=== PATIENT | male | born 1960 | race African-American/Black ===

== ENCOUNTER 2020-02-13 22:29 | Inpatient (IN) | payer MEDICARE, MEDICAID ==
[~2020-02-13] VITALS: Ht 177.8 cm; Wt 97.3 kg
--- NOTE | 2020-02-13 22:40 | Emergency Room Report ---
History of Present Illness General Chief Complaint: Upper Respiratory Illness Source: Medical Record, EMS Present Illness HPI This is a 60-year-old male, [facility] patient, with multiple medical problems including CVA, A. fib, CAD, hypertension. He tested positive for COVID on February 08, 2020. He has been in isolation at the [facility]. He presents today with fever and shortness of breath. Per EMS, he had a temperature of 102 and has oxygenation at 83% on room air. History is limited this patient because of his condition. History is through [facility] note and EMS. He has been having a cough and fever. No nausea no vomiting. No diarrhea. 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 COVID-19 Screening: Positive COVID-19 COVID-19 Testing Source: NASOPHARYNGEAL Patient History Past Medical History: see triage record, old chart reviewed Past Surgical History: other Pertinent Family History: none Social History: Denies: smoking Immunizations: UTD Reviewed Nursing Documentation: PMH: Agreed; PSxH: Agreed Nursing Documentation-PMH Hx Cardiac Problems: Yes - CARDIOMEGALY; HLD; PAROXYSMAL AFIB Hx Pacemaker: Yes Hx COPD: No - PULM HTN Hx Dialysis: No - CKD History Of Psychiatric Problem: Yes - ANA PAULA; MDD; SCHICO AFFECTIVE Hx Neurological Problems: Yes - APHASIA Hx Cerebrovascular Accident: Yes Review of Systems Constitutional: Reports: fever Eye: Denies: eye pain, blurred vision ENT: Denies: ear pain, nose congestion, throat swelling Respiratory: Reports: cough, shortness of breath Cardiovascular: Denies: chest pain, palpitations Gastrointestinal: Denies: abdominal pain, diarrhea, nausea, vomiting Musculoskeletal: Denies: back pain, joint pain Skin: Denies: rash Neurological: Denies: headache, numbness Endocrine: Denies: increased thirst, increased urine Hematologic/Lymphatic: Denies: easy bruising All Other Systems: negative except mentioned in HPI Physical Exam Vital Signs Date Time Temp Pulse Resp B/P (MAP) Pulse Ox O2 Delivery O2 Flow Rate FiO2 02/13/20 22:21 99.5 73 26 141/82 (101) 95 Non-Rebreather 15.0 Vitals with fever and hypoxia Sp02 EP Interpretation: reviewed, abnormal General Appearance: well appearing, no apparent distress, alert Head: normocephalic, atraumatic Eyes: bilateral eye PERRL, bilateral eye EOMI ENT: hearing grossly normal, normal pharynx Neck: full range of motion, supple, no meningismus Respiratory: chest non-tender, respiratory distress, decreased breath sounds, accessory muscle use, crackles Cardiovascular #1: regular rate, rhythm, no murmur Gastrointestinal: normal bowel sounds, non tender, no mass, no organomegaly, no bruit, non-distended Musculoskeletal: back normal, normal range of motion Psychiatric: mood/affect normal Skin: no rash Procedures Critical Care Time Critical Care Time Critical care is mandated in this patient who presented with sepsis from covid pneumonia. Patient require my urgent intervention to attenuate the risks of () which may lead to cardiovascular collapse and . Critical care time is 35 minutes excluding any reportable procedure. Critical care time included evaluation, multiple reevaluation, looking at old charts, interpreting laboratory and diagnostic data, discussing case with patient and family and consultants, and charting. Medical Decision Making Diagnostic Impression: Primary Impression: Pneumonia due to COVID-19 virus Additional Impressions: Respiratory failure with hypoxia Qualified Codes: J96.01 - Acute respiratory failure with hypoxia Sepsis Qualified Codes: A41.9 - Sepsis, unspecified organism; R65.20 - Severe sepsis without septic shock; J96.01 - Acute respiratory failure with hypoxia SHANNAN (acute kidney injury) ER Course This patient presents with respiratory failure with hypoxia secondary to cold with pneumonia. Oxygenation better after oxygen. Antibiotics started on patient. He also received Lovenox and Decadron. Prognosis poor with his comorbidities and obesity. Patient will be admitted to the hospital for further work-up. I contacted Dr. Lee for admission. EKG Diagnostic Results Rate: tachycardiac Rhythm: other - LBBB Rhythm Strip Diag. Results EP Interpretation: yes Rate: 100 Rhythm: NSR, no PVC's, no ectopy Chest X-Ray Diagnostic Results Chest X-Ray Diagnostic Results : Chest X-Ray Ordered: Yes # of Views/Limited/Complete: 1 View Indication: Shortness of Breath EP Interpretation: Yes Interpretation: no effusion, no pneumothorax, other - Bilateral infiltrates Impression: Other - b/l infiltrates Electronically Signed by: Kenny Ceja MD Last Vital Signs Date Time Temp Pulse Resp B/P (MAP) Pulse Ox O2 Delivery O2 Flow Rate FiO2 02/13/20 22:21 99.5 73 26 141/82 (101) 95 Non-Rebreather 15.0 Status: improved Disposition: ADMITTED INPATIENT Condition: Serious Kenny Ceja MD Feb 13, 2020 22:40
[2020-02-13] MEDS ORDERED: Enoxaparin 100mg Inj SUBQ ONE (22:45)
[2020-02-13] MEDS ORDERED: Azithromycin 500 MG in NS 275 ML IVPB ONE (22:45)
[2020-02-13] MEDS ORDERED: dexAMETHasone 10mg/ml Inj IV ONE (22:45)
[2020-02-13] MEDS ORDERED: cefTRIAXone 1 GM in NS 55 ML IV ONE (22:45)
[2020-02-13] MEDS ORDERED: Acetaminophen 500mg (ES) tab ORAL ONE (22:45)
[2020-02-13 23:00] VITALS: BP 128/87
[2020-02-13 23:24] LABS: APPEARANCE,URINE CLEAR; BILIRUBIN, URINE NEGATIVE (NEGATIVE); GLUCOSE, URINE (UA) NEGATIVE (NEGATIVE); KETONES,URINE NEGATIVE (NEGATIVE); LEUKOCYTE ESTERASE ,URINE 1+ (NEGATIVE); NITRITE,URINE NEGATIVE (NEGATIVE); PH,URINE 5 (4.5-8.0); PROTEIN,URINE 2+ (NEGATIVE); UROBILINOGEN,URINE 4 MG/DL (0.0-1.0)
[2020-02-13 23:35] LABS: COLOR,URINE YELLOW
[2020-02-13 23:37] LABS: BASOPHILS % (AUTO) 1.8 % (0.0-2.0); EOSINOPHILS % (AUTO) 0.2 % (0.0-3.0); HEMATOCRIT 43.4 % (42.0-52.0); HEMOGLOBIN 14.4 G/DL (14.2-18.0); LYMPHOCYTES % (AUTO) 18.5 % (20.0-45.0); MEAN CORPUSCULAR VOLUME 98 FL (80-99); MONOCYTES % (AUTO) 2.2 % (1.0-10.0); NEUTROPHILS % (AUTO) 77.3 % (45.0-75.0); PLATELET COUNT 145 K/UL (150-450); RED BLOOD COUNT 4.42 M/UL (4.70-6.10); RED CELL DISTRIBUTION WIDTH 13.5 % (11.6-14.8); WHITE BLOOD COUNT 7.1 K/UL (4.8-10.8)
[2020-02-13] MEDS ORDERED: Acetaminophen 650 MG SUPP ORAL PRN (23:45)
[2020-02-13 23:52] LABS: ALANINE AMINOTRANSFERASE 31 U/L (12-78); ALBUMIN 3.3 G/DL (3.4-5.0); ALBUMIN/GLOBULIN RATIO 0.6 (1.0-2.7); ALKALINE PHOSPHATASE 54 U/L (46-116); ASPARTATE AMINO TRANSFERASE 36 U/L (15-37); BILIRUBIN,TOTAL 0.4 MG/DL (0.2-1.0); BLOOD UREA NITROGEN 26 mg/dL (7-18); CARBON DIOXIDE 27 MMOL/L (21-32); CHLORIDE 104 MMOL/L (98-107); CREATININE 2.1 MG/DL (0.55-1.30); FERRITIN 814 NG/ML (8-388); LACTATE DEHYDROGENASE 347 U/L (81-234); POTASSIUM 4.4 MMOL/L (3.5-5.1); SODIUM 143 MMOL/L (136-145)
--- NOTE | 2020-02-13 23:55 | Emergency Room Report ---
Sepsis Event Note Evaluation Current Stage of Sepsis: Sepsis Possible Source: Pulmonary Focused Exam Allergies: Coded Allergies: DONNIE INHIBITORS (Verified Allergy, Unknown, 02/13/20) OMEGA-3 ACID ETHYL ESTERS (Verified Allergy, Unknown, 02/13/20) Date Exam Occurred: Feb 13, 2020 Time Exam Occurred: 23:55 Laboratory Studies Laboratory Tests Test 02/13/20 23:00 White Blood Count 7.1 K/UL (4.8-10.8) Red Blood Count 4.42 M/UL (4.70-6.10) L Hemoglobin 14.4 G/DL (14.2-18.0) Hematocrit 43.4 % (42.0-52.0) Mean Corpuscular Volume 98 FL (80-99) Mean Corpuscular Hemoglobin 32.7 PG (27.0-31.0) H Mean Corpuscular Hemoglobin Concent 33.3 G/DL (32.0-36.0) Red Cell Distribution Width 13.5 % (11.6-14.8) Platelet Count 145 K/UL (150-450) L Mean Platelet Volume 11.0 FL (6.5-10.1) H Neutrophils (%) (Auto) 77.3 % (45.0-75.0) H Lymphocytes (%) (Auto) 18.5 % (20.0-45.0) L Monocytes (%) (Auto) 2.2 % (1.0-10.0) Eosinophils (%) (Auto) 0.2 % (0.0-3.0) Basophils (%) (Auto) 1.8 % (0.0-2.0) Prothrombin Time Pending Prothromb Time International Ratio Pending Activated Partial Thromboplast Time Pending D-Dimer Pending Urine Color Yellow Urine Appearance Clear Urine pH 5 (4.5-8.0) Urine Specific [place] 1.020 (1.005-1.035) Urine Protein 2+ (NEGATIVE) H Urine Glucose (UA) Negative (NEGATIVE) Urine Ketones Negative (NEGATIVE) Urine Blood Negative (NEGATIVE) Urine Nitrite Negative (NEGATIVE) Urine Bilirubin Negative (NEGATIVE) Urine Urobilinogen 4 MG/DL (0.0-1.0) H Urine Leukocyte Esterase 1+ (NEGATIVE) H Urine RBC 0-2 /HPF (0 - 0) H Urine WBC 0-2 /HPF (0 - 0) Urine Squamous Epithelial Cells None /LPF (NONE/OCC) Urine Bacteria None /HPF (NONE) Sodium Level 143 MMOL/L (136-145) Potassium Level 4.4 MMOL/L (3.5-5.1) Chloride Level 104 MMOL/L (98-107) Carbon Dioxide Level 27 MMOL/L (21-32) Blood Urea Nitrogen 26 mg/dL (7-18) H Creatinine 2.1 MG/DL (0.55-1.30) H Estimat Glomerular Filtration Rate 39.1 mL/min (>60) Glucose Level 148 MG/DL (74-106) H Lactic Acid Level 3.20 mmol/L (0.4-2.0) H Calcium Level 9.0 MG/DL (8.5-10.1) Ferritin 814 NG/ML (8-388) H Total Bilirubin 0.4 MG/DL (0.2-1.0) Aspartate Amino Transf (AST/SGOT) 36 U/L (15-37) Alanine Aminotransferase (ALT/SGPT) 31 U/L (12-78) Alkaline Phosphatase 54 U/L (46-116) Lactate Dehydrogenase 347 U/L (81-234) H Troponin I 0.085 ng/mL (0.000-0.056) C-Reactive Protein, Quantitative 17.6 mg/dL (0.00-0.90) H Total Protein 8.6 G/DL (6.4-8.2) H Albumin 3.3 G/DL (3.4-5.0) L Globulin 5.3 g/dL Albumin/Globulin Ratio 0.6 (1.0-2.7) L Vital Signs Last 24 Hour Vital Signs Date Time Temp Pulse Resp B/P (MAP) Pulse Ox O2 Delivery O2 Flow Rate FiO2 02/13/20 22:21 99.5 73 26 141/82 (101) 95 Non-Rebreather 15.0 Respiratory Exam: Rhonchi Cardiovascular Exam: RRR Capillary Refill: Less Than 2 Seconds Peripheral Pulse: Strong Pulse Location: Radial Skin Exam: Normal [place] Kenny Ceja MD Feb 13, 2020 23:55
[2020-02-14] MEDS ORDERED: Acetaminophen 500mg (ES) tab ORAL PRN (00:30)
[2020-02-14 01:40] VITALS: BP 123/74
[2020-02-14] MEDS ORDERED: AMIODARONE HCL400 M1 ORAL (02:23)
[2020-02-14] MEDS ORDERED: ASPIRIN81 MG ORAL (02:37)
[2020-02-14] MEDS ORDERED: COZAAR50 MG ORAL (02:37)
[2020-02-14] MEDS ORDERED: FUROSEMIDE20 M1 ORAL (02:37)
[2020-02-14] MEDS ORDERED: MULTIVITAMINS1 EAC8 ORAL (02:37)
[2020-02-14] MEDS ORDERED: ZYPREXA10 MG ORAL (02:37)
[2020-02-14] MEDS ORDERED: METOPROLOL TART25 MG ORAL (02:37)
[2020-02-14] MEDS ORDERED: LIPITOR40 MG ORAL (02:37)
[2020-02-14] MEDS ORDERED: OMEPRAZOLE20 M2 ORAL (02:47)
[2020-02-14] MEDS ORDERED: ZINC SULFATE220 M1 ORAL (02:47)
[2020-02-14] MEDS ORDERED: VITAMIN C500 M1 ORAL (02:47)
[2020-02-14] MEDS ORDERED: SENNA8.6 M2 PO (02:47)
[2020-02-14 04:00] VITALS: BP 121/86
[2020-02-14 08:00] VITALS: BP 123/80
[2020-02-14] MEDS ORDERED: Azithromycin 250 MG in D5W 275 ML IVPB SCH (09:00)
[2020-02-14] MEDS ORDERED: cefTRIAXone 1 GM in D5W 55 ML IVPB SCH (09:00)
[2020-02-14 09:34] LABS: CREATINE KINASE 383 U/L (26-308)
[2020-02-14] MEDS ORDERED: Miralax 17gm pkt ORAL PRN (10:00)
[2020-02-14] MEDS ORDERED: Tylenol #3 tab (300mg/30mg) ORAL SCH (10:00)
[2020-02-14] MEDS ORDERED: Promethazine/Codeine 5ml UD ORAL PRN (10:00)
[2020-02-14] MEDS ORDERED: Albuterol/Ipratropium 3ml neb HHN PRN (10:00)
[2020-02-14] MEDS: Heparin 5000 units/ml inj SUBQ SCH ×2 (10:17→21:02)
--- NOTE | 2020-02-14 11:00 | Consultation ---
Consult Note Consult Note I am asked to evaluate the patient at the request of Dr. Lee for renal failure Data reviewed. Patient seen and examined. Full note to follow. Preliminary labs ordered. This is a 60-year-old male, [facility] patient, with multiple medical problems including CVA, A. fib, CAD, hypertension. He tested positive for COVID on February 08, 2020. [facility] has been in [facility] at the [facility]. He presents today with fever and shortness of breath. Per EMS, he had a temperature of 102 and has oxygenation at 83% on room air. History is limited this patient because of his condition. History is through [facility] note and EMS. He has been having a cough and fever. No nausea no vomiting. No diarrhea. 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 The patient was examined by other physicians, which notes I reviewed. VITAL SIGNS: Temperature 99.5, respiration of 26, pulse rate of 73. GENERAL: Young to be a well-nourished gentleman, no distress. NECK: Supple. No adenopathy. LUNGS: Appeared to be clear to auscultation bilaterally without wheezes or rales. CARDIAC: Regular rate and rhythm. ABDOMEN: Soft, nontender. Bowel sounds were present and extremity was negative for clubbing, cyanosis, or edema according to Dr. Carrera's notation. LABORATORY AND DIAGNOSTIC DATA: White count of 10.3, hemoglobin 13.2, and platelet count of 142. Sodium is 141, potassium 4.1, chloride 106, bicarb 22, BUN 22, creatinine 1.7, and a glucose of 185. A1c of 6.8. Lactic acid of 3.2, subsequent 2.2. Calcium was 7.6, magnesium 1.9, and liver function tests are relatively normal, although AST was mildly elevated at 93 and ALT of 71. Total CK of 383. He did have 1 set of cardiac enzymes that were drawn at 0.085. This goes back to last evening and a proBNP of 6100. Albumin was down to 2.7 and total cholesterol was 93 and LDL of 46 and HDL of 27. Vitamin B12 was 788. TSH is 0.46 and folic acid is 10.3. The patient's telemetry data was reviewed and appears to be sinus with the IVCD. The patient's electrocardiogram was also sinus with the IVCD, cannot exclude that this was actually a paced rhythm. Chest x-ray shows cardiomegaly with vascular congestion and moderate edema. SARS-CoV-2 PCR rapid was positive. . Assessment/Plan Impression: Acute on chronic renal failure Respiratory failure with hypoxia Pneumonia due to COVID-19 virus Sepsis Diabetes mellitus with elevated hemoglobin A1c Anemia History of permanent pacemaker, paroxysmal atrial fibrillation Previous CVA History of pulmonary hypertension Systemic hypertension Plan: Slow hydration Monitor electrolytes and renal parameters Monitor urine output Correct abnormal electrolytes Antibiotics, avoid nephrotoxic's Anemia work-up Per orders Ashvin Bautista MD Feb 14, 2020 11:00
--- NOTE | 2020-02-14 11:23 | Diagnostic Imaging Report ---
Procedure: XRAY Chest 1v Reason for study: Reason For Exam: SOB Comparison films: None. FINDINGS: There is an ICD in place. Basilar congestion and moderate edema noted. There is massive cardiomegaly. No large effusion seen. The bony thorax appear unremarkable. IMPRESSION: Cardiomegaly with vascular congestion and moderate edema.
[2020-02-14 12:00] VITALS: BP 127/82
--- NOTE | 2020-02-14 12:23 | History & Physical ---
History and Physical History & Physicial Dictated for Int Med-DR Lee no. [id number] Edmund Carrera MD Feb 14, 2020 12:23
[2020-02-14 12:55] LABS: HEMATOCRIT 41.7 % (42.0-52.0); HEMOGLOBIN 13.2 G/DL (14.2-18.0); MEAN CORPUSCULAR VOLUME 103 FL (80-99); PLATELET COUNT 142 K/UL (150-450); RED BLOOD COUNT 4.06 M/UL (4.70-6.10); RED CELL DISTRIBUTION WIDTH 13.6 % (11.6-14.8); WHITE BLOOD COUNT 10.3 K/UL (4.8-10.8)
[2020-02-14 13:02] LABS: ANION GAP 13 mmol/L (5-15); BLOOD UREA NITROGEN 22 mg/dL (7-18); CALCIUM 7.6 MG/DL (8.5-10.1); CARBON DIOXIDE 22 MMOL/L (21-32); CHLORIDE 106 MMOL/L (98-107); CREATININE 1.7 MG/DL (0.55-1.30); POTASSIUM 4.1 MMOL/L (3.5-5.1); SODIUM 141 MMOL/L (136-145)
[2020-02-14 13:14] LABS: ALANINE AMINOTRANSFERASE 71 U/L (12-78); ALBUMIN 2.7 G/DL (3.4-5.0); ALBUMIN/GLOBULIN RATIO 0.6 (1.0-2.7); ALKALINE PHOSPHATASE 46 U/L (46-116); ASPARTATE AMINO TRANSFERASE 93 U/L (15-37); BILIRUBIN,TOTAL 0.3 MG/DL (0.2-1.0); CHOLESTEROL 93 MG/DL (< 200); GAMMA GLUTAMYL TRANSPEPTIDASE 37 U/L (5-85); HDL CHOLESTEROL 27 MG/DL (40-60); PHOSPHORUS 2.3 MG/DL (2.5-4.9); TRIGLYCERIDES 112 MG/DL (30-150)
[2020-02-14 13:39] LABS: % IRON SATURATION 14 % (15-50); IRON 20 ug/dL (50-175); TOTAL IRON BINDING CAPACITY 148 ug/dL (250-450)
--- NOTE | 2020-02-14 15:17 | Consultation ---
History of Present Illness General Date patient seen: Feb 14, 2020 Chief Complaint: Upper Respiratory Illness Present Illness HPI 60 y/o M with hx of CVA w/ resultant aphasia, Afib, HLD, general anxiety disorder, schizoaffective disorder-depressive type, cardiomegaly, pAfib, pHTN, CKD, CAD, HTN, COVID19 positive (dx'ed 02/08/20), [place] presented to ED on 02/13/20 with fever (up to 102), SOB, cough and hypoxia (83 at RA). No n/v/d. Allergies: Coded Allergies: DONNIE INHIBITORS (Verified Allergy, Unknown, 02/13/20) OMEGA-3 ACID ETHYL ESTERS (Verified Allergy, Unknown, 02/13/20) Medication History Scheduled Acetaminophen (Acetaminophen), 650 MG [place] Q4HR, (Reported) Amiodarone Hcl* (Amiodarone Hcl*), 200 MG ORAL DAILY, (Reported) Ascorbic Acid* (Vitamin C*), 1,000 MG ORAL DAILY, (Reported) Aspirin* (Aspirin*), 81 MG ORAL DAILY, (Reported) Atorvastatin Calcium* (Lipitor*), 40 MG ORAL BEDTIME, (Reported) Azithromycin (Azithromycin), 500 MG ORAL DAILY, (Reported) Ceftriaxone Sodium (Ceftriaxone), 1 GM IV BEDTIME, (Reported) Furosemide* (Lasix*), 20 MG ORAL DAILY, (Reported) Guaifenesin* (Guaifenesin*), 15 ML ORAL TID, (Reported) Losartan Potassium* (Cozaar*), 50 MG ORAL TWICE A DAY, (Reported) Metoprolol Tartrate* (Metoprolol Tartrate*), 25 MG ORAL EVERY 12 HOURS, (Reported) Multivitamin With Minerals (Multivitamins With Minerals*), 1 TAB ORAL DAILY, (Reported) Olanzapine* (Zyprexa*), 10 MG ORAL EVERY 12 HOURS, (Reported) Omeprazole (Omeprazole), 20 MG ORAL DAILY, (Reported) Potassium Chloride (Potassium Chloride), 10 MEQ PO DAILY, (Reported) Prednisone* (Prednisone*), 10 MG ORAL DAILY, (Reported) Quetiapine Fumarate* (Seroquel*), 100 MG ORAL BID, (Reported) Sennosides (Senna), 8.6 MG PO BEDTIME, (Reported) Venlafaxine Hcl* (Venlafaxine Hcl*), 75 MG ORAL BID, (Reported) Zinc Sulfate (Zinc Sulfate*), 220 MG ORAL DAILY, (Reported) Scheduled PRN Acetaminophen* (Acetaminophen 325MG Tablet*), 325 MG ORAL Q4H PRN for FEVER, (Reported) Melatonin (Melatonin), 1 MG SL BEDTIME PRN for Insomnia, (Reported) Patient History Healthcare decision maker Resuscitation status Advanced Directive on File Patient History Narrative Pmhx: as above Shx: reviewed Fhx: non contributory Review of Systems All Other Systems: negative except mentioned in HPI Physical Exam Physical Exam Narrative Gen: no distress Respiratory Exam: Rhonchi Cardiovascular Exam: RRR Skin Exam: Normal Turgor Last 24 Hour Vital Signs Date Time Temp Pulse Resp B/P (MAP) Pulse Ox O2 Delivery O2 Flow Rate FiO2 02/14/20 12:00 82 02/14/20 12:00 97.8 84 20 127/82 (97) 95 02/14/20 09:00 Nasal Cannula 4.0 02/14/20 08:00 87 02/14/20 08:00 98.1 87 20 123/80 (94) 94 02/14/20 04:00 97.7 94 22 121/86 (98) 94 02/14/20 04:00 88 02/14/20 01:40 98.2 100 22 123/74 (90) 95 02/14/20 01:34 100 02/14/20 01:28 Nasal Cannula 4.0 02/13/20 23:00 98.0 101 18 128/87 97 Nasal Cannula 4.0 02/13/20 23:00 101 18 Nasal Cannula 4.0 02/13/20 23:00 98.0 101 18 128/87 97 Nasal Cannula 4.0 02/13/20 22:21 99.5 73 26 141/82 (101) 95 Non-Rebreather 15.0 Intake and Output 02/13/20 02/14/20 19:00 07:00 Intake Total 150 ml Balance 150 ml Intake Oral 150 ml # Voids 1 # Bowel Movements 2 Laboratory Tests Test 02/13/20 23:00 02/14/20 00:00 02/14/20 12:00 White Blood Count 7.1 K/UL (4.8-10.8) 10.3 K/UL (4.8-10.8) Red Blood Count 4.42 M/UL (4.70-6.10) L 4.06 M/UL (4.70-6.10) L Hemoglobin 14.4 G/DL (14.2-18.0) 13.2 G/DL (14.2-18.0) L Hematocrit 43.4 % (42.0-52.0) 41.7 % (42.0-52.0) L Mean Corpuscular Volume 98 FL (80-99) 103 FL (80-99) H Mean Corpuscular Hemoglobin 32.7 PG (27.0-31.0) H 32.6 PG (27.0-31.0) H Mean Corpuscular Hemoglobin Concent 33.3 G/DL (32.0-36.0) 31.7 G/DL (32.0-36.0) L Red Cell Distribution Width 13.5 % (11.6-14.8) 13.6 % (11.6-14.8) Platelet Count 145 K/UL (150-450) L 142 K/UL (150-450) L Mean Platelet Volume 11.0 FL (6.5-10.1) H 9.5 FL (6.5-10.1) Neutrophils (%) (Auto) 77.3 % (45.0-75.0) H % (45.0-75.0) Lymphocytes (%) (Auto) 18.5 % (20.0-45.0) L % (20.0-45.0) Monocytes (%) (Auto) 2.2 % (1.0-10.0) % (1.0-10.0) Eosinophils (%) (Auto) 0.2 % (0.0-3.0) % (0.0-3.0) Basophils (%) (Auto) 1.8 % (0.0-2.0) % (0.0-2.0) Prothrombin Time 10.8 SEC (9.30-11.50) Prothromb Time International Ratio 1.0 (0.9-1.1) Activated Partial Thromboplast Time 29 SEC (23-33) D-Dimer 14.52 mg/L FEU (0.00-0.49) H Urine Color Yellow Urine Appearance Clear Urine pH 5 (4.5-8.0) Urine Specific [place] 1.020 (1.005-1.035) Urine Protein 2+ (NEGATIVE) H Urine Glucose (UA) Negative (NEGATIVE) Urine Ketones Negative (NEGATIVE) Urine Blood Negative (NEGATIVE) Urine Nitrite Negative (NEGATIVE) Urine Bilirubin Negative (NEGATIVE) Urine Urobilinogen 4 MG/DL (0.0-1.0) H Urine Leukocyte Esterase 1+ (NEGATIVE) H Urine RBC 0-2 /HPF (0 - 0) H Urine WBC 0-2 /HPF (0 - 0) Urine Squamous Epithelial Cells None /LPF (NONE/OCC) Urine Bacteria None /HPF (NONE) Sodium Level 143 MMOL/L (136-145) 141 MMOL/L (136-145) Potassium Level 4.4 MMOL/L (3.5-5.1) 4.1 MMOL/L (3.5-5.1) Chloride Level 104 MMOL/L (98-107) 106 MMOL/L (98-107) Carbon Dioxide Level 27 MMOL/L (21-32) 22 MMOL/L (21-32) Blood Urea Nitrogen 26 mg/dL (7-18) H 22 mg/dL (7-18) H Creatinine 2.1 MG/DL (0.55-1.30) H 1.7 MG/DL (0.55-1.30) H Estimat Glomerular Filtration Rate 39.1 mL/min (>60) 49.9 mL/min (>60) Glucose Level 148 MG/DL (74-106) H 185 MG/DL (74-106) H Lactic Acid Level 3.20 mmol/L (0.4-2.0) H 2.20 mmol/L (0.66-2.22) Calcium Level 9.0 MG/DL (8.5-10.1) 7.6 MG/DL (8.5-10.1) L Ferritin 814 NG/ML (8-388) H Total Bilirubin 0.4 MG/DL (0.2-1.0) 0.3 MG/DL (0.2-1.0) Aspartate Amino Transf (AST/SGOT) 36 U/L (15-37) 93 U/L (15-37) H Alanine Aminotransferase (ALT/SGPT) 31 U/L (12-78) 71 U/L (12-78) Alkaline Phosphatase 54 U/L (46-116) 46 U/L (46-116) Lactate Dehydrogenase 347 U/L (81-234) H Troponin I 0.085 ng/mL (0.000-0.056) C-Reactive Protein, Quantitative 17.6 mg/dL (0.00-0.90) H 20.2 mg/dL (0.00-0.90) H Total Protein 8.6 G/DL (6.4-8.2) H 7.5 G/DL (6.4-8.2) Albumin 3.3 G/DL (3.4-5.0) L 2.7 G/DL (3.4-5.0) L Globulin 5.3 g/dL 4.8 g/dL Albumin/Globulin Ratio 0.6 (1.0-2.7) L 0.6 (1.0-2.7) L Uric Acid 6.5 MG/DL (2.6-7.2) 5.7 MG/DL (2.6-7.2) Total Creatine Kinase 383 U/L (26-308) H Differential Total Cells Counted 100 Neutrophils % (Manual) 91 % (45-75) H Lymphocytes % (Manual) 5 % (20-45) L Monocytes % (Manual) 3 % (1-10) Eosinophils % (Manual) 0 % (0-3) Basophils % (Manual) 0 % (0-2) Band Neutrophils 1 % (0-8) Platelet Estimate Decreased L Platelet Morphology Normal Anisocytosis 1+ Macrocytosis 1+ Anion Gap 13 mmol/L (5-15) Hemoglobin A1c 6.8 % (4.3-6.0) H Phosphorus Level 2.3 MG/DL (2.5-4.9) L Magnesium Level 1.9 MG/DL (1.8-2.4) Iron Level 20 ug/dL (50-175) L Total Iron Binding Capacity 148 ug/dL (250-450) L Percent Iron Saturation 14 % (15-50) L Unsaturated Iron Binding 128 ug/dL (112-346) Gamma Glutamyl Transpeptidase 37 U/L (5-85) Pro-B-Type Natriuretic Peptide 6140 pg/mL (0-125) H Triglycerides Level 112 MG/DL (30-150) Cholesterol Level 93 MG/DL (< 200) LDL Cholesterol 46 mg/dL (<100) HDL Cholesterol 27 MG/DL (40-60) L Cholesterol/HDL Ratio 3.4 (3.3-4.4) Vitamin B12 Level 788 PG/ML (193-986) Folate 10.3 NG/ML (8.6-58.9) Thyroid Stimulating Hormone (TSH) 0.746 uiU/mL (0.358-3.740) Height (Feet): 5 Height (Inches): 10.00 Weight (Pounds): 231 Medications Current Medications Medications (Trade) Dose Ordered Sig/Reji Route PRN Reason Start Time Stop Time Status Last Admin Dose Admin Acetaminophen (Tylenol) 500 mg Q4H PRN ORAL Mild Pain (Pain Scale 1-3) 02/14/20 00:30 03/15/20 00:29 Acetaminophen (Tylenol) 650 mg Q4H PRN ORAL FEVER 02/14/20 10:00 03/15/20 09:59 Albuterol/ Ipratropium (Albuterol/ Ipratropium) 3 ml Q4H PRN HHN Shortness of Breath 02/14/20 10:00 02/19/20 09:59 Azithromycin 250 mg/Dextrose 275 ml @ 275 mls/hr Q24HRS IV 02/14/20 23:00 02/19/20 22:59 Ceftriaxone Sodium 1 gm/ Dextrose 55 ml @ 110 mls/hr Q24H IVPB 02/14/20 23:00 02/21/20 22:59 Dexamethasone (Decadron) 4 mg DAILY ORAL 02/14/20 09:00 02/24/20 08:59 02/14/20 10:12 Dextrose (Dextrose 50%) 25 ml Q30M PRN IV Hypoglycemia 02/14/20 10:00 05/14/20 09:59 Dextrose (Dextrose 50%) 50 ml Q30M PRN IV Hypoglycemia 02/14/20 10:00 05/14/20 09:59 Heparin Sodium (Porcine) (Heparin 5000 units/ml) 5,000 units EVERY 12 HOURS SUBQ 02/14/20 10:00 03/30/20 09:59 02/14/20 10:17 Ondansetron HCl (Zofran) 4 mg Q6H PRN IVP Nausea & Vomiting 02/14/20 10:00 03/15/20 09:59 Pantoprazole (Protonix) 40 mg EVERY 12 HOURS IVP 02/14/20 21:00 03/15/20 20:59 Polyethylene Glycol (Miralax) 17 gm DAILYPRN PRN ORAL Constipation 02/14/20 10:00 03/15/20 09:59 Promethazine HCl/ Codeine (Phenergan with Codeine) 5 ml Q6H PRN ORAL cough 02/14/20 10:00 03/15/20 09:59 Sodium Chloride 1,000 ml @ 75 mls/hr [id number] IV 02/14/20 12:00 03/15/20 11:59 02/14/20 12:00 Assessment/Plan Assessment/Plan: Abx: Ceftriaxone 02/12- Azithromycin 02/12- Assessment: COVID19 positive (dx'ed 02/08/20)- likely PNA Acute hypoxic resp failure- sp NRB> 4l NC -02/12 CXR: Cardiomegaly with vascular congestion and moderate edema. 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 Will continue to follow along with you. Discussed with Heather Castro M.D. Feb 14, 2020 15:17
[2020-02-14] MEDS ORDERED: TYLENOL650 MG PR (15:41)
[2020-02-14] MEDS ORDERED: ACETAMINOPHEN325 M1 ORAL (15:44)
[2020-02-14] MEDS ORDERED: GUAIFENESI100 MG/5 M ORAL (15:48)
[2020-02-14] MEDS ORDERED: MELATONIN1 M1 SL (15:51)
[2020-02-14] MEDS ORDERED: POTASSIUM CHLO10 ME2 PO (15:54)
[2020-02-14] MEDS ORDERED: PREDNISONE10 MG ORAL (15:58)
--- NOTE | 2020-02-14 15:59 | History and Physical Report ---
DATE OF ADMISSION: 02/13/2020 CHIEF COMPLAINT: The patient is a 60-year-old male who presents with a chief complaint of fever and shortness of breath. HISTORY OF PRESENT ILLNESS: The patient is a resident of [facility]. The patient apparently tested positive for COVID-19 on February 08, 2020 at [facility]. [facility] at the [facility]. According to staff at [facility], the patient began to experience fevers of up to 102 degrees Fahrenheit on February 13, 2020. The patient was also noted to have hypoxia with oxygen saturation down to 83% on room air. The patient was transferred to [facility] for evaluation. The patient was admitted for fever and shortness of breath to rule out COVID-19 pneumonia. REVIEW OF SYSTEMS: Unable to assess secondary to the patient's mental status. PAST MEDICAL HISTORY: Significant for. 1. Hypertension. 2. COVID-19 positive, diagnosed on February 08, 2020 as above. 3. Cerebrovascular disease status post cerebrovascular accident. 4. Aphasia. 5. Hemiparesis. 6. Coronary artery disease. 7. Hypercholesterolemia. 8. Cardiomyopathy. 9. Paroxysmal atrial fibrillation. 10. Schizoaffective disorder, bipolar type. 11. Chronic kidney disease. PAST SURGICAL HISTORY: Significant for pacemaker implantation. CURRENT MEDICATIONS: 1. Tylenol 650 mg p.o. q.4 hours p.r.n. 2. Aspirin 81 mg p.o. daily. 3. Cozaar 50 mg p.o. daily. 4. Furosemide 20 mg p.o. daily. 5. Lipitor 40 mg p.o. at bedtime. 6. Metoprolol 25 mg p.o. twice daily. 7. Multivitamin p.o. daily. 8. Olanzapine 10 mg p.o. twice daily. 9. Omeprazole 20 mg p.o. daily. 10. Potassium 10 mEq p.o. daily. 11. Prednisone 20 mg p.o. daily. 12. Seroquel 100 mg p.o. twice daily. 13. Venlafaxine 75 mg p.o. twice daily. 14. Zinc mg p.o. daily. ALLERGIES: 1. DONNIE inhibitor. 2. [place]-3 acid. SOCIAL HISTORY: The patient is and is a resident of [facility]. The patient denies tobacco or alcohol use. PHYSICAL EXAMINATION: VITAL SIGNS: Temperature 99.5, respirations 26, pulse 73, blood pressure , oxygen saturation 95% on 100% non-rebreather. GENERAL: The patient is well-developed and well-nourished male, no apparent distress. HEENT: Eyes, pupils are equal and responsive to light and accommodation. Extraocular movements are intact. NECK: Supple without lymphadenopathy. CHEST: Lungs are clear to auscultation bilaterally without wheezes or rales. CARDIOVASCULAR: Regular rhythm and rate. S1 and S2 are normal without murmurs, rubs, or gallops. ABDOMEN: Soft, nontender, and nondistended. Positive bowel sounds. No evidence of hepatosplenomegaly. Currently, no rebound or guarding noted. EXTREMITIES: Negative for clubbing, cyanosis, or edema. RECTAL/GENITAL: Not performed. NEUROLOGIC: Cranial nerves II through XII are grossly intact without focal deficits. Motor strength is 5/5 bilaterally. Deep tendon reflexes are 2+ plantar. LABORATORY AND DIAGNOSTIC DATA: Laboratory studies, WBC 7.1, hemoglobin 14.4, hematocrit 43.4, platelets 145,000. Sodium 143, potassium 4.4, chloride 104, CO2 27, BUN 26, creatinine 2.1, glucose 148. Lactic acid 3.2. Troponin 0.085. Chest x-ray was reported as cardiomegaly with pulmonary vascular congestion consistent with congestive heart failure. ASSESSMENT: This is a 60-year-old male: 1. Shortness of breath. 2. Fever. 3. COVID-19 positive. 4. Hypertension. 5. Cerebrovascular disease, status post cerebrovascular accident. 6. Hemiplegia. 7. Hypercholesterolemia. 8. Coronary artery disease. 9. Cardiomyopathy. 10. Paroxysmal atrial fibrillation. 11. Schizoaffective disorder, bipolar type. 12. Chronic kidney disease. TREATMENT: 1. Hypoxia/shortness of breath. A Pulmonary consultation has been obtained with Dr. Lyle Joy. Repeat COVID-19 testing is pending. The patient has been started empirically on ceftriaxone and azithromycin for presumed pneumonia. 2. Hypertension. The patient is currently hypotensive. Hold antihypertensive medication as above. 3. Cerebrovascular disease. 4. Hemiplegia. 5. Coronary artery disease. A Cardiology consultation has been obtained with Dr. Kayden Aguilar. 6. Hypercholesterolemia. Continue atorvastatin as above. 7. Cardiomyopathy. 8. Paroxysmal atrial fibrillation. 9. Schizoaffective disorder, bipolar type. 10. Chronic kidney disease. 11. Pacemaker in situ. Edmund Carrera M.D. DR: Solis JOB#: [id number] CC:
[2020-02-14 16:00] VITALS: BP 144/78
[2020-02-14] MEDS ORDERED: Remdesivir Fact Sheet MISC SCH (16:00)
[2020-02-14] MEDS ORDERED: QUETIAPINE FUM100 MG ORAL (16:00)
[2020-02-14] MEDS ORDERED: VENLAFAXINE HCL75 MG ORAL (16:02)
[2020-02-14] MEDS ORDERED: CEFTRIAXONE1 G2 IV (16:08)
[2020-02-14] MEDS ORDERED: AZITHROMYCIN500 MG ORAL (16:10)
--- NOTE | 2020-02-14 16:28 | Cardiology Report ---
APPROVED REPORT EKG Measurement Heart [id number] CT 160P39 [id number] <Conclusion> Sinus tachycardia Nonspecific intraventricular block Possible Inferior infarct, age undetermined Possible Anterolateral infarct, age undetermined Abnormal ECG
--- NOTE | 2020-02-14 17:05 | Consultation ---
History of Present Illness General Date patient seen: Feb 14, 2020 Chief Complaint: Upper Respiratory Illness Present Illness HPI 60-year-old male with hx of CVA, A. fib, CAD, hypertension, positive for COVID on February 08, 2020 presented to ER with fever and shortness of breath. Per EMS, he had a temperature of 102 and has oxygenation at 83% on room air. History is limited this patient because of his condition. He has been having a cough and fever. No nausea no vomiting. No diarrhea. Allergies: Coded Allergies: DONNIE INHIBITORS (Verified Allergy, Unknown, 02/13/20) OMEGA-3 ACID ETHYL ESTERS (Verified Allergy, Unknown, 02/13/20) Medication History Scheduled Acetaminophen (Acetaminophen), 650 MG LA Q4HR, (Reported) Amiodarone Hcl* (Amiodarone Hcl*), 200 MG ORAL DAILY, (Reported) Ascorbic Acid* (Vitamin C*), 1,000 MG ORAL DAILY, (Reported) Aspirin* (Aspirin*), 81 MG ORAL DAILY, (Reported) Atorvastatin Calcium* (Lipitor*), 40 MG ORAL BEDTIME, (Reported) Azithromycin (Azithromycin), 500 MG ORAL DAILY, (Reported) Ceftriaxone Sodium (Ceftriaxone), 1 GM IV BEDTIME, (Reported) Furosemide* (Lasix*), 20 MG ORAL DAILY, (Reported) Guaifenesin* (Guaifenesin*), 15 ML ORAL TID, (Reported) Losartan Potassium* (Cozaar*), 50 MG ORAL TWICE A DAY, (Reported) Metoprolol Tartrate* (Metoprolol Tartrate*), 25 MG ORAL EVERY 12 HOURS, (Reported) Multivitamin With Minerals (Multivitamins With Minerals*), 1 TAB ORAL DAILY, (Reported) Olanzapine* (Zyprexa*), 10 MG ORAL EVERY 12 HOURS, (Reported) Omeprazole (Omeprazole), 20 MG ORAL DAILY, (Reported) Potassium Chloride (Potassium Chloride), 10 MEQ PO DAILY, (Reported) Prednisone* (Prednisone*), 10 MG ORAL DAILY, (Reported) Quetiapine Fumarate* (Seroquel*), 100 MG ORAL BID, (Reported) Sennosides (Senna), 8.6 MG PO BEDTIME, (Reported) Venlafaxine Hcl* (Venlafaxine Hcl*), 75 MG ORAL BID, (Reported) Zinc Sulfate (Zinc Sulfate*), 220 MG ORAL DAILY, (Reported) Scheduled PRN Acetaminophen* (Acetaminophen 325MG Tablet*), 325 MG ORAL Q4H PRN for FEVER, (Reported) Melatonin (Melatonin), 1 MG SL BEDTIME PRN for Insomnia, (Reported) Patient History Healthcare decision maker Resuscitation status Advanced Directive on File Past Medical/Surgical History Past Medical/Surgical History: (1) Atrial fibrillation (2) History of CVA (cerebrovascular accident) (3) Psychosis (4) CHF (congestive heart failure) (5) Arrhythmia Physical Exam General Appearance: WD/WN, no apparent distress Lines, tubes and drains: peripheral HEENT: anicteric Neck: non-tender, normal alignment Respiratory/Chest: chest wall non-tender, lungs clear Cardiovascular/Chest: normal peripheral pulses, normal rate Abdomen: normal bowel sounds, non tender Genitourinary/Rectal: normal genital exam Extremities: normal range of motion, non-tender Skin Exam: normal pigmentation Neurologic: elastic tape inserter II-XII grossly normal Last 24 Hour Vital Signs Date Time Temp Pulse Resp B/P (MAP) Pulse Ox O2 Delivery O2 Flow Rate FiO2 02/14/20 12:00 82 02/14/20 12:00 97.8 84 20 127/82 (97) 95 02/14/20 09:00 Nasal Cannula 4.0 02/14/20 08:00 87 02/14/20 08:00 98.1 87 20 123/80 (94) 94 02/14/20 04:00 97.7 94 22 121/86 (98) 94 02/14/20 04:00 88 02/14/20 01:40 98.2 100 22 123/74 (90) 95 02/14/20 01:34 100 02/14/20 01:28 Nasal Cannula 4.0 02/13/20 23:00 98.0 101 18 128/87 97 Nasal Cannula 4.0 02/13/20 23:00 101 18 Nasal Cannula 4.0 02/13/20 23:00 98.0 101 18 128/87 97 Nasal Cannula 4.0 02/13/20 22:21 99.5 73 26 141/82 (101) 95 Non-Rebreather 15.0 Intake and Output 02/13/20 02/14/20 19:00 07:00 Intake Total 150 ml Balance 150 ml Intake Oral 150 ml # Voids 1 # Bowel Movements 2 Laboratory Tests Test 02/13/20 23:00 02/14/20 00:00 02/14/20 12:00 White Blood Count 7.1 K/UL (4.8-10.8) 10.3 K/UL (4.8-10.8) Red Blood Count 4.42 M/UL (4.70-6.10) L 4.06 M/UL (4.70-6.10) L Hemoglobin 14.4 G/DL (14.2-18.0) 13.2 G/DL (14.2-18.0) L Hematocrit 43.4 % (42.0-52.0) 41.7 % (42.0-52.0) L Mean Corpuscular Volume 98 FL (80-99) 103 FL (80-99) H Mean Corpuscular Hemoglobin 32.7 PG (27.0-31.0) H 32.6 PG (27.0-31.0) H Mean Corpuscular Hemoglobin Concent 33.3 G/DL (32.0-36.0) 31.7 G/DL (32.0-36.0) L Red Cell Distribution Width 13.5 % (11.6-14.8) 13.6 % (11.6-14.8) Platelet Count 145 K/UL (150-450) L 142 K/UL (150-450) L Mean Platelet Volume 11.0 FL (6.5-10.1) H 9.5 FL (6.5-10.1) Neutrophils (%) (Auto) 77.3 % (45.0-75.0) H % (45.0-75.0) Lymphocytes (%) (Auto) 18.5 % (20.0-45.0) L % (20.0-45.0) Monocytes (%) (Auto) 2.2 % (1.0-10.0) % (1.0-10.0) Eosinophils (%) (Auto) 0.2 % (0.0-3.0) % (0.0-3.0) Basophils (%) (Auto) 1.8 % (0.0-2.0) % (0.0-2.0) Prothrombin Time 10.8 SEC (9.30-11.50) Prothromb Time International Ratio 1.0 (0.9-1.1) Activated Partial Thromboplast Time 29 SEC (23-33) D-Dimer 14.52 mg/L FEU (0.00-0.49) H Urine Color Yellow Urine Appearance Clear Urine pH 5 (4.5-8.0) Urine Specific [place] 1.020 (1.005-1.035) Urine Protein 2+ (NEGATIVE) H Urine Glucose (UA) Negative (NEGATIVE) Urine Ketones Negative (NEGATIVE) Urine Blood Negative (NEGATIVE) Urine Nitrite Negative (NEGATIVE) Urine Bilirubin Negative (NEGATIVE) Urine Urobilinogen 4 MG/DL (0.0-1.0) H Urine Leukocyte Esterase 1+ (NEGATIVE) H Urine RBC 0-2 /HPF (0 - 0) H Urine WBC 0-2 /HPF (0 - 0) Urine Squamous Epithelial Cells None /LPF (NONE/OCC) Urine Bacteria None /HPF (NONE) Sodium Level 143 MMOL/L (136-145) 141 MMOL/L (136-145) Potassium Level 4.4 MMOL/L (3.5-5.1) 4.1 MMOL/L (3.5-5.1) Chloride Level 104 MMOL/L (98-107) 106 MMOL/L (98-107) Carbon Dioxide Level 27 MMOL/L (21-32) 22 MMOL/L (21-32) Blood Urea Nitrogen 26 mg/dL (7-18) H 22 mg/dL (7-18) H Creatinine 2.1 MG/DL (0.55-1.30) H 1.7 MG/DL (0.55-1.30) H Estimat Glomerular Filtration Rate 39.1 mL/min (>60) 49.9 mL/min (>60) Glucose Level 148 MG/DL (74-106) H 185 MG/DL (74-106) H Lactic Acid Level 3.20 mmol/L (0.4-2.0) H 2.20 mmol/L (0.66-2.22) Calcium Level 9.0 MG/DL (8.5-10.1) 7.6 MG/DL (8.5-10.1) L Ferritin 814 NG/ML (8-388) H Total Bilirubin 0.4 MG/DL (0.2-1.0) 0.3 MG/DL (0.2-1.0) Aspartate Amino Transf (AST/SGOT) 36 U/L (15-37) 93 U/L (15-37) H Alanine Aminotransferase (ALT/SGPT) 31 U/L (12-78) 71 U/L (12-78) Alkaline Phosphatase 54 U/L (46-116) 46 U/L (46-116) Lactate Dehydrogenase 347 U/L (81-234) H Troponin I 0.085 ng/mL (0.000-0.056) C-Reactive Protein, Quantitative 17.6 mg/dL (0.00-0.90) H 20.2 mg/dL (0.00-0.90) H Total Protein 8.6 G/DL (6.4-8.2) H 7.5 G/DL (6.4-8.2) Albumin 3.3 G/DL (3.4-5.0) L 2.7 G/DL (3.4-5.0) L Globulin 5.3 g/dL 4.8 g/dL Albumin/Globulin Ratio 0.6 (1.0-2.7) L 0.6 (1.0-2.7) L Uric Acid 6.5 MG/DL (2.6-7.2) 5.7 MG/DL (2.6-7.2) Total Creatine Kinase 383 U/L (26-308) H Differential Total Cells Counted 100 Neutrophils % (Manual) 91 % (45-75) H Lymphocytes % (Manual) 5 % (20-45) L Monocytes % (Manual) 3 % (1-10) Eosinophils % (Manual) 0 % (0-3) Basophils % (Manual) 0 % (0-2) Band Neutrophils 1 % (0-8) Platelet Estimate Decreased L Platelet Morphology Normal Anisocytosis 1+ Macrocytosis 1+ Anion Gap 13 mmol/L (5-15) Hemoglobin A1c 6.8 % (4.3-6.0) H Phosphorus Level 2.3 MG/DL (2.5-4.9) L Magnesium Level 1.9 MG/DL (1.8-2.4) Iron Level 20 ug/dL (50-175) L Total Iron Binding Capacity 148 ug/dL (250-450) L Percent Iron Saturation 14 % (15-50) L Unsaturated Iron Binding 128 ug/dL (112-346) Gamma Glutamyl Transpeptidase 37 U/L (5-85) Pro-B-Type Natriuretic Peptide 6140 pg/mL (0-125) H Triglycerides Level 112 MG/DL (30-150) Cholesterol Level 93 MG/DL (< 200) LDL Cholesterol 46 mg/dL (<100) HDL Cholesterol 27 MG/DL (40-60) L Cholesterol/HDL Ratio 3.4 (3.3-4.4) Vitamin B12 Level 788 PG/ML (193-986) Folate 10.3 NG/ML (8.6-58.9) Thyroid Stimulating Hormone (TSH) 0.746 uiU/mL (0.358-3.740) Microbiology Date/Time Source Procedure Growth Status 02/14/20 13:00 Nasopharynx SARS-CoV-2 RdRp Gene Assay - Final Complete Height (Feet): 5 Height (Inches): 10.00 Weight (Pounds): 231 Medications Current Medications Medications (Trade) Dose Ordered Sig/Reji Route PRN Reason Start Time Stop Time Status Last Admin Dose Admin Acetaminophen (Tylenol) 500 mg Q4H PRN ORAL Mild Pain (Pain Scale 1-3) 02/14/20 00:30 03/15/20 00:29 Acetaminophen (Tylenol) 650 mg Q4H PRN ORAL FEVER 02/14/20 10:00 03/15/20 09:59 Albuterol/ Ipratropium (Albuterol/ Ipratropium) 3 ml Q4H PRN HHN Shortness of Breath 02/14/20 10:00 02/19/20 09:59 Azithromycin 250 mg/Dextrose 275 ml @ 275 mls/hr Q24HRS IV 02/14/20 23:00 02/19/20 22:59 Ceftriaxone Sodium 1 gm/ Dextrose 55 ml @ 110 mls/hr Q24H IVPB 02/14/20 23:00 02/21/20 22:59 Dexamethasone (Decadron) 4 mg DAILY ORAL 02/14/20 09:00 02/24/20 08:59 02/14/20 10:12 Dextrose (Dextrose 50%) 25 ml Q30M PRN IV Hypoglycemia 02/14/20 10:00 05/14/20 09:59 Dextrose (Dextrose 50%) 50 ml Q30M PRN IV Hypoglycemia 02/14/20 10:00 05/14/20 09:59 Heparin Sodium (Porcine) (Heparin 5000 units/ml) 5,000 units EVERY 12 HOURS SUBQ 02/14/20 10:00 03/30/20 09:59 02/14/20 10:17 Ondansetron HCl (Zofran) 4 mg Q6H PRN IVP Nausea & Vomiting 02/14/20 10:00 03/15/20 09:59 Pantoprazole (Protonix) 40 mg EVERY 12 HOURS IVP 02/14/20 21:00 03/15/20 20:59 Polyethylene Glycol (Miralax) 17 gm DAILYPRN PRN ORAL Constipation 02/14/20 10:00 03/15/20 09:59 Promethazine HCl/ Codeine (Phenergan with Codeine) 5 ml Q6H PRN ORAL cough 02/14/20 10:00 03/15/20 09:59 Remdesivir 100 mg/ Sodium Chloride 250 ml @ 250 mls/hr Q24H IV 02/15/20 18:00 02/18/20 18:59 Remdesivir 200 mg/ Sodium Chloride 250 ml @ 125 mls/hr ONCE IV 02/14/20 18:00 02/14/20 19:59 Sodium Chloride 1,000 ml @ 75 mls/hr [id number] IV 02/14/20 12:00 03/15/20 11:59 02/14/20 12:00 Assessment/Plan Problem List: (1) Pneumonia due to COVID-19 virus ICD Codes: U07.1 - COVID-19; J12.89 - Other viral pneumonia SNOMED: 494866550, 841148518 (2) Sepsis ICD Codes: A41.9 - Sepsis, unspecified organism SNOMED: 28887940 Qualifiers: Qualified Codes: A41.9 - Sepsis, unspecified organism; R65.20 - Severe sepsis without septic shock; J96.01 - Acute respiratory failure with hypoxia (3) Atrial fibrillation ICD Codes: I48.91 - Unspecified atrial fibrillation SNOMED: 25633979 (4) CHF (congestive heart failure) ICD Codes: I50.9 - Heart failure, unspecified SNOMED: 43415597 (5) Arrhythmia ICD Codes: I49.9 - Cardiac arrhythmia, unspecified SNOMED: 265784289 (6) History of CVA (cerebrovascular accident) ICD Codes: Z86.73 - Personal history of transient ischemic attack (TIA), and cerebral infarction without residual deficits SNOMED: 048243844 (7) Psychosis ICD Codes: F29 - Unspecified psychosis not due to a substance or known physiological condition SNOMED: 34886236 Assessment/Plan: respiratory isolation check sputum iv abx + steroids + antiviral echocardiogram f/u crp optimize cardiac meds dvt prophylaxis Lyle Joy MD Feb 14, 2020 17:05
[2020-02-14] MEDS ORDERED: Loading Dose:Remdesivir 200mg/NS 210ml IV SCH ×2 (18:00)
--- NOTE | 2020-02-14 19:04 | Cardiology Progress Note ---
Assessment/Plan Assessment/Plan [id number] repeat cardiac enzyme diuresis trop will be repeated follow saturation i suspect abn trop related to demand and renal insuf Objective Last 24 Hour Vital Signs Date Time Temp Pulse Resp B/P (MAP) Pulse Ox O2 Delivery O2 Flow Rate FiO2 02/14/20 16:00 87 02/14/20 16:00 97.8 80 20 144/78 (100) 95 02/14/20 12:00 82 02/14/20 12:00 97.8 84 20 127/82 (97) 95 02/14/20 09:00 Nasal Cannula 4.0 02/14/20 08:00 87 02/14/20 08:00 98.1 87 20 123/80 (94) 94 02/14/20 04:00 97.7 94 22 121/86 (98) 94 02/14/20 04:00 88 02/14/20 01:40 98.2 100 22 123/74 (90) 95 02/14/20 01:34 100 02/14/20 01:28 Nasal Cannula 4.0 02/13/20 23:00 98.0 101 18 128/87 97 Nasal Cannula 4.0 02/13/20 23:00 101 18 Nasal Cannula 4.0 02/13/20 23:00 98.0 101 18 128/87 97 Nasal Cannula 4.0 02/13/20 22:21 99.5 73 26 141/82 (101) 95 Non-Rebreather 15.0 Intake and Output 02/13/20 02/14/20 19:00 07:00 Intake Total 150 ml Balance 150 ml Intake Oral 150 ml # Voids 1 # Bowel Movements 2 Laboratory Tests Test 02/13/20 23:00 02/14/20 00:00 02/14/20 12:00 White Blood Count 7.1 K/UL (4.8-10.8) 10.3 K/UL (4.8-10.8) Red Blood Count 4.42 M/UL (4.70-6.10) L 4.06 M/UL (4.70-6.10) L Hemoglobin 14.4 G/DL (14.2-18.0) 13.2 G/DL (14.2-18.0) L Hematocrit 43.4 % (42.0-52.0) 41.7 % (42.0-52.0) L Mean Corpuscular Volume 98 FL (80-99) 103 FL (80-99) H Mean Corpuscular Hemoglobin 32.7 PG (27.0-31.0) H 32.6 PG (27.0-31.0) H Mean Corpuscular Hemoglobin Concent 33.3 G/DL (32.0-36.0) 31.7 G/DL (32.0-36.0) L Red Cell Distribution Width 13.5 % (11.6-14.8) 13.6 % (11.6-14.8) Platelet Count 145 K/UL (150-450) L 142 K/UL (150-450) L Mean Platelet Volume 11.0 FL (6.5-10.1) H 9.5 FL (6.5-10.1) Neutrophils (%) (Auto) 77.3 % (45.0-75.0) H % (45.0-75.0) Lymphocytes (%) (Auto) 18.5 % (20.0-45.0) L % (20.0-45.0) Monocytes (%) (Auto) 2.2 % (1.0-10.0) % (1.0-10.0) Eosinophils (%) (Auto) 0.2 % (0.0-3.0) % (0.0-3.0) Basophils (%) (Auto) 1.8 % (0.0-2.0) % (0.0-2.0) Prothrombin Time 10.8 SEC (9.30-11.50) Prothromb Time International Ratio 1.0 (0.9-1.1) Activated Partial Thromboplast Time 29 SEC (23-33) D-Dimer 14.52 mg/L FEU (0.00-0.49) H Urine Color Yellow Urine Appearance Clear Urine pH 5 (4.5-8.0) Urine Specific [place] 1.020 (1.005-1.035) Urine Protein 2+ (NEGATIVE) H Urine Glucose (UA) Negative (NEGATIVE) Urine Ketones Negative (NEGATIVE) Urine Blood Negative (NEGATIVE) Urine Nitrite Negative (NEGATIVE) Urine Bilirubin Negative (NEGATIVE) Urine Urobilinogen 4 MG/DL (0.0-1.0) H Urine Leukocyte Esterase 1+ (NEGATIVE) H Urine RBC 0-2 /HPF (0 - 0) H Urine WBC 0-2 /HPF (0 - 0) Urine Squamous Epithelial Cells None /LPF (NONE/OCC) Urine Bacteria None /HPF (NONE) Sodium Level 143 MMOL/L (136-145) 141 MMOL/L (136-145) Potassium Level 4.4 MMOL/L (3.5-5.1) 4.1 MMOL/L (3.5-5.1) Chloride Level 104 MMOL/L (98-107) 106 MMOL/L (98-107) Carbon Dioxide Level 27 MMOL/L (21-32) 22 MMOL/L (21-32) Blood Urea Nitrogen 26 mg/dL (7-18) H 22 mg/dL (7-18) H Creatinine 2.1 MG/DL (0.55-1.30) H 1.7 MG/DL (0.55-1.30) H Estimat Glomerular Filtration Rate 39.1 mL/min (>60) 49.9 mL/min (>60) Glucose Level 148 MG/DL (74-106) H 185 MG/DL (74-106) H Lactic Acid Level 3.20 mmol/L (0.4-2.0) H 2.20 mmol/L (0.66-2.22) Calcium Level 9.0 MG/DL (8.5-10.1) 7.6 MG/DL (8.5-10.1) L Ferritin 814 NG/ML (8-388) H Total Bilirubin 0.4 MG/DL (0.2-1.0) 0.3 MG/DL (0.2-1.0) Aspartate Amino Transf (AST/SGOT) 36 U/L (15-37) 93 U/L (15-37) H Alanine Aminotransferase (ALT/SGPT) 31 U/L (12-78) 71 U/L (12-78) Alkaline Phosphatase 54 U/L (46-116) 46 U/L (46-116) Lactate Dehydrogenase 347 U/L (81-234) H Troponin I 0.085 ng/mL (0.000-0.056) C-Reactive Protein, Quantitative 17.6 mg/dL (0.00-0.90) H 20.2 mg/dL (0.00-0.90) H Total Protein 8.6 G/DL (6.4-8.2) H 7.5 G/DL (6.4-8.2) Albumin 3.3 G/DL (3.4-5.0) L 2.7 G/DL (3.4-5.0) L Globulin 5.3 g/dL 4.8 g/dL Albumin/Globulin Ratio 0.6 (1.0-2.7) L 0.6 (1.0-2.7) L Uric Acid 6.5 MG/DL (2.6-7.2) 5.7 MG/DL (2.6-7.2) Total Creatine Kinase 383 U/L (26-308) H Differential Total Cells Counted 100 Neutrophils % (Manual) 91 % (45-75) H Lymphocytes % (Manual) 5 % (20-45) L Monocytes % (Manual) 3 % (1-10) Eosinophils % (Manual) 0 % (0-3) Basophils % (Manual) 0 % (0-2) Band Neutrophils 1 % (0-8) Platelet Estimate Decreased L Platelet Morphology Normal Anisocytosis 1+ Macrocytosis 1+ Anion Gap 13 mmol/L (5-15) Hemoglobin A1c 6.8 % (4.3-6.0) H Phosphorus Level 2.3 MG/DL (2.5-4.9) L Magnesium Level 1.9 MG/DL (1.8-2.4) Iron Level 20 ug/dL (50-175) L Total Iron Binding Capacity 148 ug/dL (250-450) L Percent Iron Saturation 14 % (15-50) L Unsaturated Iron Binding 128 ug/dL (112-346) Gamma Glutamyl Transpeptidase 37 U/L (5-85) Pro-B-Type Natriuretic Peptide 6140 pg/mL (0-125) H Triglycerides Level 112 MG/DL (30-150) Cholesterol Level 93 MG/DL (< 200) LDL Cholesterol 46 mg/dL (<100) HDL Cholesterol 27 MG/DL (40-60) L Cholesterol/HDL Ratio 3.4 (3.3-4.4) Vitamin B12 Level 788 PG/ML (193-986) Folate 10.3 NG/ML (8.6-58.9) Thyroid Stimulating Hormone (TSH) 0.746 uiU/mL (0.358-3.740) Microbiology Date/Time Source Procedure Growth Status 02/14/20 13:00 Nasopharynx SARS-CoV-2 RdRp Gene Assay - Final Complete Kayden Aguilar MD Feb 14, 2020 19:04
[2020-02-14] MEDS: Amiodarone 200mg tab ORAL SCH (19:15)
[2020-02-14] MEDS: Losartan 50mg tab ORAL SCH (19:15)
[2020-02-14 19:49] LABS: APPEARANCE,URINE SLIGHTLY CLOUDY; BILIRUBIN, URINE NEGATIVE (NEGATIVE); GLUCOSE, URINE (UA) NEGATIVE (NEGATIVE); KETONES,URINE 2+ (NEGATIVE); LEUKOCYTE ESTERASE ,URINE 1+ (NEGATIVE); NITRITE,URINE NEGATIVE (NEGATIVE); PH,URINE 5 (4.5-8.0); PROTEIN,URINE 3+ (NEGATIVE); UROBILINOGEN,URINE 4 MG/DL (0.0-1.0)
[2020-02-14 19:52] LABS: COLOR,URINE YELLOW
[2020-02-14 20:00] VITALS: BP 133/93
[2020-02-14] MEDS: Atorvastatin 20mg tab ORAL SCH (20:59)
[2020-02-14] MEDS: Pantoprazole Inj IVP SCH (21:00)
[2020-02-15] VITALS: BP 128/93
[2020-02-15] MEDS: Azithromycin 250 MG in D5W 275 ML IV SCH ×2 (00:14→23:00)
--- NOTE | 2020-02-15 00:14 | Consultation ---
DATE OF CONSULTATION: 02/14/2020 REFERRING PHYSICIAN: Atilio Lee M.D. and Lyle Joy M.D. REASON FOR REFERRAL: Abnormal cardiac enzyme. HISTORY OF PRESENT ILLNESS: This is a 60-year-old gentleman who is really not able to provide any meaningful history whatsoever. The patient is a resident of convalescent facility at [facility] and was positive for COVID earlier this month and [facility] he was apparently being held in isolation because of persistent fever and low oxygen saturation. The patient is admitted to the hospital. The patient unfortunately is not able to provide any meaningful history. Information is really obtained from review of the patient's chart. Evaluation in the emergency room included cardiac enzymes, which was abnormal. Therefore, this consultation was solicited. The patient apparently does have extensive cardiac history as noted below, but he is not capable of complaining, has not been complaining of any issues, although the patient has been talking to nursing staff, has even been walking from the bed to the bathroom and coming back. Saturation dropped in the low 90s off oxygen, but goes back up to 100% on 4 liters. He has not been running a temperature according to the nurse, he has been eating well, and he has had a bowel movement. He is not complaining of anything and seems not to be capable of complaining and is not communicative or verbal to provide information. PAST MEDICAL HISTORY: The patient's past medical history according to the chart is positive for history of permanent pacemaker implantation, history of cerebrovascular accident, chronic kidney disease, depression, paroxysmal episodes of atrial fibrillation, essential hypertension, hemiparesis, anxiety disorder, dehydration, hyperlipidemia, pulmonary hypertension, transient ischemic attack, cardiomegaly, aphasia, schizoaffective disorder, coronary atherosclerosis without angina, with recent COVID infection. MEDICATIONS: The patient's medications at the convalescent facility are listed as follows: 1. The patient is on Tylenol as needed. 2. Amiodarone 200 mg daily. 3. Aspirin 81 mg. 4. Zithromax. 5. Cozaar 50 mg every 12 hours. 6. Lasix 20 mg a day. 7. Robitussin. 8. Lipitor 40 mg at night. 9. at night. 10. Metoprolol 25 mg 2 times daily. 11. Multivitamins daily. 12. Olanzapine 10 mg every 12 hours. 13. Omeprazole. 14. Potassium once a day. 15. Prednisone 20 mg once a day for inflammation. 16. Seroquel 100 mg 2 times a day. 17. Rocephin. 18. Senna. 19. Venlafaxine 75 mg. 20. Vitamin C. ALLERGIES: He is reportedly allergic to DONNIE inhibitors and omega-3. REVIEW OF SYSTEMS: Unable to obtain. As mentioned according to the nursing staff, he ate very well for breakfast, not much for lunch, and 100% for dinner. He does not like meat. Apparently, he likes salad. GENITOURINARY: There has been no problems with urinating. PULMONARY: The nurse denies any significant coughing or wheezing. CONSTITUTIONAL: The nurse said that there have been no reports of fever here, although was noted at the convalescent facility. NEUROLOGICAL: He is noncommunicative and not able to express himself verbally. He is apparently ambulatory to the bathroom. PHYSICAL EXAMINATION: I did not examine the patient personally secondary to COVID infection. The patient was examined by other physicians, which notes I reviewed. VITAL SIGNS: Temperature 99.5, respiration of 26, pulse rate of 73. GENERAL: Weston to be a well-nourished gentleman, no distress. NECK: Supple. No adenopathy. LUNGS: Appeared to be clear to auscultation bilaterally without wheezes or rales. CARDIAC: Regular rate and rhythm. ABDOMEN: Soft, nontender. Bowel sounds were present and extremity was negative for clubbing, cyanosis, or edema according to Dr. Carrera's notation. LABORATORY AND DIAGNOSTIC DATA: White count of 10.3, hemoglobin 13.2, and platelet count of 142. Sodium is 141, potassium 4.1, chloride 106, bicarb 22, BUN 22, creatinine 1.7, and a glucose of 185. A1c of 6.8. Lactic acid of 3.2, subsequent 2.2. Calcium was 7.6, magnesium 1.9, and liver function tests are relatively normal, although AST was mildly elevated at 93 and ALT of 71. Total CK of 383. He did have 1 set of cardiac enzymes that were drawn at 0.085. This goes back to last evening and a proBNP of 6100. Albumin was down to 2.7 and total cholesterol was 93 and LDL of 46 and HDL of 27. Vitamin B12 was 788. TSH is 0.46 and folic acid is 10.3. The patient's telemetry data was reviewed and appears to be sinus with the IVCD. The patient's electrocardiogram was also sinus with the IVCD, cannot exclude that this was actually a paced rhythm. Chest x-ray shows cardiomegaly with vascular congestion and moderate edema. SARS-CoV-2 PCR rapid was positive. ASSESSMENT AND PLAN: 1. History of permanent pacemaker implantation. 2. Possible pneumonia. 3. Vascular congestion and possible heart failure based on chest x-ray. 4. History of cerebrovascular accident. 5. Schizophrenia. 6. History of pulmonary hypertension. 7. History of paroxysmal episodes of atrial fibrillation. 8. History of hemiplegia. 9. Hypertension. 10. History of kidney disease. This patient was seen in cardiac consultation. The patient's chest x-ray was reviewed and poor inspiratory effort, cardiomegaly, some edema was noted on the chest x-ray. The possibilities of infection in the left lower lobe cannot be excluded. The patient is being followed by slab gr[facility] and Infectious Disease at this time. His usual medications cardiac-segundo will be continued. I will repeat the cardiac enzymes, although I suspect the minimally elevated cardiac enzymes may be related to as well as renal insufficiency and the pattern of cardiac enzymes will be followed. The patient's Cozaar will be continued and his diuretics will be changed to intravenously to allow a period of diuresis. Beta-blockers will also be continued. I will follow the patient along with you. Kayden Aguilar M.D. DR: CHAR JOB#: [id number] CC:
[2020-02-15] MEDS: cefTRIAXone 1 GM in D5W 55 ML IVPB SCH ×2 (00:15→23:32)
[2020-02-15 04:00] VITALS: BP 132/87
[2020-02-15 07:38] LABS: HEMATOCRIT 42.2 % (42.0-52.0); HEMOGLOBIN 13.7 G/DL (14.2-18.0); MEAN CORPUSCULAR VOLUME 98 FL (80-99); PLATELET COUNT 193 K/UL (150-450); RED BLOOD COUNT 4.29 M/UL (4.70-6.10); RED CELL DISTRIBUTION WIDTH 13.1 % (11.6-14.8); WHITE BLOOD COUNT 13.3 K/UL (4.8-10.8)
[2020-02-15 07:52] LABS: ALANINE AMINOTRANSFERASE 65 U/L (12-78); ALBUMIN 3.1 G/DL (3.4-5.0); ALKALINE PHOSPHATASE 11 U/L (46-116); ANION GAP 11 mmol/L (5-15); ASPARTATE AMINO TRANSFERASE 68 U/L (15-37); BILIRUBIN,DIRECT 0.1 MG/DL (0.0-0.3); BILIRUBIN,TOTAL 0.3 MG/DL (0.2-1.0); BLOOD UREA NITROGEN 27 mg/dL (7-18); CALCIUM 8.4 MG/DL (8.5-10.1); CARBON DIOXIDE 27 MMOL/L (21-32); CHLORIDE 108 MMOL/L (98-107); CREATININE 1.7 MG/DL (0.55-1.30); POTASSIUM 4.1 MMOL/L (3.5-5.1); SODIUM 145 MMOL/L (136-145)
[2020-02-15 08:00] VITALS: BP 137/105
[2020-02-15] MEDS: Losartan 50mg tab ORAL SCH ×2 (09:00→17:15)
[2020-02-15] MEDS: Heparin 5000 units/ml inj SUBQ SCH ×2 (09:00→21:39)
[2020-02-15] MEDS: Aspirin Baby 81mg ORAL SCH (09:00)
[2020-02-15] MEDS: Amiodarone 200mg tab ORAL SCH (09:00)
[2020-02-15] MEDS: Pantoprazole Inj IVP SCH (09:00)
--- NOTE | 2020-02-15 11:42 | Pulmonology Progress Note ---
Subjective Constitutional: Reports: no symptoms HEENT: Repors: no symptoms Allergies: Coded Allergies: DONNIE INHIBITORS (Verified Allergy, Unknown, 02/13/20) OMEGA-3 ACID ETHYL ESTERS (Verified Allergy, Unknown, 02/13/20) Objective Last 24 Hour Vital Signs Date Time Temp Pulse Resp B/P (MAP) Pulse Ox O2 Delivery O2 Flow Rate FiO2 02/15/20 09:10 Nasal Cannula 4.0 02/15/20 09:00 91 137/105 02/15/20 09:00 137/105 02/15/20 08:00 90 02/15/20 08:00 97.9 91 21 137/105 (116) 95 02/15/20 04:00 68 02/15/20 04:00 97.5 84 19 132/87 (102) 93 02/15/20 00:00 62 02/15/20 00:00 97.2 67 19 128/93 (105) 92 02/14/20 21:00 Nasal Cannula 4.0 02/14/20 21:00 76 133/93 02/14/20 20:00 97.2 76 20 133/93 (106) 94 02/14/20 20:00 74 02/14/20 19:15 144/78 02/14/20 16:00 87 02/14/20 16:00 97.8 80 20 144/78 (100) 95 02/14/20 12:00 82 02/14/20 12:00 97.8 84 20 127/82 (97) 95 Intake and Output 02/14/20 02/15/20 19:00 07:00 Intake Total 360 ml Balance 360 ml Other 360 ml # Voids 3 # Bowel Movements 1 1 General Appearance: WD/WN HEENT: normocephalic, atraumatic Respiratory: chest wall non-tender, normal breath sounds Cardiovascular: normal peripheral pulses, normal rate Abdomen: normal bowel sounds, soft, non tender, no organomegaly Genitourinary: normal external genitalia Extremities: no cyanosis Skin: no rash Neurologic: office specialist II-XII grossly normal Microbiology Date/Time Source Procedure Growth Status 02/14/20 19:00 Urine,Clean Catch Urine Culture - Preliminary NO GROWTH Resulted 02/14/20 13:00 Nasopharynx SARS-CoV-2 RdRp Gene Assay - Final Complete 02/13/20 23:00 Blood Blood Culture - Preliminary NO GROWTH AFTER 24 HOURS Resulted 02/13/20 22:45 Blood Blood Culture - Preliminary Resulted Laboratory Tests 02/14/20 12:00: White Blood Count 10.3, Red Blood Count 4.06L, Hemoglobin 13.2L, Hematocrit 41.7L, Mean Corpuscular Volume 103H, Mean Corpuscular Hemoglobin 32.6H, Mean Corpuscular Hemoglobin Concent 31.7L, Red Cell Distribution Width 13.6, Platelet Count 142L, Mean Platelet Volume 9.5, Neutrophils (%) (Auto) , Lymphocytes (%) (Auto) , Monocytes (%) (Auto) , Eosinophils (%) (Auto) , Basophils (%) (Auto) , Differential Total Cells Counted 100, Neutrophils % (Manual) 91H, Lymphocytes % (Manual) 5L, Monocytes % (Manual) 3, Eosinophils % (Manual) 0, Basophils % (Manual) 0, Band Neutrophils 1, Platelet Estimate DecreasedL, Platelet Morphology Normal, Anisocytosis 1+, Macrocytosis 1+, Sodium Level 141, Potassium Level 4.1, Chloride Level 106, Carbon Dioxide Level 22, Anion Gap 13, Blood Urea Nitrogen 22H, Creatinine 1.7H, Estimat Glomerular Filtration Rate 49.9, Glucose Level 185H, Hemoglobin A1c 6.8H, Uric Acid 5.7, Calcium Level 7.6L, Phosphorus Level 2.3L, Magnesium Level 1.9, Iron Level 20L, Total Iron Binding Capacity 148L, Percent Iron Saturation 14L, Unsaturated Iron Binding 128, Total Bilirubin 0.3, Gamma Glutamyl Transpeptidase 37, Aspartate Amino Transf (AST/SGOT) 93H, Alanine Aminotransferase (ALT/SGPT) 71, Alkaline Phosphatase 46, C-Reactive Prot ein, Quantitative 20.2H, Pro-B-Type Natriuretic Peptide 6140H, Total Protein 7.5, Albumin 2.7L, Globulin 4.8, Albumin/Globulin Ratio 0.6L, Triglycerides Level 112, Cholesterol Level 93, LDL Cholesterol 46, HDL Cholesterol 27L, Cholesterol/HDL Ratio 3.4, Vitamin B12 Level 788, Folate 10.3, Thyroid Stimulating Hormone (TSH) 0.746 02/14/20 19:00: Urine Color Yellow, Urine Appearance Slightly cloudy, Urine pH 5, Urine Specific [place] 1.020, Urine Protein 3+H, Urine Glucose (UA) Negative, Urine Ketones 2+H , Urine Blood 2+H, Urine Nitrite Negative, Urine Bilirubin Negative, Urine Urobilinogen 4H, Urine Leukocyte Esterase 1+H, Urine RBC 2-4H, Urine WBC 5-10H, Urine Squamous Epithelial Cells Occasional, Urine Amorphous Sediment ManyH, Urine Bacteria ModerateH, Urine Eosinophils None seen, Urine Osmolality [Pending], Urine Random Creatinine [Pending], Urine Random Microalbumin [Pending], Urine Random Sodium < 20L, Urine Microalbumin/Creatinine Ratio [Pending] 02/15/20 05:57: White Blood Count 13.3H, Red Blood Count 4.29L, Hemoglobin 13.7L, Hematocrit 42.2, Mean Corpuscular Volume 98, Mean Corpuscular Hemoglobin 32.0H, Mean Corpuscular Hemoglobin Concent 32.6, Red Cell Distribution Width 13.1, Platelet Count 193, Mean Platelet Volume 10.5H, Neutrophils (%) (Auto) , Lymphocytes (%) (Auto) , Monocytes (%) (Auto) , Eosinophils (%) (Auto) , Basophils (%) (Auto) , Neutrophils % (Manual) [Pending], Lymphocytes % (Manual) [Pending], Platelet Estimate [Pending], Platelet Morphology [Pending], Sodium Level 145, Potassium Level 4.1, Chloride Level 108H, Carbon Dioxide Level 27, Anion Gap 11, Blood Urea Nitrogen 27H, Creatinine 1.7H, Estimat Glomerular Filtration Rate 49.9, Glucose Level 124H, Calcium Level 8.4L, Total Bilirubin 0.3, Aspartate Amino Transf (AST/SGOT) 68H, Alanine Aminotransferase (ALT/SGPT) 65, Alkaline Phosphatase 11L, Total Protein 7.7, Albumin 3.1L, Globulin 4.6, Direct Bilirubin 0.1, Troponin I 0.233H Current Medications Medications (Trade) Dose Ordered Sig/Reji Route PRN Reason Start Time Stop Time Status Last Admin Dose Admin Acetaminophen (Tylenol) 500 mg Q4H PRN ORAL Mild Pain (Pain Scale 1-3) 02/14/20 00:30 03/15/20 00:29 Acetaminophen (Tylenol) 650 mg Q4H PRN ORAL FEVER 02/14/20 10:00 03/15/20 09:59 Albuterol/ Ipratropium (Albuterol/ Ipratropium) 3 ml Q4H PRN HHN Shortness of Breath 9/16/20 10:00 02/19/20 09:59 Amiodarone HCl (Cordarone) 200 mg DAILY ORAL 02/14/20 19:15 05/14/20 19:14 02/15/20 09:00 Aspirin (ASA) 81 mg DAILY ORAL 02/15/20 09:00 03/31/20 08:59 02/15/20 09:00 Atorvastatin Calcium (Lipitor) 40 mg BEDTIME ORAL 02/14/20 21:00 05/14/20 20:59 02/14/20 20:59 Azithromycin 250 mg/Dextrose 275 ml @ 275 mls/hr Q24HRS IV 02/14/20 23:00 02/19/20 22:59 02/15/20 00:14 Ceftriaxone Sodium 1 gm/ Dextrose 55 ml @ 110 mls/hr Q24H IVPB 02/14/20 23:00 02/21/20 22:59 02/15/20 00:15 Dexamethasone (Decadron) 4 mg DAILY ORAL 02/14/20 09:00 02/24/20 08:59 02/15/20 09:00 Dextrose (Dextrose 50%) 25 ml Q30M PRN IV Hypoglycemia 02/14/20 10:00 05/14/20 09:59 Dextrose (Dextrose 50%) 50 ml Q30M PRN IV Hypoglycemia 02/14/20 10:00 05/14/20 09:59 Furosemide (Lasix) 20 mg EVERY 12 HOURS IV 02/14/20 21:00 02/16/20 06:00 02/15/20 09:00 Heparin Sodium (Porcine) (Heparin 5000 units/ml) 5,000 units EVERY 12 HOURS SUBQ 02/14/20 10:00 03/30/20 09:59 02/15/20 09:00 Losartan Potassium (Cozaar) 50 mg TWICE A DAY ORAL 02/14/20 19:15 03/15/20 19:14 02/15/20 09:00 Metoprolol Tartrate (Lopressor) 25 mg EVERY 12 HOURS ORAL 02/14/20 21:00 05/14/20 20:59 02/15/20 09:00 Ondansetron HCl (Zofran) 4 mg Q6H PRN IVP Nausea & Vomiting 02/14/20 10:00 10/16/20 09:59 Pantoprazole (Protonix) 40 mg EVERY 12 HOURS IVP 02/14/20 21:00 03/15/20 20:59 02/15/20 09:00 Polyethylene Glycol (Miralax) 17 gm DAILYPRN PRN ORAL Constipation 02/14/20 10:00 03/15/20 09:59 Promethazine HCl/ Codeine (Phenergan with Codeine) 5 ml Q6H PRN ORAL cough 02/14/20 10:00 03/15/20 09:59 Remdesivir 100 mg/ Sodium Chloride 250 ml @ 250 mls/hr Q24H IV 02/15/20 18:00 02/18/20 18:59 Assessment/Plan Problems: (1) Pneumonia due to COVID-19 virus (2) Sepsis (3) Atrial fibrillation (4) CHF (congestive heart failure) (5) Arrhythmia (6) History of CVA (cerebrovascular accident) (7) Psychosis Assessment/Plan respiratory isolation check sputum iv abx + steroids + antiviral echocardiogram f/u crp optimize cardiac meds dvt prophylaxis Lyle Joy MD Feb 15, 2020 11:42
[2020-02-15 11:50] VITALS: BP 141/89
--- NOTE | 2020-02-15 12:14 | Infectious Diseases Prog Note ---
Assessment/Plan Assessment: COVID19 positive (dx'ed 02/08/20)- likely PNA Acute hypoxic resp failure- sp NRB> 4l NC -02/12 CXR: Cardiomegaly with vascular congestion and moderate edema. 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 Will continue to follow along with you. Discussed with RN. Subjective Allergies: Coded Allergies: DONNIE INHIBITORS (Verified Allergy, Unknown, 02/13/20) OMEGA-3 ACID ETHYL ESTERS (Verified Allergy, Unknown, 02/13/20) afebrile mild leukocytosis bacteremic at 4l NC Objective Last 24 Hour Vital Signs Date Time Temp Pulse Resp B/P (MAP) Pulse Ox O2 Delivery O2 Flow Rate FiO2 02/15/20 11:50 97.1 79 21 141/89 (106) 97 02/15/20 09:10 Nasal Cannula 4.0 02/15/20 09:00 91 137/105 02/15/20 09:00 137/105 02/15/20 08:00 90 02/15/20 08:00 97.9 91 21 137/105 (116) 95 02/15/20 04:00 68 02/15/20 04:00 97.5 84 19 132/87 (102) 93 02/15/20 00:00 62 02/15/20 00:00 97.2 67 19 128/93 (105) 92 02/14/20 21:00 Nasal Cannula 4.0 02/14/20 21:00 76 133/93 02/14/20 20:00 97.2 76 20 133/93 (106) 94 02/14/20 20:00 74 02/14/20 19:15 144/78 02/14/20 16:00 87 02/14/20 16:00 97.8 80 20 144/78 (100) 95 Height (Feet): 5 Height (Inches): 10.00 Weight (Pounds): 231 Gen: no distress Respiratory Exam: Rhonchi Cardiovascular Exam: RRR Skin Exam: Normal Turgor Microbiology Date/Time Source Procedure Growth Status 02/14/20 19:00 Urine,Clean Catch Urine Culture - Preliminary NO GROWTH Resulted 02/14/20 13:00 Nasopharynx SARS-CoV-2 RdRp Gene Assay - Final Complete 02/13/20 23:00 Blood Blood Culture - Preliminary NO GROWTH AFTER 24 HOURS Resulted 02/13/20 22:45 Blood Blood Culture - Preliminary Resulted Laboratory Tests Test 02/14/20 19:00 02/15/20 05:57 Urine Color Yellow Urine Appearance Slightly cloudy Urine pH 5 (4.5-8.0) Urine Specific [place] 1.020 (1.005-1.035) Urine Protein 3+ (NEGATIVE) H Urine Glucose (UA) Negative (NEGATIVE) Urine Ketones 2+ (NEGATIVE) H Urine Blood 2+ (NEGATIVE) H Urine Nitrite Negative (NEGATIVE) Urine Bilirubin Negative (NEGATIVE) Urine Urobilinogen 4 MG/DL (0.0-1.0) H Urine Leukocyte Esterase 1+ (NEGATIVE) H Urine RBC 2-4 /HPF (0 - 0) H Urine WBC 5-10 /HPF (0 - 0) H Urine Squamous Epithelial Cells Occasional /LPF Urine Amorphous Sediment Many /LPF (NONE) H Urine Bacteria Moderate /HPF (NONE) H Urine Eosinophils None seen (NONE SEEN) Urine Osmolality Pending Urine Random Creatinine Pending Urine Random Microalbumin Pending Urine Random Sodium < 20 mmol/L (20-110) L Urine Microalbumin/Creatinine Ratio Pending White Blood Count 13.3 K/UL (4.8-10.8) H Red Blood Count 4.29 M/UL (4.70-6.10) L Hemoglobin 13.7 G/DL (14.2-18.0) L Hematocrit 42.2 % (42.0-52.0) Mean Corpuscular Volume 98 FL (80-99) Mean Corpuscular Hemoglobin 32.0 PG (27.0-31.0) H Mean Corpuscular Hemoglobin Concent 32.6 G/DL (32.0-36.0) Red Cell Distribution Width 13.1 % (11.6-14.8) Platelet Count 193 K/UL (150-450) Mean Platelet Volume 10.5 FL (6.5-10.1) H Neutrophils (%) (Auto) % (45.0-75.0) Lymphocytes (%) (Auto) % (20.0-45.0) Monocytes (%) (Auto) % (1.0-10.0) Eosinophils (%) (Auto) % (0.0-3.0) Basophils (%) (Auto) % (0.0-2.0) Neutrophils % (Manual) Pending Lymphocytes % (Manual) Pending Platelet Estimate Pending Platelet Morphology Pending Sodium Level 145 MMOL/L (136-145) Potassium Level 4.1 MMOL/L (3.5-5.1) Chloride Level 108 MMOL/L (98-107) H Carbon Dioxide Level 27 MMOL/L (21-32) Anion Gap 11 mmol/L (5-15) Blood Urea Nitrogen 27 mg/dL (7-18) H Creatinine 1.7 MG/DL (0.55-1.30) H Estimat Glomerular Filtration Rate 49.9 mL/min (>60) Glucose Level 124 MG/DL (74-106) H Calcium Level 8.4 MG/DL (8.5-10.1) L Total Bilirubin 0.3 MG/DL (0.2-1.0) Direct Bilirubin 0.1 MG/DL (0.0-0.3) Aspartate Amino Transf (AST/SGOT) 68 U/L (15-37) H Alanine Aminotransferase (ALT/SGPT) 65 U/L (12-78) Alkaline Phosphatase 11 U/L (46-116) L Troponin I 0.233 ng/mL (0.000-0.056) Total Protein 7.7 G/DL (6.4-8.2) Albumin 3.1 G/DL (3.4-5.0) L Globulin 4.6 g/dL Current Medications Medications (Trade) Dose Ordered Sig/Reji Route PRN Reason Start Time Stop Time Status Last Admin Dose Admin Acetaminophen (Tylenol) 500 mg Q4H PRN ORAL Mild Pain (Pain Scale 1-3) 02/14/20 00:30 03/15/20 00:29 Acetaminophen (Tylenol) 650 mg Q4H PRN ORAL FEVER 9/16/20 10:00 03/15/20 09:59 Albuterol/ Ipratropium (Albuterol/ Ipratropium) 3 ml Q4H PRN HHN Shortness of Breath 02/14/20 10:00 02/19/20 09:59 Amiodarone HCl (Cordarone) 200 mg DAILY ORAL 02/14/20 19:15 05/14/20 19:14 02/15/20 09:00 Aspirin (ASA) 81 mg DAILY ORAL 02/15/20 09:00 03/31/20 08:59 02/15/20 09:00 Atorvastatin Calcium (Lipitor) 40 mg BEDTIME ORAL 02/14/20 21:00 05/14/20 20:59 02/14/20 20:59 Azithromycin 250 mg/Dextrose 275 ml @ 275 mls/hr Q24HRS IV 02/14/20 23:00 02/19/20 22:59 02/15/20 00:14 Ceftriaxone Sodium 1 gm/ Dextrose 55 ml @ 110 mls/hr Q24H IVPB 02/14/20 23:00 02/21/20 22:59 02/15/20 00:15 Dexamethasone (Decadron) 4 mg DAILY ORAL 02/14/20 09:00 02/24/20 08:59 02/15/20 09:00 Dextrose (Dextrose 50%) 25 ml Q30M PRN IV Hypoglycemia 02/14/20 10:00 05/14/20 09:59 Dextrose (Dextrose 50%) 50 ml Q30M PRN IV Hypoglycemia 02/14/20 10:00 05/14/20 09:59 Furosemide (Lasix) 20 mg EVERY 12 HOURS IV 02/14/20 21:00 02/16/20 06:00 02/15/20 09:00 Heparin Sodium (Porcine) (Heparin 5000 units/ml) 5,000 units EVERY 12 HOURS SUBQ 02/14/20 10:00 03/30/20 09:59 02/15/20 09:00 Losartan Potassium (Cozaar) 50 mg TWICE A DAY ORAL 02/14/20 19:15 03/15/20 19:14 02/15/20 09:00 Metoprolol Tartrate (Lopressor) 25 mg EVERY 12 HOURS ORAL 02/14/20 21:00 05/14/20 20:59 02/15/20 09:00 Ondansetron HCl (Zofran) 4 mg Q6H PRN IVP Nausea & Vomiting 02/14/20 10:00 03/15/20 09:59 Pantoprazole (Protonix) 40 mg EVERY 12 HOURS IVP 02/14/20 21:00 03/15/20 20:59 02/15/20 09:00 Polyethylene Glycol (Miralax) 17 gm DAILYPRN PRN ORAL Constipation 02/14/20 10:00 03/15/20 09:59 Promethazine HCl/ Codeine (Phenergan with Codeine) 5 ml Q6H PRN ORAL cough 02/14/20 10:00 03/15/20 09:59 Remdesivir 100 mg/ Sodium Chloride 250 ml @ 250 mls/hr Q24H IV 02/15/20 18:00 02/18/20 18:59 Vancomycin HCl (Vanco pharmacy to dose) 1 ea DAILY PRN MISC Per rx protocol 02/15/20 12:00 03/16/20 11:59 Vancomycin/Sodium Chloride 275 ml @ 137.5 mls/ hr ONCE ONCE IVPB 02/15/20 13:30 02/15/20 15:29 Heather Espinoza M.D. Feb 15, 2020 12:14
[2020-02-15] MEDS ORDERED: Vancomycin 1.5gm/NS Premix IVPB ONE (13:30)
--- NOTE | 2020-02-15 15:27 | Diagnostic Imaging Report ---
EXAM: ULTRASOUND US Renal Comp CLINICAL HISTORY: Abdominal pain. COMPARISON: None TECHNIQUE: Ultrasound examination of the kidneys includes grayscale images, and color and spectral doppler analysis. FINDINGS: The right kidney measures 11.2 x 5.6 x 5.3 cm and the left kidney measures 9.3 x 5.3 x 5.1 cm. Cortical thickness and echogenicity are within normal limits. There is no hydronephrosis or stone seen bilaterally. Urinary bladder appears unremarkable. IMPRESSION: NO SIGN OF ACUTE DISEASE.
[2020-02-15 16:00] VITALS: BP 143/93
--- NOTE | 2020-02-15 16:22 | Nephrology Progress Note ---
Assessment/Plan Problem List: (1) SHANNAN (acute kidney injury) (2) CHF (congestive heart failure) (3) Atrial fibrillation (4) Cardiomyopathy (5) ICD (implantable cardioverter-defibrillator) in place (6) History of CVA (cerebrovascular accident) (7) Pneumonia due to COVID-19 virus Assessment Acute on chronic renal failure Respiratory failure with hypoxia Pneumonia due to COVID-19 virus Sepsis Diabetes mellitus with elevated hemoglobin A1c Anemia Cardiomyopathy 20% EjFx Plan Slow hydration Monitor electrolytes and renal parameters Monitor urine output Correct abnormal electrolytes Antibiotics, avoid nephrotoxic's Anemia work-up Per orders Subjective ROS Limited/Unobtainable: No Constitutional: Reports: malaise, weakness Objective Objective Last 24 Hour Vital Signs Date Time Temp Pulse Resp B/P (MAP) Pulse Ox O2 Delivery O2 Flow Rate FiO2 02/15/20 16:00 97.2 75 20 143/93 (110) 98 02/15/20 12:00 81 02/15/20 11:50 97.1 79 21 141/89 (106) 97 02/15/20 09:10 Nasal Cannula 4.0 02/15/20 09:00 91 137/105 02/15/20 09:00 137/105 02/15/20 08:00 90 02/15/20 08:00 97.9 91 21 137/105 (116) 95 02/15/20 04:00 68 02/15/20 04:00 97.5 84 19 132/87 (102) 93 02/15/20 00:00 62 02/15/20 00:00 97.2 67 19 128/93 (105) 92 02/14/20 21:00 Nasal Cannula 4.0 02/14/20 21:00 76 133/93 02/14/20 20:00 97.2 76 20 133/93 (106) 94 02/14/20 20:00 74 02/14/20 19:15 144/78 Intake and Output 02/14/20 02/15/20 19:00 07:00 Intake Total 360 ml Balance 360 ml Other 360 ml # Voids 3 # Bowel Movements 1 1 Current Medications Medications (Trade) Dose Ordered Sig/Reji Route PRN Reason Start Time Stop Time Status Last Admin Dose Admin Acetaminophen (Tylenol) 500 mg Q4H PRN ORAL Mild Pain (Pain Scale 1-3) 02/14/20 00:30 03/15/20 00:29 Acetaminophen (Tylenol) 650 mg Q4H PRN ORAL FEVER 02/14/20 10:00 03/15/20 09:59 Albuterol/ Ipratropium (Albuterol/ Ipratropium) 3 ml Q4H PRN HHN Shortness of Breath 02/14/20 10:00 02/19/20 09:59 Amiodarone HCl (Cordarone) 200 mg DAILY ORAL 02/14/20 19:15 05/14/20 19:14 02/15/20 09:00 Aspirin (ASA) 81 mg DAILY ORAL 02/15/20 09:00 03/31/20 08:59 02/15/20 09:00 Atorvastatin Calcium (Lipitor) 40 mg BEDTIME ORAL 02/14/20 21:00 05/14/20 20:59 02/14/20 20:59 Azithromycin 250 mg/Dextrose 275 ml @ 275 mls/hr Q24HRS IV 02/14/20 23:00 02/19/20 22:59 02/15/20 00:14 Ceftriaxone Sodium 1 gm/ Dextrose 55 ml @ 110 mls/hr Q24H IVPB 02/14/20 23:00 02/21/20 22:59 02/15/20 00:15 Dexamethasone (Decadron) 4 mg DAILY ORAL 02/14/20 09:00 02/24/20 08:59 02/15/20 09:00 Dextrose (Dextrose 50%) 25 ml Q30M PRN IV Hypoglycemia 02/14/20 10:00 05/14/20 09:59 Dextrose (Dextrose 50%) 50 ml Q30M PRN IV Hypoglycemia 02/14/20 10:00 05/14/20 09:59 Furosemide (Lasix) 20 mg EVERY 12 HOURS IV 02/14/20 21:00 02/16/20 06:00 02/15/20 09:00 Heparin Sodium (Porcine) (Heparin 5000 units/ml) 5,000 units EVERY 12 HOURS SUBQ 02/14/20 10:00 03/30/20 09:59 02/15/20 09:00 Losartan Potassium (Cozaar) 50 mg TWICE A DAY ORAL 02/14/20 19:15 03/15/20 19:14 02/15/20 09:00 Metoprolol Tartrate (Lopressor) 25 mg EVERY 12 HOURS ORAL 02/14/20 21:00 05/14/20 20:59 02/15/20 09:00 Ondansetron HCl (Zofran) 4 mg Q6H PRN IVP Nausea & Vomiting 02/14/20 10:00 03/15/20 09:59 Pantoprazole (Protonix) 40 mg EVERY 12 HOURS IVP 02/14/20 21:00 03/15/20 20:59 02/15/20 09:00 Polyethylene Glycol (Miralax) 17 gm DAILYPRN PRN ORAL Constipation 02/14/20 10:00 03/15/20 09:59 Promethazine HCl/ Codeine (Phenergan with Codeine) 5 ml Q6H PRN ORAL cough 02/14/20 10:00 03/15/20 09:59 Remdesivir 100 mg/ Sodium Chloride 250 ml @ 250 mls/hr Q24H IV 02/15/20 18:00 02/18/20 18:59 Vancomycin HCl ([facility] pharmacy to dose) 1 ea DAILY PRN MISC Per rx protocol 02/15/20 12:00 03/16/20 11:59 Laboratory Tests 02/14/20 19:00: Urine Color Yellow, Urine Appearance Slightly cloudy, Urine pH 5, Urine Specific Amelia 1.020, Urine Protein 3+H, Urine Glucose (UA) Negative, Urine Ketones 2+H , Urine Blood 2+H, Urine Nitrite Negative, Urine Bilirubin Negative, Urine Urobilinogen 4H, Urine Leukocyte Esterase 1+H, Urine RBC 2-4H, Urine WBC 5-10H, Urine Squamous Epithelial Cells Occasional, Urine Amorphous Sediment ManyH, Urine Bacteria ModerateH, Urine Eosinophils None seen, Urine Osmolality [Pending], Urine Random Creatinine [Pending], Urine Random Microalbumin [Pending], Urine Random Sodium < 20L, Urine Microalbumin/Creatinine Ratio [Pending] 02/15/20 05:57: White Blood Count 13.3H, Red Blood Count 4.29L, Hemoglobin 13.7L, Hematocrit 42.2, Mean Corpuscular Volume 98, Mean Corpuscular Hemoglobin 32.0H, Mean Corpuscular Hemoglobin Concent 32.6, Red Cell Distribution Width 13.1, Platelet Count 193, Mean Platelet Volume 10.5H, Neutrophils (%) (Auto) , Lymphocytes (%) (Auto) , Monocytes (%) (Auto) , Eosinophils (%) (Auto) , Basophils (%) (Auto) , Differential Total Cells Counted 100, Neutrophils % (Manual) 87H, Lymphocytes % (Manual) 7L, Monocytes % (Manual) 4, Eosinophils % (Manual) 0, Basophils % (Manual) 0, Band Neutrophils 2, Platelet Estimate Adequate, Platelet Morphology Normal, Red Blood Cell Morphology Normal, Sodium Level 145, Potassium Level 4.1, Chloride Level 108H, Carbon Dioxide Level 27, Anion Gap 11, Blood Urea Nitrogen 27H, Creatinine 1.7H, Estimat Glomerular Filtration Rate 49.9, Glucose Level 124H, Calcium Level 8.4L, Total Bilirubin 0.3, Direct Bilirubin 0.1, Aspartate Amino Transf (AST/SGOT) 68H, Alanine Aminotransferase (ALT/SGPT) 65, Alkaline Phosphatase 11L, Troponin I 0.233H, Total Protein 7.7, Albumin 3.1L, Globulin 4.6 Height (Feet): 5 Height (Inches): 10.00 Weight (Pounds): 231 General Appearance: no apparent distress Cardiovascular: normal rate Respiratory/Chest: decreased breath sounds Abdomen: distended Ashvin Bautista MD Feb 15, 2020 16:22
[2020-02-15] MEDS: Maintenance Dose:Remdesivir 100mg/NS 230ml x 4 Doses IV SCH ×2 (17:50)
--- NOTE | 2020-02-15 19:50 | Internal Med Progress Note ---
Subjective Date of Service: Feb 15, 2020 Physician Name CarreraEdmund Attending Physician Atilio Lee MD Current Medications Medications (Trade) Dose Ordered Sig/Reji Route PRN Reason Start Time Stop Time Status Last Admin Dose Admin Acetaminophen (Tylenol) 500 mg Q4H PRN ORAL Mild Pain (Pain Scale 1-3) 02/14/20 00:30 03/15/20 00:29 Acetaminophen (Tylenol) 650 mg Q4H PRN ORAL FEVER 02/14/20 10:00 03/15/20 09:59 Albuterol/ Ipratropium (Albuterol/ Ipratropium) 3 ml Q4H PRN HHN Shortness of Breath 02/14/20 10:00 02/19/20 09:59 Amiodarone HCl (Cordarone) 200 mg DAILY ORAL 02/14/20 19:15 05/14/20 19:14 02/15/20 09:00 Aspirin (ASA) 81 mg DAILY ORAL 02/15/20 09:00 03/31/20 08:59 02/15/20 09:00 Atorvastatin Calcium (Lipitor) 40 mg BEDTIME ORAL 02/14/20 21:00 05/14/20 20:59 02/14/20 20:59 Azithromycin 250 mg/Dextrose 275 ml @ 275 mls/hr Q24HRS IV 02/14/20 23:00 02/19/20 22:59 02/15/20 00:14 Ceftriaxone Sodium 1 gm/ Dextrose 55 ml @ 110 mls/hr Q24H IVPB 02/14/20 23:00 02/21/20 22:59 02/15/20 00:15 Dexamethasone (Decadron) 4 mg DAILY ORAL 02/14/20 09:00 02/24/20 08:59 02/15/20 09:00 Dextrose (Dextrose 50%) 25 ml Q30M PRN IV Hypoglycemia 02/14/20 10:00 05/14/20 09:59 Dextrose (Dextrose 50%) 50 ml Q30M PRN IV Hypoglycemia 02/14/20 10:00 05/14/20 09:59 Furosemide (Lasix) 20 mg EVERY 12 HOURS IV 02/14/20 21:00 02/16/20 06:00 02/15/20 09:00 Heparin Sodium (Porcine) (Heparin 5000 units/ml) 5,000 units EVERY 12 HOURS SUBQ 02/14/20 10:00 03/30/20 09:59 02/15/20 09:00 Losartan Potassium (Cozaar) 50 mg TWICE A DAY ORAL 02/14/20 19:15 03/15/20 19:14 02/15/20 17:15 Metoprolol Tartrate (Lopressor) 25 mg EVERY 12 HOURS ORAL 02/14/20 21:00 05/14/20 20:59 02/15/20 09:00 Ondansetron HCl (Zofran) 4 mg Q6H PRN IVP Nausea & Vomiting 02/14/20 10:00 03/15/20 09:59 Pantoprazole (Protonix) 40 mg EVERY 12 HOURS ORAL 02/15/20 21:00 03/16/20 20:59 Polyethylene Glycol (Miralax) 17 gm DAILYPRN PRN ORAL Constipation 02/14/20 10:00 03/15/20 09:59 Promethazine HCl/ Codeine (Phenergan with Codeine) 5 ml Q6H PRN ORAL cough 02/14/20 10:00 03/15/20 09:59 Remdesivir 100 mg/ Sodium Chloride 250 ml @ 250 mls/hr Q24H IV 02/15/20 18:00 02/18/20 18:59 02/15/20 17:50 Vancomycin HCl ([facility] pharmacy to dose) 1 ea DAILY PRN MISC Per rx protocol 02/15/20 12:00 03/16/20 11:59 Allergies: Coded Allergies: DONNIE INHIBITORS (Verified Allergy, Unknown, 02/13/20) OMEGA-3 ACID ETHYL ESTERS (Verified Allergy, Unknown, 02/13/20) ROS Limited/Unobtainable: No Constitutional: Reports: no symptoms HEENT: Reports: no symptoms Cardiovascular: Reports: no symptoms Respiratory: Reports: shortness of breath Gastrointestinal/Abdominal: Reports: no symptoms Genitourinary: Reports: no symptoms Neurologic/Psychiatric: Reports: no symptoms Subjective 60 YO M admitted with shortness of breath. Now COVID 19 and sepsis. Cover for Cielo Lee Objective Last Vital Signs Date Time Temp Pulse Resp B/P (MAP) Pulse Ox O2 Delivery O2 Flow Rate FiO2 02/15/20 18:27 Room Air 02/15/20 17:15 143/93 02/15/20 16:00 74 02/15/20 16:00 97.2 20 98 02/15/20 09:10 4.0 Laboratory Tests Test 02/15/20 05:57 White Blood Count 13.3 K/UL (4.8-10.8) H Red Blood Count 4.29 M/UL (4.70-6.10) L Hemoglobin 13.7 G/DL (14.2-18.0) L Hematocrit 42.2 % (42.0-52.0) Mean Corpuscular Volume 98 FL (80-99) Mean Corpuscular Hemoglobin 32.0 PG (27.0-31.0) H Mean Corpuscular Hemoglobin Concent 32.6 G/DL (32.0-36.0) Red Cell Distribution Width 13.1 % (11.6-14.8) Platelet Count 193 K/UL (150-450) Mean Platelet Volume 10.5 FL (6.5-10.1) H Neutrophils (%) (Auto) % (45.0-75.0) Lymphocytes (%) (Auto) % (20.0-45.0) Monocytes (%) (Auto) % (1.0-10.0) Eosinophils (%) (Auto) % (0.0-3.0) Basophils (%) (Auto) % (0.0-2.0) Differential Total Cells Counted 100 Neutrophils % (Manual) 87 % (45-75) H Lymphocytes % (Manual) 7 % (20-45) L Monocytes % (Manual) 4 % (1-10) Eosinophils % (Manual) 0 % (0-3) Basophils % (Manual) 0 % (0-2) Band Neutrophils 2 % (0-8) Platelet Estimate Adequate Platelet Morphology Normal Red Blood Cell Morphology Normal Sodium Level 145 MMOL/L (136-145) Potassium Level 4.1 MMOL/L (3.5-5.1) Chloride Level 108 MMOL/L (98-107) H Carbon Dioxide Level 27 MMOL/L (21-32) Anion Gap 11 mmol/L (5-15) Blood Urea Nitrogen 27 mg/dL (7-18) H Creatinine 1.7 MG/DL (0.55-1.30) H Estimat Glomerular Filtration Rate 49.9 mL/min (>60) Glucose Level 124 MG/DL (74-106) H Calcium Level 8.4 MG/DL (8.5-10.1) L Total Bilirubin 0.3 MG/DL (0.2-1.0) Direct Bilirubin 0.1 MG/DL (0.0-0.3) Aspartate Amino Transf (AST/SGOT) 68 U/L (15-37) H Alanine Aminotransferase (ALT/SGPT) 65 U/L (12-78) Alkaline Phosphatase 11 U/L (46-116) L Troponin I 0.233 ng/mL (0.000-0.056) Total Protein 7.7 G/DL (6.4-8.2) Albumin 3.1 G/DL (3.4-5.0) L Globulin 4.6 g/dL Microbiology Date/Time Source Procedure Growth Status 02/14/20 19:00 Urine,Clean Catch Urine Culture - Preliminary NO GROWTH Resulted 02/14/20 13:00 Nasopharynx SARS-CoV-2 RdRp Gene Assay - Final Complete 02/13/20 23:00 Blood Blood Culture - Preliminary Resulted 02/13/20 22:45 Blood Blood Culture - Preliminary Resulted Intake and Output 02/14/20 02/15/20 19:00 07:00 Intake Total 360 ml Balance 360 ml Other 360 ml # Voids 3 # Bowel Movements 1 1 Objective PHYSICAL EXAMINATION: GENERAL: The patient is well-developed and well-nourished male, no apparent distress. HEENT: Eyes, pupils are equal and responsive to light and accommodation. Extraocular movements are intact. NECK: Supple without lymphadenopathy. CHEST: Lungs are clear to auscultation bilaterally without wheezes or rales. CARDIOVASCULAR: Regular rhythm and rate. S1 and S2 are normal without murmurs, rubs, or gallops. ABDOMEN: Soft, nontender, and nondistended. Positive bowel sounds. No evidence of hepatosplenomegaly. Currently, no rebound or guarding noted. EXTREMITIES: Negative for clubbing, cyanosis, or edema. RECTAL/GENITAL: Not performed. NEUROLOGIC: Cranial nerves II through XII are grossly intact without focal deficits. Motor strength is 5/5 bilaterally. Deep tendon reflexes are 2+ plantar. Assessment/Plan Assessment/Plan ASSESSMENT: This is a 60-year-old male: 1. Shortness of breath. 2. Fever. 3. COVID-19 positive. 4. Hypertension. 5. Cerebrovascular disease, status post cerebrovascular accident. 6. Hemiplegia. 7. Hypercholesterolemia. 8. Coronary artery disease. 9. Cardiomyopathy. 10. Paroxysmal atrial fibrillation. 11. Schizoaffective disorder, bipolar type. 12. Chronic kidney disease. 13. Sepsis=gram pos cocci TREATMENT: 1. Hypoxia/shortness of breath. A Pulmonary consultation has been obtained with Dr. Lyle Joy. COVID-19 testing is positive ABX=vanco, ceftriaxone and azithromycin and remdesivir for presumed pneumonia. 2. Hypertension. The patient is currently hypotensive. Hold antihypertensive medication as above. 3. Cerebrovascular disease. 4. Hemiplegia. 5. Coronary artery disease. A Cardiology consultation has been obtained with Dr. Kayden Aguilar. 6. Hypercholesterolemia. Continue atorvastatin as above. 7. Cardiomyopathy. 8. Paroxysmal atrial fibrillation. 9. Schizoaffective disorder, bipolar type. 10. Chronic kidney disease. 11. Pacemaker in situ. 12. ID=Edmund Monge MD Feb 15, 2020 19:50
[2020-02-15 20:00] VITALS: BP 129/89
--- NOTE | 2020-02-15 20:26 | Cardiology Progress Note ---
Assessment/Plan Assessment/Plan 1. History of permanent pacemaker implantation. 2. Possible pneumonia. 3. heart failure 4. History of cerebrovascular accident. 5. Schizophrenia. 6. History of pulmonary hypertension. 7. History of paroxysmal episodes of atrial fibrillation. 8. History of hemiplegia. 9. Hypertension. 10. History of kidney disease 11. bacteremia dc ivf iv diuretic agree with bid on treatment for covid 19 per id bp is elevated will try some low [place] of Norvasc in light lv dysfunction on max dose of cozaar and is "allergic to acei" per record tele reviewed personally Subjective Subjective Patient is awake in semi-fowlers position, eating breakfast. On 4L nasal cannula . Not distress or SOB noted. IV on right hand patent and clean, running 1/2NS at 75ml/hr. Objective Last 24 Hour Vital Signs Date Time Temp Pulse Resp B/P (MAP) Pulse Ox O2 Delivery O2 Flow Rate FiO2 02/15/20 18:27 Room Air 02/15/20 17:15 143/93 02/15/20 16:00 74 02/15/20 16:00 97.2 75 20 143/93 (110) 98 02/15/20 12:00 81 02/15/20 11:50 97.1 79 21 141/89 (106) 97 02/15/20 09:10 Nasal Cannula 4.0 02/15/20 09:00 91 137/105 02/15/20 09:00 137/105 02/15/20 08:00 90 02/15/20 08:00 97.9 91 21 137/105 (116) 95 02/15/20 04:00 68 02/15/20 04:00 97.5 84 19 132/87 (102) 93 02/15/20 00:00 62 02/15/20 00:00 97.2 67 19 128/93 (105) 92 02/14/20 21:00 Nasal Cannula 4.0 02/14/20 21:00 76 133/93 Intake and Output 02/14/20 02/15/20 19:00 07:00 Intake Total 360 ml Balance 360 ml Other 360 ml # Voids 3 # Bowel Movements 1 1 Laboratory Tests Test 02/15/20 05:57 White Blood Count 13.3 K/UL (4.8-10.8) H Red Blood Count 4.29 M/UL (4.70-6.10) L Hemoglobin 13.7 G/DL (14.2-18.0) L Hematocrit 42.2 % (42.0-52.0) Mean Corpuscular Volume 98 FL (80-99) Mean Corpuscular Hemoglobin 32.0 PG (27.0-31.0) H Mean Corpuscular Hemoglobin Concent 32.6 G/DL (32.0-36.0) Red Cell Distribution Width 13.1 % (11.6-14.8) Platelet Count 193 K/UL (150-450) Mean Platelet Volume 10.5 FL (6.5-10.1) H Neutrophils (%) (Auto) % (45.0-75.0) Lymphocytes (%) (Auto) % (20.0-45.0) Monocytes (%) (Auto) % (1.0-10.0) Eosinophils (%) (Auto) % (0.0-3.0) Basophils (%) (Auto) % (0.0-2.0) Differential Total Cells Counted 100 Neutrophils % (Manual) 87 % (45-75) H Lymphocytes % (Manual) 7 % (20-45) L Monocytes % (Manual) 4 % (1-10) Eosinophils % (Manual) 0 % (0-3) Basophils % (Manual) 0 % (0-2) Band Neutrophils 2 % (0-8) Platelet Estimate Adequate Platelet Morphology Normal Red Blood Cell Morphology Normal Sodium Level 145 MMOL/L (136-145) Potassium Level 4.1 MMOL/L (3.5-5.1) Chloride Level 108 MMOL/L (98-107) H Carbon Dioxide Level 27 MMOL/L (21-32) Anion Gap 11 mmol/L (5-15) Blood Urea Nitrogen 27 mg/dL (7-18) H Creatinine 1.7 MG/DL (0.55-1.30) H Estimat Glomerular Filtration Rate 49.9 mL/min (>60) Glucose Level 124 MG/DL (74-106) H Calcium Level 8.4 MG/DL (8.5-10.1) L Total Bilirubin 0.3 MG/DL (0.2-1.0) Direct Bilirubin 0.1 MG/DL (0.0-0.3) Aspartate Amino Transf (AST/SGOT) 68 U/L (15-37) H Alanine Aminotransferase (ALT/SGPT) 65 U/L (12-78) Alkaline Phosphatase 11 U/L (46-116) L Troponin I 0.233 ng/mL (0.000-0.056) Total Protein 7.7 G/DL (6.4-8.2) Albumin 3.1 G/DL (3.4-5.0) L Globulin 4.6 g/dL Microbiology Date/Time Source Procedure Growth Status 02/14/20 19:00 Urine,Clean Catch Urine Culture - Preliminary NO GROWTH Resulted 02/14/20 13:00 Nasopharynx SARS-CoV-2 RdRp Gene Assay - Final Complete 02/13/20 23:00 Blood Blood Culture - Preliminary Resulted 02/13/20 22:45 Blood Blood Culture - Preliminary Resulted Kayden Aguilar MD Feb 15, 2020 20:26
[2020-02-15] MEDS: Atorvastatin 20mg tab ORAL SCH (21:37)
[2020-02-16] VITALS: BP 136/88
[2020-02-16 04:00] VITALS: BP 136/89
[2020-02-16 05:45] LABS: BASOPHILS % (AUTO) 5.2 % (0.0-2.0); HEMATOCRIT 43.7 % (42.0-52.0); HEMOGLOBIN 14.6 G/DL (14.2-18.0); LYMPHOCYTES % (AUTO) 8.3 % (20.0-45.0); MEAN CORPUSCULAR VOLUME 97 FL (80-99); MONOCYTES % (AUTO) 10.3 % (1.0-10.0); NEUTROPHILS % (AUTO) 76.2 % (45.0-75.0); PLATELET COUNT 196 K/UL (150-450); RED BLOOD COUNT 4.52 M/UL (4.70-6.10); RED CELL DISTRIBUTION WIDTH 13.4 % (11.6-14.8); WHITE BLOOD COUNT 13.5 K/UL (4.8-10.8)
[2020-02-16 06:05] LABS: PHOSPHORUS 2.9 MG/DL (2.5-4.9)
[2020-02-16 06:12] LABS: ALBUMIN 3.2 G/DL (3.4-5.0); ALBUMIN/GLOBULIN RATIO 0.7 (1.0-2.7); BILIRUBIN,DIRECT 0.1 MG/DL (0.0-0.3); BILIRUBIN,TOTAL 0.4 MG/DL (0.2-1.0); CALCIUM 8.5 MG/DL (8.5-10.1); CREATININE 1.7 MG/DL (0.55-1.30); POTASSIUM 4.1 MMOL/L (3.5-5.1)
[2020-02-16 08:00] VITALS: BP 136/89
[2020-02-16] MEDS ORDERED: Vancomycin 1.5gm/NS Premix IVPB ONE (08:00)
[2020-02-16] MEDS: Losartan 50mg tab ORAL SCH ×2 (09:49→17:58)
[2020-02-16] MEDS: Amiodarone 200mg tab ORAL SCH (09:50)
[2020-02-16] MEDS: Aspirin Baby 81mg ORAL SCH (09:50)
[2020-02-16] MEDS: Heparin 5000 units/ml inj SUBQ SCH ×2 (09:52→20:58)
--- NOTE | 2020-02-16 11:32 | Diagnostic Imaging Report ---
Procedure: XRAY Chest 1v Reason for study: Reason For Exam: SOB Comparison films: 02/13/2020. FINDINGS: ICD remains in place. Congestion and edema are unchanged. Cardiomegaly unchanged CP angles are sharp. The bony thorax appear unremarkable. IMPRESSION: NO SIGNIFICANT CHANGE COMPARED TO PREVIOUS EXAM.
--- NOTE | 2020-02-16 11:43 | Infectious Diseases Prog Note ---
Assessment/Plan Assessment: COVID19 positive (dx'ed 02/08/20)- likely PNA Acute hypoxic resp failure- sp NRB> 4l NC> desaturated to 78% and was placed on SM 8L 02/15 -02/12 CXR: Cardiomegaly with vascular congestion and moderate edema. Gram positive bacteremia- real vs contaminant -02/12 Bcx 2/4 GPC clusters, 2/4 diphteroids; 02/14 Bcx p Fever -[employer]- none here so far mild leukocytosis (on steroids) SHANNAN, improving Elevated AST, mild; increasing CVA w/ resultant aphasia HLD general anxiety disorder schizoaffective disorder-depressive type cardiomegaly pAfib pHTN CKD CAD HTN [place] [facility] Plan: -Cont empiric IV Vancomycin #2 -Continue empiric Ceftriaxone and Azithromycin #/ -Decadron #/ -Requested Remdesivir #/- patient unable to provide consent; benefits outweigh risks -f/u cx -Monitor CBC/CMP, temperatures -f/u repeat Bcx x2 -CXR Thank you for this consultation. Will continue to follow along with you. Discussed with RN. Subjective Allergies: Coded Allergies: DONNIE INHIBITORS (Verified Allergy, Unknown, 02/13/20) OMEGA-3 ACID ETHYL ESTERS (Verified Allergy, Unknown, 02/13/20) afebrile >48hrs wbc remains at 13 patient desaturated to 78% at RA and was placed on simple mask 8L pending repeat bcx Objective Last 24 Hour Vital Signs Date Time Temp Pulse Resp B/P (MAP) Pulse Ox O2 Delivery O2 Flow Rate FiO2 02/16/20 09:50 63 136/89 02/16/20 09:49 136/89 02/16/20 09:00 63 136/89 02/16/20 08:57 Simple Mask 8.0 02/16/20 08:00 80 02/16/20 08:00 97.5 63 24 136/89 (105) 80 02/16/20 04:00 69 02/16/20 04:00 97.5 52 20 136/89 (105) 94 02/16/20 00:00 52 02/16/20 00:00 97.0 63 20 136/88 (104) 92 02/15/20 21:37 74 143/93 02/15/20 21:36 74 143/93 02/15/20 20:00 82 02/15/20 20:00 97.5 76 20 129/89 (102) 92 02/15/20 18:27 Room Air 02/15/20 17:15 143/93 02/15/20 16:00 74 02/15/20 16:00 97.2 75 20 143/93 (110) 98 02/15/20 12:00 81 02/15/20 11:50 97.1 79 21 141/89 (106) 97 Height (Feet): 5 Height (Inches): 10.00 Weight (Pounds): 231 Gen: no distress Respiratory Exam: Rhonchi Cardiovascular Exam: RRR Skin Exam: Normal Turgor Microbiology Date/Time Source Procedure Growth Status 02/14/20 19:00 Urine,Clean Catch Urine Culture - Final Gram Positive Cocci Complete 02/14/20 13:00 Nasopharynx SARS-CoV-2 RdRp Gene Assay - Final Complete 02/14/20 00:30 Rectum - Final NO CARBAPENEM-RESISTANT ENTEROBACTERI... Complete 02/14/20 00:30 Rectum VRE Culture - Final NO VANCOMYCIN RESISTANT ENTEROCOCCUS ... Complete 02/13/20 23:00 Blood Blood Culture - Preliminary Diphtheroids Gram Positive Cocci Resulted 02/13/20 22:45 Blood Blood Culture - Preliminary Gram Positive Cocci Resulted Laboratory Tests Test 02/16/20 05:31 White Blood Count 13.5 K/UL (4.8-10.8) H Red Blood Count 4.52 M/UL (4.70-6.10) L Hemoglobin 14.6 G/DL (14.2-18.0) Hematocrit 43.7 % (42.0-52.0) Mean Corpuscular Volume 97 FL (80-99) Mean Corpuscular Hemoglobin 32.2 PG (27.0-31.0) H Mean Corpuscular Hemoglobin Concent 33.3 G/DL (32.0-36.0) Red Cell Distribution Width 13.4 % (11.6-14.8) Platelet Count 196 K/UL (150-450) Mean Platelet Volume 9.3 FL (6.5-10.1) Neutrophils (%) (Auto) 76.2 % (45.0-75.0) H Lymphocytes (%) (Auto) 8.3 % (20.0-45.0) L Monocytes (%) (Auto) 10.3 % (1.0-10.0) H Eosinophils (%) (Auto) 0.0 % (0.0-3.0) Basophils (%) (Auto) 5.2 % (0.0-2.0) H Erythrocyte Sedimentation Rate 56 MM/HR (0-20) H Sodium Level 145 MMOL/L (136-145) Potassium Level 4.1 MMOL/L (3.5-5.1) Chloride Level 109 MMOL/L (98-107) H Carbon Dioxide Level 24 MMOL/L (21-32) Anion Gap 12 mmol/L (5-15) Blood Urea Nitrogen 33 mg/dL (7-18) H Creatinine 1.7 MG/DL (0.55-1.30) H Estimat Glomerular Filtration Rate 49.9 mL/min (>60) Glucose Level 131 MG/DL (74-106) H Calcium Level 8.5 MG/DL (8.5-10.1) Phosphorus Level 2.9 MG/DL (2.5-4.9) Magnesium Level 2.2 MG/DL (1.8-2.4) Total Bilirubin 0.4 MG/DL (0.2-1.0) Direct Bilirubin 0.1 MG/DL (0.0-0.3) Aspartate Amino Transf (AST/SGOT) 86 U/L (15-37) H Alanine Aminotransferase (ALT/SGPT) 65 U/L (12-78) Alkaline Phosphatase 50 U/L (46-116) Troponin I 0.243 ng/mL (0.000-0.056) C-Reactive Protein, Quantitative 9.2 mg/dL (0.00-0.90) H Total Protein 8.0 G/DL (6.4-8.2) Albumin 3.2 G/DL (3.4-5.0) L Globulin 4.8 g/dL Albumin/Globulin Ratio 0.7 (1.0-2.7) L Random Vancomycin Level 12.2 ug/mL Current Medications Medications (Trade) Dose Ordered Sig/Reji Route PRN Reason Start Time Stop Time Status Last Admin Dose Admin Acetaminophen (Tylenol) 500 mg Q4H PRN ORAL Mild Pain (Pain Scale 1-3) 02/14/20 00:30 03/15/20 00:29 Acetaminophen (Tylenol) 650 mg Q4H PRN ORAL FEVER 02/14/20 10:00 03/15/20 09:59 Albuterol/ Ipratropium (Albuterol/ Ipratropium) 3 ml Q4H PRN HHN Shortness of Breath 02/14/20 10:00 02/19/20 09:59 Amiodarone HCl (Cordarone) 200 mg DAILY ORAL 02/14/20 19:15 05/14/20 19:14 02/16/20 09:50 Amlodipine Besylate (Norvasc) 2.5 mg DAILY ORAL 02/15/20 20:30 03/16/20 20:29 02/16/20 09:50 Aspirin (ASA) 81 mg DAILY ORAL 02/15/20 09:00 03/31/20 08:59 02/16/20 09:50 Atorvastatin Calcium (Lipitor) 40 mg BEDTIME ORAL 02/14/20 21:00 05/14/20 20:59 02/15/20 21:37 Azithromycin 250 mg/Dextrose 275 ml @ 275 mls/hr Q24HRS IV 02/14/20 23:00 02/19/20 22:59 02/15/20 00:14 Ceftriaxone Sodium 1 gm/ Dextrose 55 ml @ 110 mls/hr Q24H IVPB 02/14/20 23:00 02/21/20 22:59 02/15/20 23:32 Dexamethasone (Decadron) 4 mg DAILY ORAL 02/14/20 09:00 02/24/20 08:59 02/16/20 09:49 Dextrose (Dextrose 50%) 25 ml Q30M PRN IV Hypoglycemia 02/14/20 10:00 05/14/20 09:59 Dextrose (Dextrose 50%) 50 ml Q30M PRN IV Hypoglycemia 02/14/20 10:00 05/14/20 09:59 Heparin Sodium (Porcine) (Heparin 5000 units/ml) 5,000 units EVERY 12 HOURS SUBQ 02/14/20 10:00 03/30/20 09:59 02/16/20 09:52 Losartan Potassium (Cozaar) 50 mg TWICE A DAY ORAL 02/14/20 19:15 03/15/20 19:14 02/16/20 09:49 Metoprolol Tartrate (Lopressor) 25 mg EVERY 12 HOURS ORAL 02/14/20 21:00 05/14/20 20:59 02/15/20 21:37 Ondansetron HCl (Zofran) 4 mg Q6H PRN IVP Nausea & Vomiting 02/14/20 10:00 03/15/20 09:59 Pantoprazole (Protonix) 40 mg EVERY 12 HOURS ORAL 02/15/20 21:00 03/16/20 20:59 02/16/20 09:50 Polyethylene Glycol (Miralax) 17 gm DAILYPRN PRN ORAL Constipation 02/14/20 10:00 03/15/20 09:59 Promethazine HCl/ Codeine (Phenergan with Codeine) 5 ml Q6H PRN ORAL cough 02/14/20 10:00 03/15/20 09:59 Remdesivir 100 mg/ Sodium Chloride 250 ml @ 250 mls/hr Q24H IV 02/15/20 18:00 02/18/20 18:59 02/15/20 17:50 Vancomycin HCl ([facility] pharmacy to dose) 1 ea DAILY PRN MISC Per rx protocol 02/15/20 12:00 03/16/20 11:59 Heather Espinoza M.D. Feb 16, 2020 11:43
[2020-02-16 12:00] VITALS: BP 121/87
--- NOTE | 2020-02-16 12:33 | Cardiology Report ---
APPROVED REPORT EXAM: Two-dimensional and M-mode echocardiogram with Doppler and color Doppler. INDICATION Congestive Heart Failure M-Mode DIMENSIONS IVSd0.7 (0.7-1.1cm)Left Atrium (MM)4.7 (1.6-4.0cm) LVDd9.5 (3.5-5.6cm)Aortic Root4.0 (2.0-3.7cm) PWd1.0 (0.7-1.1cm)Aortic Cusp Exc.2.3 (1.5-2.0cm) IVSs1.0 cmEPSS1.9 (>1.0cm) LVDs8.3 (2.5-4.0cm) PWs1.1 cm Other Information Technically limited study due to body habitus. <Conclusion> Technically difficult study due to poor acoustical windows. Mild left ventriuclar enlargement. Global left ventricular hypokinesis. Left ventricular ejection fraction estimated to be 30-35 %. Mild left ventricular hypertrophy. Small circumfrential pericardial effusion. Mild left atrial enlargement. Right cardiac chamber sizes are within normal limits. Mild focal aortic valve sclerosis with adequate cusp excursion. Mild thickened mitral valve leaflets with normal excursion. Mild mitral annulus and aortic root calcification. Pulmonic valve not well visualized. Normal tricuspid valve structure. IVC at normal size with physiologic collapsing. Pacemaker wire present in the right side chambers. A color flow and spectral Doppler study was performed and revealed: Trace to mild aortic insufficiency. Mild to moderate mitral regurgitation. Mitral diastolic velocities suggest reduced left ventricular relaxation c/w mild diastolic dysfunction (Grade I). Mild tricuspid regurgitation. Tricuspid systolic velocities suggests peak right ventricular systolic pressure of 41 mmHg, consistent with mild pulmonary hypertension.
--- NOTE | 2020-02-16 13:06 | Pulmonology Progress Note ---
Subjective ROS Limited/Unobtainable: No Constitutional: Reports: no symptoms HEENT: Repors: no symptoms Allergies: Coded Allergies: DONNIE INHIBITORS (Verified Allergy, Unknown, 02/13/20) OMEGA-3 ACID ETHYL ESTERS (Verified Allergy, Unknown, 02/13/20) Objective Last 24 Hour Vital Signs Date Time Temp Pulse Resp B/P (MAP) Pulse Ox O2 Delivery O2 Flow Rate FiO2 02/16/20 12:00 96.8 75 22 121/87 (98) 96 02/16/20 09:50 63 136/89 02/16/20 09:49 136/89 02/16/20 09:00 63 136/89 02/16/20 08:57 Simple Mask 8.0 02/16/20 08:00 80 02/16/20 08:00 97.5 63 24 136/89 (105) 80 02/16/20 04:00 69 02/16/20 04:00 97.5 52 20 136/89 (105) 94 02/16/20 00:00 52 02/16/20 00:00 97.0 63 20 136/88 (104) 92 02/15/20 21:37 74 143/93 02/15/20 21:36 74 143/93 02/15/20 20:00 82 02/15/20 20:00 97.5 76 20 129/89 (102) 92 02/15/20 18:27 Room Air 02/15/20 17:15 143/93 02/15/20 16:00 74 02/15/20 16:00 97.2 75 20 143/93 (110) 98 Intake and Output 02/15/20 02/16/20 19:00 07:00 Intake Total 480 ml Balance 480 ml Intake Oral 480 ml # Bowel Movements 3 General Appearance: WD/WN HEENT: normocephalic, atraumatic Respiratory: chest wall non-tender, normal breath sounds Cardiovascular: normal peripheral pulses, normal rate Abdomen: normal bowel sounds, soft, non tender, no organomegaly Genitourinary: normal external genitalia Extremities: no cyanosis Skin: no rash Neurologic: biology manager II-XII grossly normal Microbiology Date/Time Source Procedure Growth Status 02/14/20 19:00 Urine,Clean Catch Urine Culture - Final Gram Positive Cocci Complete 02/14/20 13:00 Nasopharynx SARS-CoV-2 RdRp Gene Assay - Final Complete 02/14/20 00:30 Rectum - Final NO CARBAPENEM-RESISTANT ENTEROBACTERI... Complete 02/14/20 00:30 Rectum VRE Culture - Final NO VANCOMYCIN RESISTANT ENTEROCOCCUS ... Complete 02/13/20 23:00 Blood Blood Culture - Preliminary Diphtheroids Gram Positive Cocci Resulted 02/13/20 22:45 Blood Blood Culture - Preliminary Gram Positive Cocci Resulted Laboratory Tests 02/16/20 05:31: White Blood Count 13.5H, Red Blood Count 4.52L, Hemoglobin 14.6, Hematocrit 43.7, Mean Corpuscular Volume 97, Mean Corpuscular Hemoglobin 32.2H, Mean Corpuscular Hemoglobin Concent 33.3, Red Cell Distribution Width 13.4, Platelet Count 196, Mean Platelet Volume 9.3, Neutrophils (%) (Auto) 76.2H, Lymphocytes (%) (Auto) 8.3L, Monocytes (%) (Auto) 10.3H, Eosinophils (%) (Auto) 0.0, Basophils (%) (Auto) 5.2H, Erythrocyte Sedimentation Rate 56H, Sodium Level 145, Potassium Level 4.1, Chloride Level 109H, Carbon Dioxide Level 24, Anion Gap 12, Blood Urea Nitrogen 33H, Creatinine 1.7H, Estimat Glomerular Filtration Rate 49.9, Glucose Level 131H, Calcium Level 8.5, Phosphorus Level 2.9, Magnesium Level 2.2, Total Bilirubin 0.4, Direct Bilirubin 0.1, Aspartate Amino Transf (AST/SGOT) 86H, Alanine Aminotransferase (ALT/SGPT) 65, Alkaline Phosphatase 50, Troponin I 0.243H, C-Reactive Protein, Quantitative 9.2H, Total Protein 8.0, Albumin 3.2L, Globulin 4.8, Albumin/Globulin Ratio 0.7L, Random Vancomycin Level 12.2 Current Medications Medications (Trade) Dose Ordered Sig/Reji Route PRN Reason Start Time Stop Time Status Last Admin Dose Admin Acetaminophen (Tylenol) 500 mg Q4H PRN ORAL Mild Pain (Pain Scale 1-3) 02/14/20 00:30 03/15/20 00:29 Acetaminophen (Tylenol) 650 mg Q4H PRN ORAL FEVER 02/14/20 10:00 03/15/20 09:59 Albuterol/ Ipratropium (Albuterol/ Ipratropium) 3 ml Q4H PRN HHN Shortness of Breath 02/14/20 10:00 02/19/20 09:59 Amiodarone HCl (Cordarone) 200 mg DAILY ORAL 02/14/20 19:15 05/14/20 19:14 02/16/20 09:50 Amlodipine Besylate (Norvasc) 2.5 mg DAILY ORAL 02/15/20 20:30 03/16/20 20:29 02/16/20 09:50 Aspirin (ASA) 81 mg DAILY ORAL 02/15/20 09:00 03/31/20 08:59 02/16/20 09:50 Atorvastatin Calcium (Lipitor) 40 mg BEDTIME ORAL 02/14/20 21:00 05/14/20 20:59 02/15/20 21:37 Azithromycin 250 mg/Dextrose 275 ml @ 275 mls/hr Q24HRS IV 02/14/20 23:00 02/19/20 22:59 02/15/20 00:14 Ceftriaxone Sodium 1 gm/ Dextrose 55 ml @ 110 mls/hr Q24H IVPB 02/14/20 23:00 02/21/20 22:59 02/15/20 23:32 Dexamethasone (Decadron) 4 mg DAILY ORAL 02/14/20 09:00 02/24/20 08:59 02/16/20 09:49 Dextrose (Dextrose 50%) 25 ml Q30M PRN IV Hypoglycemia 02/14/20 10:00 05/14/20 09:59 Dextrose (Dextrose 50%) 50 ml Q30M PRN IV Hypoglycemia 02/14/20 10:00 05/14/20 09:59 Heparin Sodium (Porcine) (Heparin 5000 units/ml) 5,000 units EVERY 12 HOURS SUBQ 02/14/20 10:00 03/30/20 09:59 02/16/20 09:52 Losartan Potassium (Cozaar) 50 mg TWICE A DAY ORAL 02/14/20 19:15 03/15/20 19:14 02/16/20 09:49 Metoprolol Tartrate (Lopressor) 25 mg EVERY 12 HOURS ORAL 02/14/20 21:00 05/14/20 20:59 02/15/20 21:37 Ondansetron HCl (Zofran) 4 mg Q6H PRN IVP Nausea & Vomiting 02/14/20 10:00 03/15/20 09:59 Pantoprazole (Protonix) 40 mg EVERY 12 HOURS ORAL 02/15/20 21:00 03/16/20 20:59 02/16/20 09:50 Polyethylene Glycol (Miralax) 17 gm DAILYPRN PRN ORAL Constipation 02/14/20 10:00 03/15/20 09:59 Promethazine HCl/ Codeine (Phenergan with Codeine) 5 ml Q6H PRN ORAL cough 02/14/20 10:00 03/15/20 09:59 Remdesivir 100 mg/ Sodium Chloride 250 ml @ 250 mls/hr Q24H IV 02/15/20 18:00 02/18/20 18:59 02/15/20 17:50 Vancomycin HCl ([facility] pharmacy to dose) 1 ea DAILY PRN MISC Per rx protocol 02/15/20 12:00 03/16/20 11:59 Assessment/Plan Problems: (1) Pneumonia due to COVID-19 virus (2) Sepsis (3) Atrial fibrillation (4) CHF (congestive heart failure) (5) Arrhythmia (6) History of CVA (cerebrovascular accident) (7) Psychosis Assessment/Plan doing better wbc is high respiratory isolation check sputum iv abx + steroids + antiviral echocardiogram f/u crp optimize cardiac meds dvt prophylaxis Lyle Joy MD Feb 16, 2020 13:06
--- NOTE | 2020-02-16 14:32 | Nephrology Progress Note ---
Assessment/Plan Problem List: (1) SHANNAN (acute kidney injury) (2) CHF (congestive heart failure) (3) Atrial fibrillation (4) Cardiomyopathy (5) ICD (implantable cardioverter-defibrillator) in place (6) History of CVA (cerebrovascular accident) (7) Pneumonia due to COVID-19 virus Assessment Acute on chronic renal failure Respiratory failure with hypoxia Pneumonia due to COVID-19 virus Sepsis Diabetes mellitus with elevated hemoglobin A1c Anemia Cardiomyopathy 20% EjFx Plan February 15: When I saw the patient this morning with charge nurse Wilfred the patient was somewhat hypoxic on oxygen. Was ordered to be put on mask and inform copy preparer for possible ABG check and further treatment plan. Labs reviewed. Serum creatinine stable. Troponin unchanged. Continue to monitor renal parameters. Continue to optimize cardiac and pulmonary status. Overall prognosis poor. Slow hydration Monitor electrolytes and renal parameters Monitor urine output Correct abnormal electrolytes Antibiotics, avoid nephrotoxic's Anemia work-up Per orders Subjective ROS Limited/Unobtainable: No Constitutional: Reports: malaise, weakness Objective Objective Last 24 Hour Vital Signs Date Time Temp Pulse Resp B/P (MAP) Pulse Ox O2 Delivery O2 Flow Rate FiO2 02/16/20 12:00 96.8 75 22 121/87 (98) 96 02/16/20 12:00 75 02/16/20 09:50 63 136/89 02/16/20 09:49 136/89 02/16/20 09:00 63 136/89 02/16/20 08:57 Simple Mask 8.0 02/16/20 08:00 80 02/16/20 08:00 97.5 63 24 136/89 (105) 80 02/16/20 04:00 69 02/16/20 04:00 97.5 52 20 136/89 (105) 94 02/16/20 00:00 52 02/16/20 00:00 97.0 63 20 136/88 (104) 92 02/15/20 21:37 74 143/93 02/15/20 21:36 74 143/93 02/15/20 20:00 82 02/15/20 20:00 97.5 76 20 129/89 (102) 92 02/15/20 18:27 Room Air 02/15/20 17:15 143/93 02/15/20 16:00 74 9/17/20 16:00 97.2 75 20 143/93 (110) 98 Intake and Output 02/15/20 02/16/20 19:00 07:00 Intake Total 480 ml Balance 480 ml Intake Oral 480 ml # Bowel Movements 3 Laboratory Tests 02/16/20 05:31: White Blood Count 13.5H, Red Blood Count 4.52L, Hemoglobin 14.6, Hematocrit 43.7, Mean Corpuscular Volume 97, Mean Corpuscular Hemoglobin 32.2H, Mean Corpuscular Hemoglobin Concent 33.3, Red Cell Distribution Width 13.4, Platelet Count 196, Mean Platelet Volume 9.3, Neutrophils (%) (Auto) 76.2H, Lymphocytes (%) (Auto) 8.3L, Monocytes (%) (Auto) 10.3H, Eosinophils (%) (Auto) 0.0, Basophils (%) (Auto) 5.2H, Erythrocyte Sedimentation Rate 56H, Sodium Level 145, Potassium Level 4.1, Chloride Level 109H, Carbon Dioxide Level 24, Anion Gap 12, Blood Urea Nitrogen 33H, Creatinine 1.7H, Estimat Glomerular Filtration Rate 49.9, Glucose Level 131H, Calcium Level 8.5, Phosphorus Level 2.9, Magnesium L evel 2.2, Total Bilirubin 0.4, Direct Bilirubin 0.1, Aspartate Amino Transf (AST/SGOT) 86H, Alanine Aminotransferase (ALT/SGPT) 65, Alkaline Phosphatase 50, Troponin I 0.243H, C-Reactive Protein, Quantitative 9.2H, Total Protein 8.0, Albumin 3.2L, Globulin 4.8, Albumin/Globulin Ratio 0.7L, Random Vancomycin Level 12.2 Height (Feet): 5 Height (Inches): 10.00 Weight (Pounds): 231 Cardiovascular: tachycardia Respiratory/Chest: decreased breath sounds Abdomen: distended Ashvin Bautista MD Feb 16, 2020 14:32
[2020-02-16 16:00] VITALS: BP 130/99
[2020-02-16] MEDS: Maintenance Dose:Remdesivir 100mg/NS 230ml x 4 Doses IV SCH ×2 (17:58)
--- NOTE | 2020-02-16 18:08 | Internal Med Progress Note ---
Subjective Physician Name Atilio Lee Attending Physician Atilio Lee MD Current Medications Medications (Trade) Dose Ordered Sig/Reji Route PRN Reason Start Time Stop Time Status Last Admin Dose Admin Acetaminophen (Tylenol) 500 mg Q4H PRN ORAL Mild Pain (Pain Scale 1-3) 02/14/20 00:30 03/15/20 00:29 Acetaminophen (Tylenol) 650 mg Q4H PRN ORAL FEVER 02/14/20 10:00 03/15/20 09:59 Albuterol/ Ipratropium (Albuterol/ Ipratropium) 3 ml Q4H PRN HHN Shortness of Breath 02/14/20 10:00 02/19/20 09:59 Amiodarone HCl (Cordarone) 200 mg DAILY ORAL 02/14/20 19:15 05/14/20 19:14 02/16/20 09:50 Amlodipine Besylate (Norvasc) 2.5 mg DAILY ORAL 02/15/20 20:30 03/16/20 20:29 02/16/20 09:50 Aspirin (ASA) 81 mg DAILY ORAL 02/15/20 09:00 03/31/20 08:59 02/16/20 09:50 Atorvastatin Calcium (Lipitor) 40 mg BEDTIME ORAL 02/14/20 21:00 05/14/20 20:59 02/15/20 21:37 Azithromycin 250 mg/Dextrose 275 ml @ 275 mls/hr Q24HRS IV 02/14/20 23:00 02/19/20 22:59 02/15/20 00:14 Ceftriaxone Sodium 1 gm/ Dextrose 55 ml @ 110 mls/hr Q24H IVPB 02/14/20 23:00 02/21/20 22:59 02/15/20 23:32 Dexamethasone (Decadron) 4 mg DAILY ORAL 02/14/20 09:00 02/24/20 08:59 02/16/20 09:49 Dextrose (Dextrose 50%) 25 ml Q30M PRN IV Hypoglycemia 02/14/20 10:00 05/14/20 09:59 Dextrose (Dextrose 50%) 50 ml Q30M PRN IV Hypoglycemia 02/14/20 10:00 05/14/20 09:59 Heparin Sodium (Porcine) (Heparin 5000 units/ml) 5,000 units EVERY 12 HOURS SUBQ 02/14/20 10:00 03/30/20 09:59 02/16/20 09:52 Losartan Potassium (Cozaar) 50 mg TWICE A DAY ORAL 02/14/20 19:15 03/15/20 19:14 02/16/20 17:58 Metoprolol Tartrate (Lopressor) 25 mg EVERY 12 HOURS ORAL 02/14/20 21:00 05/14/20 20:59 02/15/20 21:37 Ondansetron HCl (Zofran) 4 mg Q6H PRN IVP Nausea & Vomiting 02/14/20 10:00 03/15/20 09:59 Pantoprazole (Protonix) 40 mg EVERY 12 HOURS ORAL 02/15/20 21:00 03/16/20 20:59 02/16/20 09:50 Polyethylene Glycol (Miralax) 17 gm DAILYPRN PRN ORAL Constipation 02/14/20 10:00 03/15/20 09:59 Promethazine HCl/ Codeine (Phenergan with Codeine) 5 ml Q6H PRN ORAL cough 02/14/20 10:00 03/15/20 09:59 Remdesivir 100 mg/ Sodium Chloride 250 ml @ 250 mls/hr Q24H IV 02/15/20 18:00 02/18/20 18:59 02/16/20 17:58 Vancomycin HCl ([facility] pharmacy to dose) 1 ea DAILY PRN MISC Per rx protocol 02/15/20 12:00 03/16/20 11:59 Allergies: Coded Allergies: DONNIE INHIBITORS (Verified Allergy, Unknown, 02/13/20) OMEGA-3 ACID ETHYL ESTERS (Verified Allergy, Unknown, 02/13/20) Subjective awake, alert, responsive, agitated, on 5 L simple mask, In [place] [id number] isolation room. Objective Last Vital Signs Date Time Temp Pulse Resp B/P (MAP) Pulse Ox O2 Delivery O2 Flow Rate FiO2 02/16/20 17:58 130/99 02/16/20 16:00 98.1 67 22 91 02/16/20 08:57 Simple Mask 8.0 Laboratory Tests Test 02/16/20 05:31 White Blood Count 13.5 K/UL (4.8-10.8) H Red Blood Count 4.52 M/UL (4.70-6.10) L Hemoglobin 14.6 G/DL (14.2-18.0) Hematocrit 43.7 % (42.0-52.0) Mean Corpuscular Volume 97 FL (80-99) Mean Corpuscular Hemoglobin 32.2 PG (27.0-31.0) H Mean Corpuscular Hemoglobin Concent 33.3 G/DL (32.0-36.0) Red Cell Distribution Width 13.4 % (11.6-14.8) Platelet Count 196 K/UL (150-450) Mean Platelet Volume 9.3 FL (6.5-10.1) Neutrophils (%) (Auto) 76.2 % (45.0-75.0) H Lymphocytes (%) (Auto) 8.3 % (20.0-45.0) L Monocytes (%) (Auto) 10.3 % (1.0-10.0) H Eosinophils (%) (Auto) 0.0 % (0.0-3.0) Basophils (%) (Auto) 5.2 % (0.0-2.0) H Erythrocyte Sedimentation Rate 56 MM/HR (0-20) H Sodium Level 145 MMOL/L (136-145) Potassium Level 4.1 MMOL/L (3.5-5.1) Chloride Level 109 MMOL/L (98-107) H Carbon Dioxide Level 24 MMOL/L (21-32) Anion Gap 12 mmol/L (5-15) Blood Urea Nitrogen 33 mg/dL (7-18) H Creatinine 1.7 MG/DL (0.55-1.30) H Estimat Glomerular Filtration Rate 49.9 mL/min (>60) Glucose Level 131 MG/DL (74-106) H Calcium Level 8.5 MG/DL (8.5-10.1) Phosphorus Level 2.9 MG/DL (2.5-4.9) Magnesium Level 2.2 MG/DL (1.8-2.4) Total Bilirubin 0.4 MG/DL (0.2-1.0) Direct Bilirubin 0.1 MG/DL (0.0-0.3) Aspartate Amino Transf (AST/SGOT) 86 U/L (15-37) H Alanine Aminotransferase (ALT/SGPT) 65 U/L (12-78) Alkaline Phosphatase 50 U/L (46-116) Troponin I 0.243 ng/mL (0.000-0.056) C-Reactive Protein, Quantitative 9.2 mg/dL (0.00-0.90) H Total Protein 8.0 G/DL (6.4-8.2) Albumin 3.2 G/DL (3.4-5.0) L Globulin 4.8 g/dL Albumin/Globulin Ratio 0.7 (1.0-2.7) L Random Vancomycin Level 12.2 ug/mL Microbiology Date/Time Source Procedure Growth Status 02/14/20 19:00 Urine,Clean Catch Urine Culture - Final Gram Positive Cocci Complete 02/14/20 13:00 Nasopharynx SARS-CoV-2 RdRp Gene Assay - Final Complete 02/14/20 00:30 Rectum - Final NO CARBAPENEM-RESISTANT ENTEROBACTERI... Complete 02/14/20 00:30 Rectum VRE Culture - Final NO VANCOMYCIN RESISTANT ENTEROCOCCUS ... Complete 02/13/20 23:00 Blood Blood Culture - Preliminary Diphtheroids Gram Positive Cocci Resulted 02/13/20 22:45 Blood Blood Culture - Preliminary Gram Positive Cocci Resulted Intake and Output 02/15/20 02/16/20 19:00 07:00 Intake Total 480 ml Balance 480 ml Intake Oral 480 ml # Bowel Movements 3 Objective General: No acute distress, awake, responsive, agitated. HEENT: NCAT, sclera anicteric, PERRL, EOMI. Neck: Supple, no significant jugular venous distention, Lungs: fair inspiratory effort, decrease breath sound at bases, no Wheeze or Rales. Heart: Regular rate and rhythm, normal S1/S2, no murmurs Abdomen: soft, nontender, nondistended. Normoactive bowel sounds, Obesity. Extremities: No Cyanosis , clubbing or edema. Neuro: Limited due to patient status, Able to move all extremities Skin: warm, no rash Assessment/Plan Assessment/Plan ASSESSMENT: This is a 60-year-old male: 1. Shortness of breath. 2. Fever. 3. COVID-19 pneumonia. 4. Hypertension. 5. Cerebrovascular disease, status post cerebrovascular accident. 6. Hemiplegia. 7. Hypercholesterolemia. 8. Coronary artery disease. 9. Cardiomyopathy. 10. Paroxysmal atrial fibrillation. 11. Schizoaffective disorder, bipolar type. 12. Chronic kidney disease. 13. Sepsis=gram pos cocci TREATMENT: 1. Hypoxia/ COVID-19 pneumonia. A Pulmonary consultation has been obtained with Dr. Lyle Joy. COVID-19 testing is positive 2. Hypertension. 3. Cerebrovascular disease. 4. Hemiplegia. 5. Coronary artery disease. A Cardiology consultation has been obtained with Dr. Kayden Aguilar. 6. Hypercholesterolemia. Continue atorvastatin as above. 7. Cardiomyopathy. 8. Paroxysmal atrial fibrillation. 9. Schizoaffective disorder, bipolar type. 10. Chronic kidney disease. 11. Pacemaker in situ. 12. ID=DR Espinoza -Cont empiric IV Vancomycin #2, Ceftriaxone #4/5, Azithromycin #4/5 -Decadron #4/10 -Requested Remdesivir #3/5- patient unable to provide consent; benefits outweigh risks -DVT Prophylax: Heparin SQ -Full code Atilio Lee MD Feb 16, 2020 18:08
[2020-02-16 20:00] VITALS: BP 138/86
[2020-02-16] MEDS: Atorvastatin 20mg tab ORAL SCH (20:56)
[2020-02-16] MEDS: Azithromycin 250 MG in D5W 275 ML IV SCH (22:29)
[2020-02-16] MEDS: cefTRIAXone 1 GM in D5W 55 ML IVPB SCH (22:29)
[2020-02-17] VITALS: BP 147/89
[2020-02-17 04:00] VITALS: BP 132/78
[2020-02-17 07:24] LABS: BASOPHILS % (AUTO) 0.3 % (0.0-2.0); EOSINOPHILS % (AUTO) 0.1 % (0.0-3.0); HEMATOCRIT 43.7 % (42.0-52.0); HEMOGLOBIN 14.8 G/DL (14.2-18.0); MEAN CORPUSCULAR VOLUME 97 FL (80-99); MONOCYTES % (AUTO) 8.1 % (1.0-10.0); NEUTROPHILS % (AUTO) 81.5 % (45.0-75.0); PLATELET COUNT 207 K/UL (150-450); RED BLOOD COUNT 4.51 M/UL (4.70-6.10); RED CELL DISTRIBUTION WIDTH 13.2 % (11.6-14.8); WHITE BLOOD COUNT 10.4 K/UL (4.8-10.8)
[2020-02-17 07:30] LABS: ALBUMIN 3.2 G/DL (3.4-5.0); ALBUMIN/GLOBULIN RATIO 0.7 (1.0-2.7); BILIRUBIN,DIRECT 0.1 MG/DL (0.0-0.3); BILIRUBIN,TOTAL 0.5 MG/DL (0.2-1.0); CALCIUM 8.6 MG/DL (8.5-10.1); CREATININE 1.6 MG/DL (0.55-1.30)
[2020-02-17 08:00] VITALS: BP 130/93
--- NOTE | 2020-02-17 08:55 | Pulmonology Progress Note ---
Subjective ROS Limited/Unobtainable: No Constitutional: Reports: no symptoms HEENT: Repors: no symptoms Allergies: Coded Allergies: DONNIE INHIBITORS (Verified Allergy, Unknown, 02/13/20) OMEGA-3 ACID ETHYL ESTERS (Verified Allergy, Unknown, 02/13/20) Objective Last 24 Hour Vital Signs Date Time Temp Pulse Resp B/P (MAP) Pulse Ox O2 Delivery O2 Flow Rate FiO2 02/17/20 08:00 96.8 101 22 130/93 (105) 91 02/17/20 08:00 Simple Mask 10.0 02/17/20 04:00 98.4 72 24 132/78 (96) 95 02/17/20 04:00 72 02/17/20 00:00 98.7 80 20 147/89 (108) 96 02/17/20 00:00 80 02/16/20 21:00 Simple Mask 10.0 02/16/20 20:57 95 138/86 02/16/20 20:00 91 02/16/20 20:00 98.1 96 20 138/86 (103) 96 02/16/20 17:58 130/99 02/16/20 16:00 98.1 67 22 130/99 (109) 91 02/16/20 16:00 71 02/16/20 12:00 96.8 75 22 121/87 (98) 96 02/16/20 12:00 75 02/16/20 09:50 63 136/89 02/16/20 09:49 136/89 02/16/20 09:00 63 136/89 02/16/20 08:57 Simple Mask 8.0 Intake and Output 02/16/20 02/17/20 19:00 07:00 Intake Total 480 ml Balance 480 ml Intake Oral 480 ml # Voids 5 3 General Appearance: WD/WN HEENT: normocephalic, atraumatic Respiratory: chest wall non-tender, normal breath sounds Cardiovascular: normal peripheral pulses, normal rate Abdomen: normal bowel sounds, soft, non tender, no organomegaly Genitourinary: normal external genitalia Extremities: no cyanosis Skin: no rash Neurologic: revenue enforcement agent II-XII grossly normal Microbiology Date/Time Source Procedure Growth Status 02/14/20 19:00 Urine,Clean Catch Urine Culture - Final Gram Positive Cocci Complete 02/14/20 13:00 Nasopharynx SARS-CoV-2 RdRp Gene Assay - Final Complete Laboratory Tests 02/17/20 05:00: White Blood Count 10.4, Red Blood Count 4.51L, Hemoglobin 14.8, Hematocrit 43.7, Mean Corpuscular Volume 97, Mean Corpuscular Hemoglobin 32.8H, Mean Corpuscular Hemoglobin Concent 33.8, Red Cell Distribution Width 13.2, Platelet Count 207, Mean Platelet Volume 9.0, Neutrophils (%) (Auto) 81.5H, Lymphocytes (%) (Auto) 10.0L, Monocytes (%) (Auto) 8.1, Eosinophils (%) (Auto) 0.1, Basophils (%) (Auto) 0.3, Sodium Level 147H, Potassium Level 4.0, Chloride Level 110H, Carbon Dioxide Level 23, Anion Gap 14, Blood Urea Nitrogen 32H, Creatinine 1.6H, Estimat Glomerular Filtration Rate 53.6, Glucose Level 101, Calcium Level 8.6, Total Bilirubin 0.5, Direct Bilirubin 0.1, Aspartate Amino Transf (AST/SGOT) 89H , Alanine Aminotransferase (ALT/SGPT) 64, Alkaline Phosphatase 52, Total Protein 7.7, Albumin 3.2L, Globulin 4.5, Albumin/Globulin Ratio 0.7L, Random Vancomycin Level 15.1 Current Medications Medications (Trade) Dose Ordered Sig/Reji Route PRN Reason Start Time Stop Time Status Last Admin Dose Admin Acetaminophen (Tylenol) 500 mg Q4H PRN ORAL Mild Pain (Pain Scale 1-3) 02/14/20 00:30 03/15/20 00:29 Acetaminophen (Tylenol) 650 mg Q4H PRN ORAL FEVER 02/14/20 10:00 03/15/20 09:59 Albuterol/ Ipratropium (Albuterol/ Ipratropium) 3 ml Q4H PRN HHN Shortness of Breath 02/14/20 10:00 02/19/20 09:59 Amiodarone HCl (Cordarone) 200 mg DAILY ORAL 02/14/20 19:15 05/14/20 19:14 02/16/20 09:50 Amlodipine Besylate (Norvasc) 2.5 mg DAILY ORAL 02/15/20 20:30 03/16/20 20:29 02/16/20 09:50 Aspirin (ASA) 81 mg DAILY ORAL 02/15/20 09:00 03/31/20 08:59 02/16/20 09:50 Atorvastatin Calcium (Lipitor) 40 mg BEDTIME ORAL 02/14/20 21:00 05/14/20 20:59 02/16/20 20:56 Azithromycin 250 mg/Dextrose 275 ml @ 275 mls/hr Q24HRS IV 02/14/20 23:00 02/19/20 22:59 02/16/20 22:29 Ceftriaxone Sodium 1 gm/ Dextrose 55 ml @ 110 mls/hr Q24H IVPB 02/14/20 23:00 02/21/20 22:59 02/16/20 22:29 Dexamethasone (Decadron) 4 mg DAILY ORAL 02/14/20 09:00 02/24/20 08:59 02/16/20 09:49 Dextrose (Dextrose 50%) 25 ml Q30M PRN IV Hypoglycemia 02/14/20 10:00 05/14/20 09:59 Dextrose (Dextrose 50%) 50 ml Q30M PRN IV Hypoglycemia 02/14/20 10:00 05/14/20 09:59 Heparin Sodium (Porcine) (Heparin 5000 units/ml) 5,000 units EVERY 12 HOURS SUBQ 02/14/20 10:00 03/30/20 09:59 02/16/20 20:58 Losartan Potassium (Cozaar) 50 mg TWICE A DAY ORAL 02/14/20 19:15 03/15/20 19:14 02/16/20 17:58 Metoprolol Tartrate (Lopressor) 25 mg EVERY 12 HOURS ORAL 02/14/20 21:00 05/14/20 20:59 02/16/20 20:57 Ondansetron HCl (Zofran) 4 mg Q6H PRN IVP Nausea & Vomiting 02/14/20 10:00 03/15/20 09:59 Pantoprazole (Protonix) 40 mg EVERY 12 HOURS ORAL 02/15/20 21:00 03/16/20 20:59 02/16/20 20:57 Polyethylene Glycol (Miralax) 17 gm DAILYPRN PRN ORAL Constipation 02/14/20 10:00 03/15/20 09:59 Promethazine HCl/ Codeine (Phenergan with Codeine) 5 ml Q6H PRN ORAL cough 02/14/20 10:00 03/15/20 09:59 Remdesivir 100 mg/ Sodium Chloride 250 ml @ 250 mls/hr Q24H IV 02/15/20 18:00 02/18/20 18:59 02/16/20 17:58 Vancomycin HCl ([facility] pharmacy to dose) 1 ea DAILY PRN MISC Per rx protocol 02/15/20 12:00 03/16/20 11:59 Assessment/Plan Problems: (1) Pneumonia due to COVID-19 virus (2) Sepsis (3) Atrial fibrillation (4) CHF (congestive heart failure) (5) Arrhythmia (6) History of CVA (cerebrovascular accident) (7) Psychosis Assessment/Plan doing better wbc is WNL respiratory isolation check sputum iv abx + steroids + antiviral echocardiogram f/u crp, declining optimize cardiac meds dvt prophylaxis Lyle Joy MD Feb 17, 2020 08:55
[2020-02-17] MEDS: Amiodarone 200mg tab ORAL SCH (09:12)
[2020-02-17] MEDS: Losartan 50mg tab ORAL SCH ×2 (09:12→17:52)
[2020-02-17] MEDS: Aspirin Baby 81mg ORAL SCH (09:12)
[2020-02-17] MEDS: Heparin 5000 units/ml inj SUBQ SCH ×2 (09:15→20:19)
[2020-02-17] MEDS ORDERED: Vancomycin 1.5gm/NS Premix IVPB ONE (10:00)
[2020-02-17 11:31] VITALS: BP 134/61
--- NOTE | 2020-02-17 12:21 | Infectious Diseases Prog Note ---
Assessment/Plan Assessment: COVID19 positive (dx'ed 02/08/20)- likely PNA Acute hypoxic resp failure- sp NRB> 4l NC> desaturated to 78% and was placed on SM 8L 02/15 -02/12 CXR: Cardiomegaly with vascular congestion and moderate edema. Gram positive bacteremia- m/l contaminant -02/12 Bcx 2/4 CoNS clusters, 2/4 diphteroids; 02/14 Bcx p Fever -[employer]- none here so far mild leukocytosis (on steroids) SHANNAN, improving Elevated AST, mild; increasing CVA w/ resultant aphasia HLD general anxiety disorder schizoaffective disorder-depressive type cardiomegaly pAfib pHTN CKD CAD HTN [facility] resident ([facility]) Plan: - DC IV Vancomycin #2 -Continue empiric Ceftriaxone and Azithromycin # /-7 -Decadron # 10/07 -Requested Remdesivir #/- patient unable to provide consent; benefits outweigh risks -f/u cx -Monitor CBC/CMP, temperatures -f/u repeat Bcx x2 -CXR Thank you for this consultation. Will continue to follow along with you. Discussed with RN. Subjective Allergies: Coded Allergies: DONNIE INHIBITORS (Verified Allergy, Unknown, 02/13/20) OMEGA-3 ACID ETHYL ESTERS (Verified Allergy, Unknown, 02/13/20) comfortable afebrile Objective Last 24 Hour Vital Signs Date Time Temp Pulse Resp B/P (MAP) Pulse Ox O2 Delivery O2 Flow Rate FiO2 02/17/20 11:31 96.6 92 21 134/61 (85) 96 02/17/20 09:12 92 130/93 02/17/20 09:12 92 130/93 02/17/20 09:12 130/93 02/17/20 08:00 96.8 101 22 130/93 (105) 91 02/17/20 08:00 92 02/17/20 08:00 Simple Mask 10.0 02/17/20 04:00 98.4 72 24 132/78 (96) 95 02/17/20 04:00 72 02/17/20 00:00 98.7 80 20 147/89 (108) 96 02/17/20 00:00 80 02/16/20 21:00 Simple Mask 10.0 02/16/20 20:57 95 138/86 02/16/20 20:00 91 02/16/20 20:00 98.1 96 20 138/86 (103) 96 02/16/20 17:58 130/99 02/16/20 16:00 98.1 67 22 130/99 (109) 91 02/16/20 16:00 71 Height (Feet): 5 Height (Inches): 10.00 Weight (Pounds): 231 HEENT: atraumatic Respiratory/Chest: normal breath sounds Cardiovascular: normal rate Abdomen: no organomegaly Microbiology Date/Time Source Procedure Growth Status 02/14/20 19:00 Urine,Clean Catch Urine Culture - Final Gram Positive Cocci Complete 02/14/20 13:00 Nasopharynx SARS-CoV-2 RdRp Gene Assay - Final Complete Laboratory Tests Test 02/17/20 05:00 White Blood Count 10.4 K/UL (4.8-10.8) Red Blood Count 4.51 M/UL (4.70-6.10) L Hemoglobin 14.8 G/DL (14.2-18.0) Hematocrit 43.7 % (42.0-52.0) Mean Corpuscular Volume 97 FL (80-99) Mean Corpuscular Hemoglobin 32.8 PG (27.0-31.0) H Mean Corpuscular Hemoglobin Concent 33.8 G/DL (32.0-36.0) Red Cell Distribution Width 13.2 % (11.6-14.8) Platelet Count 207 K/UL (150-450) Mean Platelet Volume 9.0 FL (6.5-10.1) Neutrophils (%) (Auto) 81.5 % (45.0-75.0) H Lymphocytes (%) (Auto) 10.0 % (20.0-45.0) L Monocytes (%) (Auto) 8.1 % (1.0-10.0) Eosinophils (%) (Auto) 0.1 % (0.0-3.0) Basophils (%) (Auto) 0.3 % (0.0-2.0) Sodium Level 147 MMOL/L (136-145) H Potassium Level 4.0 MMOL/L (3.5-5.1) Chloride Level 110 MMOL/L (98-107) H Carbon Dioxide Level 23 MMOL/L (21-32) Anion Gap 14 mmol/L (5-15) Blood Urea Nitrogen 32 mg/dL (7-18) H Creatinine 1.6 MG/DL (0.55-1.30) H Estimat Glomerular Filtration Rate 53.6 mL/min (>60) Glucose Level 101 MG/DL (74-106) Calcium Level 8.6 MG/DL (8.5-10.1) Total Bilirubin 0.5 MG/DL (0.2-1.0) Direct Bilirubin 0.1 MG/DL (0.0-0.3) Aspartate Amino Transf (AST/SGOT) 89 U/L (15-37) H Alanine Aminotransferase (ALT/SGPT) 64 U/L (12-78) Alkaline Phosphatase 52 U/L (46-116) Total Protein 7.7 G/DL (6.4-8.2) Albumin 3.2 G/DL (3.4-5.0) L Globulin 4.5 g/dL Albumin/Globulin Ratio 0.7 (1.0-2.7) L Random Vancomycin Level 15.1 ug/mL Current Medications Medications (Trade) Dose Ordered Sig/Reji Route PRN Reason Start Time Stop Time Status Last Admin Dose Admin Acetaminophen (Tylenol) 500 mg Q4H PRN ORAL Mild Pain (Pain Scale 1-3) 02/14/20 00:30 03/15/20 00:29 Acetaminophen (Tylenol) 650 mg Q4H PRN ORAL FEVER 02/14/20 10:00 03/15/20 09:59 Albuterol/ Ipratropium (Albuterol/ Ipratropium) 3 ml Q4H PRN HHN Shortness of Breath 02/14/20 10:00 02/19/20 09:59 Amiodarone HCl (Cordarone) 200 mg DAILY ORAL 02/14/20 19:15 05/14/20 19:14 02/17/20 09:12 Amlodipine Besylate (Norvasc) 2.5 mg DAILY ORAL 02/15/20 20:30 03/16/20 20:29 02/17/20 09:12 Aspirin (ASA) 81 mg DAILY ORAL 02/15/20 09:00 03/31/20 08:59 02/17/20 09:12 Atorvastatin Calcium (Lipitor) 40 mg BEDTIME ORAL 02/14/20 21:00 05/14/20 20:59 02/16/20 20:56 Azithromycin 250 mg/Dextrose 275 ml @ 275 mls/hr Q24HRS IV 02/14/20 23:00 02/19/20 22:59 02/16/20 22:29 Ceftriaxone Sodium 1 gm/ Dextrose 55 ml @ 110 mls/hr Q24H IVPB 02/14/20 23:00 02/21/20 22:59 02/16/20 22:29 Dexamethasone (Decadron) 4 mg DAILY ORAL 02/14/20 09:00 02/24/20 08:59 02/17/20 09:12 Dextrose (Dextrose 50%) 25 ml Q30M PRN IV Hypoglycemia 02/14/20 10:00 05/14/20 09:59 Dextrose (Dextrose 50%) 50 ml Q30M PRN IV Hypoglycemia 02/14/20 10:00 05/14/20 09:59 Heparin Sodium (Porcine) (Heparin 5000 units/ml) 5,000 units EVERY 12 HOURS SUBQ 02/14/20 10:00 03/30/20 09:59 02/17/20 09:15 Losartan Potassium (Cozaar) 50 mg TWICE A DAY ORAL 02/14/20 19:15 03/15/20 19:14 02/17/20 09:12 Metoprolol Tartrate (Lopressor) 25 mg EVERY 12 HOURS ORAL 02/14/20 21:00 05/14/20 20:59 02/17/20 09:12 Ondansetron HCl (Zofran) 4 mg Q6H PRN IVP Nausea & Vomiting 02/14/20 10:00 03/15/20 09:59 Pantoprazole (Protonix) 40 mg EVERY 12 HOURS ORAL 02/15/20 21:00 03/16/20 20:59 02/17/20 09:12 Polyethylene Glycol (Miralax) 17 gm DAILYPRN PRN ORAL Constipation 02/14/20 10:00 03/15/20 09:59 Promethazine HCl/ Codeine (Phenergan with Codeine) 5 ml Q6H PRN ORAL cough 02/14/20 10:00 03/15/20 09:59 Remdesivir 100 mg/ Sodium Chloride 250 ml @ 250 mls/hr Q24H IV 02/15/20 18:00 02/18/20 18:59 02/16/20 17:58 Vancomycin HCl (Vanco pharmacy to dose) 1 ea DAILY PRN MISC Per rx protocol 02/15/20 12:00 03/16/20 11:59 Poli Rsoe MD Feb 17, 2020 12:21
--- NOTE | 2020-02-17 14:12 | Nephrology Progress Note ---
Assessment/Plan Problem List: (1) SHANNAN (acute kidney injury) (2) CHF (congestive heart failure) (3) Atrial fibrillation (4) Cardiomyopathy (5) ICD (implantable cardioverter-defibrillator) in place (6) History of CVA (cerebrovascular accident) (7) Pneumonia due to COVID-19 virus Assessment Acute on chronic renal failure Respiratory failure with hypoxia Pneumonia due to COVID-19 virus Sepsis Diabetes mellitus with elevated hemoglobin A1c Anemia Cardiomyopathy 20% EjFx Plan February 16: Patient stable from renal standpoint to view. Continue per pulmonary. Continue per ID. Serum creatinine down to 1.6 from 2.1 on admission day February 15: When I saw the patient this morning with charge nurse Wilfred the patient was somewhat hypoxic on oxygen. 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 Labs reviewed. Serum creatinine stable. Troponin unchanged. Continue to monitor renal parameters. Continue to optimize cardiac and pulmonary status. Overall prognosis poor. Slow hydration Monitor electrolytes and renal parameters Monitor urine output Correct abnormal electrolytes Antibiotics, avoid nephrotoxic's Anemia work-up Per orders Subjective ROS Limited/Unobtainable: No Constitutional: Reports: malaise, weakness Objective Objective Last 24 Hour Vital Signs Date Time Temp Pulse Resp B/P (MAP) Pulse Ox O2 Delivery O2 Flow Rate FiO2 02/17/20 11:31 96.6 92 21 134/61 (85) 96 02/17/20 09:12 92 130/93 02/17/20 09:12 92 130/93 02/17/20 09:12 130/93 02/17/20 08:00 96.8 101 22 130/93 (105) 91 02/17/20 08:00 92 02/17/20 08:00 Simple Mask 10.0 02/17/20 04:00 98.4 72 24 132/78 (96) 95 02/17/20 04:00 72 02/17/20 00:00 98.7 80 20 147/89 (108) 96 02/17/20 00:00 80 02/16/20 21:00 Simple Mask 10.0 02/16/20 20:57 95 138/86 02/16/20 20:00 91 02/16/20 20:00 98.1 96 20 138/86 (103) 96 02/16/20 17:58 130/99 02/16/20 16:00 98.1 67 22 130/99 (109) 91 02/16/20 16:00 71 Intake and Output 02/16/20 02/17/20 19:00 07:00 Intake Total 480 ml Balance 480 ml Intake Oral 480 ml # Voids 5 3 Laboratory Tests 02/17/20 05:00: White Blood Count 10.4, Red Blood Count 4.51L, Hemoglobin 14.8, Hematocrit 43.7, Mean Corpuscular Volume 97, Mean Corpuscular Hemoglobin 32.8H, Mean Corpuscular Hemoglobin Concent 33.8, Red Cell Distribution Width 13.2, Platelet Count 207, Mean Platelet Volume 9.0, Neutrophils (%) (Auto) 81.5H, Lymphocytes (%) (Auto) 10.0L, Monocytes (%) (Auto) 8.1, Eosinophils (%) (Auto) 0.1, Basophils (%) (Auto) 0.3, Sodium Level 147H, Potassium Level 4.0, Chloride Level 110H, Carbon Dioxide Level 23, Anion Gap 14, Blood Urea Nitrogen 32H, Creatinine 1.6H, Estimat Glomerular Filtration Rate 53.6, Glucose Level 101, Calcium Level 8.6, Total Bilirubin 0.5, Direct Bilirubin 0.1, Aspartate Amino Transf (AST/SGOT) 89H , Alanine Aminotransferase (ALT/SGPT) 64, Alkaline Phosphatase 52, Total Protein 7.7, Albumin 3.2L, Globulin 4.5, Albumin/Globulin Ratio 0.7L, Random Vancomycin Level 15.1 Height (Feet): 5 Height (Inches): 10.00 Weight (Pounds): 231 General Appearance: no apparent distress EENT: other - On simple mask Cardiovascular: tachycardia - Rate 92 Respiratory/Chest: decreased breath sounds Abdomen: distended Ashvin Bautista MD Feb 17, 2020 14:12
--- NOTE | 2020-02-17 15:39 | Internal Med Progress Note ---
Subjective Date of Service: Feb 17, 2020 Physician Name Edmund Carrera Attending Physician Atilio Lee MD Current Medications Medications (Trade) Dose Ordered Sig/Reji Route PRN Reason Start Time Stop Time Status Last Admin Dose Admin Acetaminophen (Tylenol) 500 mg Q4H PRN ORAL Mild Pain (Pain Scale 1-3) 02/14/20 00:30 03/15/20 00:29 Acetaminophen (Tylenol) 650 mg Q4H PRN ORAL FEVER 02/14/20 10:00 03/15/20 09:59 Albuterol/ Ipratropium (Albuterol/ Ipratropium) 3 ml Q4H PRN HHN Shortness of Breath 02/14/20 10:00 02/19/20 09:59 Amiodarone HCl (Cordarone) 200 mg DAILY ORAL 02/14/20 19:15 05/14/20 19:14 02/17/20 09:12 Amlodipine Besylate (Norvasc) 2.5 mg DAILY ORAL 02/15/20 20:30 03/16/20 20:29 02/17/20 09:12 Aspirin (ASA) 81 mg DAILY ORAL 02/15/20 09:00 03/31/20 08:59 02/17/20 09:12 Atorvastatin Calcium (Lipitor) 40 mg BEDTIME ORAL 02/14/20 21:00 05/14/20 20:59 02/16/20 20:56 Azithromycin 250 mg/Dextrose 275 ml @ 275 mls/hr Q24HRS IV 02/14/20 23:00 02/19/20 22:59 02/16/20 22:29 Ceftriaxone Sodium 1 gm/ Dextrose 55 ml @ 110 mls/hr Q24H IVPB 02/14/20 23:00 02/21/20 22:59 02/16/20 22:29 Dexamethasone (Decadron) 4 mg DAILY ORAL 02/14/20 09:00 02/24/20 08:59 02/17/20 09:12 Dextrose (Dextrose 50%) 25 ml Q30M PRN IV Hypoglycemia 02/14/20 10:00 05/14/20 09:59 Dextrose (Dextrose 50%) 50 ml Q30M PRN IV Hypoglycemia 02/14/20 10:00 05/14/20 09:59 Heparin Sodium (Porcine) (Heparin 5000 units/ml) 5,000 units EVERY 12 HOURS SUBQ 02/14/20 10:00 03/30/20 09:59 02/17/20 09:15 Losartan Potassium (Cozaar) 50 mg TWICE A DAY ORAL 02/14/20 19:15 03/15/20 19:14 02/17/20 09:12 Metoprolol Tartrate (Lopressor) 25 mg EVERY 12 HOURS ORAL 02/14/20 21:00 05/14/20 20:59 02/17/20 09:12 Ondansetron HCl (Zofran) 4 mg Q6H PRN IVP Nausea & Vomiting 02/14/20 10:00 03/15/20 09:59 Pantoprazole (Protonix) 40 mg EVERY 12 HOURS ORAL 02/15/20 21:00 03/16/20 20:59 02/17/20 09:12 Polyethylene Glycol (Miralax) 17 gm DAILYPRN PRN ORAL Constipation 02/14/20 10:00 03/15/20 09:59 Promethazine HCl/ Codeine (Phenergan with Codeine) 5 ml Q6H PRN ORAL cough 02/14/20 10:00 03/15/20 09:59 Remdesivir 100 mg/ Sodium Chloride 250 ml @ 250 mls/hr Q24H IV 02/15/20 18:00 02/18/20 18:59 02/16/20 17:58 Allergies: Coded Allergies: DONNIE INHIBITORS (Verified Allergy, Unknown, 02/13/20) OMEGA-3 ACID ETHYL ESTERS (Verified Allergy, Unknown, 02/13/20) ROS Limited/Unobtainable: Yes Subjective 60 YO M admitted with shortness of breath. Now COVID 19 and sepsis. Cover for Int Med-Dr Lee Objective Last Vital Signs Date Time Temp Pulse Resp B/P (MAP) Pulse Ox O2 Delivery O2 Flow Rate FiO2 02/17/20 14:00 73 02/17/20 11:31 96.6 21 134/61 (85) 96 02/17/20 08:00 Simple Mask 10.0 Laboratory Tests Test 02/17/20 05:00 White Blood Count 10.4 K/UL (4.8-10.8) Red Blood Count 4.51 M/UL (4.70-6.10) L Hemoglobin 14.8 G/DL (14.2-18.0) Hematocrit 43.7 % (42.0-52.0) Mean Corpuscular Volume 97 FL (80-99) Mean Corpuscular Hemoglobin 32.8 PG (27.0-31.0) H Mean Corpuscular Hemoglobin Concent 33.8 G/DL (32.0-36.0) Red Cell Distribution Width 13.2 % (11.6-14.8) Platelet Count 207 K/UL (150-450) Mean Platelet Volume 9.0 FL (6.5-10.1) Neutrophils (%) (Auto) 81.5 % (45.0-75.0) H Lymphocytes (%) (Auto) 10.0 % (20.0-45.0) L Monocytes (%) (Auto) 8.1 % (1.0-10.0) Eosinophils (%) (Auto) 0.1 % (0.0-3.0) Basophils (%) (Auto) 0.3 % (0.0-2.0) Sodium Level 147 MMOL/L (136-145) H Potassium Level 4.0 MMOL/L (3.5-5.1) Chloride Level 110 MMOL/L (98-107) H Carbon Dioxide Level 23 MMOL/L (21-32) Anion Gap 14 mmol/L (5-15) Blood Urea Nitrogen 32 mg/dL (7-18) H Creatinine 1.6 MG/DL (0.55-1.30) H Estimat Glomerular Filtration Rate 53.6 mL/min (>60) Glucose Level 101 MG/DL (74-106) Calcium Level 8.6 MG/DL (8.5-10.1) Total Bilirubin 0.5 MG/DL (0.2-1.0) Direct Bilirubin 0.1 MG/DL (0.0-0.3) Aspartate Amino Transf (AST/SGOT) 89 U/L (15-37) H Alanine Aminotransferase (ALT/SGPT) 64 U/L (12-78) Alkaline Phosphatase 52 U/L (46-116) Total Protein 7.7 G/DL (6.4-8.2) Albumin 3.2 G/DL (3.4-5.0) L Globulin 4.5 g/dL Albumin/Globulin Ratio 0.7 (1.0-2.7) L Random Vancomycin Level 15.1 ug/mL Microbiology Date/Time Source Procedure Growth Status 02/14/20 19:00 Urine,Clean Catch Urine Culture - Final Gram Positive Cocci Complete Intake and Output 02/16/20 02/17/20 19:00 07:00 Intake Total 480 ml Balance 480 ml Intake Oral 480 ml # Voids 5 3 Objective PHYSICAL EXAMINATION: GENERAL: The patient is well-developed and well-nourished male, no apparent distress. HEENT: Eyes, pupils are equal and responsive to light and accommodation. Extraocular movements are intact. NECK: Supple without lymphadenopathy. CHEST: Lungs are clear to auscultation bilaterally without wheezes or rales. CARDIOVASCULAR: Regular rhythm and rate. S1 and S2 are normal without murmurs, rubs, or gallops. ABDOMEN: Soft, nontender, and nondistended. Positive bowel sounds. No evidence of hepatosplenomegaly. Currently, no rebound or guarding noted. EXTREMITIES: Negative for clubbing, cyanosis, or edema. RECTAL/GENITAL: Not performed. NEUROLOGIC: Cranial nerves II through XII are grossly intact without focal deficits. Motor strength is 5/5 bilaterally. Deep tendon reflexes are 2+ plantar. Assessment/Plan Assessment/Plan ASSESSMENT: This is a 60-year-old male: 1. Shortness of breath. 2. Fever. 3. COVID-19 positive. 4. Hypertension. 5. Cerebrovascular disease, status post cerebrovascular accident. 6. Hemiplegia. 7. Hypercholesterolemia. 8. Coronary artery disease. 9. Cardiomyopathy. 10. Paroxysmal atrial fibrillation. 11. Schizoaffective disorder, bipolar type. 12. Chronic kidney disease. 13. Sepsis=Staph epidermidis TREATMENT: 1. Hypoxia/shortness of breath. A Pulmonary consultation has been obtained with Dr. Lyle Joy. COVID-19 testing is positive ABX=vanco, ceftriaxone and azithromycin and remdesivir for presumed pneumonia. 2. Hypertension. The patient is currently hypotensive. Hold antihypertensive medication as above. 3. Cerebrovascular disease. 4. Hemiplegia. 5. Coronary artery disease. A Cardiology consultation has been obtained with Dr. Kayden Aguilar. 6. Hypercholesterolemia. Continue atorvastatin as above. 7. Cardiomyopathy. 8. Paroxysmal atrial fibrillation. 9. Schizoaffective disorder, bipolar type. 10. Chronic kidney disease. 11. Pacemaker in situ. 12. ID=Edmund Monge MD Feb 17, 2020 15:39
[2020-02-17 16:00] VITALS: BP 130/74
--- NOTE | 2020-02-17 16:00 | Cardiology Progress Note ---
Assessment/Plan Problem List: (1) ICD (implantable cardioverter-defibrillator) in place (2) Pneumonia due to COVID-19 virus (3) Respiratory failure with hypoxia (4) CHF (congestive heart failure) (5) Atrial fibrillation (6) History of CVA (cerebrovascular accident) Status: stable, unchanged Status Narrative COVID 19 pneumonia - On steroids, remdesivir per ID, pulmonary hx of cardiomyopathy, EF 35% by echo this adm. Uncertain if ischemic or nonischemic PAF hx of CVA s/p single chamber ICD Assessment/Plan Continue treatment for COVID 19 pneumonia, supportive care, steroids, remdesivir, o2 Continue afterload reduction w/ losartan, metoprolol for cm/ CHF Diuretics prn. amiodarone for PAF. ? anticoagulation Subjective ROS Limited/Unobtainable: Yes Subjective Cardiology for Dr. Aguilar Pt alert, on face-mask o2, nonverbal. No respiratory distress. Objective Last 24 Hour Vital Signs Date Time Temp Pulse Resp B/P (MAP) Pulse Ox O2 Delivery O2 Flow Rate FiO2 02/17/20 14:00 73 02/17/20 11:31 96.6 92 21 134/61 (85) 96 02/17/20 09:12 92 130/93 02/17/20 09:12 92 130/93 02/17/20 09:12 130/93 02/17/20 08:00 96.8 101 22 130/93 (105) 91 02/17/20 08:00 92 02/17/20 08:00 Simple Mask 10.0 02/17/20 04:00 98.4 72 24 132/78 (96) 95 02/17/20 04:00 72 02/17/20 00:00 98.7 80 20 147/89 (108) 96 02/17/20 00:00 80 02/16/20 21:00 Simple Mask 10.0 02/16/20 20:57 95 138/86 02/16/20 20:00 91 02/16/20 20:00 98.1 96 20 138/86 (103) 96 02/16/20 17:58 130/99 02/16/20 16:00 98.1 67 22 130/99 (109) 91 02/16/20 16:00 71 General Appearance: WD/WN, no apparent distress, alert EENT: PERRL/EOMI Neck: no JVD Rhythm: NSR Cardiovascular: regular rhythm, no gallop/murmur, tachycardia Respiratory/Chest: no respiratory distress, no accessory muscle use, other - few crackles R lower gan. dec BS L Abdomen: non tender, soft Extremities: no swelling Intake and Output 02/16/20 02/17/20 19:00 07:00 Intake Total 480 ml Balance 480 ml Intake Oral 480 ml # Voids 5 3 Laboratory Tests Test 02/17/20 05:00 White Blood Count 10.4 K/UL (4.8-10.8) Red Blood Count 4.51 M/UL (4.70-6.10) L Hemoglobin 14.8 G/DL (14.2-18.0) Hematocrit 43.7 % (42.0-52.0) Mean Corpuscular Volume 97 FL (80-99) Mean Corpuscular Hemoglobin 32.8 PG (27.0-31.0) H Mean Corpuscular Hemoglobin Concent 33.8 G/DL (32.0-36.0) Red Cell Distribution Width 13.2 % (11.6-14.8) Platelet Count 207 K/UL (150-450) Mean Platelet Volume 9.0 FL (6.5-10.1) Neutrophils (%) (Auto) 81.5 % (45.0-75.0) H Lymphocytes (%) (Auto) 10.0 % (20.0-45.0) L Monocytes (%) (Auto) 8.1 % (1.0-10.0) Eosinophils (%) (Auto) 0.1 % (0.0-3.0) Basophils (%) (Auto) 0.3 % (0.0-2.0) Sodium Level 147 MMOL/L (136-145) H Potassium Level 4.0 MMOL/L (3.5-5.1) Chloride Level 110 MMOL/L (98-107) H Carbon Dioxide Level 23 MMOL/L (21-32) Anion Gap 14 mmol/L (5-15) Blood Urea Nitrogen 32 mg/dL (7-18) H Creatinine 1.6 MG/DL (0.55-1.30) H Estimat Glomerular Filtration Rate 53.6 mL/min (>60) Glucose Level 101 MG/DL (74-106) Calcium Level 8.6 MG/DL (8.5-10.1) Total Bilirubin 0.5 MG/DL (0.2-1.0) Direct Bilirubin 0.1 MG/DL (0.0-0.3) Aspartate Amino Transf (AST/SGOT) 89 U/L (15-37) H Alanine Aminotransferase (ALT/SGPT) 64 U/L (12-78) Alkaline Phosphatase 52 U/L (46-116) Total Protein 7.7 G/DL (6.4-8.2) Albumin 3.2 G/DL (3.4-5.0) L Globulin 4.5 g/dL Albumin/Globulin Ratio 0.7 (1.0-2.7) L Random Vancomycin Level 15.1 ug/mL Microbiology Date/Time Source Procedure Growth Status 02/14/20 19:00 Urine,Clean Catch Urine Culture - Final Gram Positive Cocci Complete Kassidy Pederson MD Feb 17, 2020 16:00
[2020-02-17] MEDS: Maintenance Dose:Remdesivir 100mg/NS 230ml x 4 Doses IV SCH ×2 (17:52)
[2020-02-17 20:00] VITALS: BP 134/56
[2020-02-17] MEDS: Atorvastatin 20mg tab ORAL SCH (20:19)
[2020-02-17] MEDS: cefTRIAXone 1 GM in D5W 55 ML IVPB SCH (22:30)
[2020-02-17] MEDS: Azithromycin 250 MG in D5W 275 ML IV SCH (23:00)
[2020-02-18] VITALS: BP 140/99
[2020-02-18 04:00] VITALS: BP 125/88
[2020-02-18 08:00] VITALS: BP 130/67
[2020-02-18] MEDS: Losartan 50mg tab ORAL SCH ×2 (08:29→17:36)
[2020-02-18] MEDS: Amiodarone 200mg tab ORAL SCH (08:29)
[2020-02-18] MEDS: Aspirin Baby 81mg ORAL SCH (08:29)
[2020-02-18] MEDS: Heparin 5000 units/ml inj SUBQ SCH ×2 (08:33→21:03)
[2020-02-18 10:06] LABS: BASOPHILS % (AUTO) 3.9 % (0.0-2.0); HEMATOCRIT 44.9 % (42.0-52.0); HEMOGLOBIN 14.8 G/DL (14.2-18.0); LYMPHOCYTES % (AUTO) 11.5 % (20.0-45.0); MEAN CORPUSCULAR VOLUME 96 FL (80-99); MONOCYTES % (AUTO) 9.2 % (1.0-10.0); NEUTROPHILS % (AUTO) 75.4 % (45.0-75.0); PLATELET COUNT 227 K/UL (150-450); RED BLOOD COUNT 4.66 M/UL (4.70-6.10); WHITE BLOOD COUNT 11.1 K/UL (4.8-10.8)
[2020-02-18 10:28] LABS: ALBUMIN/GLOBULIN RATIO 0.6 (1.0-2.7); BILIRUBIN,DIRECT 0.1 MG/DL (0.0-0.3); BILIRUBIN,TOTAL 0.5 MG/DL (0.2-1.0); CALCIUM 8.8 MG/DL (8.5-10.1); CREATININE 1.5 MG/DL (0.55-1.30); POTASSIUM 3.7 MMOL/L (3.5-5.1)
[2020-02-18 10:29] LABS: PHOSPHORUS 3.2 MG/DL (2.5-4.9)
--- NOTE | 2020-02-18 10:56 | Pulmonology Progress Note ---
Subjective ROS Limited/Unobtainable: Yes Constitutional: Reports: no symptoms HEENT: Repors: no symptoms Allergies: Coded Allergies: DONNIE INHIBITORS (Verified Allergy, Unknown, 02/13/20) OMEGA-3 ACID ETHYL ESTERS (Verified Allergy, Unknown, 02/13/20) Objective Last 24 Hour Vital Signs Date Time Temp Pulse Resp B/P (MAP) Pulse Ox O2 Delivery O2 Flow Rate FiO2 02/18/20 08:32 73 130/67 02/18/20 08:29 130/67 02/18/20 08:28 73 130/67 02/18/20 08:00 96.5 73 20 130/67 (88) 95 02/18/20 04:00 81 02/18/20 04:00 98.0 81 24 125/88 (100) 93 02/18/20 00:00 86 02/18/20 00:00 97.7 86 20 140/99 (113) 93 02/17/20 21:00 Simple Mask 8.0 02/17/20 20:40 83 121/90 02/17/20 20:00 76 02/17/20 20:00 96.8 76 22 134/56 (82) 92 02/17/20 17:52 130/74 02/17/20 17:29 86 02/17/20 16:00 98.7 81 22 130/74 (92) 96 02/17/20 14:00 73 02/17/20 11:31 96.6 92 21 134/61 (85) 96 Intake and Output 02/17/20 02/18/20 19:00 07:00 Intake Total 800 ml Balance 800 ml Intake Oral 800 ml # Voids 5 3 # Bowel Movements 1 General Appearance: WD/WN HEENT: normocephalic, atraumatic Respiratory: chest wall non-tender, normal breath sounds Cardiovascular: normal peripheral pulses, normal rate Abdomen: normal bowel sounds, soft, non tender, no organomegaly Genitourinary: normal external genitalia Extremities: no cyanosis Skin: no rash Neurologic: basket sorter II-XII grossly normal Microbiology Date/Time Source Procedure Growth Status 02/15/20 13:25 Blood Blood Culture - Preliminary NO GROWTH AFTER 48 HOURS Resulted 02/15/20 13:10 Blood Blood Culture - Preliminary NO GROWTH AFTER 48 HOURS Resulted Laboratory Tests 02/18/20 09:50: White Blood Count 11.1H, Red Blood Count 4.66L, Hemoglobin 14.8, Hematocrit 44.9, Mean Corpuscular Volume 96, Mean Corpuscular Hemoglobin 31.8H, Mean Corpuscular Hemoglobin Concent 33.0, Red Cell Distribution Width 13.0, Platelet Count 227, Mean Platelet Volume 8.4, Neutrophils (%) (Auto) 75.4H, Lymphocytes (%) (Auto) 11.5L, Monocytes (%) (Auto) 9.2, Eosinophils (%) (Auto) 0.0, Basophils (%) (Auto) 3.9H, Erythrocyte Sedimentation Rate [Pending], Sodium Level 141, Potassium Level 3.7, Chloride Level 106, Carbon Dioxide Level 24, Anion Gap 11, Blood Urea Nitrogen 30H, Creatinine 1.5H, Estimat Glomerular Filtration Rate 57.7, Glucose Level 113H, Calcium Level 8.8, Phosphorus Level 3.2, Magnesium Level 2.2, Total Bilirubin 0.5, Direct Bilirubin 0.1, Aspartate Amino Transf (AST/SGOT) 133H, Alanine Aminotransferase (ALT/SGPT) 86H, Alkaline Phosphatase 50, C-Reactive Protein, Quantitative 7.5H, Total Protein 7.8, Albumin 3.0L, Globulin 4.8, Albumin/Globulin Ratio 0.6L Current Medications Medications (Trade) Dose Ordered Sig/Reji Route PRN Reason Start Time Stop Time Status Last Admin Dose Admin Acetaminophen (Tylenol) 500 mg Q4H PRN ORAL Mild Pain (Pain Scale 1-3) 02/14/20 00:30 03/15/20 00:29 Acetaminophen (Tylenol) 650 mg Q4H PRN ORAL FEVER 02/14/20 10:00 03/15/20 09:59 Albuterol/ Ipratropium (Albuterol/ Ipratropium) 3 ml Q4H PRN HHN Shortness of Breath 02/14/20 10:00 02/19/20 09:59 Amiodarone HCl (Cordarone) 200 mg DAILY ORAL 02/14/20 19:15 05/14/20 19:14 02/18/20 08:29 Amlodipine Besylate (Norvasc) 2.5 mg DAILY ORAL 02/15/20 20:30 03/16/20 20:29 02/18/20 08:28 Aspirin (ASA) 81 mg DAILY ORAL 02/15/20 09:00 03/31/20 08:59 02/18/20 08:29 Atorvastatin Calcium (Lipitor) 40 mg BEDTIME ORAL 02/14/20 21:00 05/14/20 20:59 02/17/20 20:19 Azithromycin 250 mg/Dextrose 275 ml @ 275 mls/hr Q24HRS IV 02/14/20 23:00 02/19/20 22:59 02/17/20 23:00 Ceftriaxone Sodium 1 gm/ Dextrose 55 ml @ 110 mls/hr Q24H IVPB 02/14/20 23:00 02/21/20 22:59 02/17/20 22:30 Dexamethasone (Decadron) 4 mg DAILY ORAL 02/14/20 09:00 02/24/20 08:59 02/18/20 08:30 Dextrose (Dextrose 50%) 25 ml Q30M PRN IV Hypoglycemia 02/14/20 10:00 05/14/20 09:59 Dextrose (Dextrose 50%) 50 ml Q30M PRN IV Hypoglycemia 02/14/20 10:00 05/14/20 09:59 Heparin Sodium (Porcine) (Heparin 5000 units/ml) 5,000 units EVERY 12 HOURS SUBQ 02/14/20 10:00 03/30/20 09:59 02/18/20 08:33 Losartan Potassium (Cozaar) 50 mg TWICE A DAY ORAL 02/14/20 19:15 03/15/20 19:14 02/18/20 08:29 Metoprolol Tartrate (Lopressor) 25 mg EVERY 12 HOURS ORAL 02/14/20 21:00 05/14/20 20:59 02/18/20 08:32 Ondansetron HCl (Zofran) 4 mg Q6H PRN IVP Nausea & Vomiting 02/14/20 10:00 03/15/20 09:59 Pantoprazole (Protonix) 40 mg EVERY 12 HOURS ORAL 02/15/20 21:00 03/16/20 20:59 02/18/20 08:29 Polyethylene Glycol (Miralax) 17 gm DAILYPRN PRN ORAL Constipation 02/14/20 10:00 03/15/20 09:59 Promethazine HCl/ Codeine (Phenergan with Codeine) 5 ml Q6H PRN ORAL cough 02/14/20 10:00 03/15/20 09:59 Remdesivir 100 mg/ Sodium Chloride 250 ml @ 250 mls/hr Q24H IV 02/15/20 18:00 02/18/20 18:59 02/17/20 17:52 Assessment/Plan Problems: (1) Pneumonia due to COVID-19 virus (2) Sepsis (3) Atrial fibrillation (4) CHF (congestive heart failure) (5) Arrhythmia (6) History of CVA (cerebrovascular accident) (7) Psychosis Assessment/Plan cxr in am doing better wbc is WNL respiratory isolation check sputum iv abx + steroids + antiviral echocardiogram f/u crp, declining optimize cardiac meds dvt prophylaxis Lyle Joy MD Feb 18, 2020 10:56
[2020-02-18 12:00] VITALS: BP 140/91
[2020-02-18] MEDS: LORazepam Inj 2mg/ml 1ml IV PRN ×2 (13:36→22:19)
--- NOTE | 2020-02-18 13:42 | Nephrology Progress Note ---
Assessment/Plan Problem List: (1) SHANNAN (acute kidney injury) (2) CHF (congestive heart failure) (3) Atrial fibrillation (4) Cardiomyopathy (5) ICD (implantable cardioverter-defibrillator) in place (6) History of CVA (cerebrovascular accident) (7) Pneumonia due to COVID-19 virus Assessment Acute on chronic renal failure Respiratory failure with hypoxia Pneumonia due to COVID-19 virus Sepsis Diabetes mellitus with elevated hemoglobin A1c Anemia Cardiomyopathy 20% EjFx Plan February 17: Remains stable from renal standpoint of view. Continue per consultants. February 16: Patient stable from renal standpoint to view. Continue per pulmonary. Continue per ID. Serum creatinine down to 1.6 from 2.1 on admission day February 15: When I saw the patient this morning with charge nurse Wilfred the patient was somewhat hypoxic on oxygen. Was ordered to be put on mask and inform weed burner for possible ABG check and further treatment plan. Labs reviewed. Serum creatinine stable. Troponin unchanged. Continue to monitor renal parameters. Continue to optimize cardiac and pulmonary status. Overall prognosis poor. Slow hydration Monitor electrolytes and renal parameters Monitor urine output Correct abnormal electrolytes Antibiotics, avoid nephrotoxic's Anemia work-up Per orders Subjective ROS Limited/Unobtainable: Yes Objective Objective Last 24 Hour Vital Signs Date Time Temp Pulse Resp B/P (MAP) Pulse Ox O2 Delivery O2 Flow Rate FiO2 02/18/20 13:36 76 20 140/91 96 02/18/20 12:00 76 02/18/20 12:00 98.1 63 20 140/91 (107) 96 02/18/20 09:00 Nasal Cannula 5.0 02/18/20 08:32 73 130/67 02/18/20 08:29 130/67 02/18/20 08:28 73 130/67 02/18/20 08:00 81 02/18/20 08:00 96.5 73 20 130/67 (88) 95 02/18/20 04:00 81 02/18/20 04:00 98.0 81 24 125/88 (100) 93 02/18/20 00:00 86 02/18/20 00:00 97.7 86 20 140/99 (113) 93 02/17/20 21:00 Simple Mask 8.0 02/17/20 20:40 83 121/90 02/17/20 20:00 76 02/17/20 20:00 96.8 76 22 134/56 (82) 92 02/17/20 17:52 130/74 02/17/20 17:29 86 02/17/20 16:00 98.7 81 22 130/74 (92) 96 02/17/20 14:00 73 Intake and Output 02/17/20 02/18/20 19:00 07:00 Intake Total 800 ml Balance 800 ml Intake Oral 800 ml # Voids 5 3 # Bowel Movements 1 Laboratory Tests 02/18/20 09:50: White Blood Count 11.1H, Red Blood Count 4.66L, Hemoglobin 14.8, Hematocrit 44.9, Mean Corpuscular Volume 96, Mean Corpuscular Hemoglobin 31.8H, Mean Corpuscular Hemoglobin Concent 33.0, Red Cell Distribution Width 13.0, Platelet Count 227, Mean Platelet Volume 8.4, Neutrophils (%) (Auto) 75.4H, Lymphocytes (%) (Auto) 11.5L, Monocytes (%) (Auto) 9.2, Eosinophils (%) (Auto) 0.0, Basophils (%) (Auto) 3.9H, Erythrocyte Sedimentation Rate 50H, Sodium Level 141, Potassium Level 3.7, Chloride Level 106, Carbon Dioxide Level 24, Anion Gap 11, Blood Urea Nitrogen 30H, Creatinine 1.5H, Estimat Glomerular Filtration Rate 57.7, Glucose Level 113H, Calcium Level 8.8, Phosphorus Level 3.2, Magnesium Level 2.2, Total Bilirubin 0.5, Direct Bilirubin 0.1, Aspartate Amino Transf (AST/SGOT) 133H, Alanine Aminotransferase (ALT/SGPT) 86H, Alkaline Phosphatase 50, C-Reactive Protein, Quantitative 7.5H, Total Protein 7.8, Albumin 3.0L, Globulin 4.8, Albumin/Globulin Ratio 0.6L Height (Feet): 5 Height (Inches): 10.00 Weight (Pounds): 231 General Appearance: no apparent distress, lethargic Cardiovascular: normal rate Respiratory/Chest: decreased breath sounds Abdomen: distended Objective No change Ashvin Bautista MD Feb 18, 2020 13:42
--- NOTE | 2020-02-18 15:33 | Coder Physician Query ---
PLEASE COMPLETE DOCUMENT BEFORE SIGNING Dear Dr.Lawrence Debi M.D. Date: 02/18/2020 CDI/CDS Name: Bravo Magallanes Exercise your independent professional judgment when responding to query. Question asked do not imply a particular answer is desired/expected Clinical Documentation States: 60-year-old male who presents with a chief complaint of fever and shortness of breath. [H&P Edmund Carrera M.D. 02/13] ASSESSMENT : Fever, COVID-19 positive, Hypertension, Cerebrovascular disease, status post cerebrovascular accident. Hemiplegia, Hypercholesterolemia, Coronary artery disease, Cardiomyopathy, Paroxysmal atrial fibrillation. Schizoaffective disorder, bipolar typeChronic kidney disease. [H&P Edmund Carrera M.D. 02/13] Assessment/Plan: COVID19 positive (dx'ed 02/08/20)- likely PNA, Acute hypoxic resp failure- sp NRB> 4l NC Gram positive bacteremia- real vs contaminant - Start empiric IV Vancomycin [ Heather Rodríguez M.D. 02/14] Clinical Findings Show: Vitals Labs: (02/12): T99.5, Pulse 101, RR 26 WBC 7.1, Neut% 77.3, Cr 2.1 C-protein 17.6 (02/13): T97.2, Pulse 100, RR 22 WBC 10.3, Cr 1.7 C-protein 20.2 (02/14): T97.0, Pulse 91, RR 21 WBC 13.3, Cr 1.7 C- protein 9.2 Medications : Azithromycin IV (02/12-02/18), Ceftriaxone IV (02/12-02/20), Vancomycin IV (02/14-02/15) Clarification is needed for one (or more) of the following conditions in order to accurately assign the "present on admission' indicator. Please choose the answer that best indicates whether the associated condition was present at the time of the order for inpatient admission. Thank you. DIAGNOSIS: "Sepsis" Was the SEPSIS Present on admission? [X] YES [] NO [] Clinically Undeterminable Please also document in your Progress Notes and/or Discharge Summary and indicate if the condition was present on admission. Dylan SHOEMAKERD
[2020-02-18 16:00] VITALS: BP 140/76
--- NOTE | 2020-02-18 16:19 | Internal Med Progress Note ---
Subjective Date of Service: Feb 18, 2020 Physician Name Edmund Carrera Attending Physician Atilio Lee MD Current Medications Medications (Trade) Dose Ordered Sig/Reji Route PRN Reason Start Time Stop Time Status Last Admin Dose Admin Acetaminophen (Tylenol) 500 mg Q4H PRN ORAL Mild Pain (Pain Scale 1-3) 02/14/20 00:30 03/15/20 00:29 Acetaminophen (Tylenol) 650 mg Q4H PRN ORAL FEVER 02/14/20 10:00 03/15/20 09:59 Albuterol/ Ipratropium (Albuterol/ Ipratropium) 3 ml Q4H PRN HHN Shortness of Breath 02/14/20 10:00 02/19/20 09:59 Amiodarone HCl (Cordarone) 200 mg DAILY ORAL 02/14/20 19:15 05/14/20 19:14 02/18/20 08:29 Amlodipine Besylate (Norvasc) 2.5 mg DAILY ORAL 02/15/20 20:30 03/16/20 20:29 02/18/20 08:28 Aspirin (ASA) 81 mg DAILY ORAL 02/15/20 09:00 03/31/20 08:59 02/18/20 08:29 Atorvastatin Calcium (Lipitor) 40 mg BEDTIME ORAL 02/14/20 21:00 05/14/20 20:59 02/17/20 20:19 Azithromycin 250 mg/Dextrose 275 ml @ 275 mls/hr Q24HRS IV 02/14/20 23:00 02/19/20 22:59 02/17/20 23:00 Ceftriaxone Sodium 1 gm/ Dextrose 55 ml @ 110 mls/hr Q24H IVPB 02/14/20 23:00 02/21/20 22:59 02/17/20 22:30 Dexamethasone (Decadron) 4 mg DAILY ORAL 02/14/20 09:00 02/24/20 08:59 02/18/20 08:30 Dextrose (Dextrose 50%) 25 ml Q30M PRN IV Hypoglycemia 02/14/20 10:00 05/14/20 09:59 Dextrose (Dextrose 50%) 50 ml Q30M PRN IV Hypoglycemia 02/14/20 10:00 05/14/20 09:59 Heparin Sodium (Porcine) (Heparin 5000 units/ml) 5,000 units EVERY 12 HOURS SUBQ 02/14/20 10:00 03/30/20 09:59 02/18/20 08:33 Lorazepam (Ativan 2mg/ml 1ml) 0.5 mg Q6HR PRN IV For Anxiety 02/18/20 13:00 02/25/20 12:59 02/18/20 13:36 Losartan Potassium (Cozaar) 50 mg TWICE A DAY ORAL 02/14/20 19:15 03/15/20 19:14 02/18/20 08:29 Metoprolol Tartrate (Lopressor) 25 mg EVERY 12 HOURS ORAL 02/14/20 21:00 05/14/20 20:59 02/18/20 08:32 Ondansetron HCl (Zofran) 4 mg Q6H PRN IVP Nausea & Vomiting 02/14/20 10:00 03/15/20 09:59 Pantoprazole (Protonix) 40 mg EVERY 12 HOURS ORAL 02/15/20 21:00 03/16/20 20:59 02/18/20 08:29 Polyethylene Glycol (Miralax) 17 gm DAILYPRN PRN ORAL Constipation 02/14/20 10:00 03/15/20 09:59 Promethazine HCl/ Codeine (Phenergan with Codeine) 5 ml Q6H PRN ORAL cough 02/14/20 10:00 03/15/20 09:59 Remdesivir 100 mg/ Sodium Chloride 250 ml @ 250 mls/hr Q24H IV 02/15/20 18:00 02/18/20 18:59 02/17/20 17:52 Allergies: Coded Allergies: DONNIE INHIBITORS (Verified Allergy, Unknown, 02/13/20) OMEGA-3 ACID ETHYL ESTERS (Verified Allergy, Unknown, 02/13/20) ROS Limited/Unobtainable: Yes Subjective 60 YO M admitted with shortness of breath. Now COVID 19 and sepsis. Cover for Int Manny-Dr Lee Objective Last Vital Signs Date Time Temp Pulse Resp B/P (MAP) Pulse Ox O2 Delivery O2 Flow Rate FiO2 02/18/20 14:06 76 20 140/91 96 02/18/20 12:00 98.1 02/18/20 09:00 Nasal Cannula 5.0 Laboratory Tests Test 02/18/20 09:50 White Blood Count 11.1 K/UL (4.8-10.8) H Red Blood Count 4.66 M/UL (4.70-6.10) L Hemoglobin 14.8 G/DL (14.2-18.0) Hematocrit 44.9 % (42.0-52.0) Mean Corpuscular Volume 96 FL (80-99) Mean Corpuscular Hemoglobin 31.8 PG (27.0-31.0) H Mean Corpuscular Hemoglobin Concent 33.0 G/DL (32.0-36.0) Red Cell Distribution Width 13.0 % (11.6-14.8) Platelet Count 227 K/UL (150-450) Mean Platelet Volume 8.4 FL (6.5-10.1) Neutrophils (%) (Auto) 75.4 % (45.0-75.0) H Lymphocytes (%) (Auto) 11.5 % (20.0-45.0) L Monocytes (%) (Auto) 9.2 % (1.0-10.0) Eosinophils (%) (Auto) 0.0 % (0.0-3.0) Basophils (%) (Auto) 3.9 % (0.0-2.0) H Erythrocyte Sedimentation Rate 50 MM/HR (0-20) H Sodium Level 141 MMOL/L (136-145) Potassium Level 3.7 MMOL/L (3.5-5.1) Chloride Level 106 MMOL/L (98-107) Carbon Dioxide Level 24 MMOL/L (21-32) Anion Gap 11 mmol/L (5-15) Blood Urea Nitrogen 30 mg/dL (7-18) H Creatinine 1.5 MG/DL (0.55-1.30) H Estimat Glomerular Filtration Rate 57.7 mL/min (>60) Glucose Level 113 MG/DL (74-106) H Calcium Level 8.8 MG/DL (8.5-10.1) Phosphorus Level 3.2 MG/DL (2.5-4.9) Magnesium Level 2.2 MG/DL (1.8-2.4) Total Bilirubin 0.5 MG/DL (0.2-1.0) Direct Bilirubin 0.1 MG/DL (0.0-0.3) Aspartate Amino Transf (AST/SGOT) 133 U/L (15-37) H Alanine Aminotransferase (ALT/SGPT) 86 U/L (12-78) H Alkaline Phosphatase 50 U/L (46-116) C-Reactive Protein, Quantitative 7.5 mg/dL (0.00-0.90) H Total Protein 7.8 G/DL (6.4-8.2) Albumin 3.0 G/DL (3.4-5.0) L Globulin 4.8 g/dL Albumin/Globulin Ratio 0.6 (1.0-2.7) L Intake and Output 02/17/20 02/18/20 19:00 07:00 Intake Total 800 ml Balance 800 ml Intake Oral 800 ml # Voids 5 3 # Bowel Movements 1 Objective PHYSICAL EXAMINATION: GENERAL: The patient is well-developed and well-nourished male, no apparent distress. HEENT: Eyes, pupils are equal and responsive to light and accommodation. Extraocular movements are intact. NECK: Supple without lymphadenopathy. CHEST: Lungs are clear to auscultation bilaterally without wheezes or rales. CARDIOVASCULAR: Regular rhythm and rate. S1 and S2 are normal without murmurs, rubs, or gallops. ABDOMEN: Soft, nontender, and nondistended. Positive bowel sounds. No evidence of hepatosplenomegaly. Currently, no rebound or guarding noted. EXTREMITIES: Negative for clubbing, cyanosis, or edema. RECTAL/GENITAL: Not performed. NEUROLOGIC: Cranial nerves II through XII are grossly intact without focal deficits. Motor strength is 5/5 bilaterally. Deep tendon reflexes are 2+ plantar. Assessment/Plan Assessment/Plan ASSESSMENT: This is a 60-year-old male: 1. Shortness of breath. 2. Fever. 3. COVID-19 positive. 4. Hypertension. 5. Cerebrovascular disease, status post cerebrovascular accident. 6. Hemiplegia. 7. Hypercholesterolemia. 8. Coronary artery disease. 9. Cardiomyopathy. 10. Paroxysmal atrial fibrillation. 11. Schizoaffective disorder, bipolar type. 12. Chronic kidney disease. 13. Sepsis=Staph epidermidis 14. Elevated troponin TREATMENT: 1. Hypoxia/shortness of breath. A Pulmonary consultation has been obtained with Dr. Lyle Joy. COVID-19 testing is positive ABX=vanco, ceftriaxone and azithromycin and remdesivir for presumed pneumonia. 2. Hypertension. The patient is currently hypotensive. Hold antihypertensive medication as above. 3. Cerebrovascular disease. 4. Hemiplegia. 5. Coronary artery disease. A Cardiology consultation has been obtained with Dr. Kayden Aguilar. 6. Hypercholesterolemia. Continue atorvastatin as above. 7. Cardiomyopathy. 8. Paroxysmal atrial fibrillation. 9. Schizoaffective disorder, bipolar type. 10. Chronic kidney disease. 11. Pacemaker in situ. 12. ID=Edmund Monge MD Feb 18, 2020 16:19
--- NOTE | 2020-02-18 16:26 | Cardiology Progress Note ---
Assessment/Plan Problem List: (1) ICD (implantable cardioverter-defibrillator) in place (2) Pneumonia due to COVID-19 virus (3) Respiratory failure with hypoxia (4) CHF (congestive heart failure) (5) Atrial fibrillation (6) History of CVA (cerebrovascular accident) Status: stable, unchanged Status Narrative COVID 19 pneumonia - On steroids, remdesivir per ID, pulmonary hx of cardiomyopathy, EF 25%, w/global hypokinesis by echo this adm. Uncertain if ischemic or nonischemic CXR w/ inc perihilar markings/pulm vascular congestion Mild inc in troponin , c/w demand ischemia PAF hx of CVA s/p single chamber ICD Assessment/Plan Continue treatment for COVID 19 pneumonia, supportive care, steroids, remdesivir, o2 Continue afterload reduction w/ losartan, metoprolol for cm/ CHF Diuretics - will give lasix 40 mg today Followup EKG - evaluate for possible ischemic changes, and check addl troponin amiodarone for PAF. ? anticoagulation d/w RN Subjective ROS Limited/Unobtainable: No Subjective Cardiology for Dr. Aguilar Pt alert, on nc 02. Nonverbal. nods/shakes head in response to questions In restraints, as was agitated earlier, per RN Objective Last 24 Hour Vital Signs Date Time Temp Pulse Resp B/P (MAP) Pulse Ox O2 Delivery O2 Flow Rate FiO2 02/18/20 14:06 76 20 140/91 96 02/18/20 13:36 76 20 140/91 96 02/18/20 12:00 76 02/18/20 12:00 98.1 63 20 140/91 (107) 96 02/18/20 09:00 Nasal Cannula 5.0 02/18/20 08:32 73 130/67 02/18/20 08:29 130/67 02/18/20 08:28 73 130/67 02/18/20 08:00 81 02/18/20 08:00 96.5 73 20 130/67 (88) 95 02/18/20 04:00 81 02/18/20 04:00 98.0 81 24 125/88 (100) 93 02/18/20 00:00 86 02/18/20 00:00 97.7 86 20 140/99 (113) 93 02/17/20 21:00 Simple Mask 8.0 02/17/20 20:40 83 121/90 02/17/20 20:00 76 02/17/20 20:00 96.8 76 22 134/56 (82) 92 02/17/20 17:52 130/74 02/17/20 17:29 86 General Appearance: WD/WN, no apparent distress, alert EENT: PERRL/EOMI Neck: supple Rhythm: NSR Cardiovascular: normal rate, regular rhythm Respiratory/Chest: other - coarse BS bilaterally Abdomen: non tender, soft Extremities: non-tender, no swelling Intake and Output 02/17/20 02/18/20 19:00 07:00 Intake Total 800 ml Balance 800 ml Intake Oral 800 ml # Voids 5 3 # Bowel Movements 1 Laboratory Tests Test 02/18/20 09:50 White Blood Count 11.1 K/UL (4.8-10.8) H Red Blood Count 4.66 M/UL (4.70-6.10) L Hemoglobin 14.8 G/DL (14.2-18.0) Hematocrit 44.9 % (42.0-52.0) Mean Corpuscular Volume 96 FL (80-99) Mean Corpuscular Hemoglobin 31.8 PG (27.0-31.0) H Mean Corpuscular Hemoglobin Concent 33.0 G/DL (32.0-36.0) Red Cell Distribution Width 13.0 % (11.6-14.8) Platelet Count 227 K/UL (150-450) Mean Platelet Volume 8.4 FL (6.5-10.1) Neutrophils (%) (Auto) 75.4 % (45.0-75.0) H Lymphocytes (%) (Auto) 11.5 % (20.0-45.0) L Monocytes (%) (Auto) 9.2 % (1.0-10.0) Eosinophils (%) (Auto) 0.0 % (0.0-3.0) Basophils (%) (Auto) 3.9 % (0.0-2.0) H Erythrocyte Sedimentation Rate 50 MM/HR (0-20) H Sodium Level 141 MMOL/L (136-145) Potassium Level 3.7 MMOL/L (3.5-5.1) Chloride Level 106 MMOL/L (98-107) Carbon Dioxide Level 24 MMOL/L (21-32) Anion Gap 11 mmol/L (5-15) Blood Urea Nitrogen 30 mg/dL (7-18) H Creatinine 1.5 MG/DL (0.55-1.30) H Estimat Glomerular Filtration Rate 57.7 mL/min (>60) Glucose Level 113 MG/DL (74-106) H Calcium Level 8.8 MG/DL (8.5-10.1) Phosphorus Level 3.2 MG/DL (2.5-4.9) Magnesium Level 2.2 MG/DL (1.8-2.4) Total Bilirubin 0.5 MG/DL (0.2-1.0) Direct Bilirubin 0.1 MG/DL (0.0-0.3) Aspartate Amino Transf (AST/SGOT) 133 U/L (15-37) H Alanine Aminotransferase (ALT/SGPT) 86 U/L (12-78) H Alkaline Phosphatase 50 U/L (46-116) C-Reactive Protein, Quantitative 7.5 mg/dL (0.00-0.90) H Total Protein 7.8 G/DL (6.4-8.2) Albumin 3.0 G/DL (3.4-5.0) L Globulin 4.8 g/dL Albumin/Globulin Ratio 0.6 (1.0-2.7) Kassidy Burroughs MD Feb 18, 2020 16:26
[2020-02-18] MEDS: Maintenance Dose:Remdesivir 100mg/NS 230ml x 4 Doses IV SCH ×2 (18:22)
[2020-02-18 20:00] VITALS: BP 157/100
[2020-02-18] MEDS: Atorvastatin 20mg tab ORAL SCH (21:01)
[2020-02-18] MEDS: Azithromycin 250 MG in D5W 275 ML IV SCH (22:17)
[2020-02-18] MEDS: cefTRIAXone 1 GM in D5W 55 ML IVPB SCH (22:18)
[2020-02-19] VITALS: BP 131/94
[2020-02-19] MEDS: LORazepam Inj 2mg/ml 1ml IV PRN (03:59)
[2020-02-19 04:00] VITALS: BP 141/85
[2020-02-19 08:00] VITALS: BP 136/95
[2020-02-19] MEDS: Aspirin Baby 81mg ORAL SCH (08:28)
[2020-02-19] MEDS: Amiodarone 200mg tab ORAL SCH (08:28)
[2020-02-19] MEDS: Losartan 50mg tab ORAL SCH ×2 (08:29→17:31)
[2020-02-19] MEDS: Heparin 5000 units/ml inj SUBQ SCH ×2 (08:31→20:49)
[2020-02-19 09:01] LABS: BASOPHILS % (AUTO) 3.2 % (0.0-2.0); HEMATOCRIT 42.3 % (42.0-52.0); HEMOGLOBIN 14.4 G/DL (14.2-18.0); LYMPHOCYTES % (AUTO) 13.9 % (20.0-45.0); MEAN CORPUSCULAR VOLUME 95 FL (80-99); MONOCYTES % (AUTO) 7.9 % (1.0-10.0); PLATELET COUNT 271 K/UL (150-450); RED BLOOD COUNT 4.44 M/UL (4.70-6.10); RED CELL DISTRIBUTION WIDTH 12.9 % (11.6-14.8); WHITE BLOOD COUNT 11.4 K/UL (4.8-10.8)
[2020-02-19 09:23] LABS: ALANINE AMINOTRANSFERASE 77 U/L (12-78); ALBUMIN 2.9 G/DL (3.4-5.0); ALBUMIN/GLOBULIN RATIO 0.7 (1.0-2.7); ALKALINE PHOSPHATASE 49 U/L (46-116); ANION GAP 11 mmol/L (5-15); ASPARTATE AMINO TRANSFERASE 98 U/L (15-37); BILIRUBIN,TOTAL 0.5 MG/DL (0.2-1.0); BLOOD UREA NITROGEN 23 mg/dL (7-18); CALCIUM 8.5 MG/DL (8.5-10.1); CARBON DIOXIDE 24 MMOL/L (21-32); CHLORIDE 108 MMOL/L (98-107); CREATININE 1.3 MG/DL (0.55-1.30); PHOSPHORUS 3.1 MG/DL (2.5-4.9); POTASSIUM 3.7 MMOL/L (3.5-5.1); SODIUM 143 MMOL/L (136-145)
[2020-02-19] MEDS ORDERED: Tubing IV Secondary IV ONE ×2 (10:41→11:02)
[2020-02-19] MEDS ORDERED: NS 275ml ONE (10:41)
[2020-02-19] MEDS ORDERED: 1/2 NS 1000ml IV ONE ×2 (11:02)
--- NOTE | 2020-02-19 11:10 | Pulmonology Progress Note ---
Subjective ROS Limited/Unobtainable: No Constitutional: Reports: no symptoms HEENT: Repors: no symptoms Allergies: Coded Allergies: DONNIE INHIBITORS (Verified Allergy, Unknown, 02/13/20) OMEGA-3 ACID ETHYL ESTERS (Verified Allergy, Unknown, 02/13/20) Objective Last 24 Hour Vital Signs Date Time Temp Pulse Resp B/P (MAP) Pulse Ox O2 Delivery O2 Flow Rate FiO2 02/19/20 09:00 Nasal Cannula 7.0 02/19/20 08:29 77 136/95 02/19/20 08:29 136/95 02/19/20 08:28 77 136/95 02/19/20 08:00 65 02/19/20 08:00 97.2 77 21 136/95 (109) 90 02/19/20 04:29 81 24 131/94 94 02/19/20 04:00 97.7 79 24 141/85 (103) 95 02/19/20 03:59 81 24 131/94 94 02/19/20 03:40 81 02/19/20 00:00 74 02/19/20 00:00 99.0 77 24 131/94 (106) 98 02/18/20 22:49 88 20 137/94 94 02/18/20 22:19 90 20 157/100 94 02/18/20 21:01 90 157/100 02/18/20 21:00 Nasal Cannula 3.0 02/18/20 20:00 93 02/18/20 20:00 98.1 90 20 157/100 (119) 94 02/18/20 18:31 Nasal Cannula 3.0 02/18/20 17:36 140/76 02/18/20 16:00 82 02/18/20 16:00 96.8 80 20 140/76 (97) 98 02/18/20 14:06 76 20 140/91 96 02/18/20 13:36 76 20 140/91 96 02/18/20 12:00 76 02/18/20 12:00 98.1 63 20 140/91 (107) 96 Intake and Output 02/18/20 02/19/20 19:00 07:00 # Voids 2 2 General Appearance: WD/WN HEENT: normocephalic, atraumatic Respiratory: chest wall non-tender, normal breath sounds Cardiovascular: normal peripheral pulses, normal rate Abdomen: normal bowel sounds, soft, non tender, no organomegaly Genitourinary: normal external genitalia Extremities: no cyanosis Skin: no rash Neurologic: envelope stuffer II-XII grossly normal Lymphatic: no neck adenopathy Laboratory Tests 02/19/20 08:15: White Blood Count 11.4H, Red Blood Count 4.44L, Hemoglobin 14.4, Hematocrit 42.3, Mean Corpuscular Volume 95, Mean Corpuscular Hemoglobin 32.4H, Mean Corpuscular Hemoglobin Concent 34.0, Red Cell Distribution Width 12.9, Platelet Count 271, Mean Platelet Volume 8.8, Neutrophils (%) (Auto) 75.0, Lymphocytes (%) (Auto) 13.9L, Monocytes (%) (Auto) 7.9, Eosinophils (%) (Auto) 0.0, Basophils (%) (Auto) 3.2H, Erythrocyte Sedimentation Rate 63H, Sodium Level 143, Potassium Level 3.7, Chloride Level 108H, Carbon Dioxide Level 24, Anion Gap 11, Blood Urea Nitrogen 23H, Creatinine 1.3, Estimat Glomerular Filtration Rate > 60, Glucose Level 117H, Calcium Level 8.5, Phosphorus Level 3.1, Magnesium Level 2.3, Total Bilirubin 0.5, Aspartate Amino Transf (AST/SGOT) 98H, Alanine Aminotransferase (ALT/SGPT) 77, Alkaline Phosphatase 49, C-Reactive Protein, Quantitative 7.4H, Pro-B-Type Natriuretic Peptide 6952H, Total Protein 7.2, Albumin 2.9L, Globulin 4.3, Albumin/Globulin Ratio 0.7L Current Medications Medications (Trade) Dose Ordered Sig/Reji Route PRN Reason Start Time Stop Time Status Last Admin Dose Admin Acetaminophen (Tylenol) 500 mg Q4H PRN ORAL Mild Pain (Pain Scale 1-3) 02/14/20 00:30 03/15/20 00:29 Acetaminophen (Tylenol) 650 mg Q4H PRN ORAL FEVER 02/14/20 10:00 03/15/20 09:59 Amiodarone HCl (Cordarone) 200 mg DAILY ORAL 02/14/20 19:15 05/14/20 19:14 02/19/20 08:28 Amlodipine Besylate (Norvasc) 2.5 mg DAILY ORAL 02/15/20 20:30 03/16/20 20:29 02/19/20 08:29 Aspirin (ASA) 81 mg DAILY ORAL 02/15/20 09:00 03/31/20 08:59 02/19/20 08:28 Atorvastatin Calcium (Lipitor) 40 mg BEDTIME ORAL 02/14/20 21:00 05/14/20 20:59 02/18/20 21:01 Azithromycin 250 mg/Dextrose 275 ml @ 275 mls/hr Q24HRS IV 02/14/20 23:00 02/19/20 22:59 02/18/20 22:17 Ceftriaxone Sodium 1 gm/ Dextrose 55 ml @ 110 mls/hr Q24H IVPB 02/14/20 23:00 02/21/20 22:59 02/18/20 22:18 Dexamethasone (Decadron) 4 mg DAILY ORAL 02/14/20 09:00 02/24/20 08:59 02/19/20 08:29 Dextrose (Dextrose 50%) 25 ml Q30M PRN IV Hypoglycemia 02/14/20 10:00 05/14/20 09:59 Dextrose (Dextrose 50%) 50 ml Q30M PRN IV Hypoglycemia 02/14/20 10:00 05/14/20 09:59 Heparin Sodium (Porcine) (Heparin 5000 units/ml) 5,000 units EVERY 12 HOURS SUBQ 02/14/20 10:00 03/30/20 09:59 02/19/20 08:31 Lorazepam (Ativan 2mg/ml 1ml) 0.5 mg Q6HR PRN IV For Anxiety 02/18/20 13:00 02/25/20 12:59 02/19/20 03:59 Losartan Potassium (Cozaar) 50 mg TWICE A DAY ORAL 02/14/20 19:15 03/15/20 19:14 02/19/20 08:29 Metoprolol Tartrate (Lopressor) 25 mg EVERY 12 HOURS ORAL 02/14/20 21:00 05/14/20 20:59 02/19/20 08:28 Ondansetron HCl (Zofran) 4 mg Q6H PRN IVP Nausea & Vomiting 02/14/20 10:00 03/15/20 09:59 Pantoprazole (Protonix) 40 mg EVERY 12 HOURS ORAL 02/15/20 21:00 03/16/20 20:59 02/19/20 08:29 Polyethylene Glycol (Miralax) 17 gm DAILYPRN PRN ORAL Constipation 02/14/20 10:00 03/15/20 09:59 Promethazine HCl/ Codeine (Phenergan with Codeine) 5 ml Q6H PRN ORAL cough 02/14/20 10:00 03/15/20 09:59 Assessment/Plan Problems: (1) Pneumonia due to COVID-19 virus (2) Sepsis (3) Atrial fibrillation (4) CHF (congestive heart failure) (5) Arrhythmia (6) History of CVA (cerebrovascular accident) (7) Psychosis Assessment/Plan doing better, confused wbc is WNL respiratory isolation check sputum iv abx + steroids + antiviral -Continue empiric Ceftriaxone and Azithromycin # 6/5-7 -Decadron # 5/10 - Remdesivir #5 echocardiogram f/u crp, declining optimize cardiac meds dvt prophylaxis Lyle Joy MD Feb 19, 2020 11:10
[2020-02-19 12:00] VITALS: BP 125/94
--- NOTE | 2020-02-19 13:27 | Internal Med Progress Note ---
Subjective Date of Service: Feb 19, 2020 Physician Name DebiEdmund Attending Physician Atilio Lee MD Current Medications Medications (Trade) Dose Ordered Sig/Reji Route PRN Reason Start Time Stop Time Status Last Admin Dose Admin Acetaminophen (Tylenol) 500 mg Q4H PRN ORAL Mild Pain (Pain Scale 1-3) 02/14/20 00:30 03/15/20 00:29 Acetaminophen (Tylenol) 650 mg Q4H PRN ORAL FEVER 02/14/20 10:00 03/15/20 09:59 Amiodarone HCl (Cordarone) 200 mg DAILY ORAL 02/14/20 19:15 05/14/20 19:14 02/19/20 08:28 Amlodipine Besylate (Norvasc) 2.5 mg DAILY ORAL 02/15/20 20:30 03/16/20 20:29 02/19/20 08:29 Aspirin (ASA) 81 mg DAILY ORAL 02/15/20 09:00 03/31/20 08:59 02/19/20 08:28 Atorvastatin Calcium (Lipitor) 40 mg BEDTIME ORAL 02/14/20 21:00 05/14/20 20:59 02/18/20 21:01 Azithromycin 250 mg/Dextrose 275 ml @ 275 mls/hr Q24HRS IV 02/14/20 23:00 02/19/20 22:59 02/18/20 22:17 Ceftriaxone Sodium 1 gm/ Dextrose 55 ml @ 110 mls/hr Q24H IVPB 02/14/20 23:00 02/21/20 22:59 02/18/20 22:18 Dexamethasone (Decadron) 4 mg DAILY ORAL 02/14/20 09:00 02/24/20 08:59 02/19/20 08:29 Dextrose (Dextrose 50%) 25 ml Q30M PRN IV Hypoglycemia 02/14/20 10:00 05/14/20 09:59 Dextrose (Dextrose 50%) 50 ml Q30M PRN IV Hypoglycemia 02/14/20 10:00 05/14/20 09:59 Heparin Sodium (Porcine) (Heparin 5000 units/ml) 5,000 units EVERY 12 HOURS SUBQ 02/14/20 10:00 03/30/20 09:59 02/19/20 08:31 Lorazepam (Ativan 2mg/ml 1ml) 0.5 mg Q6HR PRN IV For Anxiety 02/18/20 13:00 02/25/20 12:59 02/19/20 03:59 Losartan Potassium (Cozaar) 50 mg TWICE A DAY ORAL 02/14/20 19:15 03/15/20 19:14 02/19/20 08:29 Metoprolol Tartrate (Lopressor) 25 mg EVERY 12 HOURS ORAL 02/14/20 21:00 05/14/20 20:59 02/19/20 08:28 Ondansetron HCl (Zofran) 4 mg Q6H PRN IVP Nausea & Vomiting 02/14/20 10:00 03/15/20 09:59 Pantoprazole (Protonix) 40 mg EVERY 12 HOURS ORAL 02/15/20 21:00 03/16/20 20:59 02/19/20 08:29 Polyethylene Glycol (Miralax) 17 gm DAILYPRN PRN ORAL Constipation 02/14/20 10:00 03/15/20 09:59 Promethazine HCl/ Codeine (Phenergan with Codeine) 5 ml Q6H PRN ORAL cough 02/14/20 10:00 03/15/20 09:59 Allergies: Coded Allergies: DONNIE INHIBITORS (Verified Allergy, Unknown, 02/13/20) OMEGA-3 ACID ETHYL ESTERS (Verified Allergy, Unknown, 02/13/20) ROS Limited/Unobtainable: Yes Subjective 60 YO M admitted with shortness of breath. Now COVID 19 and sepsis. Cover for Int Manny-Dr Lee Objective Last Vital Signs Date Time Temp Pulse Resp B/P (MAP) Pulse Ox O2 Delivery O2 Flow Rate FiO2 02/19/20 12:00 97.7 82 23 125/94 (104) 92 02/19/20 09:00 Nasal Cannula 7.0 Laboratory Tests Test 02/19/20 08:15 White Blood Count 11.4 K/UL (4.8-10.8) H Red Blood Count 4.44 M/UL (4.70-6.10) L Hemoglobin 14.4 G/DL (14.2-18.0) Hematocrit 42.3 % (42.0-52.0) Mean Corpuscular Volume 95 FL (80-99) Mean Corpuscular Hemoglobin 32.4 PG (27.0-31.0) H Mean Corpuscular Hemoglobin Concent 34.0 G/DL (32.0-36.0) Red Cell Distribution Width 12.9 % (11.6-14.8) Platelet Count 271 K/UL (150-450) Mean Platelet Volume 8.8 FL (6.5-10.1) Neutrophils (%) (Auto) 75.0 % (45.0-75.0) Lymphocytes (%) (Auto) 13.9 % (20.0-45.0) L Monocytes (%) (Auto) 7.9 % (1.0-10.0) Eosinophils (%) (Auto) 0.0 % (0.0-3.0) Basophils (%) (Auto) 3.2 % (0.0-2.0) H Erythrocyte Sedimentation Rate 63 MM/HR (0-20) H Sodium Level 143 MMOL/L (136-145) Potassium Level 3.7 MMOL/L (3.5-5.1) Chloride Level 108 MMOL/L (98-107) H Carbon Dioxide Level 24 MMOL/L (21-32) Anion Gap 11 mmol/L (5-15) Blood Urea Nitrogen 23 mg/dL (7-18) H Creatinine 1.3 MG/DL (0.55-1.30) Estimat Glomerular Filtration Rate > 60 mL/min (>60) Glucose Level 117 MG/DL (74-106) H Calcium Level 8.5 MG/DL (8.5-10.1) Phosphorus Level 3.1 MG/DL (2.5-4.9) Magnesium Level 2.3 MG/DL (1.8-2.4) Total Bilirubin 0.5 MG/DL (0.2-1.0) Aspartate Amino Transf (AST/SGOT) 98 U/L (15-37) H Alanine Aminotransferase (ALT/SGPT) 77 U/L (12-78) Alkaline Phosphatase 49 U/L (46-116) C-Reactive Protein, Quantitative 7.4 mg/dL (0.00-0.90) H Pro-B-Type Natriuretic Peptide 6952 pg/mL (0-125) H Total Protein 7.2 G/DL (6.4-8.2) Albumin 2.9 G/DL (3.4-5.0) L Globulin 4.3 g/dL Albumin/Globulin Ratio 0.7 (1.0-2.7) L Intake and Output 02/18/20 02/19/20 19:00 07:00 # Voids 2 2 Objective PHYSICAL EXAMINATION: GENERAL: The patient is well-developed and well-nourished male, no apparent distress. HEENT: Eyes, pupils are equal and responsive to light and accommodation. Extraocular movements are intact. NECK: Supple without lymphadenopathy. CHEST: Lungs are clear to auscultation bilaterally without wheezes or rales. CARDIOVASCULAR: Regular rhythm and rate. S1 and S2 are normal without murmurs, rubs, or gallops. ABDOMEN: Soft, nontender, and nondistended. Positive bowel sounds. No evidence of hepatosplenomegaly. Currently, no rebound or guarding noted. EXTREMITIES: Negative for clubbing, cyanosis, or edema. RECTAL/GENITAL: Not performed. NEUROLOGIC: Cranial nerves II through XII are grossly intact without focal deficits. Motor strength is 5/5 bilaterally. Deep tendon reflexes are 2+ plantar. Assessment/Plan Assessment/Plan ASSESSMENT: This is a 60-year-old male: 1. Shortness of breath. 2. Fever. 3. COVID-19 positive. 4. Hypertension. 5. Cerebrovascular disease, status post cerebrovascular accident. 6. Hemiplegia. 7. Hypercholesterolemia. 8. Coronary artery disease. 9. Cardiomyopathy. 10. Paroxysmal atrial fibrillation. 11. Schizoaffective disorder, bipolar type. 12. Chronic kidney disease. 13. Sepsis=Staph epidermidis 14. Elevated troponin 15. AICD in situ TREATMENT: 1. Hypoxia/shortness of breath. A Pulmonary consultation has been obtained with Dr. Lyle Joy. COVID-19 testing is positive ABX=vanco, ceftriaxone and azithromycin and remdesivir for presumed pneumonia. 2. Hypertension. The patient is currently hypotensive. Hold antihypertensive medication as above. 3. Cerebrovascular disease. 4. Hemiplegia. 5. Coronary artery disease. A Cardiology consultation has been obtained with Dr. Kayden Aguilar. 6. Hypercholesterolemia. Continue atorvastatin as above. 7. Cardiomyopathy. 8. Paroxysmal atrial fibrillation. 9. Schizoaffective disorder, bipolar type. 10. Chronic kidney disease. 11. Pacemaker in situ. 12. ID=Edmund Monge MD Feb 19, 2020 13:27
--- NOTE | 2020-02-19 14:13 | Nephrology Progress Note ---
Assessment/Plan Problem List: (1) SHANNAN (acute kidney injury) (2) CHF (congestive heart failure) (3) Atrial fibrillation (4) Cardiomyopathy (5) ICD (implantable cardioverter-defibrillator) in place (6) History of CVA (cerebrovascular accident) (7) Pneumonia due to COVID-19 virus Assessment Acute on chronic renal failure Respiratory failure with hypoxia Pneumonia due to COVID-19 virus Sepsis Diabetes mellitus with elevated hemoglobin A1c Anemia Cardiomyopathy 20% EjFx Plan February 18: Renal parameters stable. Continue per consultants. February 17: Remains stable from renal standpoint of view. Continue per consultants. February 16: Patient stable from renal standpoint to view. Continue per pulmonary. Continue per ID. Serum creatinine down to 1.6 from 2.1 on admission day February 15: When I saw the patient this morning with charge nurse Wilfred the patient was somewhat hypoxic on oxygen. Was ordered to be put on mask and inform baby stroller rental clerk for possible ABG check and further treatment plan. Labs reviewed. Serum creatinine stable. Troponin unchanged. Continue to monitor renal parameters. Continue to optimize cardiac and pulmonary status. Overall prognosis poor. Slow hydration Monitor electrolytes and renal parameters Monitor urine output Correct abnormal electrolytes Antibiotics, avoid nephrotoxic's Anemia work-up Per orders Subjective ROS Limited/Unobtainable: No Constitutional: Reports: malaise Objective Objective Last 24 Hour Vital Signs Date Time Temp Pulse Resp B/P (MAP) Pulse Ox O2 Delivery O2 Flow Rate FiO2 02/19/20 12:00 97.7 82 23 125/94 (104) 92 02/19/20 09:00 Nasal Cannula 7.0 02/19/20 08:29 77 136/95 02/19/20 08:29 136/95 02/19/20 08:28 77 136/95 02/19/20 08:00 65 02/19/20 08:00 97.2 77 21 136/95 (109) 90 02/19/20 04:29 81 24 131/94 94 02/19/20 04:00 97.7 79 24 141/85 (103) 95 02/19/20 03:59 81 24 131/94 94 02/19/20 03:40 81 02/19/20 00:00 74 02/19/20 00:00 99.0 77 24 131/94 (106) 98 02/18/20 22:49 88 20 137/94 94 02/18/20 22:19 90 20 157/100 94 02/18/20 21:01 90 157/100 02/18/20 21:00 Nasal Cannula 3.0 02/18/20 20:00 93 02/18/20 20:00 98.1 90 20 157/100 (119) 94 02/18/20 18:31 Nasal Cannula 3.0 02/18/20 17:36 140/76 02/18/20 16:00 82 02/18/20 16:00 96.8 80 20 140/76 (97) 98 Intake and Output 02/18/20 02/19/20 19:00 07:00 # Voids 2 2 Laboratory Tests 02/19/20 08:15: White Blood Count 11.4H, Red Blood Count 4.44L, Hemoglobin 14.4, Hematocrit 42.3, Mean Corpuscular Volume 95, Mean Corpuscular Hemoglobin 32.4H, Mean Corpuscular Hemoglobin Concent 34.0, Red Cell Distribution Width 12.9, Platelet Count 271, Mean Platelet Volume 8.8, Neutrophils (%) (Auto) 75.0, Lymphocytes (%) (Auto) 13.9L, Monocytes (%) (Auto) 7.9, Eosinophils (%) (Auto) 0.0, B asophils (%) (Auto) 3.2H, Erythrocyte Sedimentation Rate 63H, Sodium Level 143, Potassium Level 3.7, Chloride Level 108H, Carbon Dioxide Level 24, Anion Gap 11, Blood Urea Nitrogen 23H, Creatinine 1.3, Estimat Glomerular Filtration Rate > 60, Glucose Level 117H, Calcium Level 8.5, Phosphorus Level 3.1, Magnesium Level 2.3, Total Bilirubin 0.5, Aspartate Amino Transf (AST/SGOT) 98H, Alanine Barr otransferase (ALT/SGPT) 77, Alkaline Phosphatase 49, C-Reactive Protein, Quantitative 7.4H, Pro-B-Type Natriuretic Peptide 6952H, Total Protein 7.2, Albumin 2.9L, Globulin 4.3, Albumin/Globulin Ratio 0.7L Height (Feet): 5 Height (Inches): 10.00 Weight (Pounds): 231 General Appearance: no apparent distress Respiratory/Chest: decreased breath sounds Abdomen: soft Objective No change Ashvin Bautista MD Feb 19, 2020 14:13
[2020-02-19 16:00] VITALS: BP 128/96
--- NOTE | 2020-02-19 16:57 | Diagnostic Imaging Report ---
Indication: Dyspnea Technique: One view of the chest Comparison: 02/16/2020 Findings: Bilateral edema versus infiltrates appear worsened, particularly on the right. Cardiomegaly persists. Small right-sided pleural effusion is again demonstrated. Left chest AICD is again demonstrated. Impression: Worsening bilateral edema versus infiltrates, over 3 days.
--- NOTE | 2020-02-19 19:03 | Diagnostic Imaging Report ---
Indication: Heart is of breath Technique: One view of the chest Comparison: 6 hours earlier Findings: The heart remains enlarged. Bilateral infiltrates versus edema are unchanged. There is a left chest AICD Impression: Unchanged, over 6 hours, findings as above.
--- NOTE | 2020-02-19 19:09 | Infectious Diseases Prog Note ---
Assessment/Plan Assessment: COVID19 positive (dx'ed 02/08/20)- likely PNA Acute hypoxic resp failure- sp NRB> 4l NC> desaturated to 78% and was placed on SM 8L 02/15 -02/18 CXR: Worsening bilateral edema versus infiltrates, over 3 days -02/12 CXR: Cardiomegaly with vascular congestion and moderate edema. Gram positive bacteremia- m/l contaminant -02/12 Bcx 2/4 CoNS clusters, 2/4 diphteroids; 02/14 Bcx NTD Fever -SWITCH COUPLER- none here so far mild leukocytosis (on steroids) SHANNAN, improving Elevated AST, mild; increasing CVA w/ resultant aphasia HLD general anxiety disorder schizoaffective disorder-depressive type cardiomegaly pAfib pHTN CKD CAD HTN [place] resident ([facility] / [facility]) Plan: -Continue empiric Ceftriaxone and Azithromycin # / -Decadron # / -02/17 SP Remdesivir #5 -02/16 SP IV Vancomycin #2 -f/u cx -Monitor CBC/CMP, temperatures -f/u repeat Bcx x2 Thank you for this consultation. Will continue to follow along with you. Discussed with RN. Subjective Allergies: Coded Allergies: DONNIE INHIBITORS (Verified Allergy, Unknown, 02/13/20) OMEGA-3 ACID ETHYL ESTERS (Verified Allergy, Unknown, 02/13/20) *late entry* afebrile mild leukocytosis Cr improving Bcx NTD Objective Last 24 Hour Vital Signs Date Time Temp Pulse Resp B/P (MAP) Pulse Ox O2 Delivery O2 Flow Rate FiO2 02/19/20 17:31 128/96 02/19/20 16:00 113 02/19/20 16:00 98.8 92 23 128/96 (107) 94 02/19/20 15:53 Simple Mask 6.0 02/19/20 12:00 97.7 82 23 125/94 (104) 92 02/19/20 12:00 109 02/19/20 09:00 Nasal Cannula 7.0 02/19/20 08:29 77 136/95 02/19/20 08:29 136/95 02/19/20 08:28 77 136/95 02/19/20 08:00 65 02/19/20 08:00 97.2 77 21 136/95 (109) 90 02/19/20 04:29 81 24 131/94 94 02/19/20 04:00 97.7 79 24 141/85 (103) 95 02/19/20 03:59 81 24 131/94 94 02/19/20 03:40 81 02/19/20 00:00 74 02/19/20 00:00 99.0 77 24 131/94 (106) 98 02/18/20 22:49 88 20 137/94 94 02/18/20 22:19 90 20 157/100 94 02/18/20 21:01 90 157/100 02/18/20 21:00 Nasal Cannula 3.0 02/18/20 20:00 93 02/18/20 20:00 98.1 90 20 157/100 (119) 94 Height (Feet): 5 Height (Inches): 10.00 Weight (Pounds): 231 Gen: no distress Respiratory Exam: Rhonchi Cardiovascular Exam: RRR Skin Exam: Normal Turgor Laboratory Tests Test 02/19/20 08:15 02/19/20 16:52 White Blood Count 11.4 K/UL (4.8-10.8) H Red Blood Count 4.44 M/UL (4.70-6.10) L Hemoglobin 14.4 G/DL (14.2-18.0) Hematocrit 42.3 % (42.0-52.0) Mean Corpuscular Volume 95 FL (80-99) Mean Corpuscular Hemoglobin 32.4 PG (27.0-31.0) H Mean Corpuscular Hemoglobin Concent 34.0 G/DL (32.0-36.0) Red Cell Distribution Width 12.9 % (11.6-14.8) Platelet Count 271 K/UL (150-450) Mean Platelet Volume 8.8 FL (6.5-10.1) Neutrophils (%) (Auto) 75.0 % (45.0-75.0) Lymphocytes (%) (Auto) 13.9 % (20.0-45.0) L Monocytes (%) (Auto) 7.9 % (1.0-10.0) Eosinophils (%) (Auto) 0.0 % (0.0-3.0) Basophils (%) (Auto) 3.2 % (0.0-2.0) H Erythrocyte Sedimentation Rate 63 MM/HR (0-20) H Sodium Level 143 MMOL/L (136-145) Potassium Level 3.7 MMOL/L (3.5-5.1) Chloride Level 108 MMOL/L (98-107) H Carbon Dioxide Level 24 MMOL/L (21-32) Anion Gap 11 mmol/L (5-15) Blood Urea Nitrogen 23 mg/dL (7-18) H Creatinine 1.3 MG/DL (0.55-1.30) Estimat Glomerular Filtration Rate > 60 mL/min (>60) Glucose Level 117 MG/DL (74-106) H Calcium Level 8.5 MG/DL (8.5-10.1) Phosphorus Level 3.1 MG/DL (2.5-4.9) Magnesium Level 2.3 MG/DL (1.8-2.4) Total Bilirubin 0.5 MG/DL (0.2-1.0) Aspartate Amino Transf (AST/SGOT) 98 U/L (15-37) H Alanine Aminotransferase (ALT/SGPT) 77 U/L (12-78) Alkaline Phosphatase 49 U/L (46-116) C-Reactive Protein, Quantitative 7.4 mg/dL (0.00-0.90) H Pro-B-Type Natriuretic Peptide 6952 pg/mL (0-125) H Total Protein 7.2 G/DL (6.4-8.2) Albumin 2.9 G/DL (3.4-5.0) L Globulin 4.3 g/dL Albumin/Globulin Ratio 0.7 (1.0-2.7) L Arterial Blood pH 7.421 (7.350-7.450) Arterial Blood Partial Pressure CO2 38.2 mmHg (35.0-45.0) Arterial Blood Partial Pressure O2 56.0 mmHg (75.0-100.0) L Arterial Blood HCO3 24.3 mmol/L (22.0-26.0) Arterial Blood Oxygen Saturation 88.4 % (95-100) *L Arterial Blood Base Excess 0.1 (-2-2) Jerardo Test Positive Current Medications Medications (Trade) Dose Ordered Sig/Reji Route PRN Reason Start Time Stop Time Status Last Admin Dose Admin Acetaminophen (Tylenol) 500 mg Q4H PRN ORAL Mild Pain (Pain Scale 1-3) 02/14/20 00:30 03/15/20 00:29 Acetaminophen (Tylenol) 650 mg Q4H PRN ORAL FEVER 02/14/20 10:00 03/15/20 09:59 Amiodarone HCl (Cordarone) 200 mg DAILY ORAL 02/14/20 19:15 05/14/20 19:14 02/19/20 08:28 Amlodipine Besylate (Norvasc) 2.5 mg DAILY ORAL 02/15/20 20:30 03/16/20 20:29 02/19/20 08:29 Aspirin (ASA) 81 mg DAILY ORAL 02/15/20 09:00 03/31/20 08:59 02/19/20 08:28 Atorvastatin Calcium (Lipitor) 40 mg BEDTIME ORAL 02/14/20 21:00 05/14/20 20:59 02/18/20 21:01 Azithromycin 250 mg/Dextrose 275 ml @ 275 mls/hr Q24HRS IV 02/14/20 23:00 02/20/20 23:59 02/18/20 22:17 Ceftriaxone Sodium 1 gm/ Dextrose 55 ml @ 110 mls/hr Q24H IVPB 02/14/20 23:00 02/21/20 22:59 02/18/20 22:18 Dexamethasone (Decadron) 4 mg DAILY ORAL 02/14/20 09:00 02/24/20 08:59 02/19/20 08:29 Dextrose (Dextrose 50%) 25 ml Q30M PRN IV Hypoglycemia 02/14/20 10:00 05/14/20 09:59 Dextrose (Dextrose 50%) 50 ml Q30M PRN IV Hypoglycemia 02/14/20 10:00 05/14/20 09:59 Heparin Sodium (Porcine) (Heparin 5000 units/ml) 5,000 units EVERY 12 HOURS SUBQ 02/14/20 10:00 03/30/20 09:59 02/19/20 08:31 Lorazepam (Ativan 2mg/ml 1ml) 0.5 mg Q6HR PRN IV For Anxiety 02/18/20 13:00 02/25/20 12:59 02/19/20 03:59 Losartan Potassium (Cozaar) 50 mg TWICE A DAY ORAL 02/14/20 19:15 03/15/20 19:14 02/19/20 17:31 Metoprolol Tartrate (Lopressor) 25 mg EVERY 12 HOURS ORAL 02/14/20 21:00 05/14/20 20:59 02/19/20 08:28 Ondansetron HCl (Zofran) 4 mg Q6H PRN IVP Nausea & Vomiting 02/14/20 10:00 03/15/20 09:59 Pantoprazole (Protonix) 40 mg EVERY 12 HOURS ORAL 02/15/20 21:00 03/16/20 20:59 02/19/20 08:29 Polyethylene Glycol (Miralax) 17 gm DAILYPRN PRN ORAL Constipation 02/14/20 10:00 03/15/20 09:59 Promethazine HCl/ Codeine (Phenergan with Codeine) 5 ml Q6H PRN ORAL cough 02/14/20 10:00 03/15/20 09:59 Heather Espinoza M.D. Feb 19, 2020 19:09
--- NOTE | 2020-02-19 19:57 | Cardiology Progress Note ---
Assessment/Plan Assessment/Plan 1. History of permanent pacemaker implantation. 2. Possible pneumonia. 3. heart failure 4. History of cerebrovascular accident. 5. Schizophrenia. 6. History of pulmonary hypertension. 7. History of paroxysmal episodes of atrial fibrillation. 8. History of hemiplegia. 9. Hypertension. 10. History of kidney disease 11. bacteremia off ivf iv diuretic bid 40 mg for nwo on treatment for covid 19 per id bp isok on low dose of Norvasc in light lv dysfunction on max dose of cozaar and is "allergic to acei" per record tele reviewed personally cxr noted renal fxn and bp are fine Subjective ROS Limited/Unobtainable: Yes Objective Last 24 Hour Vital Signs Date Time Temp Pulse Resp B/P (MAP) Pulse Ox O2 Delivery O2 Flow Rate FiO2 02/19/20 17:31 128/96 02/19/20 16:00 113 02/19/20 16:00 98.8 92 23 128/96 (107) 94 02/19/20 15:53 Simple Mask 6.0 02/19/20 12:00 97.7 82 23 125/94 (104) 92 02/19/20 12:00 109 02/19/20 09:00 Nasal Cannula 7.0 02/19/20 08:29 77 136/95 02/19/20 08:29 136/95 02/19/20 08:28 77 136/95 02/19/20 08:00 65 02/19/20 08:00 97.2 77 21 136/95 (109) 90 02/19/20 04:29 81 24 131/94 94 02/19/20 04:00 97.7 79 24 141/85 (103) 95 02/19/20 03:59 81 24 131/94 94 02/19/20 03:40 81 02/19/20 00:00 74 02/19/20 00:00 99.0 77 24 131/94 (106) 98 02/18/20 22:49 88 20 137/94 94 02/18/20 22:19 90 20 157/100 94 02/18/20 21:01 90 157/100 02/18/20 21:00 Nasal Cannula 3.0 02/18/20 20:00 93 02/18/20 20:00 98.1 90 20 157/100 (119) 94 Intake and Output 02/18/20 02/19/20 19:00 07:00 # Voids 2 2 Laboratory Tests Test 02/19/20 08:15 02/19/20 16:52 White Blood Count 11.4 K/UL (4.8-10.8) H Red Blood Count 4.44 M/UL (4.70-6.10) L Hemoglobin 14.4 G/DL (14.2-18.0) Hematocrit 42.3 % (42.0-52.0) Mean Corpuscular Volume 95 FL (80-99) Mean Corpuscular Hemoglobin 32.4 PG (27.0-31.0) H Mean Corpuscular Hemoglobin Concent 34.0 G/DL (32.0-36.0) Red Cell Distribution Width 12.9 % (11.6-14.8) Platelet Count 271 K/UL (150-450) Mean Platelet Volume 8.8 FL (6.5-10.1) Neutrophils (%) (Auto) 75.0 % (45.0-75.0) Lymphocytes (%) (Auto) 13.9 % (20.0-45.0) L Monocytes (%) (Auto) 7.9 % (1.0-10.0) Eosinophils (%) (Auto) 0.0 % (0.0-3.0) Basophils (%) (Auto) 3.2 % (0.0-2.0) H Erythrocyte Sedimentation Rate 63 MM/HR (0-20) H Sodium Level 143 MMOL/L (136-145) Potassium Level 3.7 MMOL/L (3.5-5.1) Chloride Level 108 MMOL/L (98-107) H Carbon Dioxide Level 24 MMOL/L (21-32) Anion Gap 11 mmol/L (5-15) Blood Urea Nitrogen 23 mg/dL (7-18) H Creatinine 1.3 MG/DL (0.55-1.30) Estimat Glomerular Filtration Rate > 60 mL/min (>60) Glucose Level 117 MG/DL (74-106) H Calcium Level 8.5 MG/DL (8.5-10.1) Phosphorus Level 3.1 MG/DL (2.5-4.9) Magnesium Level 2.3 MG/DL (1.8-2.4) Total Bilirubin 0.5 MG/DL (0.2-1.0) Aspartate Amino Transf (AST/SGOT) 98 U/L (15-37) H Alanine Aminotransferase (ALT/SGPT) 77 U/L (12-78) Alkaline Phosphatase 49 U/L (46-116) C-Reactive Protein, Quantitative 7.4 mg/dL (0.00-0.90) H Pro-B-Type Natriuretic Peptide 6952 pg/mL (0-125) H Total Protein 7.2 G/DL (6.4-8.2) Albumin 2.9 G/DL (3.4-5.0) L Globulin 4.3 g/dL Albumin/Globulin Ratio 0.7 (1.0-2.7) L Arterial Blood pH 7.421 (7.350-7.450) Arterial Blood Partial Pressure CO2 38.2 mmHg (35.0-45.0) Arterial Blood Partial Pressure O2 56.0 mmHg (75.0-100.0) L Arterial Blood HCO3 24.3 mmol/L (22.0-26.0) Arterial Blood Oxygen Saturation 88.4 % (95-100) *L Arterial Blood Base Excess 0.1 (-2-2) Jerardo Test Positive Objective exam deferred due to active infection per dr walker Respiratory: chest wall non-tender, normal breath sounds Cardiovascular: normal peripheral pulses, normal rate Abdomen: normal bowel sounds, soft, non tender, no organomegaly Genitourinary: normal external genitalia Extremities: no cyanosis Kayden Aguilar MD Feb 19, 2020 19:57
[2020-02-19 20:00] VITALS: BP 150/93
[2020-02-19] MEDS: Atorvastatin 20mg tab ORAL SCH (20:48)
[2020-02-19] MEDS: Azithromycin 250 MG in D5W 275 ML IV SCH (22:41)
[2020-02-19] MEDS: cefTRIAXone 1 GM in D5W 55 ML IVPB SCH (23:00)
[2020-02-20] VITALS: BP 149/82
[2020-02-20] MEDS: LORazepam Inj 2mg/ml 1ml IV PRN ×3 (02:08→13:08)
[2020-02-20 04:00] VITALS: BP 150/82
[2020-02-20 06:36] LABS: BASOPHILS % (AUTO) 2.9 % (0.0-2.0); EOSINOPHILS % (AUTO) 0.1 % (0.0-3.0); LYMPHOCYTES % (AUTO) 14.4 % (20.0-45.0); MEAN CORPUSCULAR VOLUME 96 FL (80-99); MONOCYTES % (AUTO) 5.9 % (1.0-10.0); NEUTROPHILS % (AUTO) 76.7 % (45.0-75.0); PLATELET COUNT 305 K/UL (150-450); RED BLOOD COUNT 4.99 M/UL (4.70-6.10); WHITE BLOOD COUNT 11.9 K/UL (4.8-10.8)
[2020-02-20 07:06] LABS: ALBUMIN 3.3 G/DL (3.4-5.0); ALBUMIN/GLOBULIN RATIO 0.7 (1.0-2.7); BILIRUBIN,TOTAL 0.7 MG/DL (0.2-1.0); CALCIUM 8.8 MG/DL (8.5-10.1); CREATININE 1.6 MG/DL (0.55-1.30); PHOSPHORUS 3.2 MG/DL (2.5-4.9); POTASSIUM 3.9 MMOL/L (3.5-5.1)
[2020-02-20 08:00] VITALS: BP 135/95
[2020-02-20] MEDS: Aspirin Baby 81mg ORAL SCH (08:49)
[2020-02-20] MEDS: Amiodarone 200mg tab ORAL SCH (08:49)
[2020-02-20] MEDS: Losartan 50mg tab ORAL SCH ×2 (08:49→17:18)
[2020-02-20] MEDS: Heparin 5000 units/ml inj SUBQ SCH ×2 (08:51→21:23)
--- NOTE | 2020-02-20 11:02 | Diagnostic Imaging Report ---
Indication: Shortness of breath Technique: One view of the chest Comparison: 02/19/2020 Findings: Bilateral diffuse interstitial and airspace edema versus infiltrates are unchanged. Left chest unifocal AICD again demonstrated. The heart remains enlarged. Impression: Unchanged, over one day, findings as above.
--- NOTE | 2020-02-20 11:05 | Pulmonology Progress Note ---
Subjective ROS Limited/Unobtainable: Yes Constitutional: Reports: no symptoms HEENT: Repors: no symptoms Allergies: Coded Allergies: DONNIE INHIBITORS (Verified Allergy, Unknown, 02/13/20) OMEGA-3 ACID ETHYL ESTERS (Verified Allergy, Unknown, 02/13/20) Objective Last 24 Hour Vital Signs Date Time Temp Pulse Resp B/P (MAP) Pulse Ox O2 Delivery O2 Flow Rate FiO2 02/20/20 09:20 88 23 138/99 91 02/20/20 08:50 94 22 135/95 96 02/20/20 08:49 94 135/95 02/20/20 08:49 94 135/95 02/20/20 08:49 135/95 02/20/20 08:04 Venturi Mask 10.0 02/20/20 08:00 92 02/20/20 08:00 98.2 94 22 135/95 (108) 96 02/20/20 04:00 99.5 94 21 150/82 (104) 96 02/20/20 04:00 103 02/20/20 02:46 95 22 140/62 90 02/20/20 02:08 99 22 144/82 90 02/20/20 00:00 99.6 99 22 149/82 (104) 90 02/19/20 21:00 Simple Mask 6.0 02/19/20 20:48 148/79 02/19/20 20:00 101 02/19/20 20:00 98.2 105 21 150/93 (112) 95 02/19/20 17:31 128/96 02/19/20 16:00 113 02/19/20 16:00 98.8 92 23 128/96 (107) 94 02/19/20 15:53 Simple Mask 6.0 02/19/20 12:00 97.7 82 23 125/94 (104) 92 02/19/20 12:00 109 Intake and Output 02/19/20 02/20/20 19:00 07:00 Intake Total 480 ml Output Total 400 ml 250 ml Balance -400 ml 230 ml Intake Oral 480 ml Output Urine Total 400 ml 250 ml # Voids 2 General Appearance: WD/WN HEENT: normocephalic, atraumatic Respiratory: chest wall non-tender, normal breath sounds Cardiovascular: normal peripheral pulses, normal rate Abdomen: normal bowel sounds, soft, non tender, no organomegaly Genitourinary: normal external genitalia Extremities: no cyanosis Skin: no rash 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 Lymphatic: no neck adenopathy Laboratory Tests 02/19/20 16:52: Arterial Blood pH 7.421, Arterial Blood Partial Pressure CO2 38.2, Arterial Blood Partial Pressure O2 56.0L, Arterial Blood HCO3 24.3, Arterial Blood Oxygen Saturation 88.4*L, Arterial Blood Base Excess 0.1, Jerardo Test Positive 02/20/20 05:35: White Blood Count 11.9H, Red Blood Count 4.99, Hemoglobin 16.0, Hematocrit 48.0, Mean Corpuscular Volume 96, Mean Corpuscular Hemoglobin 32.1H, Mean Corpuscular Hemoglobin Concent 33.4, Red Cell Distribution Width 13.0, Platelet Count 305, Mean Platelet Volume 8.4, Neutrophils (%) (Auto) 76.7H, Lymphocytes (%) (Auto) 14.4L, Monocytes (%) (Auto) 5.9, Eosinophils (%) (Auto) 0.1, Basophils (%) (Auto) 2.9H, Erythrocyte Sedimentation Rate 39H, Sodium Level 144, Potassium Level 3.9, Chloride Level 107, Carbon Dioxide Level 25, Anion Gap 12, Blood Urea Nitrogen 23H, Creatinine 1.6H, Estimat Glomerular Filtration Rate 53.6, Glucose Level 125H, Calcium Level 8.8, Phosphorus Level 3.2, Magnesium Level 2.2, Total Bilirubin 0.7, Aspartate Amino Transf (AST/SGOT) 104H, Alanine Aminotransferase (ALT/SGPT) 90H, Alkaline Phosphatase 59, Troponin I 0.236H, C-Reactive Protein, Quantitative 7.9H, Total Protein 8.3H, Albumin 3.3L, Globulin 5.0, Albumin/Globulin Ratio 0.7L Current Medications Medications (Trade) Dose Ordered Sig/Reji Route PRN Reason Start Time Stop Time Status Last Admin Dose Admin Acetaminophen (Tylenol) 500 mg Q4H PRN ORAL Mild Pain (Pain Scale 1-3) 02/14/20 00:30 03/15/20 00:29 Acetaminophen (Tylenol) 650 mg Q4H PRN ORAL FEVER 02/14/20 10:00 03/15/20 09:59 Amiodarone HCl (Cordarone) 200 mg DAILY ORAL 02/14/20 19:15 05/14/20 19:14 02/20/20 08:49 Amlodipine Besylate (Norvasc) 2.5 mg DAILY ORAL 02/15/20 20:30 03/16/20 20:29 02/20/20 08:49 Aspirin (ASA) 81 mg DAILY ORAL 02/15/20 09:00 03/31/20 08:59 02/20/20 08:49 Atorvastatin Calcium (Lipitor) 40 mg BEDTIME ORAL 02/14/20 21:00 05/14/20 20:59 02/19/20 20:48 Azithromycin 250 mg/Dextrose 275 ml @ 275 mls/hr Q24HRS IV 02/14/20 23:00 02/20/20 23:59 02/19/20 22:41 Ceftriaxone Sodium 1 gm/ Dextrose 55 ml @ 110 mls/hr Q24H IVPB 02/14/20 23:00 02/21/20 22:59 02/19/20 23:00 Dexamethasone (Decadron) 4 mg DAILY ORAL 02/14/20 09:00 02/24/20 08:59 02/20/20 08:49 Dextrose (Dextrose 50%) 25 ml Q30M PRN IV Hypoglycemia 02/14/20 10:00 05/14/20 09:59 Dextrose (Dextrose 50%) 50 ml Q30M PRN IV Hypoglycemia 02/14/20 10:00 05/14/20 09:59 Heparin Sodium (Porcine) (Heparin 5000 units/ml) 5,000 units EVERY 12 HOURS SUBQ 02/14/20 10:00 03/30/20 09:59 02/20/20 08:51 Lorazepam (Ativan 2mg/ml 1ml) 0.5 mg Q6HR PRN IV For Anxiety 02/18/20 13:00 02/25/20 12:59 02/20/20 08:50 Losartan Potassium (Cozaar) 50 mg TWICE A DAY ORAL 02/14/20 19:15 03/15/20 19:14 02/20/20 08:49 Metoprolol Tartrate (Lopressor) 25 mg EVERY 12 HOURS ORAL 02/14/20 21:00 05/14/20 20:59 02/20/20 08:49 Ondansetron HCl (Zofran) 4 mg Q6H PRN IVP Nausea & Vomiting 02/14/20 10:00 03/15/20 09:59 Pantoprazole (Protonix) 40 mg EVERY 12 HOURS ORAL 02/15/20 21:00 03/16/20 20:59 02/20/20 08:49 Polyethylene Glycol (Miralax) 17 gm DAILYPRN PRN ORAL Constipation 02/14/20 10:00 03/15/20 09:59 Promethazine HCl/ Codeine (Phenergan with Codeine) 5 ml Q6H PRN ORAL cough 02/14/20 10:00 03/15/20 09:59 Assessment/Plan Problems: (1) Pneumonia due to COVID-19 virus (2) Sepsis (3) Atrial fibrillation (4) CHF (congestive heart failure) (5) Arrhythmia (6) History of CVA (cerebrovascular accident) (7) Psychosis Assessment/Plan CXR reviewed: doing better, confused wbc is WNL respiratory isolation check sputum iv abx + steroids + antiviral -Continue empiric Ceftriaxone and Azithromycin -Decadron - Remdesivir echocardiogram f/u crp, stady optimize cardiac meds dvt prophylaxis Lyle Joy MD Feb 20, 2020 11:05
[2020-02-20 12:00] VITALS: BP 150/89
--- NOTE | 2020-02-20 13:50 | Cardiology Progress Note ---
Assessment/Plan Assessment/Plan 1. History of permanent pacemaker implantation. 2. Possible pneumonia. 3. heart failure 4. History of cerebrovascular accident. 5. Schizophrenia. 6. History of pulmonary hypertension. 7. History of paroxysmal episodes of atrial fibrillation. 8. History of hemiplegia. 9. Hypertension. 10. History of kidney disease 11. bacteremia off ivf iv diuretic 40 mg dialy on treatment for covid 19 per id bp ishigh will increase Norvasc in light lv dysfunction on max dose of cozaar and is "allergic to acei" per record tele reviewed personally cxr noted seem to still show pvc watch renal fxn Subjective ROS Limited/Unobtainable: Yes Subjective Received patient in bed. Awake, A/O x`1. On simple mask. Patient denies pain. Bilateral soft wrsit restraints in place, hands are warm and normal color for ethnicity with active ROM. IV in the Right FA, site intact. Patient is a high fall risk d/t Geller fall score of 50. Patient placed close to the nurse's station for safety and close monitoring. Objective Last 24 Hour Vital Signs Date Time Temp Pulse Resp B/P (MAP) Pulse Ox O2 Delivery O2 Flow Rate FiO2 02/20/20 13:08 90 22 150/89 94 02/20/20 12:00 94 02/20/20 12:00 98.1 90 22 150/89 (109) 94 02/20/20 09:20 88 23 138/99 91 02/20/20 08:50 94 22 135/95 96 02/20/20 08:49 94 135/95 02/20/20 08:49 94 135/95 02/20/20 08:49 135/95 02/20/20 08:04 Venturi Mask 10.0 02/20/20 08:00 92 02/20/20 08:00 98.2 94 22 135/95 (108) 96 02/20/20 04:00 99.5 94 21 150/82 (104) 96 02/20/20 04:00 103 02/20/20 02:46 95 22 140/62 90 02/20/20 02:08 99 22 144/82 90 02/20/20 00:00 99.6 99 22 149/82 (104) 90 02/19/20 21:00 Simple Mask 6.0 02/19/20 20:48 148/79 02/19/20 20:00 101 02/19/20 20:00 98.2 105 21 150/93 (112) 95 02/19/20 17:31 128/96 02/19/20 16:00 113 02/19/20 16:00 98.8 92 23 128/96 (107) 94 02/19/20 15:53 Simple Mask 6.0 Intake and Output 02/19/20 02/20/20 19:00 07:00 Intake Total 480 ml Output Total 400 ml 250 ml Balance -400 ml 230 ml Intake Oral 480 ml Output Urine Total 400 ml 250 ml # Voids 2 Laboratory Tests Test 02/19/20 16:52 02/20/20 05:35 Arterial Blood pH 7.421 (7.350-7.450) Arterial Blood Partial Pressure CO2 38.2 mmHg (35.0-45.0) Arterial Blood Partial Pressure O2 56.0 mmHg (75.0-100.0) L Arterial Blood HCO3 24.3 mmol/L (22.0-26.0) Arterial Blood Oxygen Saturation 88.4 % (95-100) *L Arterial Blood Base Excess 0.1 (-2-2) Jerardo Test Positive White Blood Count 11.9 K/UL (4.8-10.8) H Red Blood Count 4.99 M/UL (4.70-6.10) Hemoglobin 16.0 G/DL (14.2-18.0) Hematocrit 48.0 % (42.0-52.0) Mean Corpuscular Volume 96 FL (80-99) Mean Corpuscular Hemoglobin 32.1 PG (27.0-31.0) H Mean Corpuscular Hemoglobin Concent 33.4 G/DL (32.0-36.0) Red Cell Distribution Width 13.0 % (11.6-14.8) Platelet Count 305 K/UL (150-450) Mean Platelet Volume 8.4 FL (6.5-10.1) Neutrophils (%) (Auto) 76.7 % (45.0-75.0) H Lymphocytes (%) (Auto) 14.4 % (20.0-45.0) L Monocytes (%) (Auto) 5.9 % (1.0-10.0) Eosinophils (%) (Auto) 0.1 % (0.0-3.0) Basophils (%) (Auto) 2.9 % (0.0-2.0) H Erythrocyte Sedimentation Rate 39 MM/HR (0-20) H Sodium Level 144 MMOL/L (136-145) Potassium Level 3.9 MMOL/L (3.5-5.1) Chloride Level 107 MMOL/L (98-107) Carbon Dioxide Level 25 MMOL/L (21-32) Anion Gap 12 mmol/L (5-15) Blood Urea Nitrogen 23 mg/dL (7-18) H Creatinine 1.6 MG/DL (0.55-1.30) H Estimat Glomerular Filtration Rate 53.6 mL/min (>60) Glucose Level 125 MG/DL (74-106) H Calcium Level 8.8 MG/DL (8.5-10.1) Phosphorus Level 3.2 MG/DL (2.5-4.9) Magnesium Level 2.2 MG/DL (1.8-2.4) Total Bilirubin 0.7 MG/DL (0.2-1.0) Aspartate Amino Transf (AST/SGOT) 104 U/L (15-37) H Alanine Aminotransferase (ALT/SGPT) 90 U/L (12-78) H Alkaline Phosphatase 59 U/L (46-116) Troponin I 0.236 ng/mL (0.000-0.056) C-Reactive Protein, Quantitative 7.9 mg/dL (0.00-0.90) H Total Protein 8.3 G/DL (6.4-8.2) H Albumin 3.3 G/DL (3.4-5.0) L Globulin 5.0 g/dL Albumin/Globulin Ratio 0.7 (1.0-2.7) L Objective exam deferred due to active infection , per dr walker : Respiratory: chest wall non-tender, normal breath sounds Cardiovascular: normal peripheral pulses, normal rate Abdomen: normal bowel sounds, soft, non tender, no organomegaly Genitourinary: normal external genitalia Extremities: no cyanosis Kayden Aguilar MD Feb 20, 2020 13:50
[2020-02-20 16:00] VITALS: BP 131/96
--- NOTE | 2020-02-20 16:20 | Internal Med Progress Note ---
Subjective Date of Service: Feb 20, 2020 Physician Name Edmund Carrera Attending Physician Atilio Lee MD Current Medications Medications (Trade) Dose Ordered Sig/Reji Route PRN Reason Start Time Stop Time Status Last Admin Dose Admin Acetaminophen (Tylenol) 500 mg Q4H PRN ORAL Mild Pain (Pain Scale 1-3) 02/14/20 00:30 03/15/20 00:29 Acetaminophen (Tylenol) 650 mg Q4H PRN ORAL FEVER 02/14/20 10:00 03/15/20 09:59 Amiodarone HCl (Cordarone) 200 mg DAILY ORAL 02/14/20 19:15 05/14/20 19:14 02/20/20 08:49 Amlodipine Besylate (Norvasc) 2.5 mg BID ORAL 02/20/20 18:00 03/21/20 17:59 Amlodipine Besylate (Norvasc) 2.5 mg DAILY ORAL 02/15/20 20:30 03/16/20 20:29 02/20/20 08:49 Aspirin (ASA) 81 mg DAILY ORAL 02/15/20 09:00 03/31/20 08:59 02/20/20 08:49 Atorvastatin Calcium (Lipitor) 40 mg BEDTIME ORAL 02/14/20 21:00 05/14/20 20:59 02/19/20 20:48 Azithromycin 250 mg/Dextrose 275 ml @ 275 mls/hr Q24HRS IV 02/14/20 23:00 02/20/20 23:59 02/19/20 22:41 Ceftriaxone Sodium 1 gm/ Dextrose 55 ml @ 110 mls/hr Q24H IVPB 02/14/20 23:00 02/21/20 22:59 02/19/20 23:00 Dexamethasone (Decadron) 4 mg DAILY ORAL 02/14/20 09:00 02/24/20 08:59 02/20/20 08:49 Dextrose (Dextrose 50%) 25 ml Q30M PRN IV Hypoglycemia 02/14/20 10:00 05/14/20 09:59 Dextrose (Dextrose 50%) 50 ml Q30M PRN IV Hypoglycemia 02/14/20 10:00 05/14/20 09:59 Furosemide (Lasix) 40 mg DAILY IV 02/20/20 14:00 03/21/20 13:59 02/20/20 14:04 Heparin Sodium (Porcine) (Heparin 5000 units/ml) 5,000 units EVERY 12 HOURS SUBQ 02/14/20 10:00 03/30/20 09:59 02/20/20 08:51 Lorazepam (Ativan 2mg/ml 1ml) 0.5 mg Q6HR PRN IV For Anxiety 02/18/20 13:00 02/25/20 12:59 02/20/20 13:08 Losartan Potassium (Cozaar) 50 mg TWICE A DAY ORAL 02/14/20 19:15 03/15/20 19:14 02/20/20 08:49 Metoprolol Tartrate (Lopressor) 25 mg EVERY 12 HOURS ORAL 02/14/20 21:00 05/14/20 20:59 02/20/20 08:49 Ondansetron HCl (Zofran) 4 mg Q6H PRN IVP Nausea & Vomiting 02/14/20 10:00 03/15/20 09:59 Pantoprazole (Protonix) 40 mg EVERY 12 HOURS ORAL 02/15/20 21:00 03/16/20 20:59 02/20/20 08:49 Polyethylene Glycol (Miralax) 17 gm DAILYPRN PRN ORAL Constipation 02/14/20 10:00 03/15/20 09:59 Promethazine HCl/ Codeine (Phenergan with Codeine) 5 ml Q6H PRN ORAL cough 02/14/20 10:00 03/15/20 09:59 Allergies: Coded Allergies: DONNIE INHIBITORS (Verified Allergy, Unknown, 02/13/20) OMEGA-3 ACID ETHYL ESTERS (Verified Allergy, Unknown, 02/13/20) ROS Limited/Unobtainable: Yes Subjective 60 YO M admitted with shortness of breath. Now COVID 19 and sepsis. Cover for Int Manny-Dr Lee Objective Last Vital Signs Date Time Temp Pulse Resp B/P (MAP) Pulse Ox O2 Delivery O2 Flow Rate FiO2 02/20/20 13:38 85 23 145/85 92 02/20/20 12:00 98.1 02/20/20 08:04 Venturi Mask 10.0 Laboratory Tests Test 02/19/20 16:52 02/20/20 05:35 Arterial Blood pH 7.421 (7.350-7.450) Arterial Blood Partial Pressure CO2 38.2 mmHg (35.0-45.0) Arterial Blood Partial Pressure O2 56.0 mmHg (75.0-100.0) L Arterial Blood HCO3 24.3 mmol/L (22.0-26.0) Arterial Blood Oxygen Saturation 88.4 % (95-100) *L Arterial Blood Base Excess 0.1 (-2-2) Jerardo Test Positive White Blood Count 11.9 K/UL (4.8-10.8) H Red Blood Count 4.99 M/UL (4.70-6.10) Hemoglobin 16.0 G/DL (14.2-18.0) Hematocrit 48.0 % (42.0-52.0) Mean Corpuscular Volume 96 FL (80-99) Mean Corpuscular Hemoglobin 32.1 PG (27.0-31.0) H Mean Corpuscular Hemoglobin Concent 33.4 G/DL (32.0-36.0) Red Cell Distribution Width 13.0 % (11.6-14.8) Platelet Count 305 K/UL (150-450) Mean Platelet Volume 8.4 FL (6.5-10.1) Neutrophils (%) (Auto) 76.7 % (45.0-75.0) H Lymphocytes (%) (Auto) 14.4 % (20.0-45.0) L Monocytes (%) (Auto) 5.9 % (1.0-10.0) Eosinophils (%) (Auto) 0.1 % (0.0-3.0) Basophils (%) (Auto) 2.9 % (0.0-2.0) H Erythrocyte Sedimentation Rate 39 MM/HR (0-20) H Sodium Level 144 MMOL/L (136-145) Potassium Level 3.9 MMOL/L (3.5-5.1) Chloride Level 107 MMOL/L (98-107) Carbon Dioxide Level 25 MMOL/L (21-32) Anion Gap 12 mmol/L (5-15) Blood Urea Nitrogen 23 mg/dL (7-18) H Creatinine 1.6 MG/DL (0.55-1.30) H Estimat Glomerular Filtration Rate 53.6 mL/min (>60) Glucose Level 125 MG/DL (74-106) H Calcium Level 8.8 MG/DL (8.5-10.1) Phosphorus Level 3.2 MG/DL (2.5-4.9) Magnesium Level 2.2 MG/DL (1.8-2.4) Total Bilirubin 0.7 MG/DL (0.2-1.0) Aspartate Amino Transf (AST/SGOT) 104 U/L (15-37) H Alanine Aminotransferase (ALT/SGPT) 90 U/L (12-78) H Alkaline Phosphatase 59 U/L (46-116) Troponin I 0.236 ng/mL (0.000-0.056) C-Reactive Protein, Quantitative 7.9 mg/dL (0.00-0.90) H Total Protein 8.3 G/DL (6.4-8.2) H Albumin 3.3 G/DL (3.4-5.0) L Globulin 5.0 g/dL Albumin/Globulin Ratio 0.7 (1.0-2.7) L Intake and Output 02/19/20 02/20/20 19:00 07:00 Intake Total 480 ml Output Total 400 ml 250 ml Balance -400 ml 230 ml Intake Oral 480 ml Output Urine Total 400 ml 250 ml # Voids 2 Objective PHYSICAL EXAMINATION: GENERAL: The patient is well-developed and well-nourished male, no apparent distress. HEENT: Eyes, pupils are equal and responsive to light and accommodation. Extraocular movements are intact. NECK: Supple without lymphadenopathy. CHEST: Lungs are clear to auscultation bilaterally without wheezes or rales. CARDIOVASCULAR: Regular rhythm and rate. S1 and S2 are normal without murmurs, rubs, or gallops. ABDOMEN: Soft, nontender, and nondistended. Positive bowel sounds. No evidence of hepatosplenomegaly. Currently, no rebound or guarding noted. EXTREMITIES: Negative for clubbing, cyanosis, or edema. RECTAL/GENITAL: Not performed. NEUROLOGIC: Cranial nerves II through XII are grossly intact without focal deficits. Motor strength is 5/5 bilaterally. Deep tendon reflexes are 2+ plantar. Assessment/Plan Assessment/Plan ASSESSMENT: This is a 60-year-old male: 1. Shortness of breath. 2. Fever. 3. COVID-19 positive. 4. Hypertension. 5. Cerebrovascular disease, status post cerebrovascular accident. 6. Hemiplegia. 7. Hypercholesterolemia. 8. Coronary artery disease. 9. Cardiomyopathy. 10. Paroxysmal atrial fibrillation. 11. Schizoaffective disorder, bipolar type. 12. Chronic kidney disease. 13. Sepsis=Staph epidermidis 14. Elevated troponin 15. AICD in situ TREATMENT: 1. Hypoxia/shortness of breath. A Pulmonary consultation has been obtained with Dr. Lyle Joy. COVID-19 testing is positive ABX=S/P vanco, ceftriaxone and azithromycin and remdesivir for presumed pneumonia. 2. Hypertension. The patient is currently hypotensive. Hold antihypertensive medication as above. 3. Cerebrovascular disease. 4. Hemiplegia. 5. Coronary artery disease. A Cardiology consultation has been obtained with Dr. Kayden Aguilar. 6. Hypercholesterolemia. Continue atorvastatin as above. 7. Cardiomyopathy. 8. Paroxysmal atrial fibrillation. 9. Schizoaffective disorder, bipolar type. 10. Chronic kidney disease. 11. Pacemaker in situ. 12. ID=Edmund Monge MD Feb 20, 2020 16:20
--- NOTE | 2020-02-20 17:31 | Nephrology Progress Note ---
Assessment/Plan Problem List: (1) SHANNAN (acute kidney injury) (2) CHF (congestive heart failure) (3) Atrial fibrillation (4) Cardiomyopathy (5) ICD (implantable cardioverter-defibrillator) in place (6) History of CVA (cerebrovascular accident) (7) Pneumonia due to COVID-19 virus Assessment Acute on chronic renal failure Respiratory failure with hypoxia Pneumonia due to COVID-19 virus Sepsis Diabetes mellitus with elevated hemoglobin A1c Anemia Cardiomyopathy 20% EjFx Plan February 19. Serum creatinine higher to 1.6. Otherwise no new changes. We will continue to monitor renal parameters. February 18: Renal parameters stable. Continue per consultants. February 17: Remains stable from renal standpoint of view. Continue per consultants. February 16: Patient stable from renal standpoint to view. Continue per pulmonary. Continue per ID. Serum creatinine down to 1.6 from 2.1 on admission day February 15: When I saw the patient this morning with charge nurse Wilfred the patient was somewhat hypoxic on oxygen. Was ordered to be put on mask and inform industrial psychology professor for possible ABG check and further treatment plan. Labs reviewed. Serum creatinine stable. Troponin unchanged. Continue to monitor renal parameters. Continue to optimize cardiac and pulmonary status. Overall prognosis poor. Slow hydration Monitor electrolytes and renal parameters Monitor urine output Correct abnormal electrolytes Antibiotics, avoid nephrotoxic's Anemia work-up Per orders Subjective ROS Limited/Unobtainable: Yes Constitutional: Reports: malaise Objective Objective Last 24 Hour Vital Signs Date Time Temp Pulse Resp B/P (MAP) Pulse Ox O2 Delivery O2 Flow Rate FiO2 02/20/20 17:18 99 131/96 02/20/20 17:18 131/96 02/20/20 16:00 97.7 99 24 131/96 (108) 94 02/20/20 13:38 85 23 145/85 92 02/20/20 13:08 90 22 150/89 94 02/20/20 12:00 94 02/20/20 12:00 98.1 90 22 150/89 (109) 94 02/20/20 09:20 88 23 138/99 91 02/20/20 08:50 94 22 135/95 96 02/20/20 08:49 94 135/95 02/20/20 08:49 94 135/95 02/20/20 08:49 135/95 02/20/20 08:04 Venturi Mask 10.0 02/20/20 08:00 92 02/20/20 08:00 98.2 94 22 135/95 (108) 96 02/20/20 04:00 99.5 94 21 150/82 (104) 96 02/20/20 04:00 103 02/20/20 02:46 95 22 140/62 90 02/20/20 02:08 99 22 144/82 90 02/20/20 00:00 99.6 99 22 149/82 (104) 90 02/19/20 21:00 Simple Mask 6.0 02/19/20 20:48 148/79 02/19/20 20:00 101 02/19/20 20:00 98.2 105 21 150/93 (112) 95 02/19/20 17:31 128/96 Intake and Output 02/19/20 02/20/20 18:59 06:59 Intake Total 480 ml Output Total 400 ml 250 ml Balance -400 ml 230 ml Intake Oral 480 ml Output Urine Total 400 ml 250 ml # Voids 2 Laboratory Tests 02/20/20 05:35: White Blood Count 11.9H, Red Blood Count 4.99, Hemoglobin 16.0, Hematocrit 48.0, Mean Corpuscular Volume 96, Mean Corpuscular Hemoglobin 32.1H, Mean Corpuscular Hemoglobin Concent 33.4, Red Cell Distribution Width 13.0, Platelet Count 305, Mean Platelet Volume 8.4, Neutrophils (%) (Auto) 76.7H, Lymphocytes (%) (Auto) 14.4L, Monocytes (%) (Auto) 5.9, Eosinophils (%) (Auto) 0.1, Basophils (%) (Auto) 2.9H, Erythrocyte Sedimentation Rate 39H, Sodium Level 144, Potassium Level 3.9, Chloride Level 107, Carbon Dioxide Level 25, Anion Gap 12, Blood Urea Nitrogen 23H, Creatinine 1.6H, Estimat Glomerular Filtration Rate 53.6, Glucose Level 125H, Calcium Level 8.8, Phosphorus Level 3.2, Magnesium Level 2.2, Total Bilirubin 0.7, Aspartate Amino Transf (AST/SGOT) 104H, Alanine Aminotransferase (ALT/SGPT) 90H, Alkaline Phosphatase 59, Troponin I 0.236H, C-Reactive Protein, Quantitative 7.9H, Total Protein 8.3H, Albumin 3.3L, Globulin 5.0, Albumin/Globulin Ratio 0.7L Height (Feet): 5 Height (Inches): 10.00 Weight (Pounds): 231 General Appearance: no apparent distress, confused Cardiovascular: tachycardia Respiratory/Chest: decreased breath sounds Abdomen: distended Objective No change Ashvin Bautista MD Feb 20, 2020 17:31
[2020-02-20 20:00] VITALS: BP 163/90
--- NOTE | 2020-02-20 20:46 | Infectious Diseases Prog Note ---
Assessment/Plan Assessment: COVID19 positive (dx'ed 02/08/20)- likely PNA Acute hypoxic resp failure- sp NRB> 4l NC> desaturated to 78% and was placed on SM 8L 02/15 > VM 10L 02/19 -02/18 CXR: Worsening bilateral edema versus infiltrates, over 3 days -02/12 CXR: Cardiomegaly with vascular congestion and moderate edema. 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 Will continue to follow along with you. Discussed with RN. Subjective Allergies: Coded Allergies: DONNIE INHIBITORS (Verified Allergy, Unknown, 02/13/20) OMEGA-3 ACID ETHYL ESTERS (Verified Allergy, Unknown, 02/13/20) *late entry* afebrile on venturi mask 10L mild leukocytosis Bcx NTD Objective Last 24 Hour Vital Signs Date Time Temp Pulse Resp B/P (MAP) Pulse Ox O2 Delivery O2 Flow Rate FiO2 02/20/20 17:18 99 131/96 02/20/20 17:18 131/96 02/20/20 16:00 97.7 99 24 131/96 (108) 94 02/20/20 16:00 95 02/20/20 13:38 85 23 145/85 92 02/20/20 13:08 90 22 150/89 94 02/20/20 12:00 94 02/20/20 12:00 98.1 90 22 150/89 (109) 94 02/20/20 09:20 88 23 138/99 91 02/20/20 08:50 94 22 135/95 96 02/20/20 08:49 94 135/95 02/20/20 08:49 94 135/95 02/20/20 08:49 135/95 02/20/20 08:04 Venturi Mask 10.0 02/20/20 08:00 92 02/20/20 08:00 98.2 94 22 135/95 (108) 96 02/20/20 04:00 99.5 94 21 150/82 (104) 96 02/20/20 04:00 103 02/20/20 02:46 95 22 140/62 90 02/20/20 02:08 99 22 144/82 90 02/20/20 00:00 99.6 99 22 149/82 (104) 90 02/19/20 21:00 Simple Mask 6.0 02/19/20 20:48 148/79 Height (Feet): 5 Height (Inches): 10.00 Weight (Pounds): 231 Gen: no distress Respiratory Exam: Rhonchi Cardiovascular Exam: RRR Skin Exam: Normal Turgor Laboratory Tests Test 02/20/20 05:35 White Blood Count 11.9 K/UL (4.8-10.8) H Red Blood Count 4.99 M/UL (4.70-6.10) Hemoglobin 16.0 G/DL (14.2-18.0) Hematocrit 48.0 % (42.0-52.0) Mean Corpuscular Volume 96 FL (80-99) Mean Corpuscular Hemoglobin 32.1 PG (27.0-31.0) H Mean Corpuscular Hemoglobin Concent 33.4 G/DL (32.0-36.0) Red Cell Distribution Width 13.0 % (11.6-14.8) Platelet Count 305 K/UL (150-450) Mean Platelet Volume 8.4 FL (6.5-10.1) Neutrophils (%) (Auto) 76.7 % (45.0-75.0) H Lymphocytes (%) (Auto) 14.4 % (20.0-45.0) L Monocytes (%) (Auto) 5.9 % (1.0-10.0) Eosinophils (%) (Auto) 0.1 % (0.0-3.0) Basophils (%) (Auto) 2.9 % (0.0-2.0) H Erythrocyte Sedimentation Rate 39 MM/HR (0-20) H Sodium Level 144 MMOL/L (136-145) Potassium Level 3.9 MMOL/L (3.5-5.1) Chloride Level 107 MMOL/L (98-107) Carbon Dioxide Level 25 MMOL/L (21-32) Anion Gap 12 mmol/L (5-15) Blood Urea Nitrogen 23 mg/dL (7-18) H Creatinine 1.6 MG/DL (0.55-1.30) H Estimat Glomerular Filtration Rate 53.6 mL/min (>60) Glucose Level 125 MG/DL (74-106) H Calcium Level 8.8 MG/DL (8.5-10.1) Phosphorus Level 3.2 MG/DL (2.5-4.9) Magnesium Level 2.2 MG/DL (1.8-2.4) Total Bilirubin 0.7 MG/DL (0.2-1.0) Aspartate Amino Transf (AST/SGOT) 104 U/L (15-37) H Alanine Aminotransferase (ALT/SGPT) 90 U/L (12-78) H Alkaline Phosphatase 59 U/L (46-116) Troponin I 0.236 ng/mL (0.000-0.056) C-Reactive Protein, Quantitative 7.9 mg/dL (0.00-0.90) H Total Protein 8.3 G/DL (6.4-8.2) H Albumin 3.3 G/DL (3.4-5.0) L Globulin 5.0 g/dL Albumin/Globulin Ratio 0.7 (1.0-2.7) L Current Medications Medications (Trade) Dose Ordered Sig/Reji Route PRN Reason Start Time Stop Time Status Last Admin Dose Admin Acetaminophen (Tylenol) 500 mg Q4H PRN ORAL Mild Pain (Pain Scale 1-3) 02/14/20 00:30 03/15/20 00:29 Acetaminophen (Tylenol) 650 mg Q4H PRN ORAL FEVER 02/14/20 10:00 03/15/20 09:59 Amiodarone HCl (Cordarone) 200 mg DAILY ORAL 02/14/20 19:15 05/14/20 19:14 02/20/20 08:49 Amlodipine Besylate (Norvasc) 2.5 mg BID ORAL 02/20/20 18:00 03/21/20 17:59 02/20/20 17:18 Amlodipine Besylate (Norvasc) 2.5 mg DAILY ORAL 02/15/20 20:30 03/16/20 20:29 02/20/20 08:49 Aspirin (ASA) 81 mg DAILY ORAL 02/15/20 09:00 03/31/20 08:59 02/20/20 08:49 Atorvastatin Calcium (Lipitor) 40 mg BEDTIME ORAL 02/14/20 21:00 05/14/20 20:59 02/19/20 20:48 Azithromycin 250 mg/Dextrose 275 ml @ 275 mls/hr Q24HRS IV 02/14/20 23:00 02/20/20 23:59 02/19/20 22:41 Ceftriaxone Sodium 1 gm/ Dextrose 55 ml @ 110 mls/hr Q24H IVPB 02/14/20 23:00 02/21/20 22:59 02/19/20 23:00 Dexamethasone (Decadron) 4 mg DAILY ORAL 02/14/20 09:00 02/24/20 08:59 02/20/20 08:49 Dextrose (Dextrose 50%) 25 ml Q30M PRN IV Hypoglycemia 02/14/20 10:00 05/14/20 09:59 Dextrose (Dextrose 50%) 50 ml Q30M PRN IV Hypoglycemia 02/14/20 10:00 05/14/20 09:59 Furosemide (Lasix) 40 mg DAILY IV 02/20/20 14:00 03/21/20 13:59 02/20/20 14:04 Heparin Sodium (Porcine) (Heparin 5000 units/ml) 5,000 units EVERY 12 HOURS SUBQ 02/14/20 10:00 03/30/20 09:59 02/20/20 08:51 Lorazepam (Ativan 2mg/ml 1ml) 0.5 mg Q6HR PRN IV For Anxiety 02/18/20 13:00 02/25/20 12:59 02/20/20 13:08 Losartan Potassium (Cozaar) 50 mg TWICE A DAY ORAL 02/14/20 19:15 03/15/20 19:14 02/20/20 17:18 Metoprolol Tartrate (Lopressor) 25 mg EVERY 12 HOURS ORAL 02/14/20 21:00 05/14/20 20:59 02/20/20 08:49 Ondansetron HCl (Zofran) 4 mg Q6H PRN IVP Nausea & Vomiting 02/14/20 10:00 03/15/20 09:59 Pantoprazole (Protonix) 40 mg EVERY 12 HOURS ORAL 02/15/20 21:00 03/16/20 20:59 02/20/20 08:49 Polyethylene Glycol (Miralax) 17 gm DAILYPRN PRN ORAL Constipation 02/14/20 10:00 03/15/20 09:59 Promethazine HCl/ Codeine (Phenergan with Codeine) 5 ml Q6H PRN ORAL cough 02/14/20 10:00 03/15/20 09:59 Tamsulosin HCl (Flomax) 0.4 mg BEDTIME ORAL 02/20/20 21:00 03/21/20 20:59 Heather Espinoza M.D. Feb 20, 2020 20:46
[2020-02-20] MEDS ORDERED: Tamsulosin 0.4mg cap ORAL SCH (21:00)
[2020-02-20] MEDS: Atorvastatin 20mg tab ORAL SCH (21:23)
[2020-02-20] MEDS: Azithromycin 250 MG in D5W 275 ML IV SCH (22:59)
[2020-02-21] VITALS: BP 151/83
[2020-02-21 04:00] VITALS: BP 150/78
[2020-02-21 05:14] LABS: BASOPHILS % (AUTO) 3.4 % (0.0-2.0); HEMATOCRIT 46.3 % (42.0-52.0); HEMOGLOBIN 15.8 G/DL (14.2-18.0); LYMPHOCYTES % (AUTO) 11.4 % (20.0-45.0); MEAN CORPUSCULAR VOLUME 95 FL (80-99); MONOCYTES % (AUTO) 7.8 % (1.0-10.0); NEUTROPHILS % (AUTO) 77.3 % (45.0-75.0); PLATELET COUNT 330 K/UL (150-450); RED BLOOD COUNT 4.85 M/UL (4.70-6.10); RED CELL DISTRIBUTION WIDTH 12.9 % (11.6-14.8); WHITE BLOOD COUNT 13.5 K/UL (4.8-10.8)
[2020-02-21 05:29] LABS: ALANINE AMINOTRANSFERASE 83 U/L (12-78); ALBUMIN 3.2 G/DL (3.4-5.0); ALBUMIN/GLOBULIN RATIO 0.6 (1.0-2.7); ALKALINE PHOSPHATASE 58 U/L (46-116); ASPARTATE AMINO TRANSFERASE 93 U/L (15-37); BILIRUBIN,TOTAL 0.7 MG/DL (0.2-1.0); BLOOD UREA NITROGEN 30 mg/dL (7-18); CALCIUM 9.1 MG/DL (8.5-10.1); CARBON DIOXIDE 26 MMOL/L (21-32); CREATININE 1.7 MG/DL (0.55-1.30)
[2020-02-21 06:00] LABS: CHLORIDE 106 MMOL/L (98-107); SODIUM 143 MMOL/L (136-145)
[2020-02-21 08:00] VITALS: BP 108/63
[2020-02-21] MEDS: Heparin 5000 units/ml inj SUBQ SCH ×2 (09:00→22:41)
[2020-02-21 09:05] LABS: PHOSPHORUS 4.5 MG/DL (2.5-4.9)
--- NOTE | 2020-02-21 10:19 | Nephrology Progress Note ---
Assessment/Plan Problem List: (1) SHANNAN (acute kidney injury) (2) CHF (congestive heart failure) (3) Atrial fibrillation (4) Cardiomyopathy (5) ICD (implantable cardioverter-defibrillator) in place (6) History of CVA (cerebrovascular accident) (7) Pneumonia due to COVID-19 virus Assessment Acute on chronic renal failure Respiratory failure with hypoxia Pneumonia due to COVID-19 virus Sepsis Diabetes mellitus with elevated hemoglobin A1c Anemia Cardiomyopathy 20% EjFx Plan February 20: Serum creatinine slightly higher to 1.7. Continue to adjust diuretics and afterload load reduction medications as such to stabilize serum creatinine from further rise. February 19. Serum creatinine higher to 1.6. Otherwise no new changes. We will continue to monitor renal parameters. February 18: Renal parameters stable. Continue per consultants. February 17: Remains stable from renal standpoint of view. Continue per consultants. February 16: Patient stable from renal standpoint to view. Continue per pulmonary. Continue per ID. Serum creatinine down to 1.6 from 2.1 on admission day February 15: When I saw the patient this morning with charge nurse Wilfred the patient was somewhat hypoxic on oxygen. Was ordered to be put on mask and inform bowling ball molder for possible ABG check and further treatment plan. Labs reviewed. Serum creatinine stable. Troponin unchanged. Continue to monitor renal parameters. Continue to optimize cardiac and pulmonary status. Overall prognosis poor. Slow hydration Monitor electrolytes and renal parameters Monitor urine output Correct abnormal electrolytes Antibiotics, avoid nephrotoxic's Anemia work-up Per orders Subjective ROS Limited/Unobtainable: No Constitutional: Reports: malaise, weakness Objective Objective Last 24 Hour Vital Signs Date Time Temp Pulse Resp B/P (MAP) Pulse Ox O2 Delivery O2 Flow Rate FiO2 02/21/20 04:00 98.1 89 22 150/78 (102) 92 02/21/20 04:00 102 02/21/20 00:00 97.5 84 24 151/83 (105) 90 02/21/20 00:00 91 02/20/20 21:24 87 163/90 02/20/20 21:00 Venturi Mask 10.0 02/20/20 20:00 97.7 92 26 163/90 (114) 91 02/20/20 20:00 101 02/20/20 17:18 99 131/96 02/20/20 17:18 131/96 02/20/20 16:00 97.7 99 24 131/96 (108) 94 02/20/20 16:00 95 02/20/20 13:38 85 23 145/85 92 02/20/20 13:08 90 22 150/89 94 02/20/20 12:00 94 02/20/20 12:00 98.1 90 22 150/89 (109) 94 Intake and Output 02/20/20 02/21/20 19:00 07:00 Intake Total 118 ml 100 ml Output Total 1300 ml 650 ml Balance -1182 ml -550 ml Intake Oral 118 ml 100 ml Output Urine Total 1300 ml 650 ml # Voids 2 Laboratory Tests 02/21/20 04:00: White Blood Count 13.5H, Red Blood Count 4.85, Hemoglobin 15.8, Hematocrit 46.3, Mean Corpuscular Volume 95, Mean Corpuscular Hemoglobin 32.5H, Mean Corpuscular Hemoglobin Concent 34.0, Red Cell Distribution Width 12.9, Platelet Count 330, Mean Platelet Volume 8.9, Neutrophils (%) (Auto) 77.3H, Lymphocytes (%) (Auto) 11.4L, Monocytes (%) (Auto) 7.8, Eosinophils (%) (Auto) 0.0, Basophils (%) (Auto) 3.4H, Sodium Level 143, Potassium Level 4.0, Chloride Level 106, Carbon Dioxide Level 26, Blood Urea Nitrogen 30H, Creatinine 1.7H, Estimat Glomerular Filtration Rate 49.9, Glucose Level 146H, Uric Acid 7.9H, Calcium Level 9.1, Phosphorus Level 4.5, Magnesium Level 2.4, Total Bilirubin 0.7, Aspartate Amino Transf (AST/SGOT) 93H, Alanine Aminotransferase (ALT/SGPT) 83H, Alkaline Phospha tase 58, Total Protein 8.2, Albumin 3.2L, Globulin 5.0, Albumin/Globulin Ratio 0.6L Height (Feet): 5 Height (Inches): 10.00 Weight (Pounds): 231 General Appearance: no apparent distress Cardiovascular: tachycardia Respiratory/Chest: decreased breath sounds Abdomen: distended Objective No change Ashvin Bautista MD Feb 21, 2020 10:19
[2020-02-21] MEDS: Tamsulosin 0.4mg cap ORAL SCH ×4 (10:30→18:33)
[2020-02-21] MEDS: Aspirin Baby 81mg ORAL SCH (11:07)
[2020-02-21] MEDS: Amiodarone 200mg tab ORAL SCH (11:07)
[2020-02-21] MEDS: Losartan 50mg tab ORAL SCH (11:08)
[2020-02-21 12:00] VITALS: BP 139/112
[2020-02-21] MEDS: HydrALAZINE 25mg tab ORAL SCH ×2 (12:00→18:00)
[2020-02-21 16:00] VITALS: BP 124/69
--- NOTE | 2020-02-21 17:08 | Pulmonology Progress Note ---
Subjective ROS Limited/Unobtainable: No Constitutional: Reports: no symptoms HEENT: Repors: no symptoms Allergies: Coded Allergies: DONNIE INHIBITORS (Verified Allergy, Unknown, 02/13/20) OMEGA-3 ACID ETHYL ESTERS (Verified Allergy, Unknown, 02/13/20) Objective Last 24 Hour Vital Signs Date Time Temp Pulse Resp B/P (MAP) Pulse Ox O2 Delivery O2 Flow Rate FiO2 02/21/20 16:00 79 02/21/20 12:00 99 02/21/20 12:00 98.0 85 22 139/112 (121) 93 02/21/20 12:00 97/60 02/21/20 11:13 83 143/89 02/21/20 09:00 Venturi Mask 10.0 02/21/20 08:00 97.7 89 22 108/63 (78) 93 02/21/20 08:00 85 02/21/20 04:00 98.1 89 22 150/78 (102) 92 02/21/20 04:00 102 02/21/20 00:00 97.5 84 24 151/83 (105) 90 02/21/20 00:00 91 02/20/20 21:24 87 163/90 02/20/20 21:00 Venturi Mask 10.0 02/20/20 20:00 97.7 92 26 163/90 (114) 91 02/20/20 20:00 101 02/20/20 17:18 99 131/96 02/20/20 17:18 131/96 Intake and Output 02/20/20 02/21/20 19:00 07:00 Intake Total 118 ml 100 ml Output Total 1300 ml 650 ml Balance -1182 ml -550 ml Intake Oral 118 ml 100 ml Output Urine Total 1300 ml 650 ml # Voids 2 General Appearance: WD/WN HEENT: normocephalic, atraumatic Respiratory: chest wall non-tender, normal breath sounds Cardiovascular: normal peripheral pulses, normal rate Abdomen: normal bowel sounds, soft, non tender, no organomegaly Genitourinary: normal external genitalia Extremities: no cyanosis Skin: no rash Neurologic: bar assistant II-XII grossly normal Lymphatic: no neck adenopathy Laboratory Tests 02/21/20 04:00: White Blood Count 13.5H, Red Blood Count 4.85, Hemoglobin 15.8, Hematocrit 46.3, Mean Corpuscular Volume 95, Mean Corpuscular Hemoglobin 32.5H, Mean Corpuscular Hemoglobin Concent 34.0, Red Cell Distribution Width 12.9, Platelet Count 330, Mean Platelet Volume 8.9, Neutrophils (%) (Auto) 77.3H, Lymphocytes (%) (Auto) 11.4L, Monocytes (%) (Auto) 7.8, Eosinophils (%) (Auto) 0.0, Basophils (%) (Auto) 3.4H, Sodium Level 143, Potassium Level 4.0, Chloride Level 106, Carbon Dioxide Level 26, Blood Urea Nitrogen 30H, Creatinine 1.7H, Estimat Glomerular Filtration Rate 49.9, Glucose Level 146H, Uric Acid 7.9H, Calcium Level 9.1, Phosphorus Level 4.5, Magnesium Level 2.4, Total Bilirubin 0.7, Aspartate Amino Transf (AST/SGOT) 93H, Alanine Aminotransferase (ALT/SGPT) 83H, Alkaline Phosphatase 58, Total Protein 8.2, Albumin 3.2L, Globulin 5.0, Albumin/Globulin Ratio 0.6L Current Medications Medications (Trade) Dose Ordered Sig/Reji Route PRN Reason Start Time Stop Time Status Last Admin Dose Admin Acetaminophen (Tylenol) 500 mg Q4H PRN ORAL Mild Pain (Pain Scale 1-3) 02/14/20 00:30 03/15/20 00:29 Acetaminophen (Tylenol) 650 mg Q4H PRN ORAL FEVER 02/14/20 10:00 03/15/20 09:59 Amiodarone HCl (Cordarone) 200 mg DAILY ORAL 02/14/20 19:15 05/14/20 19:14 02/21/20 11:07 Amlodipine Besylate (Norvasc) 5 mg BID ORAL 02/21/20 18:00 03/21/20 17:59 Aspirin (ASA) 81 mg DAILY ORAL 02/15/20 09:00 03/31/20 08:59 02/21/20 11:07 Atorvastatin Calcium (Lipitor) 40 mg BEDTIME ORAL 02/14/20 21:00 05/14/20 20:59 02/20/20 21:23 Dexamethasone (Decadron) 4 mg DAILY ORAL 02/14/20 09:00 02/24/20 08:59 02/21/20 11:10 Dextrose (Dextrose 50%) 25 ml Q30M PRN IV Hypoglycemia 02/14/20 10:00 05/14/20 09:59 Dextrose (Dextrose 50%) 50 ml Q30M PRN IV Hypoglycemia 02/14/20 10:00 05/14/20 09:59 Furosemide (Lasix) 40 mg DAILY IV 02/20/20 14:00 03/21/20 13:59 02/21/20 11:10 Heparin Sodium (Porcine) (Heparin 5000 units/ml) 5,000 units EVERY 12 HOURS SUBQ 02/14/20 10:00 03/30/20 09:59 02/21/20 09:00 Hydralazine HCl (Apresoline) 25 mg Q6HR ORAL 02/21/20 12:00 05/21/20 11:59 Lorazepam (Ativan 2mg/ml 1ml) 0.5 mg Q6HR PRN IV For Anxiety 02/18/20 13:00 02/25/20 12:59 02/20/20 13:08 Losartan Potassium (Cozaar) 50 mg DAILY ORAL 02/22/20 09:00 03/15/20 19:14 Metoprolol Tartrate (Lopressor) 25 mg EVERY 12 HOURS ORAL 02/14/20 21:00 05/14/20 20:59 02/21/20 11:13 Ondansetron HCl (Zofran) 4 mg Q6H PRN IVP Nausea & Vomiting 02/14/20 10:00 03/15/20 09:59 Pantoprazole (Protonix) 40 mg EVERY 12 HOURS ORAL 02/15/20 21:00 03/16/20 20:59 02/21/20 11:07 Polyethylene Glycol (Miralax) 17 gm DAILYPRN PRN ORAL Constipation 02/14/20 10:00 03/15/20 09:59 Promethazine HCl/ Codeine (Phenergan with Codeine) 5 ml Q6H PRN ORAL cough 02/14/20 10:00 03/15/20 09:59 Tamsulosin HCl (Flomax) 0.4 mg BID ORAL 02/21/20 10:30 03/21/20 10:29 02/21/20 10:30 Assessment/Plan Problems: (1) Pneumonia due to COVID-19 virus (2) Sepsis (3) Atrial fibrillation (4) CHF (congestive heart failure) (5) Arrhythmia (6) History of CVA (cerebrovascular accident) (7) Psychosis Assessment/Plan doing better, confused respiratory isolation check sputum iv abx + steroids + antiviral as per ID echocardiogram f/u crp, stady optimize cardiac meds dvt prophylaxis Lyle Joy MD Feb 21, 2020 17:08
--- NOTE | 2020-02-21 18:31 | Internal Med Progress Note ---
Subjective Date of Service: Feb 21, 2020 Physician Name DebiEdmund Attending Physician Atilio Lee MD Current Medications Medications (Trade) Dose Ordered Sig/Reji Route PRN Reason Start Time Stop Time Status Last Admin Dose Admin Acetaminophen (Tylenol) 500 mg Q4H PRN ORAL Mild Pain (Pain Scale 1-3) 02/14/20 00:30 03/15/20 00:29 Acetaminophen (Tylenol) 650 mg Q4H PRN ORAL FEVER 02/14/20 10:00 03/15/20 09:59 Amiodarone HCl (Cordarone) 200 mg DAILY ORAL 02/14/20 19:15 05/14/20 19:14 02/21/20 11:07 Amlodipine Besylate (Norvasc) 5 mg BID ORAL 02/21/20 18:00 03/21/20 17:59 Aspirin (ASA) 81 mg DAILY ORAL 02/15/20 09:00 03/31/20 08:59 02/21/20 11:07 Atorvastatin Calcium (Lipitor) 40 mg BEDTIME ORAL 02/14/20 21:00 05/14/20 20:59 02/20/20 21:23 Dexamethasone (Decadron) 4 mg DAILY ORAL 02/14/20 09:00 02/24/20 08:59 02/21/20 11:10 Dextrose (Dextrose 50%) 25 ml Q30M PRN IV Hypoglycemia 02/14/20 10:00 05/14/20 09:59 Dextrose (Dextrose 50%) 50 ml Q30M PRN IV Hypoglycemia 02/14/20 10:00 05/14/20 09:59 Furosemide (Lasix) 40 mg DAILY IV 02/20/20 14:00 03/21/20 13:59 02/21/20 11:10 Heparin Sodium (Porcine) (Heparin 5000 units/ml) 5,000 units EVERY 12 HOURS SUBQ 02/14/20 10:00 03/30/20 09:59 02/21/20 09:00 Hydralazine HCl (Apresoline) 25 mg Q6HR ORAL 02/21/20 12:00 05/21/20 11:59 Lorazepam (Ativan 2mg/ml 1ml) 0.5 mg Q6HR PRN IV For Anxiety 02/18/20 13:00 02/25/20 12:59 02/20/20 13:08 Losartan Potassium (Cozaar) 50 mg DAILY ORAL 02/22/20 09:00 03/15/20 19:14 Metoprolol Tartrate (Lopressor) 25 mg EVERY 12 HOURS ORAL 02/14/20 21:00 05/14/20 20:59 02/21/20 11:13 Ondansetron HCl (Zofran) 4 mg Q6H PRN IVP Nausea & Vomiting 02/14/20 10:00 03/15/20 09:59 Pantoprazole (Protonix) 40 mg EVERY 12 HOURS ORAL 02/15/20 21:00 03/16/20 20:59 02/21/20 11:07 Polyethylene Glycol (Miralax) 17 gm DAILYPRN PRN ORAL Constipation 02/14/20 10:00 03/15/20 09:59 Promethazine HCl/ Codeine (Phenergan with Codeine) 5 ml Q6H PRN ORAL cough 02/14/20 10:00 03/15/20 09:59 Tamsulosin HCl (Flomax) 0.4 mg BID ORAL 02/21/20 10:30 03/21/20 10:29 02/21/20 10:30 Allergies: Coded Allergies: DONNIE INHIBITORS (Verified Allergy, Unknown, 02/13/20) OMEGA-3 ACID ETHYL ESTERS (Verified Allergy, Unknown, 02/13/20) ROS Limited/Unobtainable: Yes Subjective 60 YO M admitted with shortness of breath. Now COVID 19 and sepsis. Cover for Int Manny-Dr Lee Objective Last Vital Signs Date Time Temp Pulse Resp B/P (MAP) Pulse Ox O2 Delivery O2 Flow Rate FiO2 02/21/20 16:00 98.1 85 20 124/69 (87) 93 02/21/20 09:00 Venturi Mask 10.0 Laboratory Tests Test 02/21/20 04:00 White Blood Count 13.5 K/UL (4.8-10.8) H Red Blood Count 4.85 M/UL (4.70-6.10) Hemoglobin 15.8 G/DL (14.2-18.0) Hematocrit 46.3 % (42.0-52.0) Mean Corpuscular Volume 95 FL (80-99) Mean Corpuscular Hemoglobin 32.5 PG (27.0-31.0) H Mean Corpuscular Hemoglobin Concent 34.0 G/DL (32.0-36.0) Red Cell Distribution Width 12.9 % (11.6-14.8) Platelet Count 330 K/UL (150-450) Mean Platelet Volume 8.9 FL (6.5-10.1) Neutrophils (%) (Auto) 77.3 % (45.0-75.0) H Lymphocytes (%) (Auto) 11.4 % (20.0-45.0) L Monocytes (%) (Auto) 7.8 % (1.0-10.0) Eosinophils (%) (Auto) 0.0 % (0.0-3.0) Basophils (%) (Auto) 3.4 % (0.0-2.0) H Sodium Level 143 MMOL/L (136-145) Potassium Level 4.0 MMOL/L (3.5-5.1) Chloride Level 106 MMOL/L (98-107) Carbon Dioxide Level 26 MMOL/L (21-32) Blood Urea Nitrogen 30 mg/dL (7-18) H Creatinine 1.7 MG/DL (0.55-1.30) H Estimat Glomerular Filtration Rate 49.9 mL/min (>60) Glucose Level 146 MG/DL (74-106) H Uric Acid 7.9 MG/DL (2.6-7.2) H Calcium Level 9.1 MG/DL (8.5-10.1) Phosphorus Level 4.5 MG/DL (2.5-4.9) Magnesium Level 2.4 MG/DL (1.8-2.4) Total Bilirubin 0.7 MG/DL (0.2-1.0) Aspartate Amino Transf (AST/SGOT) 93 U/L (15-37) H Alanine Aminotransferase (ALT/SGPT) 83 U/L (12-78) H Alkaline Phosphatase 58 U/L (46-116) Total Protein 8.2 G/DL (6.4-8.2) Albumin 3.2 G/DL (3.4-5.0) L Globulin 5.0 g/dL Albumin/Globulin Ratio 0.6 (1.0-2.7) L Intake and Output 02/20/20 02/21/20 19:00 07:00 Intake Total 118 ml 100 ml Output Total 1300 ml 650 ml Balance -1182 ml -550 ml Intake Oral 118 ml 100 ml Output Urine Total 1300 ml 650 ml # Voids 2 Objective PHYSICAL EXAMINATION: GENERAL: The patient is well-developed and well-nourished male, no apparent distress. HEENT: Eyes, pupils are equal and responsive to light and accommodation. Extraocular movements are intact. NECK: Supple without lymphadenopathy. CHEST: Venturi mask; Lungs with bilateral expiratory wheezes and rales. CARDIOVASCULAR: Regular rhythm and rate. S1 and S2 are normal without murmurs, rubs, or gallops. ABDOMEN: Soft, nontender, and nondistended. Positive bowel sounds. No evidence of hepatosplenomegaly. Currently, no rebound or guarding noted. EXTREMITIES: Negative for clubbing, cyanosis, or edema. RECTAL/GENITAL: Not performed. NEUROLOGIC: Cranial nerves II through XII are grossly intact without focal deficits. Motor strength is 5/5 bilaterally. Deep tendon reflexes are 2+ plantar. Assessment/Plan Assessment/Plan ASSESSMENT: This is a 60-year-old male: 1. Shortness of breath. 2. Fever. 3. COVID-19 positive. 4. Hypertension. 5. Cerebrovascular disease, status post cerebrovascular accident. 6. Hemiplegia. 7. Hypercholesterolemia. 8. Coronary artery disease. 9. Cardiomyopathy. 10. Paroxysmal atrial fibrillation. 11. Schizoaffective disorder, bipolar type. 12. Chronic kidney disease. 13. Sepsis=Staph epidermidis 14. Elevated troponin 15. AICD in situ TREATMENT: 1. Hypoxia/shortness of breath. A Pulmonary consultation has been obtained with Dr. Lyle Joy. COVID-19 testing is positive ABX=S/P vanco, ceftriaxone and azithromycin and remdesivir for presumed pneumonia. 2. Hypertension. The patient is currently hypotensive. Hold antihypertensive medication as above. 3. Cerebrovascular disease. 4. Hemiplegia. 5. Coronary artery disease. A Cardiology consultation has been obtained with Dr. Kayden Aguilar. 6. Hypercholesterolemia. Continue atorvastatin as above. 7. Cardiomyopathy. 8. Paroxysmal atrial fibrillation. 9. Schizoaffective disorder, bipolar type. 10. Chronic kidney disease. 11. Pacemaker in situ. 12. ID=Edmund Monge MD Feb 21, 2020 18:31
--- NOTE | 2020-02-21 19:28 | Cardiology Progress Note ---
Assessment/Plan Assessment/Plan 1. History of permanent pacemaker implantation. 2. Possible pneumonia. 3. heart failure 4. History of cerebrovascular accident. 5. Schizophrenia. 6. History of pulmonary hypertension. 7. History of paroxysmal episodes of atrial fibrillation. 8. History of hemiplegia. 9. Hypertension. 10. History of kidney disease 11. bacteremia off ivf cr up a little will hold lasix on treatment for covid 19 per id no norvasc on max dose of cozaar and is "allergic to acei" per record tele reviewed personally cxr will be repated tomorrow Subjective Subjective Important Events on Shift: Patient is much more comfortable, he moves a lot and sometimes took off his venturi mask, but at this time patient is sating 90% on 10L venturi mask Patient Status: Patient is asleep, in stable condition. Objective Last 24 Hour Vital Signs Date Time Temp Pulse Resp B/P (MAP) Pulse Ox O2 Delivery O2 Flow Rate FiO2 02/21/20 18:32 87 111/75 02/21/20 18:00 111/75 02/21/20 16:00 98.1 85 20 124/69 (87) 93 02/21/20 16:00 79 02/21/20 12:00 99 02/21/20 12:00 98.0 85 22 139/112 (121) 93 02/21/20 12:00 97/60 02/21/20 11:13 83 143/89 02/21/20 09:00 Venturi Mask 10.0 02/21/20 08:00 97.7 89 22 108/63 (78) 93 02/21/20 08:00 85 02/21/20 04:00 98.1 89 22 150/78 (102) 92 02/21/20 04:00 102 02/21/20 00:00 97.5 84 24 151/83 (105) 90 02/21/20 00:00 91 02/20/20 21:24 87 163/90 02/20/20 21:00 Venturi Mask 10.0 02/20/20 20:00 97.7 92 26 163/90 (114) 91 02/20/20 20:00 101 Intake and Output 02/20/20 02/21/20 19:00 07:00 Intake Total 118 ml 100 ml Output Total 1300 ml 650 ml Balance -1182 ml -550 ml Intake Oral 118 ml 100 ml Output Urine Total 1300 ml 650 ml # Voids 2 Laboratory Tests Test 02/21/20 04:00 White Blood Count 13.5 K/UL (4.8-10.8) H Red Blood Count 4.85 M/UL (4.70-6.10) Hemoglobin 15.8 G/DL (14.2-18.0) Hematocrit 46.3 % (42.0-52.0) Mean Corpuscular Volume 95 FL (80-99) Mean Corpuscular Hemoglobin 32.5 PG (27.0-31.0) H Mean Corpuscular Hemoglobin Concent 34.0 G/DL (32.0-36.0) Red Cell Distribution Width 12.9 % (11.6-14.8) Platelet Count 330 K/UL (150-450) Mean Platelet Volume 8.9 FL (6.5-10.1) Neutrophils (%) (Auto) 77.3 % (45.0-75.0) H Lymphocytes (%) (Auto) 11.4 % (20.0-45.0) L Monocytes (%) (Auto) 7.8 % (1.0-10.0) Eosinophils (%) (Auto) 0.0 % (0.0-3.0) Basophils (%) (Auto) 3.4 % (0.0-2.0) H Sodium Level 143 MMOL/L (136-145) Potassium Level 4.0 MMOL/L (3.5-5.1) Chloride Level 106 MMOL/L (98-107) Carbon Dioxide Level 26 MMOL/L (21-32) Blood Urea Nitrogen 30 mg/dL (7-18) H Creatinine 1.7 MG/DL (0.55-1.30) H Estimat Glomerular Filtration Rate 49.9 mL/min (>60) Glucose Level 146 MG/DL (74-106) H Uric Acid 7.9 MG/DL (2.6-7.2) H Calcium Level 9.1 MG/DL (8.5-10.1) Phosphorus Level 4.5 MG/DL (2.5-4.9) Magnesium Level 2.4 MG/DL (1.8-2.4) Total Bilirubin 0.7 MG/DL (0.2-1.0) Aspartate Amino Transf (AST/SGOT) 93 U/L (15-37) H Alanine Aminotransferase (ALT/SGPT) 83 U/L (12-78) H Alkaline Phosphatase 58 U/L (46-116) Total Protein 8.2 G/DL (6.4-8.2) Albumin 3.2 G/DL (3.4-5.0) L Globulin 5.0 g/dL Albumin/Globulin Ratio 0.6 (1.0-2.7) L Objective exam deferred due to active infection , per dr ruiz NECK: Supple without lymphadenopathy. CHEST: Venturi mask; Lungs with bilateral expiratory wheezes and rales. CARDIOVASCULAR: Regular rhythm and rate. S1 and S2 are normal without murmurs, rubs, or gallops. ABDOMEN: Soft, nontender, and nondistended. Positive bowel sounds. No evidence of hepatosplenomegaly. Currently, no rebound or guarding noted. EXTREMITIES: Negative for clubbing, cyanosis, or edema. Kayden Aguilar MD Feb 21, 2020 19:28
--- NOTE | 2020-02-21 19:57 | Infectious Diseases Prog Note ---
Assessment/Plan Assessment: COVID19 positive (dx'ed 02/08/20)- likely PNA Acute hypoxic resp failure- sp NRB> 4l NC> desaturated to 78% and was placed on SM 8L 02/15 > VM 10L 02/19 -02/18 CXR: Worsening bilateral edema versus infiltrates, over 3 days -02/12 CXR: Cardiomegaly with vascular congestion and moderate edema. Gram positive bacteremia- m/l contaminant -02/12 Bcx 2/4 CoNS clusters, 2/4 diphteroids; 02/14 Bcx NTD Fever -[employer]- none here so far mild leukocytosis (on steroids) SHANNAN, improving Elevated AST, mild; increasing CVA w/ resultant aphasia HLD general anxiety disorder schizoaffective disorder-depressive type cardiomegaly pAfib pHTN CKD CAD HTN [place] resident ([facility]) Plan: -Decadron # 02/07 -02/18 SP Ceftriaxone #7, Azithromycin #7 -02/17 SP Remdesivir #5 -02/16 SP IV Vancomycin #2 -f/u cx -Monitor CBC/CMP, temperatures -f/u repeat Bcx x2 Thank you for this consultation. Will continue to follow along with you. Discussed with RN. Subjective Allergies: Coded Allergies: DONNIE INHIBITORS (Verified Allergy, Unknown, 02/13/20) OMEGA-3 ACID ETHYL ESTERS (Verified Allergy, Unknown, 02/13/20) afebrile on VM at 10 L mild leukocytosis Objective Last 24 Hour Vital Signs Date Time Temp Pulse Resp B/P (MAP) Pulse Ox O2 Delivery O2 Flow Rate FiO2 02/21/20 18:32 87 111/75 02/21/20 18:00 111/75 02/21/20 16:00 98.1 85 20 124/69 (87) 93 02/21/20 16:00 79 02/21/20 12:00 99 02/21/20 12:00 98.0 85 22 139/112 (121) 93 02/21/20 12:00 97/60 02/21/20 11:13 83 143/89 02/21/20 09:00 Venturi Mask 10.0 02/21/20 08:00 97.7 89 22 108/63 (78) 93 02/21/20 08:00 85 02/21/20 04:00 98.1 89 22 150/78 (102) 92 02/21/20 04:00 102 02/21/20 00:00 97.5 84 24 151/83 (105) 90 02/21/20 00:00 91 02/20/20 21:24 87 163/90 02/20/20 21:00 Venturi Mask 10.0 02/20/20 20:00 97.7 92 26 163/90 (114) 91 02/20/20 20:00 101 Height (Feet): 5 Height (Inches): 10.00 Weight (Pounds): 231 Gen: no distress Respiratory Exam: Rhonchi Cardiovascular Exam: RRR Skin Exam: Normal Turgor Laboratory Tests Test 02/21/20 04:00 White Blood Count 13.5 K/UL (4.8-10.8) H Red Blood Count 4.85 M/UL (4.70-6.10) Hemoglobin 15.8 G/DL (14.2-18.0) Hematocrit 46.3 % (42.0-52.0) Mean Corpuscular Volume 95 FL (80-99) Mean Corpuscular Hemoglobin 32.5 PG (27.0-31.0) H Mean Corpuscular Hemoglobin Concent 34.0 G/DL (32.0-36.0) Red Cell Distribution Width 12.9 % (11.6-14.8) Platelet Count 330 K/UL (150-450) Mean Platelet Volume 8.9 FL (6.5-10.1) Neutrophils (%) (Auto) 77.3 % (45.0-75.0) H Lymphocytes (%) (Auto) 11.4 % (20.0-45.0) L Monocytes (%) (Auto) 7.8 % (1.0-10.0) Eosinophils (%) (Auto) 0.0 % (0.0-3.0) Basophils (%) (Auto) 3.4 % (0.0-2.0) H Sodium Level 143 MMOL/L (136-145) Potassium Level 4.0 MMOL/L (3.5-5.1) Chloride Level 106 MMOL/L (98-107) Carbon Dioxide Level 26 MMOL/L (21-32) Blood Urea Nitrogen 30 mg/dL (7-18) H Creatinine 1.7 MG/DL (0.55-1.30) H Estimat Glomerular Filtration Rate 49.9 mL/min (>60) Glucose Level 146 MG/DL (74-106) H Uric Acid 7.9 MG/DL (2.6-7.2) H Calcium Level 9.1 MG/DL (8.5-10.1) Phosphorus Level 4.5 MG/DL (2.5-4.9) Magnesium Level 2.4 MG/DL (1.8-2.4) Total Bilirubin 0.7 MG/DL (0.2-1.0) Aspartate Amino Transf (AST/SGOT) 93 U/L (15-37) H Alanine Aminotransferase (ALT/SGPT) 83 U/L (12-78) H Alkaline Phosphatase 58 U/L (46-116) Total Protein 8.2 G/DL (6.4-8.2) Albumin 3.2 G/DL (3.4-5.0) L Globulin 5.0 g/dL Albumin/Globulin Ratio 0.6 (1.0-2.7) L Current Medications Medications (Trade) Dose Ordered Sig/Reji Route PRN Reason Start Time Stop Time Status Last Admin Dose Admin Acetaminophen (Tylenol) 500 mg Q4H PRN ORAL Mild Pain (Pain Scale 1-3) 02/14/20 00:30 03/15/20 00:29 Acetaminophen (Tylenol) 650 mg Q4H PRN ORAL FEVER 02/14/20 10:00 03/15/20 09:59 Amiodarone HCl (Cordarone) 200 mg DAILY ORAL 02/14/20 19:15 05/14/20 19:14 02/21/20 11:07 Amlodipine Besylate (Norvasc) 5 mg BID ORAL 02/21/20 18:00 03/21/20 17:59 Aspirin (ASA) 81 mg DAILY ORAL 02/15/20 09:00 03/31/20 08:59 02/21/20 11:07 Atorvastatin Calcium (Lipitor) 40 mg BEDTIME ORAL 02/14/20 21:00 05/14/20 20:59 02/20/20 21:23 Dexamethasone (Decadron) 4 mg DAILY ORAL 02/14/20 09:00 02/24/20 08:59 02/21/20 11:10 Dextrose (Dextrose 50%) 25 ml Q30M PRN IV Hypoglycemia 02/14/20 10:00 05/14/20 09:59 Dextrose (Dextrose 50%) 50 ml Q30M PRN IV Hypoglycemia 02/14/20 10:00 05/14/20 09:59 Heparin Sodium (Porcine) (Heparin 5000 units/ml) 5,000 units EVERY 12 HOURS SUBQ 02/14/20 10:00 03/30/20 09:59 02/21/20 09:00 Hydralazine HCl (Apresoline) 25 mg Q6HR ORAL 02/21/20 12:00 05/21/20 11:59 Lorazepam (Ativan 2mg/ml 1ml) 0.5 mg Q6HR PRN IV For Anxiety 02/18/20 13:00 02/25/20 12:59 02/20/20 13:08 Losartan Potassium (Cozaar) 50 mg DAILY ORAL 02/22/20 09:00 03/15/20 19:14 Metoprolol Tartrate (Lopressor) 25 mg EVERY 12 HOURS ORAL 02/14/20 21:00 05/14/20 20:59 02/21/20 11:13 Ondansetron HCl (Zofran) 4 mg Q6H PRN IVP Nausea & Vomiting 02/14/20 10:00 03/15/20 09:59 Pantoprazole (Protonix) 40 mg EVERY 12 HOURS ORAL 02/15/20 21:00 03/16/20 20:59 02/21/20 11:07 Polyethylene Glycol (Miralax) 17 gm DAILYPRN PRN ORAL Constipation 02/14/20 10:00 03/15/20 09:59 Promethazine HCl/ Codeine (Phenergan with Codeine) 5 ml Q6H PRN ORAL cough 02/14/20 10:00 03/15/20 09:59 Tamsulosin HCl (Flomax) 0.4 mg BID ORAL 02/21/20 10:30 03/21/20 10:29 02/21/20 10:30 Heather Espinoza M.D. Feb 21, 2020 19:57
[2020-02-21 20:00] VITALS: BP 115/60
[2020-02-21] MEDS ORDERED: NS 275ml ONE (22:39)
[2020-02-21] MEDS ORDERED: Tubing IV Secondary IV ONE (22:39)
[2020-02-21] MEDS: Atorvastatin 20mg tab ORAL SCH (22:40)
[2020-02-22] VITALS: BP 118/72
[2020-02-22 04:00] VITALS: BP 108/62
[2020-02-22] MEDS: HydrALAZINE 25mg tab ORAL SCH ×4 (06:00→18:20)
[2020-02-22 06:30] LABS: BASOPHILS % (AUTO) 3.1 % (0.0-2.0); HEMATOCRIT 45.3 % (42.0-52.0); LYMPHOCYTES % (AUTO) 10.4 % (20.0-45.0); MEAN CORPUSCULAR VOLUME 96 FL (80-99); MONOCYTES % (AUTO) 6.9 % (1.0-10.0); NEUTROPHILS % (AUTO) 79.6 % (45.0-75.0); PLATELET COUNT 314 K/UL (150-450); RED CELL DISTRIBUTION WIDTH 13.2 % (11.6-14.8); WHITE BLOOD COUNT 13.1 K/UL (4.8-10.8)
[2020-02-22 07:29] LABS: ALBUMIN 3.2 G/DL (3.4-5.0); ALBUMIN/GLOBULIN RATIO 0.8 (1.0-2.7); BILIRUBIN,TOTAL 0.6 MG/DL (0.2-1.0); CALCIUM 9.3 MG/DL (8.5-10.1); PHOSPHORUS 4.8 MG/DL (2.5-4.9); POTASSIUM 3.8 MMOL/L (3.5-5.1)
[2020-02-22 08:00] VITALS: BP 137/87
[2020-02-22] MEDS: Heparin 5000 units/ml inj SUBQ SCH ×2 (09:16→21:19)
[2020-02-22] MEDS: Tamsulosin 0.4mg cap ORAL SCH ×2 (09:26→17:47)
[2020-02-22] MEDS: Amiodarone 200mg tab ORAL SCH (09:27)
[2020-02-22] MEDS: Aspirin Baby 81mg ORAL SCH (09:27)
[2020-02-22] MEDS: Losartan 50mg tab ORAL SCH (09:28)
--- NOTE | 2020-02-22 09:39 | Infectious Diseases Prog Note ---
Assessment/Plan Assessment: COVID19 positive (dx'ed 02/08/20)- likely PNA Acute hypoxic resp failure- sp NRB> 4l NC> desaturated to 78% and was placed on SM 8L 02/15 > VM 10L 02/19 -02/18 CXR: Worsening bilateral edema versus infiltrates, over 3 days -02/12 CXR: Cardiomegaly with vascular congestion and moderate edema. Gram positive bacteremia- m/l contaminant -02/12 Bcx 2/4 CoNS clusters, 2/4 diphteroids; 02/14 Bcx NTD Fever -[employer]- none here so far mild leukocytosis (on steroids) SHANNAN, improving Elevated AST, mild; increasing CVA w/ resultant aphasia HLD general anxiety disorder schizoaffective disorder-depressive type cardiomegaly pAfib pHTN CKD CAD HTN [place] resident ([facility]) Plan: -Decadron # 03/09 -02/18 SP Ceftriaxone #7, Azithromycin #7 -02/17 SP Remdesivir #5 -02/16 SP IV Vancomycin #2 -f/u cx -Monitor CBC/CMP, temperatures -f/u repeat Bcx x2 Thank you for this consultation. Will continue to follow along with you. Discussed with RN. Subjective Allergies: Coded Allergies: DONNIE INHIBITORS (Verified Allergy, Unknown, 02/13/20) OMEGA-3 ACID ETHYL ESTERS (Verified Allergy, Unknown, 02/13/20) Afebrile Mild Leukocytosis Objective Last 24 Hour Vital Signs Date Time Temp Pulse Resp B/P (MAP) Pulse Ox O2 Delivery O2 Flow Rate FiO2 02/22/20 09:28 137/87 02/22/20 09:28 77 137/87 02/22/20 09:28 72 137/87 02/22/20 06:00 109/68 02/22/20 04:00 100 02/22/20 04:00 97.4 89 22 108/62 (77) 93 02/22/20 00:00 97.2 105 21 118/72 (87) 93 02/22/20 00:00 115/60 02/22/20 00:00 105 02/21/20 22:40 90 115/70 02/21/20 21:00 Venturi Mask 10.0 02/21/20 20:00 91.9 71 22 115/60 (78) 94 02/21/20 20:00 102 02/21/20 18:32 87 111/75 02/21/20 18:00 111/75 02/21/20 16:00 98.1 85 20 124/69 (87) 93 02/21/20 16:00 79 02/21/20 12:00 99 02/21/20 12:00 98.0 85 22 139/112 (121) 93 02/21/20 12:00 97/60 02/21/20 11:13 83 143/89 Height (Feet): 5 Height (Inches): 10.00 Weight (Pounds): 231 Gen: no distress on 10L nC Respiratory Exam: Rhonchi Cardiovascular Exam: RRR Skin Exam: Normal Turgor Laboratory Tests Test 02/22/20 04:00 White Blood Count 13.1 K/UL (4.8-10.8) H Red Blood Count 4.70 M/UL (4.70-6.10) Hemoglobin 15.0 G/DL (14.2-18.0) Hematocrit 45.3 % (42.0-52.0) Mean Corpuscular Volume 96 FL (80-99) Mean Corpuscular Hemoglobin 32.0 PG (27.0-31.0) H Mean Corpuscular Hemoglobin Concent 33.2 G/DL (32.0-36.0) Red Cell Distribution Width 13.2 % (11.6-14.8) Platelet Count 314 K/UL (150-450) Mean Platelet Volume 8.9 FL (6.5-10.1) Neutrophils (%) (Auto) 79.6 % (45.0-75.0) H Lymphocytes (%) (Auto) 10.4 % (20.0-45.0) L Monocytes (%) (Auto) 6.9 % (1.0-10.0) Eosinophils (%) (Auto) 0.0 % (0.0-3.0) Basophils (%) (Auto) 3.1 % (0.0-2.0) H Sodium Level 146 MMOL/L (136-145) H Potassium Level 3.8 MMOL/L (3.5-5.1) Chloride Level 107 MMOL/L (98-107) Carbon Dioxide Level 25 MMOL/L (21-32) Anion Gap 14 mmol/L (5-15) Blood Urea Nitrogen 43 mg/dL (7-18) H Creatinine 2.0 MG/DL (0.55-1.30) H Estimat Glomerular Filtration Rate 41.3 mL/min (>60) Glucose Level 143 MG/DL (74-106) H Uric Acid 10.3 MG/DL (2.6-7.2) H Calcium Level 9.3 MG/DL (8.5-10.1) Phosphorus Level 4.8 MG/DL (2.5-4.9) Magnesium Level 2.3 MG/DL (1.8-2.4) Total Bilirubin 0.6 MG/DL (0.2-1.0) Aspartate Amino Transf (AST/SGOT) 96 U/L (15-37) H Alanine Aminotransferase (ALT/SGPT) 83 U/L (12-78) H Alkaline Phosphatase 55 U/L (46-116) C-Reactive Protein, Quantitative 4.0 mg/dL (0.00-0.90) H Pro-B-Type Natriuretic Peptide 2195 pg/mL (0-125) H Total Protein 7.1 G/DL (6.4-8.2) Albumin 3.2 G/DL (3.4-5.0) L Globulin 3.9 g/dL Albumin/Globulin Ratio 0.8 (1.0-2.7) L Current Medications Medications (Trade) Dose Ordered Sig/Reji Route PRN Reason Start Time Stop Time Status Last Admin Dose Admin Acetaminophen (Tylenol) 500 mg Q4H PRN ORAL Mild Pain (Pain Scale 1-3) 02/14/20 00:30 03/15/20 00:29 Acetaminophen (Tylenol) 650 mg Q4H PRN ORAL FEVER 02/14/20 10:00 03/15/20 09:59 Amiodarone HCl (Cordarone) 200 mg DAILY ORAL 02/14/20 19:15 05/14/20 19:14 02/22/20 09:27 Amlodipine Besylate (Norvasc) 5 mg BID ORAL 02/21/20 18:00 03/21/20 17:59 02/22/20 09:28 Aspirin (ASA) 81 mg DAILY ORAL 02/15/20 09:00 03/31/20 08:59 02/22/20 09:27 Atorvastatin Calcium (Lipitor) 40 mg BEDTIME ORAL 02/14/20 21:00 05/14/20 20:59 02/21/20 22:40 Dexamethasone (Decadron) 4 mg DAILY ORAL 02/14/20 09:00 02/24/20 08:59 02/22/20 09:26 Dextrose (Dextrose 50%) 25 ml Q30M PRN IV Hypoglycemia 02/14/20 10:00 05/14/20 09:59 Dextrose (Dextrose 50%) 50 ml Q30M PRN IV Hypoglycemia 02/14/20 10:00 05/14/20 09:59 Heparin Sodium (Porcine) (Heparin 5000 units/ml) 5,000 units EVERY 12 HOURS SUBQ 02/14/20 10:00 03/30/20 09:59 02/22/20 09:16 Hydralazine HCl (Apresoline) 25 mg Q6HR ORAL 02/21/20 12:00 05/21/20 11:59 Lorazepam (Ativan 2mg/ml 1ml) 0.5 mg Q6HR PRN IV For Anxiety 02/18/20 13:00 02/25/20 12:59 02/20/20 13:08 Losartan Potassium (Cozaar) 50 mg DAILY ORAL 02/22/20 09:00 03/15/20 19:14 02/22/20 09:28 Metoprolol Tartrate (Lopressor) 25 mg EVERY 12 HOURS ORAL 02/14/20 21:00 05/14/20 20:59 02/22/20 09:28 Ondansetron HCl (Zofran) 4 mg Q6H PRN IVP Nausea & Vomiting 02/14/20 10:00 03/15/20 09:59 Pantoprazole (Protonix) 40 mg EVERY 12 HOURS ORAL 02/15/20 21:00 03/16/20 20:59 02/22/20 09:26 Polyethylene Glycol (Miralax) 17 gm DAILYPRN PRN ORAL Constipation 02/14/20 10:00 03/15/20 09:59 Promethazine HCl/ Codeine (Phenergan with Codeine) 5 ml Q6H PRN ORAL cough 02/14/20 10:00 03/15/20 09:59 Tamsulosin HCl (Flomax) 0.4 mg BID ORAL 02/21/20 10:30 03/21/20 10:02/22/20 09:26 Harpreet Morgan MD Feb 22, 2020 09:39
--- NOTE | 2020-02-22 11:18 | Pulmonology Progress Note ---
Subjective ROS Limited/Unobtainable: Yes Constitutional: Reports: no symptoms HEENT: Repors: no symptoms Cardiovascular: Reports: no symptoms Allergies: Coded Allergies: DONNIE INHIBITORS (Verified Allergy, Unknown, 02/13/20) OMEGA-3 ACID ETHYL ESTERS (Verified Allergy, Unknown, 02/13/20) Objective Last 24 Hour Vital Signs Date Time Temp Pulse Resp B/P (MAP) Pulse Ox O2 Delivery O2 Flow Rate FiO2 02/22/20 09:28 137/87 02/22/20 09:28 77 137/87 02/22/20 09:28 72 137/87 02/22/20 06:00 109/68 02/22/20 04:00 100 02/22/20 04:00 97.4 89 22 108/62 (77) 93 02/22/20 00:00 97.2 105 21 118/72 (87) 93 02/22/20 00:00 115/60 02/22/20 00:00 105 02/21/20 22:40 90 115/70 02/21/20 21:00 Venturi Mask 10.0 02/21/20 20:00 91.9 71 22 115/60 (78) 94 02/21/20 20:00 102 02/21/20 18:32 87 111/75 02/21/20 18:00 111/75 02/21/20 16:00 98.1 85 20 124/69 (87) 93 02/21/20 16:00 79 02/21/20 12:00 99 02/21/20 12:00 98.0 85 22 139/112 (121) 93 02/21/20 12:00 97/60 Intake and Output 02/21/20 02/22/20 19:00 07:00 Intake Total 400 ml 200 ml Output Total 1000 ml 400 ml Balance -600 ml -200 ml Intake Oral 400 ml 200 ml Output Urine Total 1000 ml 400 ml # Voids 2 General Appearance: WD/WN HEENT: normocephalic, atraumatic Respiratory: chest wall non-tender, normal breath sounds Cardiovascular: normal peripheral pulses, normal rate Abdomen: normal bowel sounds, soft, non tender, no organomegaly Genitourinary: normal external genitalia Extremities: no cyanosis Skin: no rash Neurologic: it recruiter II-XII grossly normal Lymphatic: no neck adenopathy Laboratory Tests 02/22/20 04:00: White Blood Count 13.1H, Red Blood Count 4.70, Hemoglobin 15.0, Hematocrit 45.3, Mean Corpuscular Volume 96, Mean Corpuscular Hemoglobin 32.0H, Mean Corpuscular Hemoglobin Concent 33.2, Red Cell Distribution Width 13.2, Platelet Count 314, M ted Platelet Volume 8.9, Neutrophils (%) (Auto) 79.6H, Lymphocytes (%) (Auto) 10.4L, Monocytes (%) (Auto) 6.9, Eosinophils (%) (Auto) 0.0, Basophils (%) (Auto) 3.1H, Sodium Level 146H, Potassium Level 3.8, Chloride Level 107, Carbon Dioxide Level 25, Anion Gap 14, Blood Urea Nitrogen 43H, Creatinine 2.0H, Estimat Glomerular Filtration Rate 41.3, Glucose Level 143H, Uric Acid 10.3H, Calcium Level 9.3, Phosphorus Level 4.8, Magnesium Level 2.3, Total Bilirubin 0.6, Aspartate Amino Transf (AST/SGOT) 96H, Alanine Aminotransferase (ALT/SGPT) 83H, Alkaline Phosphatase 55, C-Reactive Protein, Quantitative 4.0H, Pro-B-Type Natriuretic Peptide 2195H, Total Protein 7.1, Albumin 3.2L, Globulin 3.9, Albumin/Globulin Ratio 0.8L Current Medications Medications (Trade) Dose Ordered Sig/Reji Route PRN Reason Start Time Stop Time Status Last Admin Dose Admin Acetaminophen (Tylenol) 500 mg Q4H PRN ORAL Mild Pain (Pain Scale 1-3) 02/14/20 00:30 03/15/20 00:29 Acetaminophen (Tylenol) 650 mg Q4H PRN ORAL FEVER 02/14/20 10:00 03/15/20 09:59 Amiodarone HCl (Cordarone) 200 mg DAILY ORAL 02/14/20 19:15 05/14/20 19:14 02/22/20 09:27 Amlodipine Besylate (Norvasc) 5 mg BID ORAL 02/21/20 18:00 03/21/20 17:59 02/22/20 09:28 Aspirin (ASA) 81 mg DAILY ORAL 02/15/20 09:00 03/31/20 08:59 02/22/20 09:27 Atorvastatin Calcium (Lipitor) 40 mg BEDTIME ORAL 02/14/20 21:00 12/15/20 20:59 02/21/20 22:40 Dexamethasone (Decadron) 4 mg DAILY ORAL 02/14/20 09:00 02/24/20 08:59 02/22/20 09:26 Dextrose (Dextrose 50%) 25 ml Q30M PRN IV Hypoglycemia 02/14/20 10:00 05/14/20 09:59 Dextrose (Dextrose 50%) 50 ml Q30M PRN IV Hypoglycemia 02/14/20 10:00 05/14/20 09:59 Heparin Sodium (Porcine) (Heparin 5000 units/ml) 5,000 units EVERY 12 HOURS SUBQ 02/14/20 10:00 03/30/20 09:59 02/22/20 09:16 Hydralazine HCl (Apresoline) 25 mg Q6HR ORAL 02/21/20 12:00 05/21/20 11:59 Lorazepam (Ativan 2mg/ml 1ml) 0.5 mg Q6HR PRN IV For Anxiety 02/18/20 13:00 02/25/20 12:59 02/20/20 13:08 Losartan Potassium (Cozaar) 50 mg DAILY ORAL 02/22/20 09:00 03/15/20 19:14 02/22/20 09:28 Metoprolol Tartrate (Lopressor) 25 mg EVERY 12 HOURS ORAL 02/14/20 21:00 05/14/20 20:59 02/22/20 09:28 Ondansetron HCl (Zofran) 4 mg Q6H PRN IVP Nausea & Vomiting 02/14/20 10:00 03/15/20 09:59 Pantoprazole (Protonix) 40 mg EVERY 12 HOURS ORAL 02/15/20 21:00 03/16/20 20:59 02/22/20 09:26 Polyethylene Glycol (Miralax) 17 gm DAILYPRN PRN ORAL Constipation 02/14/20 10:00 03/15/20 09:59 Promethazine HCl/ Codeine (Phenergan with Codeine) 5 ml Q6H PRN ORAL cough 02/14/20 10:00 03/15/20 09:59 Tamsulosin HCl (Flomax) 0.4 mg BID ORAL 02/21/20 10:30 03/21/20 10:29 02/22/20 09:26 Assessment/Plan Problems: (1) Pneumonia due to COVID-19 virus (2) Sepsis (3) Atrial fibrillation (4) CHF (congestive heart failure) (5) Arrhythmia (6) History of CVA (cerebrovascular accident) (7) Psychosis Assessment/Plan cxr reviewed, bilateral interstitial infiltrate 02/20 doing better, confused respiratory isolation check sputum iv abx + steroids + antiviral as per ID echocardiogram f/u crp, stady optimize cardiac meds dvt prophylaxis Lyle Joy MD Feb 22, 2020 11:18
[2020-02-22 11:38] VITALS: BP 108/75
--- NOTE | 2020-02-22 13:12 | Nephrology Progress Note ---
Assessment/Plan Problem List: (1) SHANNAN (acute kidney injury) (2) CHF (congestive heart failure) (3) Atrial fibrillation (4) Cardiomyopathy (5) ICD (implantable cardioverter-defibrillator) in place (6) History of CVA (cerebrovascular accident) (7) Pneumonia due to COVID-19 virus Assessment Acute on chronic renal failure Respiratory failure with hypoxia Pneumonia due to COVID-19 virus Sepsis Diabetes mellitus with elevated hemoglobin A1c Anemia Cardiomyopathy 20% EjFx Plan February 21: Serum creatinine rising to 2. Uric acid verna. Patient renal failure is due to aggressive treatment for congestive heart failure and cardiomyopathy and ejection fraction of 20%. Continue to optimize cardiac status and diuretics as possible so hopefully we can prevent further deterioration of serum creatinine and renal function. February 20: Serum creatinine slightly higher to 1.7. Continue to adjust diuretics and afterload load reduction medications as such to stabilize serum creatinine from further rise. February 19. Serum creatinine higher to 1.6. Otherwise no new changes. We will continue to monitor renal parameters. February 18: Renal parameters stable. Continue per consultants. February 17: Remains stable from renal standpoint of view. Continue per consultants. February 16: Patient stable from renal standpoint to view. Continue per pulmonary. Continue per ID. Serum creatinine down to 1.6 from 2.1 on admission day February 15: When I saw the patient this morning with charge nurse Wilfred the patient was somewhat hypoxic on oxygen. Was ordered to be put on mask and inform truck trailer mechanic for possible ABG check and further treatment plan. Labs reviewed. Serum creatinine stable. Troponin unchanged. Continue to monitor renal parameters. Continue to optimize cardiac and pulmonary status. Overall prognosis poor. Slow hydration Monitor electrolytes and renal parameters Monitor urine output Correct abnormal electrolytes Antibiotics, avoid nephrotoxic's Anemia work-up Per orders Subjective ROS Limited/Unobtainable: Yes Constitutional: Reports: malaise, weakness Objective Objective Last 24 Hour Vital Signs Date Time Temp Pulse Resp B/P (MAP) Pulse Ox O2 Delivery O2 Flow Rate FiO2 02/22/20 12:00 108/75 02/22/20 11:38 97.3 75 18 108/75 (86) 95 02/22/20 09:28 137/87 02/22/20 09:28 77 137/87 02/22/20 09:28 72 137/87 02/22/20 08:00 98.7 72 19 137/87 (104) 97 02/22/20 06:00 109/68 02/22/20 04:00 100 02/22/20 04:00 97.4 89 22 108/62 (77) 93 02/22/20 00:00 97.2 105 21 118/72 (87) 93 02/22/20 00:00 115/60 02/22/20 00:00 105 02/21/20 22:40 90 115/70 02/21/20 21:00 Venturi Mask 10.0 02/21/20 20:00 91.9 71 22 115/60 (78) 94 02/21/20 20:00 102 02/21/20 18:32 87 111/75 02/21/20 18:00 111/75 02/21/20 16:00 98.1 85 20 124/69 (87) 93 02/21/20 16:00 79 Intake and Output 02/21/20 02/22/20 19:00 07:00 Intake Total 400 ml 200 ml Output Total 1000 ml 400 ml Balance -600 ml -200 ml Intake Oral 400 ml 200 ml Output Urine Total 1000 ml 400 ml # Voids 2 Laboratory Tests 02/22/20 04:00: White Blood Count 13.1H, Red Blood Count 4.70, Hemoglobin 15.0, Hematocrit 45.3, Mean Corpuscular Volume 96, Mean Corpuscular Hemoglobin 32.0H, Mean Corpuscular Hemoglobin Concent 33.2, Red Cell Distribution Width 13.2, Platelet Count 314, Mean Platelet Volume 8.9, Neutrophils (%) (Auto) 79.6H, Lymphocytes (%) (Auto) 10.4L, Monocytes (%) (Auto) 6.9, Eosinophils (%) (Auto) 0.0, Basophils (%) (Auto) 3.1H, Sodium Level 146H, Potassium Level 3.8, Chloride Level 107, Carbon Dioxide Level 25, Anion Gap 14, Blood Urea Nitrogen 43H, Creatinine 2.0H, Estimat Glomerular Filtration Rate 41.3, Glucose Level 143H, Uric Acid 10.3H, Calcium Level 9.3, Phosphorus Level 4.8, Magnesium Level 2.3, Total Bilirubin 0.6, Aspartate Amino Transf (AST/SGOT) 96H, Alanine Aminotransferase (ALT/SGPT) 83H, Alkaline Phosphatase 55, C-Reactive Protein, Quantitative 4.0H, Pro-B-Type Natriuretic Peptide 2195H, Total Protein 7.1, Albumin 3.2L, Globulin 3.9, Albumin/Globulin Ratio 0.8L Height (Feet): 5 Height (Inches): 10.00 Weight (Pounds): 231 General Appearance: no apparent distress, lethargic Cardiovascular: tachycardia Respiratory/Chest: decreased breath sounds Abdomen: distended Objective No change Ashvin Bautista MD Feb 22, 2020 13:12
--- NOTE | 2020-02-22 15:52 | Diagnostic Imaging Report ---
Procedure: XRAY Chest 1v Reason for study: Shortness of breath. Comparison films: 02/20/2020. FINDINGS: ICD remains in place. There may be slightly improved aeration but still with considerable alveolar densities bilaterally. Cardiomegaly unchanged. CP angles are sharp. The bony thorax appear unremarkable. IMPRESSION: Slightly improved aeration but still with considerable bilateral alveolar disease.
[2020-02-22 16:00] VITALS: BP 120/61
--- NOTE | 2020-02-22 17:14 | Internal Med Progress Note ---
Subjective Date of Service: Feb 22, 2020 Physician Name DebiEdmund Attending Physician Atilio Lee MD Current Medications Medications (Trade) Dose Ordered Sig/Reji Route PRN Reason Start Time Stop Time Status Last Admin Dose Admin Acetaminophen (Tylenol) 500 mg Q4H PRN ORAL Mild Pain (Pain Scale 1-3) 02/14/20 00:30 03/15/20 00:29 Acetaminophen (Tylenol) 650 mg Q4H PRN ORAL FEVER 02/14/20 10:00 03/15/20 09:59 Amiodarone HCl (Cordarone) 200 mg DAILY ORAL 02/14/20 19:15 05/14/20 19:14 02/22/20 09:27 Amlodipine Besylate (Norvasc) 5 mg DAILY ORAL 02/23/20 09:00 03/21/20 17:59 Aspirin (ASA) 81 mg DAILY ORAL 02/15/20 09:00 03/31/20 08:59 02/22/20 09:27 Atorvastatin Calcium (Lipitor) 40 mg BEDTIME ORAL 02/14/20 21:00 05/14/20 20:59 02/21/20 22:40 Dexamethasone (Decadron) 4 mg DAILY ORAL 02/14/20 09:00 02/24/20 08:59 02/22/20 09:26 Dextrose (Dextrose 50%) 25 ml Q30M PRN IV Hypoglycemia 02/14/20 10:00 05/14/20 09:59 Dextrose (Dextrose 50%) 50 ml Q30M PRN IV Hypoglycemia 02/14/20 10:00 05/14/20 09:59 Heparin Sodium (Porcine) (Heparin 5000 units/ml) 5,000 units EVERY 12 HOURS SUBQ 02/14/20 10:00 03/30/20 09:59 02/22/20 09:16 Hydralazine HCl (Apresoline) 25 mg Q6HR ORAL 02/21/20 12:00 05/21/20 11:59 Lorazepam (Ativan 2mg/ml 1ml) 0.5 mg Q6HR PRN IV For Anxiety 02/18/20 13:00 02/25/20 12:59 02/20/20 13:08 Metoprolol Tartrate (Lopressor) 25 mg EVERY 12 HOURS ORAL 02/14/20 21:00 05/14/20 20:59 02/22/20 09:28 Ondansetron HCl (Zofran) 4 mg Q6H PRN IVP Nausea & Vomiting 02/14/20 10:00 03/15/20 09:59 Pantoprazole (Protonix) 40 mg EVERY 12 HOURS ORAL 02/15/20 21:00 03/16/20 20:59 02/22/20 09:26 Polyethylene Glycol (Miralax) 17 gm DAILYPRN PRN ORAL Constipation 02/14/20 10:00 03/15/20 09:59 Promethazine HCl/ Codeine (Phenergan with Codeine) 5 ml Q6H PRN ORAL cough 02/14/20 10:00 03/15/20 09:59 Tamsulosin HCl (Flomax) 0.4 mg BID ORAL 02/21/20 10:30 03/21/20 10:29 02/22/20 09:26 Allergies: Coded Allergies: DONNIE INHIBITORS (Verified Allergy, Unknown, 02/13/20) OMEGA-3 ACID ETHYL ESTERS (Verified Allergy, Unknown, 02/13/20) ROS Limited/Unobtainable: Yes Subjective 60 YO M admitted with shortness of breath. Now COVID 19 and sepsis. Cover for Int Med-Dr Lee Objective Last Vital Signs Date Time Temp Pulse Resp B/P (MAP) Pulse Ox O2 Delivery O2 Flow Rate FiO2 02/22/20 12:00 108/75 02/22/20 11:38 97.3 75 18 95 02/22/20 09:00 Venturi Mask 10.0 Laboratory Tests Test 02/22/20 04:00 White Blood Count 13.1 K/UL (4.8-10.8) H Red Blood Count 4.70 M/UL (4.70-6.10) Hemoglobin 15.0 G/DL (14.2-18.0) Hematocrit 45.3 % (42.0-52.0) Mean Corpuscular Volume 96 FL (80-99) Mean Corpuscular Hemoglobin 32.0 PG (27.0-31.0) H Mean Corpuscular Hemoglobin Concent 33.2 G/DL (32.0-36.0) Red Cell Distribution Width 13.2 % (11.6-14.8) Platelet Count 314 K/UL (150-450) Mean Platelet Volume 8.9 FL (6.5-10.1) Neutrophils (%) (Auto) 79.6 % (45.0-75.0) H Lymphocytes (%) (Auto) 10.4 % (20.0-45.0) L Monocytes (%) (Auto) 6.9 % (1.0-10.0) Eosinophils (%) (Auto) 0.0 % (0.0-3.0) Basophils (%) (Auto) 3.1 % (0.0-2.0) H Sodium Level 146 MMOL/L (136-145) H Potassium Level 3.8 MMOL/L (3.5-5.1) Chloride Level 107 MMOL/L (98-107) Carbon Dioxide Level 25 MMOL/L (21-32) Anion Gap 14 mmol/L (5-15) Blood Urea Nitrogen 43 mg/dL (7-18) H Creatinine 2.0 MG/DL (0.55-1.30) H Estimat Glomerular Filtration Rate 41.3 mL/min (>60) Glucose Level 143 MG/DL (74-106) H Uric Acid 10.3 MG/DL (2.6-7.2) H Calcium Level 9.3 MG/DL (8.5-10.1) Phosphorus Level 4.8 MG/DL (2.5-4.9) Magnesium Level 2.3 MG/DL (1.8-2.4) Total Bilirubin 0.6 MG/DL (0.2-1.0) Aspartate Amino Transf (AST/SGOT) 96 U/L (15-37) H Alanine Aminotransferase (ALT/SGPT) 83 U/L (12-78) H Alkaline Phosphatase 55 U/L (46-116) C-Reactive Protein, Quantitative 4.0 mg/dL (0.00-0.90) H Pro-B-Type Natriuretic Peptide 2195 pg/mL (0-125) H Total Protein 7.1 G/DL (6.4-8.2) Albumin 3.2 G/DL (3.4-5.0) L Globulin 3.9 g/dL Albumin/Globulin Ratio 0.8 (1.0-2.7) L Intake and Output 02/21/20 02/22/20 19:00 07:00 Intake Total 400 ml 200 ml Output Total 1000 ml 400 ml Balance -600 ml -200 ml Intake Oral 400 ml 200 ml Output Urine Total 1000 ml 400 ml # Voids 2 Objective PHYSICAL EXAMINATION: GENERAL: The patient is well-developed and well-nourished male, no apparent distress. HEENT: Eyes, pupils are equal and responsive to light and accommodation. Extraocular movements are intact. NECK: Supple without lymphadenopathy. CHEST: Venturi mask; Lungs with bilateral expiratory wheezes and rales. CARDIOVASCULAR: Regular rhythm and rate. S1 and S2 are normal without murmurs, rubs, or gallops. ABDOMEN: Soft, nontender, and nondistended. Positive bowel sounds. No evidence of hepatosplenomegaly. Currently, no rebound or guarding noted. EXTREMITIES: Negative for clubbing, cyanosis, or edema. RECTAL/GENITAL: Not performed. NEUROLOGIC: Cranial nerves II through XII are grossly intact without focal deficits. Motor strength is 5/5 bilaterally. Deep tendon reflexes are 2+ plantar. Assessment/Plan Assessment/Plan ASSESSMENT: This is a 60-year-old male: 1. Shortness of breath. 2. Fever. 3. COVID-19 positive. 4. Hypertension. 5. Cerebrovascular disease, status post cerebrovascular accident. 6. Hemiplegia. 7. Hypercholesterolemia. 8. Coronary artery disease. 9. Cardiomyopathy. 10. Paroxysmal atrial fibrillation. 11. Schizoaffective disorder, bipolar type. 12. Chronic kidney disease. 13. Sepsis=Staph epidermidis 14. Elevated troponin 15. AICD in situ TREATMENT: 1. Hypoxia/shortness of breath. A Pulmonary consultation has been obtained with Dr. Lyle Joy. COVID-19 testing is positive ABX=S/P vanco, ceftriaxone and azithromycin and remdesivir for presumed pneumonia. 2. Hypertension. The patient is currently hypotensive. Hold antihypertensive medication as above. 3. Cerebrovascular disease. 4. Hemiplegia. 5. Coronary artery disease. A Cardiology consultation has been obtained with Dr. Kayden Aguilar. 6. Hypercholesterolemia. Continue atorvastatin as above. 7. Cardiomyopathy. 8. Paroxysmal atrial fibrillation. 9. Schizoaffective disorder, bipolar type. 10. Chronic kidney disease. 11. Pacemaker in situ. 12. ID=Edmund Monge MD Feb 22, 2020 17:14
[2020-02-22 20:00] VITALS: BP 140/76
--- NOTE | 2020-02-22 20:10 | Cardiology Progress Note ---
Assessment/Plan Assessment/Plan 1. History ofICD 2. Possible pneumonia. 3. heart failure 4. History of cerebrovascular accident. 5. Schizophrenia. 6. History of pulmonary hypertension. 7. History of paroxysmal episodes of atrial fibrillation. 8. History of hemiplegia. 9. Hypertension. 10. History of kidney disease 11. bacteremia off ivf cr increased not on diuretic on treatment for covid 19 per id on norvasc on max dose of cozaar and is "allergic to acei" per record tele reviewed personally cxr reviewed appear improved on UF for dvt ppx due to renal insuf Subjective ROS Limited/Unobtainable: Yes Subjective confused per staff deferreed as active covid infection pt in bed without ventury mask, he O2 sat. 78, after ventury mask was put back on he came back to 92-94. 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 Objective Last 24 Hour Vital Signs Date Time Temp Pulse Resp B/P (MAP) Pulse Ox O2 Delivery O2 Flow Rate FiO2 02/22/20 18:20 138/73 02/22/20 16:00 96.7 71 19 120/61 (80) 97 02/22/20 15:10 82 02/22/20 12:00 108/75 02/22/20 11:38 97.3 75 18 108/75 (86) 95 02/22/20 09:28 137/87 02/22/20 09:28 77 137/87 02/22/20 09:28 72 137/87 02/22/20 09:00 Venturi Mask 10.0 02/22/20 08:00 98.7 72 19 137/87 (104) 97 02/22/20 08:00 93 02/22/20 06:00 109/68 02/22/20 04:00 100 02/22/20 04:00 97.4 89 22 108/62 (77) 93 02/22/20 00:00 97.2 105 21 118/72 (87) 93 02/22/20 00:00 115/60 02/22/20 00:00 105 02/21/20 22:40 90 115/70 02/21/20 21:00 Venturi Mask 10.0 l Intake and Output 02/21/20 02/22/20 18:59 06:59 Intake Total 400 ml 200 ml Output Total 1000 ml 400 ml Balance -600 ml -200 ml Intake Oral 400 ml 200 ml Output Urine Total 1000 ml 400 ml # Voids 2 Laboratory Tests Test 02/22/20 04:00 White Blood Count 13.1 K/UL (4.8-10.8) H Red Blood Count 4.70 M/UL (4.70-6.10) Hemoglobin 15.0 G/DL (14.2-18.0) Hematocrit 45.3 % (42.0-52.0) Mean Corpuscular Volume 96 FL (80-99) Mean Corpuscular Hemoglobin 32.0 PG (27.0-31.0) H Mean Corpuscular Hemoglobin Concent 33.2 G/DL (32.0-36.0) Red Cell Distribution Width 13.2 % (11.6-14.8) Platelet Count 314 K/UL (150-450) Mean Platelet Volume 8.9 FL (6.5-10.1) Neutrophils (%) (Auto) 79.6 % (45.0-75.0) H Lymphocytes (%) (Auto) 10.4 % (20.0-45.0) L Monocytes (%) (Auto) 6.9 % (1.0-10.0) Eosinophils (%) (Auto) 0.0 % (0.0-3.0) Basophils (%) (Auto) 3.1 % (0.0-2.0) H Sodium Level 146 MMOL/L (136-145) H Potassium Level 3.8 MMOL/L (3.5-5.1) Chloride Level 107 MMOL/L (98-107) Carbon Dioxide Level 25 MMOL/L (21-32) Anion Gap 14 mmol/L (5-15) Blood Urea Nitrogen 43 mg/dL (7-18) H Creatinine 2.0 MG/DL (0.55-1.30) H Estimat Glomerular Filtration Rate 41.3 mL/min (>60) Glucose Level 143 MG/DL (74-106) H Uric Acid 10.3 MG/DL (2.6-7.2) H Calcium Level 9.3 MG/DL (8.5-10.1) Phosphorus Level 4.8 MG/DL (2.5-4.9) Magnesium Level 2.3 MG/DL (1.8-2.4) Total Bilirubin 0.6 MG/DL (0.2-1.0) Aspartate Amino Transf (AST/SGOT) 96 U/L (15-37) H Alanine Aminotransferase (ALT/SGPT) 83 U/L (12-78) H Alkaline Phosphatase 55 U/L (46-116) C-Reactive Protein, Quantitative 4.0 mg/dL (0.00-0.90) H Pro-B-Type Natriuretic Peptide 2195 pg/mL (0-125) H Total Protein 7.1 G/DL (6.4-8.2) Albumin 3.2 G/DL (3.4-5.0) L Globulin 3.9 g/dL Albumin/Globulin Ratio 0.8 (1.0-2.7) L Objective exam deferred due to active infection , per dr ruiz NECK: Supple without lymphadenopathy. CHEST: Venturi mask; Lungs with bilateral expiratory wheezes and rales. CARDIOVASCULAR: Regular rhythm and rate. S1 and S2 are normal without murmurs, rubs, or gallops. ABDOMEN: Soft, nontender, and nondistended. Positive bowel sounds. No evidence of hepatosplenomegaly. Currently, no rebound or guarding noted. EXTREMITIES: Negative for clubbing, cyanosis, or edema. Kayden Aguilar MD Feb 22, 2020 20:10
[2020-02-22] MEDS: Atorvastatin 20mg tab ORAL SCH (21:17)
[2020-02-23] VITALS: BP 186/71
[2020-02-23] MEDS: HydrALAZINE 25mg tab ORAL SCH ×4 (00:32→17:25)
[2020-02-23 03:54] VITALS: BP 169/94
[2020-02-23 08:00] VITALS: BP 136/80
[2020-02-23 09:01] LABS: EOSINOPHILS % (AUTO) 2.7 % (0.0-3.0); HEMATOCRIT 45.6 % (42.0-52.0); HEMOGLOBIN 14.9 G/DL (14.2-18.0); LYMPHOCYTES % (AUTO) 34.4 % (20.0-45.0); MEAN CORPUSCULAR VOLUME 83 FL (80-99); NEUTROPHILS % (AUTO) 50.8 % (45.0-75.0); PLATELET COUNT 169 K/UL (150-450); RED CELL DISTRIBUTION WIDTH 12.9 % (11.6-14.8); WHITE BLOOD COUNT 4.5 K/UL (4.8-10.8)
[2020-02-23] MEDS: Aspirin Baby 81mg ORAL SCH (09:23)
[2020-02-23] MEDS: Tamsulosin 0.4mg cap ORAL SCH ×2 (09:24→17:25)
[2020-02-23] MEDS: Amiodarone 200mg tab ORAL SCH (09:24)
[2020-02-23] MEDS: Heparin 5000 units/ml inj SUBQ SCH ×2 (09:25→21:27)
[2020-02-23 09:29] LABS: ALANINE AMINOTRANSFERASE 26 U/L (12-78); ALBUMIN 3.1 G/DL (3.4-5.0); ALBUMIN/GLOBULIN RATIO 0.8 (1.0-2.7); ALKALINE PHOSPHATASE 64 U/L (46-116); ANION GAP 9 mmol/L (5-15); ASPARTATE AMINO TRANSFERASE 14 U/L (15-37); BILIRUBIN,TOTAL 0.4 MG/DL (0.2-1.0); BLOOD UREA NITROGEN 10 mg/dL (7-18); CALCIUM 8.6 MG/DL (8.5-10.1); CARBON DIOXIDE 28 MMOL/L (21-32); CHLORIDE 106 MMOL/L (98-107); CREATININE 1.1 MG/DL (0.55-1.30); PHOSPHORUS 3.2 MG/DL (2.5-4.9); POTASSIUM 3.9 MMOL/L (3.5-5.1); SODIUM 142 MMOL/L (136-145)
[2020-02-23] MEDS: LORazepam Inj 2mg/ml 1ml IV PRN (09:35)
--- NOTE | 2020-02-23 09:50 | Infectious Diseases Prog Note ---
Assessment/Plan Assessment: COVID19 positive (dx'ed 02/08/20)- likely PNA Acute hypoxic resp failure- sp NRB> 4l NC> desaturated to 78% and was placed on SM 8L 02/15 > VM 10L 02/19 -02/18 CXR: Worsening bilateral edema versus infiltrates, over 3 days -02/12 CXR: Cardiomegaly with vascular congestion and moderate edema. 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 Will continue to follow along with you. Discussed with RN. Subjective Allergies: Coded Allergies: DONNIE INHIBITORS (Verified Allergy, Unknown, 02/13/20) OMEGA-3 ACID ETHYL ESTERS (Verified Allergy, Unknown, 02/13/20) Afebrile Mild Leukocytosis resolved CXR - Slightly improved aeration but still with considerable bilateral alveolar disease. Objective Last 24 Hour Vital Signs Date Time Temp Pulse Resp B/P (MAP) Pulse Ox O2 Delivery O2 Flow Rate FiO2 02/23/20 09:35 67 20 136/80 96 02/23/20 09:24 67 136/80 02/23/20 09:24 67 136/80 02/23/20 08:00 96.8 67 20 136/80 (98) 96 02/23/20 05:54 169/94 02/23/20 04:00 67 02/23/20 03:54 97.7 89 20 169/94 (119) 99 02/23/20 00:32 186/71 02/23/20 00:00 97.7 80 20 186/71 (109) 98 02/23/20 00:00 79 02/22/20 21:17 93 140/76 02/22/20 21:00 Venturi Mask 10.0 02/22/20 20:00 95 02/22/20 20:00 98.2 93 20 140/76 (97) 96 02/22/20 18:20 138/73 02/22/20 16:00 96.7 71 19 120/61 (80) 97 02/22/20 15:10 82 02/22/20 12:00 108/75 02/22/20 11:38 97.3 75 18 108/75 (86) 95 Height (Feet): 5 Height (Inches): 10.00 Weight (Pounds): 231 Gen: no distress on VM Respiratory Exam: Rhonchi Cardiovascular Exam: RRR Skin Exam: Normal Turgor Laboratory Tests Test 02/23/20 08:10 White Blood Count 4.5 K/UL (4.8-10.8) #L Red Blood Count 5.50 M/UL (4.70-6.10) Hemoglobin 14.9 G/DL (14.2-18.0) Hematocrit 45.6 % (42.0-52.0) Mean Corpuscular Volume 83 FL (80-99) # Mean Corpuscular Hemoglobin 27.1 PG (27.0-31.0) Mean Corpuscular Hemoglobin Concent 32.8 G/DL (32.0-36.0) Red Cell Distribution Width 12.9 % (11.6-14.8) Platelet Count 169 K/UL (150-450) Mean Platelet Volume 7.5 FL (6.5-10.1) Neutrophils (%) (Auto) 50.8 % (45.0-75.0) Lymphocytes (%) (Auto) 34.4 % (20.0-45.0) Monocytes (%) (Auto) 10.0 % (1.0-10.0) Eosinophils (%) (Auto) 2.7 % (0.0-3.0) Basophils (%) (Auto) 2.0 % (0.0-2.0) Sodium Level 142 MMOL/L (136-145) Potassium Level 3.9 MMOL/L (3.5-5.1) Chloride Level 106 MMOL/L (98-107) Carbon Dioxide Level 28 MMOL/L (21-32) Anion Gap 9 mmol/L (5-15) Blood Urea Nitrogen 10 mg/dL (7-18) Creatinine 1.1 MG/DL (0.55-1.30) Estimat Glomerular Filtration Rate > 60 mL/min (>60) Glucose Level 98 MG/DL (74-106) Uric Acid 5.0 MG/DL (2.6-7.2) Calcium Level 8.6 MG/DL (8.5-10.1) Phosphorus Level 3.2 MG/DL (2.5-4.9) Magnesium Level 1.9 MG/DL (1.8-2.4) Total Bilirubin 0.4 MG/DL (0.2-1.0) Aspartate Amino Transf (AST/SGOT) 14 U/L (15-37) L Alanine Aminotransferase (ALT/SGPT) 26 U/L (12-78) Alkaline Phosphatase 64 U/L (46-116) C-Reactive Protein, Quantitative 1.1 mg/dL (0.00-0.90) H Pro-B-Type Natriuretic Peptide 39 pg/mL (0-125) Total Protein 7.2 G/DL (6.4-8.2) Albumin 3.1 G/DL (3.4-5.0) L Globulin 4.1 g/dL Albumin/Globulin Ratio 0.8 (1.0-2.7) L Current Medications Medications (Trade) Dose Ordered Sig/Reji Route PRN Reason Start Time Stop Time Status Last Admin Dose Admin Acetaminophen (Tylenol) 500 mg Q4H PRN ORAL Mild Pain (Pain Scale 1-3) 02/14/20 00:30 03/15/20 00:29 Acetaminophen (Tylenol) 650 mg Q4H PRN ORAL FEVER 02/14/20 10:00 03/15/20 09:59 Amiodarone HCl (Cordarone) 200 mg DAILY ORAL 02/14/20 19:15 05/14/20 19:14 02/23/20 09:24 Amlodipine Besylate (Norvasc) 5 mg DAILY ORAL 02/23/20 09:00 03/21/20 17:59 02/23/20 09:24 Aspirin (ASA) 81 mg DAILY ORAL 02/15/20 09:00 03/31/20 08:59 02/23/20 09:23 Atorvastatin Calcium (Lipitor) 40 mg BEDTIME ORAL 02/14/20 21:00 05/14/20 20:59 02/22/20 21:17 Dexamethasone (Decadron) 4 mg DAILY ORAL 02/14/20 09:00 02/24/20 08:59 02/23/20 09:24 Dextrose (Dextrose 50%) 25 ml Q30M PRN IV Hypoglycemia 02/14/20 10:00 05/14/20 09:59 Dextrose (Dextrose 50%) 50 ml Q30M PRN IV Hypoglycemia 02/14/20 10:00 05/14/20 09:59 Heparin Sodium (Porcine) (Heparin 5000 units/ml) 5,000 units EVERY 12 HOURS SUBQ 02/14/20 10:00 03/30/20 09:59 02/23/20 09:25 Hydralazine HCl (Apresoline) 25 mg Q6HR ORAL 02/21/20 12:00 05/21/20 11:59 02/23/20 05:54 Lorazepam (Ativan 2mg/ml 1ml) 0.5 mg Q6HR PRN IV For Anxiety 02/18/20 13:00 02/25/20 12:59 02/23/20 09:35 Metoprolol Tartrate (Lopressor) 25 mg EVERY 12 HOURS ORAL 02/14/20 21:00 05/14/20 20:59 02/23/20 09:24 Ondansetron HCl (Zofran) 4 mg Q6H PRN IVP Nausea & Vomiting 02/14/20 10:00 03/15/20 09:59 Pantoprazole (Protonix) 40 mg EVERY 12 HOURS ORAL 02/15/20 21:00 03/16/20 20:59 02/23/20 09:24 Polyethylene Glycol (Miralax) 17 gm DAILYPRN PRN ORAL Constipation 02/14/20 10:00 03/15/20 09:59 Promethazine HCl/ Codeine (Phenergan with Codeine) 5 ml Q6H PRN ORAL cough 02/14/20 10:00 03/15/20 09:59 Tamsulosin HCl (Flomax) 0.4 mg BID ORAL 02/21/20 10:30 03/21/20 10:29 02/23/20 09:24 Harpreet Morgan MD Feb 23, 2020 09:50
--- NOTE | 2020-02-23 11:16 | Pulmonology Progress Note ---
Subjective ROS Limited/Unobtainable: Yes Constitutional: Reports: no symptoms HEENT: Repors: no symptoms Cardiovascular: Reports: no symptoms Allergies: Coded Allergies: DONNIE INHIBITORS (Verified Allergy, Unknown, 02/13/20) OMEGA-3 ACID ETHYL ESTERS (Verified Allergy, Unknown, 02/13/20) Objective Last 24 Hour Vital Signs Date Time Temp Pulse Resp B/P (MAP) Pulse Ox O2 Delivery O2 Flow Rate FiO2 02/23/20 09:35 67 20 136/80 96 02/23/20 09:24 67 136/80 02/23/20 09:24 67 136/80 02/23/20 08:00 96.8 67 20 136/80 (98) 96 02/23/20 08:00 93 02/23/20 05:54 169/94 02/23/20 04:00 67 02/23/20 03:54 97.7 89 20 169/94 (119) 99 02/23/20 00:32 186/71 02/23/20 00:00 97.7 80 20 186/71 (109) 98 02/23/20 00:00 79 02/22/20 21:17 93 140/76 02/22/20 21:00 Venturi Mask 10.0 02/22/20 20:00 95 02/22/20 20:00 98.2 93 20 140/76 (97) 96 02/22/20 18:20 138/73 02/22/20 16:00 96.7 71 19 120/61 (80) 97 02/22/20 15:10 82 02/22/20 12:00 108/75 02/22/20 11:38 97.3 75 18 108/75 (86) 95 Intake and Output 02/22/20 02/23/20 18:59 06:59 Intake Total 240 ml Output Total 500 ml Balance 240 ml -500 ml Intake Oral 240 ml Output Urine Total 500 ml General Appearance: WD/WN HEENT: normocephalic, atraumatic Respiratory: chest wall non-tender, normal breath sounds Cardiovascular: normal peripheral pulses, normal rate Abdomen: normal bowel sounds, soft, non tender, no organomegaly Genitourinary: normal external genitalia Extremities: no cyanosis Skin: no rash 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 Lymphatic: no neck adenopathy Laboratory Tests 02/23/20 08:10: White Blood Count 4.5#L, Red Blood Count 5.50, Hemoglobin 14.9, Hematocrit 45.6, Mean Corpuscular Volume 83#, Mean Corpuscular Hemoglobin 27.1, Mean Corpuscular Hemoglobin Concent 32.8, Red Cell Distribution Width 12.9, Platelet Count 169, Mean Platelet Volume 7.5, Neutrophils (%) (Auto) 50.8, Lymphocytes (%) (Auto) 34.4, Monocytes (%) (Auto) 10.0, Eosinophils (%) (Auto) 2.7, Basophils (%) (Auto) 2.0, Sodium Level 142, Potassium Level 3.9, Chloride Level 106, Carbon Dioxide Level 28, Anion Gap 9, Blood Urea Nitrogen 10, Creatinine 1.1, Estimat Glomerular Filtration Rate > 60, Glucose Level 98, Uric Acid 5.0, Calcium Level 8.6, Phosphorus Level 3.2, Magnesium Level 1.9, Total Bilirubin 0.4, Aspartate Amino Transf (AST/SGOT) 14L, Alanine Aminotransferase (ALT/SGPT) 26, Alkaline Phosphatase 64, C-Reactive Protein, Quantitative 1.1H, Pro-B-Type Natriuretic Peptide 39, Total Protein 7.2, Albumin 3.1L, Globulin 4.1, Albumin/Globulin Ratio 0.8L Current Medications Medications (Trade) Dose Ordered Sig/Reji Route PRN Reason Start Time Stop Time Status Last Admin Dose Admin Acetaminophen (Tylenol) 500 mg Q4H PRN ORAL Mild Pain (Pain Scale 1-3) 02/14/20 00:30 03/15/20 00:29 Acetaminophen (Tylenol) 650 mg Q4H PRN ORAL FEVER 02/14/20 10:00 03/15/20 09:59 Amiodarone HCl (Cordarone) 200 mg DAILY ORAL 02/14/20 19:15 05/14/20 19:14 02/23/20 09:24 Amlodipine Besylate (Norvasc) 5 mg DAILY ORAL 02/23/20 09:00 03/21/20 17:59 02/23/20 09:24 Aspirin (ASA) 81 mg DAILY ORAL 02/15/20 09:00 03/31/20 08:59 02/23/20 09:23 Atorvastatin Calcium (Lipitor) 40 mg BEDTIME ORAL 02/14/20 21:00 05/14/20 20:59 02/22/20 21:17 Dexamethasone (Decadron) 4 mg DAILY ORAL 02/14/20 09:00 02/24/20 08:59 02/23/20 09:24 Dextrose (Dextrose 50%) 25 ml Q30M PRN IV Hypoglycemia 02/14/20 10:00 05/14/20 09:59 Dextrose (Dextrose 50%) 50 ml Q30M PRN IV Hypoglycemia 02/14/20 10:00 05/14/20 09:59 Heparin Sodium (Porcine) (Heparin 5000 units/ml) 5,000 units EVERY 12 HOURS SUBQ 02/14/20 10:00 03/30/20 09:59 02/23/20 09:25 Hydralazine HCl (Apresoline) 25 mg Q6HR ORAL 02/21/20 12:00 05/21/20 11:59 02/23/20 05:54 Lorazepam (Ativan 2mg/ml 1ml) 0.5 mg Q6HR PRN IV For Anxiety 02/18/20 13:00 02/25/20 12:59 02/23/20 09:35 Metoprolol Tartrate (Lopressor) 25 mg EVERY 12 HOURS ORAL 02/14/20 21:00 05/14/20 20:59 02/23/20 09:24 Ondansetron HCl (Zofran) 4 mg Q6H PRN IVP Nausea & Vomiting 02/14/20 10:00 03/15/20 09:59 Pantoprazole (Protonix) 40 mg EVERY 12 HOURS ORAL 02/15/20 21:00 03/16/20 20:59 02/23/20 09:24 Polyethylene Glycol (Miralax) 17 gm DAILYPRN PRN ORAL Constipation 02/14/20 10:00 03/15/20 09:59 Promethazine HCl/ Codeine (Phenergan with Codeine) 5 ml Q6H PRN ORAL cough 02/14/20 10:00 03/15/20 09:59 Tamsulosin HCl (Flomax) 0.4 mg BID ORAL 02/21/20 10:30 03/21/20 10:29 02/23/20 09:24 Assessment/Plan Problems: (1) Pneumonia due to COVID-19 virus (2) Sepsis (3) Atrial fibrillation (4) CHF (congestive heart failure) (5) Arrhythmia (6) History of CVA (cerebrovascular accident) (7) Psychosis Assessment/Plan comfortable cxr reviewed, bilateral interstitial infiltrate 02/20 doing better, confused respiratory isolation check sputum iv abx + steroids + antiviral as per ID echocardiogram f/u crp, stady optimize cardiac meds dvt prophylaxis Lyle Joy MD Feb 23, 2020 11:16
[2020-02-23 11:46] VITALS: BP 138/77
--- NOTE | 2020-02-23 13:51 | Nephrology Progress Note ---
Assessment/Plan Problem List: (1) SHANNAN (acute kidney injury) (2) CHF (congestive heart failure) (3) Atrial fibrillation (4) Cardiomyopathy (5) ICD (implantable cardioverter-defibrillator) in place (6) History of CVA (cerebrovascular accident) (7) Pneumonia due to COVID-19 virus Assessment Acute on chronic renal failure Respiratory failure with hypoxia Pneumonia due to COVID-19 virus Sepsis Diabetes mellitus with elevated hemoglobin A1c Anemia Cardiomyopathy 20% EjFx Plan February 22: Labs reviewed. I suspect today's labs is an error. Will repeat the blood work. Continue current management. Discussed with charge nurse about the repeating the blood work today February 21: Serum creatinine rising to 2. Uric acid verna. Patient renal failure is due to aggressive treatment for congestive heart failure and cardiomyopathy and ejection fraction of 20%. Continue to optimize cardiac status and diuretics as possible so hopefully we can prevent further deterioration of serum creatinine and renal function. February 20: Serum creatinine slightly higher to 1.7. Continue to adjust diuretics and afterload load reduction medications as such to stabilize serum creatinine from further rise. February 19. Serum creatinine higher to 1.6. Otherwise no new changes. We will continue to monitor renal parameters. February 18: Renal parameters stable. Continue per consultants. February 17: Remains stable from renal standpoint of view. Continue per consultants. February 16: Patient stable from renal standpoint to view. Continue per pulmonary. Continue per ID. Serum creatinine down to 1.6 from 2.1 on admission day February 15: When I saw the patient this morning with charge nurse Wilfred the patient was somewhat hypoxic on oxygen. Was ordered to be put on mask and inform substance abuse specialist for possible ABG check and further treatment plan. Labs reviewed. Serum creatinine stable. Troponin unchanged. Continue to monitor renal parameters. Continue to optimize cardiac and pulmonary status. Overall prognosis poor. Slow hydration Monitor electrolytes and renal parameters Monitor urine output Correct abnormal electrolytes Antibiotics, avoid nephrotoxic's Anemia work-up Per orders Subjective ROS Limited/Unobtainable: No Constitutional: Reports: malaise, weakness Objective Objective Last 24 Hour Vital Signs Date Time Temp Pulse Resp B/P (MAP) Pulse Ox O2 Delivery O2 Flow Rate FiO2 02/23/20 12:45 83 02/23/20 12:01 138/77 02/23/20 11:46 96.8 89 20 138/77 (97) 96 02/23/20 10:05 75 19 133/76 96 02/23/20 09:35 67 20 136/80 96 02/23/20 09:24 67 136/80 02/23/20 09:24 67 136/80 02/23/20 09:00 Venturi Mask 10.0 02/23/20 08:00 96.8 67 20 136/80 (98) 96 02/23/20 08:00 93 02/23/20 05:54 169/94 02/23/20 04:00 67 02/23/20 03:54 97.7 89 20 169/94 (119) 99 02/23/20 00:32 186/71 02/23/20 00:00 97.7 80 20 186/71 (109) 98 02/23/20 00:00 79 02/22/20 21:17 93 140/76 02/22/20 21:00 Venturi Mask 10.0 02/22/20 20:00 95 02/22/20 20:00 98.2 93 20 140/76 (97) 96 02/22/20 18:20 138/73 02/22/20 16:00 96.7 71 19 120/61 (80) 97 02/22/20 15:10 82 Intake and Output 02/22/20 02/23/20 19:00 07:00 Intake Total 240 ml Output Total 500 ml Balance 240 ml -500 ml Intake Oral 240 ml Output Urine Total 500 ml Laboratory Tests 02/23/20 08:10: White Blood Count 4.5#L, Red Blood Count 5.50, Hemoglobin 14.9, Hematocrit 45.6, Mean Corpuscular Volume 83#, Mean Corpuscular Hemoglobin 27.1, Mean Corpuscular Hemoglobin Concent 32.8, Red Cell Distribution Width 12.9, Platelet Count 169, Mean Platelet Volume 7.5, Neutrophils (%) (Auto) 50.8, Lymphocytes (%) (Auto) 34.4, Monocytes (%) (Auto) 10.0, Eosinophils (%) (Auto) 2.7, Basophils (%) (Auto) 2.0, Sodium Level 142, Potassium Level 3.9, Chloride Level 106, Carbon Dioxide Level 28, Anion Gap 9, Blood Urea Nitrogen 10, Creatinine 1.1, Estimat Glomerular Filtration Rate > 60, Glucose Level 98, Uric Acid 5.0, Calcium Level 8.6, Phosphorus Level 3.2, Magnesium Level 1.9, Total Bilirubin 0.4, Aspartate Amino Transf (AST/SGOT) 14L, Alanine Aminotransferase (ALT/SGPT) 26, Alkaline Phosphatase 64, C-Reactive Protein, Quantitative 1.1H, Pro-B-Type Natriuretic Peptide 39, Total Protein 7.2, Albumin 3.1L, Globulin 4.1, Albumin/Globulin Ratio 0.8L Height (Feet): 5 Height (Inches): 10.00 Weight (Pounds): 231 General Appearance: no apparent distress Cardiovascular: normal rate Respiratory/Chest: decreased breath sounds Abdomen: soft Objective No change Ashvin Bautista MD Feb 23, 2020 13:51
[2020-02-23 14:44] LABS: CREATININE 1.8 MG/DL (0.55-1.30); POTASSIUM 4.3 MMOL/L (3.5-5.1)
[2020-02-23 14:49] LABS: ALBUMIN 3.4 G/DL (3.4-5.0); ALBUMIN/GLOBULIN RATIO 0.8 (1.0-2.7); BILIRUBIN,TOTAL 0.6 MG/DL (0.2-1.0)
--- NOTE | 2020-02-23 15:18 | Internal Med Progress Note ---
Subjective Physician Name Atilio Lee Attending Physician Atilio Lee MD Current Medications Medications (Trade) Dose Ordered Sig/Reji Route PRN Reason Start Time Stop Time Status Last Admin Dose Admin Acetaminophen (Tylenol) 500 mg Q4H PRN ORAL Mild Pain (Pain Scale 1-3) 02/14/20 00:30 03/15/20 00:29 Acetaminophen (Tylenol) 650 mg Q4H PRN ORAL FEVER 02/14/20 10:00 03/15/20 09:59 Amiodarone HCl (Cordarone) 200 mg DAILY ORAL 02/14/20 19:15 05/14/20 19:14 02/23/20 09:24 Amlodipine Besylate (Norvasc) 5 mg DAILY ORAL 02/23/20 09:00 03/21/20 17:59 02/23/20 09:24 Aspirin (ASA) 81 mg DAILY ORAL 02/15/20 09:00 03/31/20 08:59 02/23/20 09:23 Atorvastatin Calcium (Lipitor) 40 mg BEDTIME ORAL 02/14/20 21:00 05/14/20 20:59 02/22/20 21:17 Dexamethasone (Decadron) 4 mg DAILY ORAL 02/14/20 09:00 02/24/20 08:59 02/23/20 09:24 Dextrose (Dextrose 50%) 25 ml Q30M PRN IV Hypoglycemia 02/14/20 10:00 05/14/20 09:59 Dextrose (Dextrose 50%) 50 ml Q30M PRN IV Hypoglycemia 02/14/20 10:00 05/14/20 09:59 Heparin Sodium (Porcine) (Heparin 5000 units/ml) 5,000 units EVERY 12 HOURS SUBQ 02/14/20 10:00 03/30/20 09:59 02/23/20 09:25 Hydralazine HCl (Apresoline) 25 mg Q6HR ORAL 02/21/20 12:00 05/21/20 11:59 02/23/20 12:01 Lorazepam (Ativan 2mg/ml 1ml) 0.5 mg Q6HR PRN IV For Anxiety 02/18/20 13:00 02/25/20 12:59 02/23/20 09:35 Metoprolol Tartrate (Lopressor) 25 mg EVERY 12 HOURS ORAL 02/14/20 21:00 05/14/20 20:59 02/23/20 09:24 Ondansetron HCl (Zofran) 4 mg Q6H PRN IVP Nausea & Vomiting 02/14/20 10:00 03/15/20 09:59 Pantoprazole (Protonix) 40 mg EVERY 12 HOURS ORAL 02/15/20 21:00 03/16/20 20:59 02/23/20 09:24 Polyethylene Glycol (Miralax) 17 gm DAILYPRN PRN ORAL Constipation 02/14/20 10:00 03/15/20 09:59 Promethazine HCl/ Codeine (Phenergan with Codeine) 5 ml Q6H PRN ORAL cough 02/14/20 10:00 03/15/20 09:59 Tamsulosin HCl (Flomax) 0.4 mg BID ORAL 02/21/20 10:30 03/21/20 10:29 02/23/20 09:24 Allergies: Coded Allergies: DONNIE INHIBITORS (Verified Allergy, Unknown, 02/13/20) OMEGA-3 ACID ETHYL ESTERS (Verified Allergy, Unknown, 02/13/20) Subjective awake, alert, responsive, oxygen via simple mask, In [address] room.BUN/CR: 45/1.8 Objective Last Vital Signs Date Time Temp Pulse Resp B/P (MAP) Pulse Ox O2 Delivery O2 Flow Rate FiO2 02/23/20 12:45 83 02/23/20 12:01 138/77 02/23/20 11:46 96.8 20 96 02/23/20 09:00 Venturi Mask 10.0 Laboratory Tests Test 02/23/20 08:10 02/23/20 14:15 White Blood Count 4.5 K/UL (4.8-10.8) #L Red Blood Count 5.50 M/UL (4.70-6.10) Hemoglobin 14.9 G/DL (14.2-18.0) Hematocrit 45.6 % (42.0-52.0) Mean Corpuscular Volume 83 FL (80-99) # Mean Corpuscular Hemoglobin 27.1 PG (27.0-31.0) Mean Corpuscular Hemoglobin Concent 32.8 G/DL (32.0-36.0) Red Cell Distribution Width 12.9 % (11.6-14.8) Platelet Count 169 K/UL (150-450) Mean Platelet Volume 7.5 FL (6.5-10.1) Neutrophils (%) (Auto) 50.8 % (45.0-75.0) Lymphocytes (%) (Auto) 34.4 % (20.0-45.0) Monocytes (%) (Auto) 10.0 % (1.0-10.0) Eosinophils (%) (Auto) 2.7 % (0.0-3.0) Basophils (%) (Auto) 2.0 % (0.0-2.0) Sodium Level 142 MMOL/L (136-145) 143 MMOL/L (136-145) Potassium Level 3.9 MMOL/L (3.5-5.1) 4.3 MMOL/L (3.5-5.1) Chloride Level 106 MMOL/L (98-107) 108 MMOL/L (98-107) H Carbon Dioxide Level 28 MMOL/L (21-32) 25 MMOL/L (21-32) Anion Gap 9 mmol/L (5-15) 10 mmol/L (5-15) Blood Urea Nitrogen 10 mg/dL (7-18) 45 mg/dL (7-18) H Creatinine 1.1 MG/DL (0.55-1.30) 1.8 MG/DL (0.55-1.30) #H Estimat Glomerular Filtration Rate > 60 mL/min (>60) 46.8 mL/min (>60) Glucose Level 98 MG/DL (74-106) 216 MG/DL (74-106) #H Uric Acid 5.0 MG/DL (2.6-7.2) Calcium Level 8.6 MG/DL (8.5-10.1) 9.0 MG/DL (8.5-10.1) Phosphorus Level 3.2 MG/DL (2.5-4.9) Magnesium Level 1.9 MG/DL (1.8-2.4) Total Bilirubin 0.4 MG/DL (0.2-1.0) 0.6 MG/DL (0.2-1.0) Aspartate Amino Transf (AST/SGOT) 14 U/L (15-37) L 101 U/L (15-37) H Alanine Aminotransferase (ALT/SGPT) 26 U/L (12-78) 83 U/L (12-78) H Alkaline Phosphatase 64 U/L (46-116) 61 U/L (46-116) C-Reactive Protein, Quantitative 1.1 mg/dL (0.00-0.90) H Pro-B-Type Natriuretic Peptide 39 pg/mL (0-125) Total Protein 7.2 G/DL (6.4-8.2) 7.5 G/DL (6.4-8.2) Albumin 3.1 G/DL (3.4-5.0) L 3.4 G/DL (3.4-5.0) Globulin 4.1 g/dL 4.1 g/dL Albumin/Globulin Ratio 0.8 (1.0-2.7) L 0.8 (1.0-2.7) L Intake and Output 02/22/20 02/23/20 19:00 07:00 Intake Total 240 ml Output Total 500 ml Balance 240 ml -500 ml Intake Oral 240 ml Output Urine Total 500 ml Objective General: No acute distress, awake, responsive, agitated. HEENT: NCAT, sclera anicteric, PERRL, EOMI. Neck: Supple, no significant jugular venous distention, Lungs: fair inspiratory effort, decrease breath sound at bases, no Wheeze or Rales. Heart: Regular rate and rhythm, normal S1/S2, no murmurs Abdomen: soft, nontender, nondistended. Normoactive bowel sounds, Obesity. Extremities: No Cyanosis , clubbing or edema. Neuro: Limited due to patient status, Able to move all extremities Skin: warm, no rash Assessment/Plan Assessment/Plan ASSESSMENT: This is a 60-year-old male: 1. Shortness of breath. 2. Fever. 3. COVID-19 pneumonia. 4. Hypertension. 5. Cerebrovascular disease, status post cerebrovascular accident. 6. Hemiplegia. 7. Hypercholesterolemia. 8. Coronary artery disease. 9. Cardiomyopathy. 10. Paroxysmal atrial fibrillation. 11. Schizoaffective disorder, bipolar type. 12. Chronic kidney disease. 13. Sepsis=gram pos cocci TREATMENT: 1. Hypoxia/ COVID-19 pneumonia. A Pulmonary consultation has been obtained with Dr. Lyle Joy. COVID-19 testing is positive 2. Hypertension. 3. Cerebrovascular disease. 4. Hemiplegia. 5. Coronary artery disease. A Cardiology consultation has been obtained with Dr. Kayden Aguilar. 6. Hypercholesterolemia. Continue atorvastatin as above. 7. Cardiomyopathy. 8. Paroxysmal atrial fibrillation. 9. Schizoaffective disorder, bipolar type. 10. Chronic kidney disease. 11. Pacemaker in situ. 12. ID=DR Espinoza -Abx: Off -Decadron # 11 -Requested Remdesivir #/ Completed. -DVT Prophylax: Heparin SQ -Full code Atilio Lee MD Feb 23, 2020 15:18
[2020-02-23 16:00] VITALS: BP 131/67
[2020-02-23 20:00] VITALS: BP 120/73
[2020-02-23] MEDS: Atorvastatin 20mg tab ORAL SCH (21:24)
[2020-02-24] VITALS: BP 125/97
[2020-02-24] MEDS: HydrALAZINE 25mg tab ORAL SCH ×4 (00:40→17:44)
[2020-02-24 04:00] VITALS: BP 130/89
--- NOTE | 2020-02-24 07:18 | Infectious Diseases Prog Note ---
Assessment/Plan Assessment: COVID19 positive (dx'ed 02/08/20)- likely PNA Acute hypoxic resp failure- sp NRB> 4l NC> desaturated to 78% and was placed on SM 8L 02/15 > VM 10L 02/19 -02/18 CXR: Worsening bilateral edema versus infiltrates, over 3 days -02/12 CXR: Cardiomegaly with vascular congestion and moderate edema. Gram positive bacteremia- m/l contaminant -02/12 Bcx 2/4 CoNS clusters, 2/4 diphteroids; 02/14 Bcx NTD Fever -LAWYER- none here so far mild leukocytosis (on steroids) SHANNAN, improving Elevated AST, mild; increasing CVA w/ resultant aphasia HLD general anxiety disorder schizoaffective disorder-depressive type cardiomegaly pAfib pHTN CKD CAD HTN [place] resident ([facility]) Plan: -Decadron # 12 -02/18 SP Ceftriaxone #7, Azithromycin #7 -02/17 SP Remdesivir #5 -02/16 SP IV Vancomycin #2 -f/u cx -Monitor CBC/CMP, temperatures -f/u repeat Bcx x2 Thank you for this consultation. Will continue to follow along with you. Subjective Allergies: Coded Allergies: DONNIE INHIBITORS (Verified Allergy, Unknown, 02/13/20) OMEGA-3 ACID ETHYL ESTERS (Verified Allergy, Unknown, 02/13/20) AF Venturi mask NAD Objective Last 24 Hour Vital Signs Date Time Temp Pulse Resp B/P (MAP) Pulse Ox O2 Delivery O2 Flow Rate FiO2 02/24/20 06:25 130/89 02/24/20 04:00 76 02/24/20 04:00 98.1 73 26 130/89 (103) 96 02/24/20 00:40 125/97 02/24/20 00:00 85 02/24/20 00:00 98.1 85 20 125/97 (106) 93 02/23/20 21:25 90 120/73 02/23/20 21:00 Venturi Mask 10.0 02/23/20 20:00 98.2 90 22 120/73 (89) 96 02/23/20 20:00 86 02/23/20 17:25 131/67 02/23/20 16:29 82 02/23/20 16:00 98.8 69 18 131/67 (88) 97 02/23/20 12:45 83 02/23/20 12:01 138/77 02/23/20 11:46 96.8 89 20 138/77 (97) 96 02/23/20 10:05 75 19 133/76 96 02/23/20 09:35 67 20 136/80 96 02/23/20 09:24 67 136/80 02/23/20 09:24 67 136/80 02/23/20 09:00 Venturi Mask 10.0 02/23/20 08:00 96.8 67 20 136/80 (98) 96 02/23/20 08:00 93 Height (Feet): 5 Height (Inches): 10.00 Weight (Pounds): 231 Gen: NAD in bed HEENT: NCAT, EOMI, PERRL Pulm: BL chest rise Abd: Soft, NTND Ext: No c/c/e Neuro: Awake Laboratory Tests Test 02/23/20 08:10 02/23/20 14:15 02/24/20 06:35 White Blood Count 4.5 K/UL (4.8-10.8) #L Red Blood Count 5.50 M/UL (4.70-6.10) Hemoglobin 14.9 G/DL (14.2-18.0) Hematocrit 45.6 % (42.0-52.0) Mean Corpuscular Volume 83 FL (80-99) # Mean Corpuscular Hemoglobin 27.1 PG (27.0-31.0) Mean Corpuscular Hemoglobin Concent 32.8 G/DL (32.0-36.0) Red Cell Distribution Width 12.9 % (11.6-14.8) Platelet Count 169 K/UL (150-450) Mean Platelet Volume 7.5 FL (6.5-10.1) Neutrophils (%) (Auto) 50.8 % (45.0-75.0) Lymphocytes (%) (Auto) 34.4 % (20.0-45.0) Monocytes (%) (Auto) 10.0 % (1.0-10.0) Eosinophils (%) (Auto) 2.7 % (0.0-3.0) Basophils (%) (Auto) 2.0 % (0.0-2.0) Sodium Level 142 MMOL/L (136-145) 143 MMOL/L (136-145) Potassium Level 3.9 MMOL/L (3.5-5.1) 4.3 MMOL/L (3.5-5.1) Chloride Level 106 MMOL/L (98-107) 108 MMOL/L (98-107) H Carbon Dioxide Level 28 MMOL/L (21-32) 25 MMOL/L (21-32) Anion Gap 9 mmol/L (5-15) 10 mmol/L (5-15) Blood Urea Nitrogen 10 mg/dL (7-18) 45 mg/dL (7-18) H Creatinine 1.1 MG/DL (0.55-1.30) 1.8 MG/DL (0.55-1.30) #H Estimat Glomerular Filtration Rate > 60 mL/min (>60) 46.8 mL/min (>60) Glucose Level 98 MG/DL (74-106) 216 MG/DL (74-106) #H Uric Acid 5.0 MG/DL (2.6-7.2) Calcium Level 8.6 MG/DL (8.5-10.1) 9.0 MG/DL (8.5-10.1) Phosphorus Level 3.2 MG/DL (2.5-4.9) Magnesium Level 1.9 MG/DL (1.8-2.4) Total Bilirubin 0.4 MG/DL (0.2-1.0) 0.6 MG/DL (0.2-1.0) Aspartate Amino Transf (AST/SGOT) 14 U/L (15-37) L 101 U/L (15-37) H Alanine Aminotransferase (ALT/SGPT) 26 U/L (12-78) 83 U/L (12-78) H Alkaline Phosphatase 64 U/L (46-116) 61 U/L (46-116) C-Reactive Protein, Quantitative 1.1 mg/dL (0.00-0.90) H Pro-B-Type Natriuretic Peptide 39 pg/mL (0-125) Total Protein 7.2 G/DL (6.4-8.2) 7.5 G/DL (6.4-8.2) Albumin 3.1 G/DL (3.4-5.0) L 3.4 G/DL (3.4-5.0) Globulin 4.1 g/dL 4.1 g/dL Albumin/Globulin Ratio 0.8 (1.0-2.7) L 0.8 (1.0-2.7) L POC Whole Blood Glucose 162 MG/DL (74-106) H Current Medications Medications (Trade) Dose Ordered Sig/Reji Route PRN Reason Start Time Stop Time Status Last Admin Dose Admin Acetaminophen (Tylenol) 500 mg Q4H PRN ORAL Mild Pain (Pain Scale 1-3) 02/14/20 00:30 03/15/20 00:29 Acetaminophen (Tylenol) 650 mg Q4H PRN ORAL FEVER 02/14/20 10:00 03/15/20 09:59 Amiodarone HCl (Cordarone) 200 mg DAILY ORAL 02/14/20 19:15 05/14/20 19:14 02/23/20 09:24 Amlodipine Besylate (Norvasc) 5 mg DAILY ORAL 02/23/20 09:00 03/21/20 17:59 02/23/20 09:24 Aspirin (ASA) 81 mg DAILY ORAL 02/15/20 09:00 03/31/20 08:59 02/23/20 09:23 Atorvastatin Calcium (Lipitor) 40 mg BEDTIME ORAL 02/14/20 21:00 05/14/20 20:59 02/23/20 21:24 Dexamethasone (Decadron) 4 mg DAILY ORAL 02/14/20 09:00 02/24/20 08:59 02/23/20 09:24 Dextrose (Dextrose 50%) 25 ml Q30M PRN IV Hypoglycemia 02/14/20 10:00 05/14/20 09:59 Dextrose (Dextrose 50%) 50 ml Q30M PRN IV Hypoglycemia 02/14/20 10:00 05/14/20 09:59 Heparin Sodium (Porcine) (Heparin 5000 units/ml) 5,000 units EVERY 12 HOURS SUBQ 02/14/20 10:00 03/30/20 09:59 02/23/20 21:27 Hydralazine HCl (Apresoline) 25 mg Q6HR ORAL 02/21/20 12:00 05/21/20 11:59 02/24/20 06:25 Lorazepam (Ativan 2mg/ml 1ml) 0.5 mg Q6HR PRN IV For Anxiety 02/18/20 13:00 02/25/20 12:59 02/23/20 09:35 Metoprolol Tartrate (Lopressor) 25 mg EVERY 12 HOURS ORAL 02/14/20 21:00 05/14/20 20:59 02/23/20 21:25 Ondansetron HCl (Zofran) 4 mg Q6H PRN IVP Nausea & Vomiting 02/14/20 10:00 03/15/20 09:59 Pantoprazole (Protonix) 40 mg EVERY 12 HOURS ORAL 02/15/20 21:00 03/16/20 20:59 02/23/20 21:24 Polyethylene Glycol (Miralax) 17 gm DAILYPRN PRN ORAL Constipation 02/14/20 10:00 03/15/20 09:59 Promethazine HCl/ Codeine (Phenergan with Codeine) 5 ml Q6H PRN ORAL cough 02/14/20 10:00 03/15/20 09:59 Tamsulosin HCl (Flomax) 0.4 mg BID ORAL 02/21/20 10:30 03/21/20 10:29 02/23/20 17:25 Ameena Waggoner M.D. Feb 24, 2020 07:18
[2020-02-24 08:00] VITALS: BP 116/74
--- NOTE | 2020-02-24 08:02 | Pulmonology Progress Note ---
Subjective ROS Limited/Unobtainable: No Constitutional: Reports: no symptoms HEENT: Repors: no symptoms Respiratory: Reports: productive cough, other - on VM Cardiovascular: Reports: no symptoms Gastrointestinal/Abdominal: Reports: no symptoms Allergies: Coded Allergies: DONNIE INHIBITORS (Verified Allergy, Unknown, 02/13/20) OMEGA-3 ACID ETHYL ESTERS (Verified Allergy, Unknown, 02/13/20) Subjective afebrile, leuk up to 20.6 on VM no signs of resp distress last CXR with small improvement steroids dc today Objective Last 24 Hour Vital Signs Date Time Temp Pulse Resp B/P (MAP) Pulse Ox O2 Delivery O2 Flow Rate FiO2 02/24/20 06:25 130/89 02/24/20 04:00 76 02/24/20 04:00 98.1 73 26 130/89 (103) 96 02/24/20 00:40 125/97 02/24/20 00:00 85 02/24/20 00:00 98.1 85 20 125/97 (106) 93 02/23/20 21:25 90 120/73 02/23/20 21:00 Venturi Mask 10.0 02/23/20 20:00 98.2 90 22 120/73 (89) 96 02/23/20 20:00 86 02/23/20 17:25 131/67 02/23/20 16:29 82 02/23/20 16:00 98.8 69 18 131/67 (88) 97 02/23/20 12:45 83 02/23/20 12:01 138/77 02/23/20 11:46 96.8 89 20 138/77 (97) 96 02/23/20 10:05 75 19 133/76 96 02/23/20 09:35 67 20 136/80 96 02/23/20 09:24 67 136/80 02/23/20 09:24 67 136/80 02/23/20 09:00 Venturi Mask 10.0 Intake and Output 02/23/20 02/24/20 19:00 07:00 Intake Total 240 ml Output Total 500 ml 700 ml Balance -260 ml -700 ml Intake Oral 240 ml Output Urine Total 500 ml 700 ml General Appearance: WD/WN, other - A/A/O x 4 AA male in NAD HEENT: normocephalic, atraumatic, other - VM on Respiratory: chest wall non-tender, other - few scattered rhonchi Cardiovascular: normal peripheral pulses, normal rate - SR on tele Abdomen: normal bowel sounds, soft, non tender Genitourinary: normal external genitalia Extremities: no cyanosis, no edema Skin: no rash Neurologic: director and professor II-XII grossly normal, no motor/sensory deficits, alert, oriented x 3, responsive Lymphatic: no neck adenopathy Musculoskeletal: normal muscle bulk Laboratory Tests 02/23/20 08:10: White Blood Count 4.5#L, Red Blood Count 5.50, Hemoglobin 14.9, Hematocrit 45.6, Mean Corpuscular Volume 83#, Mean Corpuscular Hemoglobin 27.1, Mean Corpuscular Hemoglobin Concent 32.8, Red Cell Distribution Width 12.9, Platelet Count 169, M ted Platelet Volume 7.5, Neutrophils (%) (Auto) 50.8, Lymphocytes (%) (Auto) 34.4, Monocytes (%) (Auto) 10.0, Eosinophils (%) (Auto) 2.7, Basophils (%) (Auto) 2.0, Sodium Level 142, Potassium Level 3.9, Chloride Level 106, Carbon Dioxide Level 28, Anion Gap 9, Blood Urea Nitrogen 10, Creatinine 1.1, Estimat Glomerular Filtration Rate > 60, Glucose Level 98, Uric Acid 5.0, Calcium Level 8.6, Phosphorus Level 3.2, Magnesium Level 1.9, Total Bilirubin 0.4, Aspartate Amino Transf (AST/SGOT) 14L, Alanine Aminotransferase (ALT/SGPT) 26, Alkaline Phosphatase 64, C-Reactive Protein, Quantitative 1.1H, Pro-B-Type Natriuretic Peptide 39, Total Protein 7.2, Albumin 3.1L, Globulin 4.1, Albumin/Globulin Ratio 0.8L 02/23/20 14:15: Sodium Level 143, Potassium Level 4.3, Chloride Level 108H, Carbon Dioxide Level 25, Anion Gap 10, Blood Urea Nitrogen 45H, Creatinine 1.8#H, Estimat Glomerular Filtration Rate 46.8, Glucose Level 216#H, Calcium Level 9.0, Total Bilirubin 0.6, Aspartate Amino Transf (AST/SGOT) 101H, Alanine Aminotransferase (ALT/SGPT) 83H, Alkaline Phosphatase 61, Total Protein 7.5, Albumin 3.4, Globulin 4.1, Albumin/Globulin Ratio 0.8L 02/24/20 06:35: POC Whole Blood Glucose 162H Current Medications Medications (Trade) Dose Ordered Sig/Reji Route PRN Reason Start Time Stop Time Status Last Admin Dose Admin Acetaminophen (Tylenol) 500 mg Q4H PRN ORAL Mild Pain (Pain Scale 1-3) 02/14/20 00:30 03/15/20 00:29 Acetaminophen (Tylenol) 650 mg Q4H PRN ORAL FEVER 02/14/20 10:00 03/15/20 09:59 Amiodarone HCl (Cordarone) 200 mg DAILY ORAL 02/14/20 19:15 05/14/20 19:14 02/23/20 09:24 Amlodipine Besylate (Norvasc) 5 mg DAILY ORAL 02/23/20 09:00 03/21/20 17:59 02/23/20 09:24 Aspirin (ASA) 81 mg DAILY ORAL 02/15/20 09:00 03/31/20 08:59 02/23/20 09:23 Atorvastatin Calcium (Lipitor) 40 mg BEDTIME ORAL 02/14/20 21:00 05/14/20 20:59 02/23/20 21:24 Dexamethasone (Decadron) 4 mg DAILY ORAL 02/14/20 09:00 02/24/20 08:59 02/23/20 09:24 Dextrose (Dextrose 50%) 25 ml Q30M PRN IV Hypoglycemia 02/14/20 10:00 05/14/20 09:59 Dextrose (Dextrose 50%) 50 ml Q30M PRN IV Hypoglycemia 02/14/20 10:00 05/14/20 09:59 Heparin Sodium (Porcine) (Heparin 5000 units/ml) 5,000 units EVERY 12 HOURS SUBQ 02/14/20 10:00 03/30/20 09:59 02/23/20 21:27 Hydralazine HCl (Apresoline) 25 mg Q6HR ORAL 02/21/20 12:00 05/21/20 11:59 02/24/20 06:25 Lorazepam (Ativan 2mg/ml 1ml) 0.5 mg Q6HR PRN IV For Anxiety 02/18/20 13:00 02/25/20 12:59 02/23/20 09:35 Metoprolol Tartrate (Lopressor) 25 mg EVERY 12 HOURS ORAL 02/14/20 21:00 05/14/20 20:59 02/23/20 21:25 Ondansetron HCl (Zofran) 4 mg Q6H PRN IVP Nausea & Vomiting 02/14/20 10:00 03/15/20 09:59 Pantoprazole (Protonix) 40 mg EVERY 12 HOURS ORAL 02/15/20 21:00 03/16/20 20:59 02/23/20 21:24 Polyethylene Glycol (Miralax) 17 gm DAILYPRN PRN ORAL Constipation 02/14/20 10:00 03/15/20 09:59 Promethazine HCl/ Codeine (Phenergan with Codeine) 5 ml Q6H PRN ORAL cough 02/14/20 10:00 03/15/20 09:59 Tamsulosin HCl (Flomax) 0.4 mg BID ORAL 02/21/20 10:30 03/21/20 10:29 02/23/20 17:25 Assessment/Plan Assessment/Plan ASSESSMENT Probably sepsis COVID-19 pneumonia Acute hypoxemic respiratory failure requiring NRM and Ventimask CHF with systolic dysfunction CM with EF 30 to 35% SHANNAN on CKD History of CVA with residual aphasia PAF Elevated LFT DM Schizoaffective disorder PLAN OF CARE tele Isolation O2 titrate to keep sat above 92 MDI inhaler prn s/p 10 d of Remdesivir, dc steroids a/tussive prn started on abx -Zosyn per ID due to leuk today ( ? due to steroids, off steroids , no fever, fup with CXR today) last prior CXR -> slight improvement , still significant bilateral alveolar disease initial BCX with CONS, repeated BCX 02/14- NGT; initial positive BCX likely contaminant Echo with EF 30-35%, global LV hypokinesis Guideline directed medical therapy with BB, ARB; monitor volumes continue ASA and statin DVT and GI prophylaxis BP management with CCB, BB and ARB Renal US NGT monitor renal parameters lytes, correct electrolytes as needed, avoid nephrotoxic BS management with SSI; hemoglobin A1c 6.8 trend LFT PT Rx case discussed and evaluated by supervising physician Tika Dunn NP Feb 24, 2020 08:02
[2020-02-24 08:39] LABS: HEMATOCRIT 43.9 % (42.0-52.0); HEMOGLOBIN 14.5 G/DL (14.2-18.0); MEAN CORPUSCULAR VOLUME 97 FL (80-99); PLATELET COUNT 288 K/UL (150-450); WHITE BLOOD COUNT 20.6 K/UL (4.8-10.8)
[2020-02-24] MEDS: LORazepam Inj 2mg/ml 1ml IV PRN (09:09)
[2020-02-24] MEDS: Aspirin Baby 81mg ORAL SCH (09:10)
[2020-02-24] MEDS: Tamsulosin 0.4mg cap ORAL SCH ×2 (09:10→17:44)
[2020-02-24] MEDS: Heparin 5000 units/ml inj SUBQ SCH ×2 (09:11→21:20)
[2020-02-24] MEDS: Amiodarone 200mg tab ORAL SCH (09:11)
[2020-02-24 09:17] LABS: ALBUMIN 3.4 G/DL (3.4-5.0); ALBUMIN/GLOBULIN RATIO 0.9 (1.0-2.7); BILIRUBIN,TOTAL 0.7 MG/DL (0.2-1.0); CALCIUM 9.4 MG/DL (8.5-10.1); CREATININE 1.8 MG/DL (0.55-1.30); PHOSPHORUS 3.7 MG/DL (2.5-4.9); POTASSIUM 4.3 MMOL/L (3.5-5.1)
--- NOTE | 2020-02-24 11:37 | Internal Med Progress Note ---
Subjective Date of Service: Feb 24, 2020 Physician Name Edmund Carrera Attending Physician Atilio Lee MD Current Medications Medications (Trade) Dose Ordered Sig/Reji Route PRN Reason Start Time Stop Time Status Last Admin Dose Admin Acetaminophen (Tylenol) 500 mg Q4H PRN ORAL Mild Pain (Pain Scale 1-3) 02/14/20 00:30 03/15/20 00:29 Acetaminophen (Tylenol) 650 mg Q4H PRN ORAL FEVER 02/14/20 10:00 03/15/20 09:59 Amiodarone HCl (Cordarone) 200 mg DAILY ORAL 02/14/20 19:15 05/14/20 19:14 02/24/20 09:11 Amlodipine Besylate (Norvasc) 5 mg DAILY ORAL 02/23/20 09:00 03/21/20 17:59 02/24/20 09:11 Aspirin (ASA) 81 mg DAILY ORAL 02/15/20 09:00 03/31/20 08:59 02/24/20 09:10 Atorvastatin Calcium (Lipitor) 40 mg BEDTIME ORAL 02/14/20 21:00 05/14/20 20:59 02/23/20 21:24 Dextrose (Dextrose 50%) 25 ml Q30M PRN IV Hypoglycemia 02/14/20 10:00 05/14/20 09:59 Dextrose (Dextrose 50%) 50 ml Q30M PRN IV Hypoglycemia 02/14/20 10:00 05/14/20 09:59 Heparin Sodium (Porcine) (Heparin 5000 units/ml) 5,000 units EVERY 12 HOURS SUBQ 02/14/20 10:00 03/30/20 09:59 02/24/20 09:11 Hydralazine HCl (Apresoline) 25 mg Q6HR ORAL 02/21/20 12:00 05/21/20 11:59 02/24/20 06:25 Lorazepam (Ativan 2mg/ml 1ml) 0.5 mg Q6HR PRN IV For Anxiety 02/18/20 13:00 02/25/20 12:59 02/24/20 09:09 Metoprolol Tartrate (Lopressor) 25 mg EVERY 12 HOURS ORAL 02/14/20 21:00 05/14/20 20:59 02/24/20 09:10 Ondansetron HCl (Zofran) 4 mg Q6H PRN IVP Nausea & Vomiting 02/14/20 10:00 03/15/20 09:59 Pantoprazole (Protonix) 40 mg EVERY 12 HOURS ORAL 02/15/20 21:00 03/16/20 20:59 02/24/20 09:10 Piperacillin Sod/ Tazobactam Sod 3.375 gm/Sodium Chloride 110 ml @ 27.5 mls/hr EVERY 8 HOURS IVPB 02/24/20 14:00 02/29/20 13:59 Polyethylene Glycol (Miralax) 17 gm DAILYPRN PRN ORAL Constipation 02/14/20 10:00 03/15/20 09:59 02/24/20 09:10 Promethazine HCl/ Codeine (Phenergan with Codeine) 5 ml Q6H PRN ORAL cough 02/14/20 10:00 03/15/20 09:59 Tamsulosin HCl (Flomax) 0.4 mg BID ORAL 02/21/20 10:30 03/21/20 10:29 02/24/20 09:10 Allergies: Coded Allergies: DONNIE INHIBITORS (Verified Allergy, Unknown, 02/13/20) OMEGA-3 ACID ETHYL ESTERS (Verified Allergy, Unknown, 02/13/20) ROS Limited/Unobtainable: No Subjective 60 YO M admitted with shortness of breath. Now COVID 19 and sepsis. Cover for Int Med-Dr Lee. Worsening leukocytosis Objective Last Vital Signs Date Time Temp Pulse Resp B/P (MAP) Pulse Ox O2 Delivery O2 Flow Rate FiO2 02/24/20 09:38 91 20 116/74 96 02/24/20 09:00 Venturi Mask 10.0 02/24/20 08:00 97.7 Laboratory Tests Test 02/23/20 14:15 02/24/20 06:35 Sodium Level 143 MMOL/L (136-145) 142 MMOL/L (136-145) Potassium Level 4.3 MMOL/L (3.5-5.1) 4.3 MMOL/L (3.5-5.1) Chloride Level 108 MMOL/L (98-107) H 107 MMOL/L (98-107) Carbon Dioxide Level 25 MMOL/L (21-32) 28 MMOL/L (21-32) Anion Gap 10 mmol/L (5-15) 8 mmol/L (5-15) Blood Urea Nitrogen 45 mg/dL (7-18) H 47 mg/dL (7-18) H Creatinine 1.8 MG/DL (0.55-1.30) #H 1.8 MG/DL (0.55-1.30) H Estimat Glomerular Filtration Rate 46.8 mL/min (>60) 46.8 mL/min (>60) Glucose Level 216 MG/DL (74-106) #H 148 MG/DL (74-106) H Calcium Level 9.0 MG/DL (8.5-10.1) 9.4 MG/DL (8.5-10.1) Total Bilirubin 0.6 MG/DL (0.2-1.0) 0.7 MG/DL (0.2-1.0) Aspartate Amino Transf (AST/SGOT) 101 U/L (15-37) H 90 U/L (15-37) H Alanine Aminotransferase (ALT/SGPT) 83 U/L (12-78) H 86 U/L (12-78) H Alkaline Phosphatase 61 U/L (46-116) 51 U/L (46-116) Total Protein 7.5 G/DL (6.4-8.2) 7.0 G/DL (6.4-8.2) Albumin 3.4 G/DL (3.4-5.0) 3.4 G/DL (3.4-5.0) Globulin 4.1 g/dL 3.6 g/dL Albumin/Globulin Ratio 0.8 (1.0-2.7) L 0.9 (1.0-2.7) L White Blood Count 20.6 K/UL (4.8-10.8) #H Red Blood Count 4.50 M/UL (4.70-6.10) L Hemoglobin 14.5 G/DL (14.2-18.0) Hematocrit 43.9 % (42.0-52.0) Mean Corpuscular Volume 97 FL (80-99) # Mean Corpuscular Hemoglobin 32.3 PG (27.0-31.0) H Mean Corpuscular Hemoglobin Concent 33.1 G/DL (32.0-36.0) Red Cell Distribution Width 14.0 % (11.6-14.8) Platelet Count 288 K/UL (150-450) # Mean Platelet Volume 9.4 FL (6.5-10.1) Neutrophils (%) (Auto) % (45.0-75.0) Lymphocytes (%) (Auto) % (20.0-45.0) Monocytes (%) (Auto) % (1.0-10.0) Eosinophils (%) (Auto) % (0.0-3.0) Basophils (%) (Auto) % (0.0-2.0) Neutrophils % (Manual) Pending Lymphocytes % (Manual) Pending Platelet Estimate Pending Platelet Morphology Pending Erythrocyte Sedimentation Rate Pending POC Whole Blood Glucose 162 MG/DL (74-106) H Phosphorus Level 3.7 MG/DL (2.5-4.9) Magnesium Level 2.5 MG/DL (1.8-2.4) H C-Reactive Protein, Quantitative 1.5 mg/dL (0.00-0.90) H Intake and Output 02/23/20 02/24/20 19:00 07:00 Intake Total 240 ml Output Total 500 ml 700 ml Balance -260 ml -700 ml Intake Oral 240 ml Output Urine Total 500 ml 700 ml Objective PHYSICAL EXAMINATION: GENERAL: The patient is well-developed and well-nourished male, no apparent distress. HEENT: Eyes, pupils are equal and responsive to light and accommodation. Extraocular movements are intact. NECK: Supple without lymphadenopathy. CHEST: Venturi mask; Lungs with bilateral expiratory wheezes and rales. CARDIOVASCULAR: Regular rhythm and rate. S1 and S2 are normal without murmurs, rubs, or gallops. ABDOMEN: Soft, nontender, and nondistended. Positive bowel sounds. No evidence of hepatosplenomegaly. Currently, no rebound or guarding noted. EXTREMITIES: Negative for clubbing, cyanosis, or edema. RECTAL/GENITAL: Not performed. NEUROLOGIC: Cranial nerves II through XII are grossly intact without focal deficits. Motor strength is 5/5 bilaterally. Deep tendon reflexes are 2+ plantar. Assessment/Plan Assessment/Plan ASSESSMENT: This is a 60-year-old male: 1. Shortness of breath. 2. Fever. 3. COVID-19 positive. 4. Hypertension. 5. Cerebrovascular disease, status post cerebrovascular accident. 6. Hemiplegia. 7. Hypercholesterolemia. 8. Coronary artery disease. 9. Cardiomyopathy. 10. Paroxysmal atrial fibrillation. 11. Schizoaffective disorder, bipolar type. 12. Chronic kidney disease. 13. Sepsis=Staph epidermidis 14. Elevated troponin 15. AICD in situ 16. Worsening leukocytosis TREATMENT: 1. Hypoxia/shortness of breath. A Pulmonary = Dr. Lyle Joy. COVID-19 testing = positive ABX=S/P vanco, ceftriaxone and azithromycin and remdesivir 2. Hypertension. 3. Cerebrovascular disease. 4. Hemiplegia. 5. Coronary artery disease. Cardiology= Dr. Kayden Aguilar. 6. Hypercholesterolemia. Continue atorvastatin as above. 7. Cardiomyopathy. 8. Paroxysmal atrial fibrillation. 9. Schizoaffective disorder, bipolar type. 10. Chronic kidney disease. 11. Pacemaker in situ. 12. ID=DR Espinoza 13. Abx: Monitor Off 14. Decadron # 11 15. Remdesivir #5/5 Completed. 16. DVT Prophylaxsis: Heparin SQ 17. Code status: Full code Edmund Carrera MD Feb 24, 2020 11:37
--- NOTE | 2020-02-24 11:58 | Nephrology Progress Note ---
Assessment/Plan Problem List: (1) SHANNAN (acute kidney injury) (2) CHF (congestive heart failure) (3) Atrial fibrillation (4) Cardiomyopathy (5) ICD (implantable cardioverter-defibrillator) in place (6) History of CVA (cerebrovascular accident) (7) Pneumonia due to COVID-19 virus Assessment Acute on chronic renal failure Respiratory failure with hypoxia Pneumonia due to COVID-19 virus Sepsis Diabetes mellitus with elevated hemoglobin A1c Anemia Cardiomyopathy 20% EjFx Plan February 23: Labs reviewed. Serum creatinine 1.8. Medication list reviewed. Continue to monitor renal parameters. Continue to optimize cardiac status. February 22: Labs reviewed. I suspect today's labs is an error. Will repeat the blood work. Continue current management. Discussed with charge nurse about the repeating the blood work today February 21: Serum creatinine rising to 2. Uric acid verna. Patient renal failure is due to aggressive treatment for congestive heart failure and cardiomyopathy and ejection fraction of 20%. Continue to optimize cardiac st atus and diuretics as possible so hopefully we can prevent further deterioration of serum creatinine and renal function. February 20: Serum creatinine slightly higher to 1.7. Continue to adjust diuretics and afterload load reduction medications as such to stabilize serum creatinine from further rise. February 19. Serum creatinine higher to 1.6. Otherwise no new changes. We wi ll continue to monitor renal parameters. February 18: Renal parameters stable. Continue per consultants. February 17: Remains stable from renal standpoint of view. Continue per consultants. February 16: Patient stable from renal standpoint to view. Continue per pulmonary. Continue per ID. Serum creatinine down to 1.6 from 2.1 on admission day February 15: When I saw the patient this morning with charge nurse Wilfred the patient was somewhat hypoxic on oxygen. Was ordered to be put on mask and inform heavy equipment plumbing supervisor for possible ABG check and further treatment plan. Labs reviewed. Serum creatinine stable. Troponin unchanged. Continue to monitor renal parameters. Continue to optimize cardiac and pulmonary status. Overall prognosis poor. Slow hydration Monitor electrolytes and renal parameters Monitor urine output Correct abnormal electrolytes Antibiotics, avoid nephrotoxic's Anemia work-up Per orders Subjective ROS Limited/Unobtainable: Yes Objective Objective Last 24 Hour Vital Signs Date Time Temp Pulse Resp B/P (MAP) Pulse Ox O2 Delivery O2 Flow Rate FiO2 02/24/20 11:34 116/74 02/24/20 09:38 91 20 116/74 96 9/26/20 09:11 91 116/74 02/24/20 09:10 91 116/74 02/24/20 09:09 91 20 116/74 97 02/24/20 09:00 Venturi Mask 10.0 02/24/20 08:00 83 02/24/20 08:00 97.7 91 24 116/74 (88) 97 02/24/20 06:25 130/89 02/24/20 04:00 76 02/24/20 04:00 98.1 73 26 130/89 (103) 96 02/24/20 00:40 125/97 02/24/20 00:00 85 02/24/20 00:00 98.1 85 20 125/97 (106) 93 02/23/20 21:25 90 120/73 02/23/20 21:00 Venturi Mask 10.0 02/23/20 20:00 98.2 90 22 120/73 (89) 96 02/23/20 20:00 86 02/23/20 17:25 131/67 02/23/20 16:29 82 02/23/20 16:00 98.8 69 18 131/67 (88) 97 02/23/20 12:45 83 02/23/20 12:01 138/77 Intake and Output 02/23/20 02/24/20 19:00 07:00 Intake Total 240 ml Output Total 500 ml 700 ml Balance -260 ml -700 ml Intake Oral 240 ml Output Urine Total 500 ml 700 ml Current Medications Medications (Trade) Dose Ordered Sig/Reji Route PRN Reason Start Time Stop Time Status Last Admin Dose Admin Acetaminophen (Tylenol) 500 mg Q4H PRN ORAL Mild Pain (Pain Scale 1-3) 02/14/20 00:30 03/15/20 00:29 Acetaminophen (Tylenol) 650 mg Q4H PRN ORAL FEVER 02/14/20 10:00 03/15/20 09:59 Amiodarone HCl (Cordarone) 200 mg DAILY ORAL 02/14/20 19:15 05/14/20 19:14 02/24/20 09:11 Amlodipine Besylate (Norvasc) 5 mg DAILY ORAL 02/23/20 09:00 03/21/20 17:59 02/24/20 09:11 Aspirin (ASA) 81 mg DAILY ORAL 02/15/20 09:00 03/31/20 08:59 02/24/20 09:10 Atorvastatin Calcium (Lipitor) 40 mg BEDTIME ORAL 02/14/20 21:00 05/14/20 20:59 02/23/20 21:24 Dextrose (Dextrose 50%) 25 ml Q30M PRN IV Hypoglycemia 02/14/20 10:00 05/14/20 09:59 Dextrose (Dextrose 50%) 50 ml Q30M PRN IV Hypoglycemia 02/14/20 10:00 05/14/20 09:59 Heparin Sodium (Porcine) (Heparin 5000 units/ml) 5,000 units EVERY 12 HOURS SUBQ 02/14/20 10:00 03/30/20 09:59 02/24/20 09:11 Hydralazine HCl (Apresoline) 25 mg Q6HR ORAL 02/21/20 12:00 05/21/20 11:59 02/24/20 11:34 Lorazepam (Ativan 2mg/ml 1ml) 0.5 mg Q6HR PRN IV For Anxiety 02/18/20 13:00 02/25/20 12:59 02/24/20 09:09 Metoprolol Tartrate (Lopressor) 25 mg EVERY 12 HOURS ORAL 02/14/20 21:00 05/14/20 20:59 02/24/20 09:10 Ondansetron HCl (Zofran) 4 mg Q6H PRN IVP Nausea & Vomiting 02/14/20 10:00 03/15/20 09:59 Pantoprazole (Protonix) 40 mg EVERY 12 HOURS ORAL 02/15/20 21:00 03/16/20 20:59 02/24/20 09:10 Piperacillin Sod/ Tazobactam Sod 3.375 gm/Sodium Chloride 110 ml @ 27.5 mls/hr EVERY 8 HOURS IVPB 02/24/20 14:00 02/29/20 13:59 Polyethylene Glycol (Miralax) 17 gm DAILYPRN PRN ORAL Constipation 02/14/20 10:00 03/15/20 09:59 02/24/20 09:10 Promethazine HCl/ Codeine (Phenergan with Codeine) 5 ml Q6H PRN ORAL cough 02/14/20 10:00 03/15/20 09:59 Tamsulosin HCl (Flomax) 0.4 mg BID ORAL 02/21/20 10:30 03/21/20 10:29 02/24/20 09:10 Laboratory Tests 02/23/20 14:15: Sodium Level 143, Potassium Level 4.3, Chloride Level 108H, Carbon Dioxide Level 25, Anion Gap 10, Blood Urea Nitrogen 45H, Creatinine 1.8#H, Estimat Glomerular Filtration Rate 46.8, Glucose Level 216#H, Calcium Level 9.0, Total Bilirubin 0.6, Aspartate Amino Transf (AST/SGOT) 101H, Alanine Aminotransferase (ALT/SGPT) 83H, Alkaline Phosphatase 61, Total Protein 7.5, Albumin 3.4, Globulin 4.1, Albumin/Globulin Ratio 0.8L 02/24/20 06:35: Sodium Level 142, Potassium Level 4.3, Chloride Level 107, Carbon Dioxide Level 28, Anion Gap 8, Blood Urea Nitrogen 47H, Creatinine 1.8H, Estimat Glomerular Filtration Rate 46.8, Glucose Level 148H, Calcium Level 9.4, Total Bilirubin 0.7, Aspartate Amino Transf (AST/SGOT) 90H, Alanine Aminotransferase (ALT/SGPT) 86H, Alkaline Phosphatase 51, Total Protein 7.0, Albumin 3.4, Globulin 3.6, Albumin/Globulin Ratio 0.9L, White Blood Count 20.6#H, Red Blood Count 4.50L, Hemoglobin 14.5, Hematocrit 43.9, Mean Corpuscular Volume 97#, Mean Corpuscular Hemoglobin 32.3H, Mean Corpuscular Hemoglobin Concent 33.1, Red Cell Distribution Width 14.0, Platelet Count 288#, Mean Platelet Volume 9.4, Neutrophils (%) (Auto) , Lymphocytes (%) (Auto) , Monocytes (%) (Auto) , Eosinophils (%) (Auto) , Basophils (%) (Auto) , Neutrophils % (Manual) [Pending ], Lymphocytes % (Manual) [Pending], Platelet Estimate [Pending], Platelet Morphology [Pending], Erythrocyte Sedimentation Rate [Pending], POC Whole Blood Glucose 162H, Phosphorus Level 3.7, Magnesium Level 2.5H, C-Reactive Protein, Quantitative 1.5H 02/24/20 11:36: POC Whole Blood Glucose 165H Height (Feet): 5 Height (Inches): 10.00 Weight (Pounds): 231 General Appearance: no apparent distress Cardiovascular: normal rate Respiratory/Chest: decreased breath sounds Abdomen: soft Objective No change Ashvin Bautista MD Feb 24, 2020 11:58
[2020-02-24 12:00] VITALS: BP 122/90
[2020-02-24] MEDS: Piperacillin/Tazobactam 3.375 GM in NS 110 ML IVPB SCH ×2 (13:27→21:19)
[2020-02-24 13:58] LABS: APPEARANCE,URINE SLIGHTLY CLOUDY; BILIRUBIN, URINE NEGATIVE (NEGATIVE); GLUCOSE, URINE (UA) NEGATIVE (NEGATIVE); KETONES,URINE NEGATIVE (NEGATIVE); LEUKOCYTE ESTERASE ,URINE NEGATIVE (NEGATIVE); NITRITE,URINE NEGATIVE (NEGATIVE); PH,URINE 5 (4.5-8.0); PROTEIN,URINE 1+ (NEGATIVE); UROBILINOGEN,URINE NORMAL MG/DL (0.0-1.0)
[2020-02-24 14:04] LABS: COLOR,URINE YELLOW
--- NOTE | 2020-02-24 14:12 | Diagnostic Imaging Report ---
EXAM: XR Chest, 1 View CLINICAL HISTORY: COUGH TECHNIQUE: Frontal view of the chest. COMPARISON: 02/22/2020 FINDINGS: Lungs: Increased opacities in the right upper lung. Persistent opacities in bilateral mid and lower lungs. Hypoventilatory lungs. Pleural space: No significant abnormality. No pneumothorax. Heart: Stable cardiomediastinal silhouette. Mediastinum: See above. Bones/joints: No acute osseous abnormality. Tubes, lines and devices: Left chest wall AICD. IMPRESSION: Persistent bilateral opacities, somewhat increased in the right upper lung.
[2020-02-24 16:00] VITALS: BP 138/88
--- NOTE | 2020-02-24 17:31 | Cardiology Progress Note ---
Assessment/Plan Assessment/Plan The patient is stable, in mil respiratory distress, no worsening of heart failure, his WBC is high, will discuss with admitting physician Subjective Subjective The patient is resting in bed, he is moderately short of breath and has mild cough Objective Last 24 Hour Vital Signs Date Time Temp Pulse Resp B/P (MAP) Pulse Ox O2 Delivery O2 Flow Rate FiO2 02/24/20 16:00 97.7 85 23 138/88 (105) 95 02/24/20 16:00 75 02/24/20 12:00 75 02/24/20 12:00 97.7 77 24 122/90 (101) 95 02/24/20 11:34 116/74 02/24/20 09:38 91 20 116/74 96 02/24/20 09:11 91 116/74 02/24/20 09:10 91 116/74 02/24/20 09:09 91 20 116/74 97 02/24/20 09:00 Venturi Mask 10.0 02/24/20 08:00 83 02/24/20 08:00 97.7 91 24 116/74 (88) 97 02/24/20 06:25 130/89 02/24/20 04:00 76 02/24/20 04:00 98.1 73 26 130/89 (103) 96 02/24/20 00:40 125/97 02/24/20 00:00 85 02/24/20 00:00 98.1 85 20 125/97 (106) 93 02/23/20 21:25 90 120/73 02/23/20 21:00 Venturi Mask 10.0 02/23/20 20:00 98.2 90 22 120/73 (89) 96 02/23/20 20:00 86 General Appearance: mild distress EENT: PERRL/EOMI Neck: JVD Rhythm: NSR, other - intermitttent atrial pacing Cardiovascular: regular rhythm Respiratory/Chest: crackles/rales Abdomen: distended Extremities: trace edema Intake and Output 02/23/20 02/24/20 19:00 07:00 Intake Total 240 ml Output Total 500 ml 700 ml Balance -260 ml -700 ml Intake Oral 240 ml Output Urine Total 500 ml 700 ml Laboratory Tests Test 02/24/20 06:35 02/24/20 11:36 02/24/20 13:46 02/24/20 16:27 White Blood Count 20.6 K/UL (4.8-10.8) #H Red Blood Count 4.50 M/UL (4.70-6.10) L Hemoglobin 14.5 G/DL (14.2-18.0) Hematocrit 43.9 % (42.0-52.0) Mean Corpuscular Volume 97 FL (80-99) # Mean Corpuscular Hemoglobin 32.3 PG (27.0-31.0) H Mean Corpuscular Hemoglobin Concent 33.1 G/DL (32.0-36.0) Red Cell Distribution Width 14.0 % (11.6-14.8) Platelet Count 288 K/UL (150-450) # Mean Platelet Volume 9.4 FL (6.5-10.1) Neutrophils (%) (Auto) % (45.0-75.0) Lymphocytes (%) (Auto) % (20.0-45.0) Monocytes (%) (Auto) % (1.0-10.0) Eosinophils (%) (Auto) % (0.0-3.0) Basophils (%) (Auto) % (0.0-2.0) Differential Total Cells Counted 100 Neutrophils % (Manual) 85 % (45-75) H Lymphocytes % (Manual) 8 % (20-45) L Monocytes % (Manual) 7 % (1-10) Eosinophils % (Manual) 0 % (0-3) Basophils % (Manual) 0 % (0-2) Band Neutrophils 0 % (0-8) Platelet Estimate Adequate Platelet Morphology Normal Red Blood Cell Morphology Normal Erythrocyte Sedimentation Rate 82 MM/HR (0-20) H Sodium Level 142 MMOL/L (136-145) Potassium Level 4.3 MMOL/L (3.5-5.1) Chloride Level 107 MMOL/L (98-107) Carbon Dioxide Level 28 MMOL/L (21-32) Anion Gap 8 mmol/L (5-15) Blood Urea Nitrogen 47 mg/dL (7-18) H Creatinine 1.8 MG/DL (0.55-1.30) H Estimat Glomerular Filtration Rate 46.8 mL/min (>60) Glucose Level 148 MG/DL (74-106) H POC Whole Blood Glucose 162 MG/DL (74-106) H 165 MG/DL (74-106) H Pending Calcium Level 9.4 MG/DL (8.5-10.1) Phosphorus Level 3.7 MG/DL (2.5-4.9) Magnesium Level 2.5 MG/DL (1.8-2.4) H Total Bilirubin 0.7 MG/DL (0.2-1.0) Aspartate Amino Transf (AST/SGOT) 90 U/L (15-37) H Alanine Aminotransferase (ALT/SGPT) 86 U/L (12-78) H Alkaline Phosphatase 51 U/L (46-116) C-Reactive Protein, Quantitative 1.5 mg/dL (0.00-0.90) H Total Protein 7.0 G/DL (6.4-8.2) Albumin 3.4 G/DL (3.4-5.0) Globulin 3.6 g/dL Albumin/Globulin Ratio 0.9 (1.0-2.7) L Urine Color Yellow Urine Appearance Slightly cloudy Urine pH 5 (4.5-8.0) Urine Specific [place] 1.020 (1.005-1.035) Urine Protein 1+ (NEGATIVE) H Urine Glucose (UA) Negative (NEGATIVE) Urine Ketones Negative (NEGATIVE) Urine Blood 1+ (NEGATIVE) H Urine Nitrite Negative (NEGATIVE) Urine Bilirubin Negative (NEGATIVE) Urine Urobilinogen Normal MG/DL (0.0-1.0) Urine Leukocyte Esterase Negative (NEGATIVE) Urine RBC 2-4 /HPF (0 - 0) H Urine WBC 0-2 /HPF (0 - 0) Urine Squamous Epithelial Cells Occasional /LPF Urine Uric Acid Crystals Many /LPF (NONE) H Urine Bacteria Occasional /HPF (NONE) Urine Yeast Many /HPF (NONE) H Charo Wood MD Feb 24, 2020 17:31
[2020-02-24 20:00] VITALS: BP 142/73
[2020-02-24] MEDS ORDERED: Fleet's Enema 133ml RECTAL SCH (20:30)
[2020-02-24] MEDS: Atorvastatin 20mg tab ORAL SCH (21:17)
[2020-02-24] MEDS ORDERED: Varibar Thin Liquid powder 148gm MC PRN (22:00)
[2020-02-24] MEDS ORDERED: Varibar Pudding 230ml MC PRN (22:00)
[2020-02-24] MEDS ORDERED: Varibar Nectar 240ml MC PRN (22:00)
[2020-02-24] MEDS ORDERED: Varibar Honey 250ml MC PRN (22:00)
[2020-02-25] VITALS (7 sets, daily range): BP systolic 100–124; BP diastolic 60–87
[2020-02-25] MEDS: HydrALAZINE 25mg tab ORAL SCH ×4 (06:17→17:11)
[2020-02-25] MEDS: Piperacillin/Tazobactam 3.375 GM in NS 110 ML IVPB SCH ×3 (06:18→21:39)
[2020-02-25] MEDS: Tamsulosin 0.4mg cap ORAL SCH ×2 (08:35→17:11)
[2020-02-25] MEDS: Amiodarone 200mg tab ORAL SCH (08:35)
[2020-02-25] MEDS: Heparin 5000 units/ml inj SUBQ SCH ×2 (08:36→21:00)
[2020-02-25] MEDS: Aspirin Baby 81mg ORAL SCH (08:39)
--- NOTE | 2020-02-25 09:25 | Nephrology Progress Note ---
Assessment/Plan Problem List: (1) SHANNAN (acute kidney injury) (2) CHF (congestive heart failure) (3) Atrial fibrillation (4) Cardiomyopathy (5) ICD (implantable cardioverter-defibrillator) in place (6) History of CVA (cerebrovascular accident) (7) Pneumonia due to COVID-19 virus Assessment Acute on chronic renal failure Respiratory failure with hypoxia Pneumonia due to COVID-19 virus Sepsis Diabetes mellitus with elevated hemoglobin A1c Anemia Cardiomyopathy 20% EjFx Plan February 24: No chemistry panel done today. Last serum creatinine 1.8. White blood cells 26,000. Continue per ID. Will check renal parameters tomorrow. February 23: Labs reviewed. Serum creatinine 1.8. Medication list reviewed. Continue to monitor renal parameters. Continue to optimize cardiac status. February 22: Labs reviewed. I suspect today's labs is an error. Will repeat the blood work. Continue current management. Discussed with charge nurse about the repeating the blood work today February 21: Serum creatinine rising to 2. Uric acid verna. Patient renal failure is due to aggressive treatment for congestive heart failure and cardiomyopathy and ejection fraction of 20%. Continue to optimize cardiac status and diuretics as possible so hopefully we can prevent further deterioration of serum creatinine and renal function. February 20: Serum creatinine slightly higher to 1.7. Continue to adjust diuretics and afterload load reduction medications as such to stabilize serum creatinine from further rise. February 19. Serum creatinine higher to 1.6. Otherwise no new changes. We will continue to monitor renal parameters. February 18: Renal parameters stable. Continue per consultants. February 17: Remains stable from renal standpoint of view. Continue per consultants. February 16: Patient stable from renal standpoint to view. Continue per pulmonary. Continue per ID. Serum creatinine down to 1.6 from 2.1 on admission day February 15: When I saw the patient this morning with charge nurse Wilfred the patient was somewhat hypoxic on oxygen. Was ordered to be put on mask and inform electroencephalographic technician for possible ABG check and further treatment plan. Labs reviewed. Serum creatinine stable. Troponin unchanged. Continue to monitor renal parameters. Continue to optimize cardiac and pulmonary status. Overall prognosis poor. Slow hydration Monitor electrolytes and renal parameters Monitor urine output Correct abnormal electrolytes Antibiotics, avoid nephrotoxic's Anemia work-up Per orders Subjective ROS Limited/Unobtainable: No Constitutional: Reports: malaise Objective Objective Last 24 Hour Vital Signs Date Time Temp Pulse Resp B/P (MAP) Pulse Ox O2 Delivery O2 Flow Rate FiO2 02/25/20 08:35 96 124/83 02/25/20 08:35 96 124/83 02/25/20 08:00 98.1 96 22 124/83 (97) 94 02/25/20 06:17 124/87 02/25/20 04:00 97.3 77 22 124/87 (99) 98 02/25/20 04:00 75 02/25/20 00:00 67 02/25/20 00:00 109/70 02/25/20 00:00 96.6 65 24 109/70 (83) 95 02/24/20 21:19 82 142/73 02/24/20 21:00 Venturi Mask 10.0 02/24/20 20:00 82 02/24/20 20:00 97.7 82 24 142/73 (96) 97 02/24/20 17:44 138/88 02/24/20 16:00 97.7 85 23 138/88 (105) 95 02/24/20 16:00 75 02/24/20 12:00 75 02/24/20 12:00 97.7 77 24 122/90 (101) 95 02/24/20 11:34 116/74 02/24/20 09:38 91 20 116/74 96 Intake and Output 02/24/20 02/25/20 18:59 06:59 Intake Total 650 ml Output Total 700 ml 430 ml Balance -50 ml -430 ml Intake Oral 650 ml Output Urine Total 700 ml 430 ml # Bowel Movements 1 No chemistry panel done today Laboratory Tests 02/24/20 11:36: POC Whole Blood Glucose 165H 02/24/20 13:46: Urine Color Yellow, Urine Appearance Slightly cloudy, Urine pH 5, Urine Specific [place] 1.020, Urine Protein 1+H, Urine Glucose (UA) Negative, Urine Ketones Negative, Urine Blood 1+H, Urine Nitrite Negative, Urine Bilirubin Negative, Urine Urobilinogen Normal, Urine Leukocyte Esterase Negative, Urine RBC 2-4H, Urine WBC 0-2, Urine Squamous Epithelial Cells Occasional, Urine Uric Acid Crystals ManyH, Urine Bacteria Occasional, Urine Yeast ManyH 02/24/20 16:27: POC Whole Blood Glucose [Pending] 02/24/20 21:34: POC Whole Blood Glucose [Pending] 02/25/20 06:20: POC Whole Blood Glucose [Pending] Height (Feet): 5 Height (Inches): 10.00 Weight (Pounds): 231 General Appearance: no apparent distress, lethargic Cardiovascular: tachycardia Respiratory/Chest: decreased breath sounds Abdomen: distended Objective No change Ashvin Bautista MD Feb 25, 2020 09:25
--- NOTE | 2020-02-25 11:11 | Pulmonology Progress Note ---
Subjective ROS Limited/Unobtainable: Yes Respiratory: Reports: productive cough, other - on VM Allergies: Coded Allergies: DONNIE INHIBITORS (Verified Allergy, Unknown, 02/13/20) OMEGA-3 ACID ETHYL ESTERS (Verified Allergy, Unknown, 02/13/20) Subjective afebrile, leuk up to 20.6 02/23 labs pending for this am on VM CXR 02/23 Persistent bilateral opacities, somewhat increased in the right upper lung. steroids dc 02/23 Objective Last 24 Hour Vital Signs Date Time Temp Pulse Resp B/P (MAP) Pulse Ox O2 Delivery O2 Flow Rate FiO2 02/25/20 09:00 Venturi Mask 15.0 02/25/20 08:35 96 124/83 02/25/20 08:35 96 124/83 02/25/20 08:00 98.1 96 22 124/83 (97) 94 02/25/20 08:00 87 02/25/20 06:17 124/87 02/25/20 04:00 97.3 77 22 124/87 (99) 98 02/25/20 04:00 75 02/25/20 00:00 67 02/25/20 00:00 109/70 02/25/20 00:00 96.6 65 24 109/70 (83) 95 02/24/20 21:19 82 142/73 02/24/20 21:00 Venturi Mask 10.0 02/24/20 20:00 82 02/24/20 20:00 97.7 82 24 142/73 (96) 97 02/24/20 17:44 138/88 02/24/20 16:00 97.7 85 23 138/88 (105) 95 02/24/20 16:00 75 02/24/20 12:00 75 02/24/20 12:00 97.7 77 24 122/90 (101) 95 02/24/20 11:34 116/74 Intake and Output 02/24/20 02/25/20 19:00 07:00 Intake Total 650 ml Output Total 700 ml 430 ml Balance -50 ml -430 ml Intake Oral 650 ml Output Urine Total 700 ml 430 ml # Bowel Movements 1 General Appearance: WD/WN, other - A/A/O x 4 AA male in NAD HEENT: normocephalic, atraumatic, other - VM on Respiratory: chest wall non-tender, other - few scattered rhonchi Cardiovascular: normal peripheral pulses, normal rate - SR on tele Abdomen: normal bowel sounds, soft, non tender Genitourinary: normal external genitalia Extremities: no cyanosis, no edema Skin: no rash Neurologic: plate setter II-XII grossly normal, no motor/sensory deficits, alert, oriented x 3, responsive Lymphatic: no neck adenopathy Musculoskeletal: normal muscle bulk Microbiology Date/Time Source Procedure Growth Status 02/24/20 13:46 Urine,Clean Catch Urine Culture - Preliminary NO GROWTH Resulted Laboratory Tests 02/24/20 11:36: POC Whole Blood Glucose 165H 02/24/20 13:46: Urine Color Yellow, Urine Appearance Slightly cloudy, Urine pH 5, Urine Specific [place] 1.020, Urine Protein 1+H, Urine Glucose (UA) Negative, Urine Ketones Negative, Urine Blood 1+H, Urine Nitrite Negative, Urine Bilirubin Negative, Urine Urobilinogen Normal, Urine Leukocyte Esterase Negative, Urine RBC 2-4H, Urine WBC 0-2, Urine Squamous Epithelial Cells Occasional, Urine Uric Acid Crystals ManyH, Urine Bacteria Occasional, Urine Yeast ManyH 02/24/20 16:27: POC Whole Blood Glucose [Pending] 02/24/20 21:34: POC Whole Blood Glucose [Pending] 02/25/20 06:20: POC Whole Blood Glucose [Pending] Current Medications Medications (Trade) Dose Ordered Sig/Reji Route PRN Reason Start Time Stop Time Status Last Admin Dose Admin Acetaminophen (Tylenol) 500 mg Q4H PRN ORAL Mild Pain (Pain Scale 1-3) 02/14/20 00:30 03/15/20 00:29 Acetaminophen (Tylenol) 650 mg Q4H PRN ORAL FEVER 02/14/20 10:00 03/15/20 09:59 Amiodarone HCl (Cordarone) 200 mg DAILY ORAL 02/14/20 19:15 05/14/20 19:14 02/25/20 08:35 Amlodipine Besylate (Norvasc) 5 mg DAILY ORAL 02/23/20 09:00 03/21/20 17:59 02/25/20 08:35 Aspirin (ASA) 81 mg DAILY ORAL 02/15/20 09:00 03/31/20 08:59 02/25/20 08:39 Atorvastatin Calcium (Lipitor) 40 mg BEDTIME ORAL 02/14/20 21:00 05/14/20 20:59 02/24/20 21:17 Barium Sulfate (Varibar Honey) 250 ml NOW PRN RAD 02/24/20 22:00 02/27/20 21:56 Barium Sulfate (Varibar [place]) 240 ml NOW PRN RAD 02/24/20 22:00 02/27/20 21:56 Barium Sulfate (Varibar Pudding) 230 ml NOW PRN RAD 02/24/20 22:00 02/27/20 21:56 Barium Sulfate (Varibar Thin Liquid powder) 148 gm NOW PRN RAD 02/24/20 22:00 02/27/20 21:56 Dextrose (Dextrose 50%) 25 ml Q30M PRN IV Hypoglycemia 02/14/20 10:00 05/14/20 09:59 Dextrose (Dextrose 50%) 50 ml Q30M PRN IV Hypoglycemia 02/14/20 10:00 05/14/20 09:59 Heparin Sodium (Porcine) (Heparin 5000 units/ml) 5,000 units EVERY 12 HOURS SUBQ 02/14/20 10:00 03/30/20 09:59 02/25/20 08:36 Hydralazine HCl (Apresoline) 25 mg Q6HR ORAL 02/21/20 12:00 05/21/20 11:59 02/25/20 06:17 Lorazepam (Ativan 2mg/ml 1ml) 0.5 mg Q6HR PRN IV For Anxiety 02/18/20 13:00 02/25/20 12:59 02/24/20 09:09 Metoprolol Tartrate (Lopressor) 25 mg EVERY 12 HOURS ORAL 02/14/20 21:00 05/14/20 20:59 02/25/20 08:35 Ondansetron HCl (Zofran) 4 mg Q6H PRN IVP Nausea & Vomiting 02/14/20 10:00 03/15/20 09:59 Pantoprazole (Protonix) 40 mg EVERY 12 HOURS ORAL 02/15/20 21:00 03/16/20 20:59 02/25/20 08:35 Piperacillin Sod/ Tazobactam Sod 3.375 gm/Sodium Chloride 110 ml @ 27.5 mls/hr EVERY 8 HOURS IVPB 02/24/20 14:00 02/29/20 13:59 02/25/20 06:18 Polyethylene Glycol (Miralax) 17 gm DAILYPRN PRN ORAL Constipation 02/14/20 10:00 03/15/20 09:59 02/24/20 09:10 Promethazine HCl/ Codeine (Phenergan with Codeine) 5 ml Q6H PRN ORAL cough 02/14/20 10:00 03/15/20 09:59 Tamsulosin HCl (Flomax) 0.4 mg BID ORAL 02/21/20 10:30 03/21/20 10:29 02/25/20 08:35 Assessment/Plan Assessment/Plan ASSESSMENT Probably sepsis COVID-19 pneumonia Acute hypoxemic respiratory failure requiring NRM and Ventimask CHF with systolic dysfunction CM with EF 30 to 35% SHANNAN on CKD History of CVA with residual aphasia PAF Elevated LFT DM Schizoaffective disorder PLAN OF CARE tele Isolation O2 titrate to keep sat above 92 MDI inhaler prn s/p 10 d of Remdesivir, steroids dc 02/23 a/tussive prn started on abx -Zosyn per ID due to leuk 02/23 ( ? due to steroids, off steroids, no fever, fup with CXR ) CXR 02/23 - Persistent bilateral opacities, somewhat increased in the right upper lung. last prior CXR -> slight improvement , still significant bilateral alveolar disease initial BCX with CONS, repeated BCX 02/14- NGT; initial positive BCX likely contaminant, UCX NGT Echo with EF 30-35%, global LV hypokinesis Guideline directed medical therapy with BB, ARB; monitor volumes continue ASA and statin DVT and GI prophylaxis BP management with CCB, BB and ARB Renal US NGT monitor renal parameters lytes, correct electrolytes as needed, avoid nephrotoxic BS management with SSI; hemoglobin A1c 6.8 trend LFT PT Rx case discussed and evaluated by supervising physician Tika Dunn NP Feb 25, 2020 11:11
--- NOTE | 2020-02-25 12:48 | Internal Med Progress Note ---
Subjective Date of Service: Feb 25, 2020 Physician Name DebiEdmund Attending Physician Atilio Lee MD Current Medications Medications (Trade) Dose Ordered Sig/Reji Route PRN Reason Start Time Stop Time Status Last Admin Dose Admin Acetaminophen (Tylenol) 500 mg Q4H PRN ORAL Mild Pain (Pain Scale 1-3) 02/14/20 00:30 03/15/20 00:29 Acetaminophen (Tylenol) 650 mg Q4H PRN ORAL FEVER 02/14/20 10:00 03/15/20 09:59 Amiodarone HCl (Cordarone) 200 mg DAILY ORAL 02/14/20 19:15 05/14/20 19:14 02/25/20 08:35 Amlodipine Besylate (Norvasc) 5 mg DAILY ORAL 02/23/20 09:00 03/21/20 17:59 02/25/20 08:35 Aspirin (ASA) 81 mg DAILY ORAL 02/15/20 09:00 03/31/20 08:59 02/25/20 08:39 Atorvastatin Calcium (Lipitor) 40 mg BEDTIME ORAL 02/14/20 21:00 05/14/20 20:59 02/24/20 21:17 Barium Sulfate (Varibar Honey) 250 ml NOW PRN MC RAD 02/24/20 22:00 02/27/20 21:56 Barium Sulfate (Varibar [place]) 240 ml NOW PRN MC RAD 02/24/20 22:00 02/27/20 21:56 Barium Sulfate (Varibar Pudding) 230 ml NOW PRN MC RAD 02/24/20 22:00 02/27/20 21:56 Barium Sulfate (Varibar Thin Liquid powder) 148 gm NOW PRN MC RAD 02/24/20 22:00 02/27/20 21:56 Dextrose (Dextrose 50%) 25 ml Q30M PRN IV Hypoglycemia 02/14/20 10:00 05/14/20 09:59 Dextrose (Dextrose 50%) 50 ml Q30M PRN IV Hypoglycemia 02/14/20 10:00 05/14/20 09:59 Heparin Sodium (Porcine) (Heparin 5000 units/ml) 5,000 units EVERY 12 HOURS SUBQ 02/14/20 10:00 03/30/20 09:59 02/25/20 08:36 Hydralazine HCl (Apresoline) 25 mg Q6HR ORAL 02/21/20 12:00 05/21/20 11:59 02/25/20 06:17 Lorazepam (Ativan 2mg/ml 1ml) 0.5 mg Q6HR PRN IV For Anxiety 02/18/20 13:00 02/25/20 12:59 02/24/20 09:09 Metoprolol Tartrate (Lopressor) 25 mg EVERY 12 HOURS ORAL 02/14/20 21:00 05/14/20 20:59 02/25/20 08:35 Ondansetron HCl (Zofran) 4 mg Q6H PRN IVP Nausea & Vomiting 02/14/20 10:00 03/15/20 09:59 Pantoprazole (Protonix) 40 mg EVERY 12 HOURS ORAL 02/15/20 21:00 03/16/20 20:59 02/25/20 08:35 Piperacillin Sod/ Tazobactam Sod 3.375 gm/Sodium Chloride 110 ml @ 27.5 mls/hr EVERY 8 HOURS IVPB 02/24/20 14:00 02/29/20 13:59 02/25/20 06:18 Polyethylene Glycol (Miralax) 17 gm DAILYPRN PRN ORAL Constipation 02/14/20 10:00 03/15/20 09:59 02/24/20 09:10 Promethazine HCl/ Codeine (Phenergan with Codeine) 5 ml Q6H PRN ORAL cough 02/14/20 10:00 03/15/20 09:59 Tamsulosin HCl (Flomax) 0.4 mg BID ORAL 02/21/20 10:30 03/21/20 10:29 02/25/20 08:35 Allergies: Coded Allergies: DONNIE INHIBITORS (Verified Allergy, Unknown, 02/13/20) OMEGA-3 ACID ETHYL ESTERS (Verified Allergy, Unknown, 02/13/20) ROS Limited/Unobtainable: Yes Subjective 60 YO M admitted with shortness of breath. Now COVID 19 and sepsis. Cover for Int Med-Dr Lee. Worsening leukocytosis Objective Last Vital Signs Date Time Temp Pulse Resp B/P (MAP) Pulse Ox O2 Delivery O2 Flow Rate FiO2 02/25/20 12:00 97.4 87 23 100/69 (79) 99 02/25/20 09:00 Venturi Mask 15.0 Laboratory Tests Test 02/24/20 13:46 02/24/20 16:27 02/24/20 21:34 02/25/20 06:20 Urine Color Yellow Urine Appearance Slightly cloudy Urine pH 5 (4.5-8.0) Urine Specific [place] 1.020 (1.005-1.035) Urine Protein 1+ (NEGATIVE) H Urine Glucose (UA) Negative (NEGATIVE) Urine Ketones Negative (NEGATIVE) Urine Blood 1+ (NEGATIVE) H Urine Nitrite Negative (NEGATIVE) Urine Bilirubin Negative (NEGATIVE) Urine Urobilinogen Normal MG/DL (0.0-1.0) Urine Leukocyte Esterase Negative (NEGATIVE) Urine RBC 2-4 /HPF (0 - 0) H Urine WBC 0-2 /HPF (0 - 0) Urine Squamous Epithelial Cells Occasional /LPF Urine Uric Acid Crystals Many /LPF (NONE) H Urine Bacteria Occasional /HPF (NONE) Urine Yeast Many /HPF (NONE) H POC Whole Blood Glucose Pending Pending Pending Microbiology Date/Time Source Procedure Growth Status 02/24/20 13:46 Urine,Clean Catch Urine Culture - Preliminary NO GROWTH Resulted Intake and Output 02/24/20 02/25/20 18:59 06:59 Intake Total 650 ml Output Total 700 ml 430 ml Balance -50 ml -430 ml Intake Oral 650 ml Output Urine Total 700 ml 430 ml # Bowel Movements 1 Objective PHYSICAL EXAMINATION: GENERAL: The patient is well-developed and well-nourished male, no apparent distress. HEENT: Eyes, pupils are equal and responsive to light and accommodation. Extraocular movements are intact. NECK: Supple without lymphadenopathy. CHEST: Venturi mask; Lungs with bilateral expiratory wheezes and rales. CARDIOVASCULAR: Regular rhythm and rate. S1 and S2 are normal without murmurs, rubs, or gallops. ABDOMEN: Soft, nontender, and nondistended. Positive bowel sounds. No evidence of hepatosplenomegaly. Currently, no rebound or guarding noted. EXTREMITIES: Negative for clubbing, cyanosis, or edema. RECTAL/GENITAL: Not performed. NEUROLOGIC: Cranial nerves II through XII are grossly intact without focal deficits. Motor strength is 5/5 bilaterally. Deep tendon reflexes are 2+ plantar. Assessment/Plan Assessment/Plan ASSESSMENT: This is a 60-year-old male: 1. Shortness of breath. 2. Fever. 3. COVID-19 positive. 4. Hypertension. 5. Cerebrovascular disease, status post cerebrovascular accident. 6. Hemiplegia. 7. Hypercholesterolemia. 8. Coronary artery disease. 9. Cardiomyopathy. 10. Paroxysmal atrial fibrillation. 11. Schizoaffective disorder, bipolar type. 12. Chronic kidney disease. 13. Sepsis=Staph epidermidis 14. Elevated troponin 15. AICD in situ 16. Worsening leukocytosis TREATMENT: 1. Hypoxia/shortness of breath. A Pulmonary = Dr. Lyle Joy. COVID-19 testing = positive ABX=S/P vanco, ceftriaxone and azithromycin and remdesivir 2. Hypertension. 3. Cerebrovascular disease. 4. Hemiplegia. 5. Coronary artery disease. Cardiology= Dr. Kayden Aguilar. 6. Hypercholesterolemia. Continue atorvastatin as above. 7. Cardiomyopathy. 8. Paroxysmal atrial fibrillation. 9. Schizoaffective disorder, bipolar type. 10. Chronic kidney disease. 11. Pacemaker in situ. 12. ID=DR Espinoza 13. Abx: Monitor Off 14. Decadron # 11 15. Remdesivir #5/5 Completed. 16. DVT Prophylaxsis: Heparin SQ 17. Code status: Full code Edmund Carrera MD Feb 25, 2020 12:48
[2020-02-25 13:13] LABS: BASOPHILS % (AUTO) 1.6 % (0.0-2.0); EOSINOPHILS % (AUTO) 0.3 % (0.0-3.0); HEMATOCRIT 43.2 % (42.0-52.0); HEMOGLOBIN 14.3 G/DL (14.2-18.0); LYMPHOCYTES % (AUTO) 11.9 % (20.0-45.0); MEAN CORPUSCULAR VOLUME 98 FL (80-99); MONOCYTES % (AUTO) 6.9 % (1.0-10.0); NEUTROPHILS % (AUTO) 79.3 % (45.0-75.0); PLATELET COUNT 234 K/UL (150-450); RED BLOOD COUNT 4.42 M/UL (4.70-6.10); RED CELL DISTRIBUTION WIDTH 13.8 % (11.6-14.8); WHITE BLOOD COUNT 12.8 K/UL (4.8-10.8)
[2020-02-25 13:29] LABS: CALCIUM 8.8 MG/DL (8.5-10.1); CREATININE 1.7 MG/DL (0.55-1.30); POTASSIUM 4.3 MMOL/L (3.5-5.1)
[2020-02-25 13:34] LABS: ALBUMIN/GLOBULIN RATIO 0.7 (1.0-2.7); BILIRUBIN,TOTAL 0.7 MG/DL (0.2-1.0)
[2020-02-25 13:36] LABS: ALANINE AMINOTRANSFERASE 70 U/L (12-78); ALKALINE PHOSPHATASE 48 U/L (46-116); ASPARTATE AMINO TRANSFERASE 61 U/L (15-37); BILIRUBIN,DIRECT 0.2 MG/DL (0.0-0.3); BILIRUBIN,TOTAL 0.7 MG/DL (0.2-1.0); PHOSPHORUS 3.7 MG/DL (2.5-4.9)
[2020-02-25] MEDS: Atorvastatin 20mg tab ORAL SCH (21:00)
--- NOTE | 2020-02-25 21:14 | Cardiology Progress Note ---
Assessment/Plan Assessment/Plan The patient is stable, in mil respiratory distress, no worsening of heart failure, WBC are down, probably caused by steroids Subjective Subjective The patient is resting in bed, he is moderately short of breath and has mild cough Objective Last 24 Hour Vital Signs Date Time Temp Pulse Resp B/P (MAP) Pulse Ox O2 Delivery O2 Flow Rate FiO2 02/25/20 17:11 114/76 02/25/20 16:00 97.7 86 22 114/76 (89) 98 02/25/20 16:00 82 02/25/20 13:00 97.3 86 22 123/77 (92) 98 02/25/20 12:00 79 02/25/20 12:00 97.4 87 23 100/69 (79) 99 02/25/20 11:32 100/69 02/25/20 09:00 Venturi Mask 15.0 02/25/20 08:35 96 124/83 02/25/20 08:35 96 124/83 02/25/20 08:00 98.1 96 22 124/83 (97) 94 02/25/20 08:00 87 02/25/20 06:17 124/87 02/25/20 04:00 97.3 77 22 124/87 (99) 98 02/25/20 04:00 75 02/25/20 00:00 67 02/25/20 00:00 109/70 02/25/20 00:00 96.6 65 24 109/70 (83) 95 02/24/20 21:19 82 142/73 General Appearance: mild distress EENT: PERRL/EOMI Neck: JVD Rhythm: NSR Cardiovascular: normal rate, systolic murmur Respiratory/Chest: crackles/rales - at bases Abdomen: soft Extremities: non-tender, trace edema Intake and Output 02/24/20 02/25/20 18:59 06:59 Intake Total 650 ml Output Total 700 ml 430 ml Balance -50 ml -430 ml Intake Oral 650 ml Output Urine Total 700 ml 430 ml # Bowel Movements 1 Laboratory Tests Test 02/24/20 21:34 02/25/20 06:20 02/25/20 11:38 02/25/20 12:30 POC Whole Blood Glucose Pending Pending 134 MG/DL (74-106) H White Blood Count 12.8 K/UL (4.8-10.8) H Red Blood Count 4.42 M/UL (4.70-6.10) L Hemoglobin 14.3 G/DL (14.2-18.0) Hematocrit 43.2 % (42.0-52.0) Mean Corpuscular Volume 98 FL (80-99) Mean Corpuscular Hemoglobin 32.3 PG (27.0-31.0) H Mean Corpuscular Hemoglobin Concent 33.1 G/DL (32.0-36.0) Red Cell Distribution Width 13.8 % (11.6-14.8) Platelet Count 234 K/UL (150-450) Mean Platelet Volume 9.6 FL (6.5-10.1) Neutrophils (%) (Auto) 79.3 % (45.0-75.0) H Lymphocytes (%) (Auto) 11.9 % (20.0-45.0) L Monocytes (%) (Auto) 6.9 % (1.0-10.0) Eosinophils (%) (Auto) 0.3 % (0.0-3.0) Basophils (%) (Auto) 1.6 % (0.0-2.0) Sodium Level 144 MMOL/L (136-145) Potassium Level 4.3 MMOL/L (3.5-5.1) Chloride Level 109 MMOL/L (98-107) H Carbon Dioxide Level 27 MMOL/L (21-32) Anion Gap 9 mmol/L (5-15) Blood Urea Nitrogen 39 mg/dL (7-18) H Creatinine 1.7 MG/DL (0.55-1.30) H Estimat Glomerular Filtration Rate 49.9 mL/min (>60) Glucose Level 137 MG/DL (74-106) H Calcium Level 8.8 MG/DL (8.5-10.1) Phosphorus Level 3.7 MG/DL (2.5-4.9) Magnesium Level 2.5 MG/DL (1.8-2.4) H Total Bilirubin 0.7 MG/DL (0.2-1.0) Direct Bilirubin 0.2 MG/DL (0.0-0.3) Aspartate Amino Transf (AST/SGOT) 61 U/L (15-37) H Alanine Aminotransferase (ALT/SGPT) 70 U/L (12-78) Alkaline Phosphatase 48 U/L (46-116) C-Reactive Protein, Quantitative < 0.4 mg/dL (0.00-0.90) Total Protein 7.1 G/DL (6.4-8.2) Albumin 3.0 G/DL (3.4-5.0) L Globulin 4.1 g/dL Albumin/Globulin Ratio 0.7 (1.0-2.7) L Test 02/25/20 17:16 POC Whole Blood Glucose 138 MG/DL (74-106) H Microbiology Date/Time Source Procedure Growth Status 02/24/20 13:46 Urine,Clean Catch Urine Culture - Preliminary NO GROWTH Resulted Charo Wood MD Feb 25, 2020 21:14
[2020-02-26] VITALS: BP 133/59
[2020-02-26 04:00] VITALS: BP 128/88
[2020-02-26] MEDS: HydrALAZINE 25mg tab ORAL SCH ×4 (06:00→18:00)
[2020-02-26] MEDS: Piperacillin/Tazobactam 3.375 GM in NS 110 ML IVPB SCH ×3 (06:27→21:22)
[2020-02-26 08:00] VITALS: BP 139/76
[2020-02-26] MEDS: Amiodarone 200mg tab ORAL SCH (09:30)
[2020-02-26] MEDS: Tamsulosin 0.4mg cap ORAL SCH ×2 (09:30→18:03)
[2020-02-26] MEDS: Aspirin Baby 81mg ORAL SCH (09:31)
[2020-02-26] MEDS: Heparin 5000 units/ml inj SUBQ SCH ×2 (09:32→21:23)
--- NOTE | 2020-02-26 09:58 | Infectious Diseases Prog Note ---
Assessment/Plan Assessment: COVID19 positive (dx'ed 02/08/20)- likely PNA Acute hypoxic resp failure- sp NRB> 4l NC> desaturated to 78% and was placed on SM 8L 02/15 > VM 10L 02/19 -02/18 CXR: Worsening bilateral edema versus infiltrates, over 3 days -02/12 CXR: Cardiomegaly with vascular congestion and moderate edema. Gram positive bacteremia- m/l contaminant -02/12 Bcx 2/4 CoNS clusters, 2/4 diphteroids; 02/14 Bcx NTD Fever -[employer]- none here so far mild leukocytosis (on steroids) SHANNAN, improving Elevated AST, mild; increasing CVA w/ resultant aphasia HLD general anxiety disorder schizoaffective disorder-depressive type cardiomegaly pAfib pHTN CKD CAD HTN [place] resident ([facility]) Plan: - On Zosyn #3/5 - Asp PNA? HAP? -Decadron # 14/15 Will stop in am -02/18 SP Ceftriaxone #7, Azithromycin #7 -02/17 SP Remdesivir #5 -02/16 SP IV Vancomycin #2 -f/u cx -Monitor CBC/CMP, temperatures -f/u repeat Bcx x2 Thank you for this consultation. Will continue to follow along with you. Subjective Allergies: Coded Allergies: DONNIE INHIBITORS (Verified Allergy, Unknown, 02/13/20) OMEGA-3 ACID ETHYL ESTERS (Verified Allergy, Unknown, 02/13/20) Afebrile Improving Leukocytosis Objective Last 24 Hour Vital Signs Date Time Temp Pulse Resp B/P (MAP) Pulse Ox O2 Delivery O2 Flow Rate FiO2 02/26/20 09:31 91 139/76 02/26/20 09:30 91 139/76 02/26/20 08:00 97.5 92 20 139/76 (97) 96 02/26/20 08:00 91 02/26/20 06:00 128/88 02/26/20 04:00 97.5 90 20 128/88 (101) 96 02/26/20 04:00 94 02/26/20 00:00 98.8 81 20 133/59 (83) 95 02/26/20 00:00 133/59 02/26/20 00:00 85 02/25/20 21:00 92 91/50 02/25/20 21:00 Venturi Mask 15.0 02/25/20 20:00 89 02/25/20 20:00 97.5 92 20 100/60 (73) 95 02/25/20 17:11 114/76 02/25/20 16:00 97.7 86 22 114/76 (89) 98 02/25/20 16:00 82 02/25/20 13:00 97.3 86 22 123/77 (92) 98 02/25/20 12:00 79 02/25/20 12:00 97.4 87 23 100/69 (79) 99 02/25/20 11:32 100/69 Height (Feet): 5 Height (Inches): 10.00 Weight (Pounds): 231 Gen: no distress on VM Respiratory Exam: Equal rise and fall B/L Chest Abd: Soft ND Skin Exam: Normal in color no rashs Microbiology Date/Time Source Procedure Growth Status 02/24/20 13:53 Blood Blood Culture - Preliminary NO GROWTH AFTER 24 HOURS Resulted 02/24/20 13:46 Urine,Clean Catch Urine Culture - Preliminary Yeast Species Resulted Laboratory Tests Test 02/25/20 11:38 02/25/20 12:30 02/25/20 17:16 POC Whole Blood Glucose 134 MG/DL (74-106) H 138 MG/DL (74-106) H White Blood Count 12.8 K/UL (4.8-10.8) H Red Blood Count 4.42 M/UL (4.70-6.10) L Hemoglobin 14.3 G/DL (14.2-18.0) Hematocrit 43.2 % (42.0-52.0) Mean Corpuscular Volume 98 FL (80-99) Mean Corpuscular Hemoglobin 32.3 PG (27.0-31.0) H Mean Corpuscular Hemoglobin Concent 33.1 G/DL (32.0-36.0) Red Cell Distribution Width 13.8 % (11.6-14.8) Platelet Count 234 K/UL (150-450) Mean Platelet Volume 9.6 FL (6.5-10.1) Neutrophils (%) (Auto) 79.3 % (45.0-75.0) H Lymphocytes (%) (Auto) 11.9 % (20.0-45.0) L Monocytes (%) (Auto) 6.9 % (1.0-10.0) Eosinophils (%) (Auto) 0.3 % (0.0-3.0) Basophils (%) (Auto) 1.6 % (0.0-2.0) Sodium Level 144 MMOL/L (136-145) Potassium Level 4.3 MMOL/L (3.5-5.1) Chloride Level 109 MMOL/L (98-107) H Carbon Dioxide Level 27 MMOL/L (21-32) Anion Gap 9 mmol/L (5-15) Blood Urea Nitrogen 39 mg/dL (7-18) H Creatinine 1.7 MG/DL (0.55-1.30) H Estimat Glomerular Filtration Rate 49.9 mL/min (>60) Glucose Level 137 MG/DL (74-106) H Calcium Level 8.8 MG/DL (8.5-10.1) Phosphorus Level 3.7 MG/DL (2.5-4.9) Magnesium Level 2.5 MG/DL (1.8-2.4) H Ferritin 740 NG/ML (8-388) H Total Bilirubin 0.7 MG/DL (0.2-1.0) Direct Bilirubin 0.2 MG/DL (0.0-0.3) Aspartate Amino Transf (AST/SGOT) 61 U/L (15-37) H Alanine Aminotransferase (ALT/SGPT) 70 U/L (12-78) Alkaline Phosphatase 48 U/L (46-116) C-Reactive Protein, Quantitative < 0.4 mg/dL (0.00-0.90) Total Protein 7.1 G/DL (6.4-8.2) Albumin 3.0 G/DL (3.4-5.0) L Globulin 4.1 g/dL Albumin/Globulin Ratio 0.7 (1.0-2.7) L Current Medications Medications (Trade) Dose Ordered Sig/Reji Route PRN Reason Start Time Stop Time Status Last Admin Dose Admin Acetaminophen (Tylenol) 500 mg Q4H PRN ORAL Mild Pain (Pain Scale 1-3) 02/14/20 00:30 03/15/20 00:29 Acetaminophen (Tylenol) 650 mg Q4H PRN ORAL FEVER 02/14/20 10:00 03/15/20 09:59 Amiodarone HCl (Cordarone) 200 mg DAILY ORAL 02/14/20 19:15 05/14/20 19:14 02/26/20 09:30 Amlodipine Besylate (Norvasc) 5 mg DAILY ORAL 02/23/20 09:00 03/21/20 17:59 02/26/20 09:30 Aspirin (ASA) 81 mg DAILY ORAL 02/15/20 09:00 03/31/20 08:59 02/26/20 09:31 Atorvastatin Calcium (Lipitor) 40 mg BEDTIME ORAL 02/14/20 21:00 05/14/20 20:59 02/25/20 21:00 Barium Sulfate (Varibar Honey) 250 ml NOW PRN MC RAD 02/24/20 22:00 02/27/20 21:56 Barium Sulfate (Varibar [place]) 240 ml NOW PRN MC RAD 02/24/20 22:00 02/27/20 21:56 Barium Sulfate (Varibar Pudding) 230 ml NOW PRN MC RAD 02/24/20 22:00 02/27/20 21:56 Barium Sulfate (Varibar Thin Liquid powder) 148 gm NOW PRN MC RAD 02/24/20 22:00 02/27/20 21:56 Dextrose (Dextrose 50%) 25 ml Q30M PRN IV Hypoglycemia 02/14/20 10:00 05/14/20 09:59 Dextrose (Dextrose 50%) 50 ml Q30M PRN IV Hypoglycemia 02/14/20 10:00 05/14/20 09:59 Heparin Sodium (Porcine) (Heparin 5000 units/ml) 5,000 units EVERY 12 HOURS SUBQ 02/14/20 10:00 03/30/20 09:59 02/26/20 09:32 Hydralazine HCl (Apresoline) 25 mg Q6HR ORAL 02/21/20 12:00 05/21/20 11:59 02/25/20 06:17 Metoprolol Tartrate (Lopressor) 25 mg EVERY 12 HOURS ORAL 02/14/20 21:00 05/14/20 20:59 02/26/20 09:31 Ondansetron HCl (Zofran) 4 mg Q6H PRN IVP Nausea & Vomiting 02/14/20 10:00 03/15/20 09:59 Pantoprazole (Protonix) 40 mg EVERY 12 HOURS ORAL 02/15/20 21:00 03/16/20 20:59 02/26/20 09:30 Piperacillin Sod/ Tazobactam Sod 3.375 gm/Sodium Chloride 110 ml @ 27.5 mls/hr EVERY 8 HOURS IVPB 02/24/20 14:00 02/29/20 13:59 02/26/20 06:27 Polyethylene Glycol (Miralax) 17 gm DAILYPRN PRN ORAL Constipation 02/14/20 10:00 03/15/20 09:59 02/24/20 09:10 Promethazine HCl/ Codeine (Phenergan with Codeine) 5 ml Q6H PRN ORAL cough 02/14/20 10:00 03/15/20 09:59 Tamsulosin HCl (Flomax) 0.4 mg BID ORAL 02/21/20 10:30 03/21/20 10:29 02/26/20 09:30 Harpreet Morgan MD Feb 26, 2020 09:58
--- NOTE | 2020-02-26 11:12 | Pulmonology Progress Note ---
Subjective ROS Limited/Unobtainable: Yes Constitutional: Reports: no symptoms HEENT: Repors: no symptoms Respiratory: Reports: productive cough, other - on VM Allergies: Coded Allergies: DONNIE INHIBITORS (Verified Allergy, Unknown, 02/13/20) OMEGA-3 ACID ETHYL ESTERS (Verified Allergy, Unknown, 02/13/20) Objective Last 24 Hour Vital Signs Date Time Temp Pulse Resp B/P (MAP) Pulse Ox O2 Delivery O2 Flow Rate FiO2 02/26/20 09:31 91 139/76 02/26/20 09:30 91 139/76 02/26/20 09:00 Venturi Mask 15.0 02/26/20 08:00 97.5 92 20 139/76 (97) 96 02/26/20 08:00 91 02/26/20 06:00 128/88 02/26/20 04:00 97.5 90 20 128/88 (101) 96 02/26/20 04:00 94 02/26/20 00:00 98.8 81 20 133/59 (83) 95 02/26/20 00:00 133/59 02/26/20 00:00 85 02/25/20 21:00 92 91/50 02/25/20 21:00 Venturi Mask 15.0 02/25/20 20:00 89 02/25/20 20:00 97.5 92 20 100/60 (73) 95 02/25/20 17:11 114/76 02/25/20 16:00 97.7 86 22 114/76 (89) 98 02/25/20 16:00 82 02/25/20 13:00 97.3 86 22 123/77 (92) 98 02/25/20 12:00 79 02/25/20 12:00 97.4 87 23 100/69 (79) 99 02/25/20 11:32 100/69 Intake and Output 02/25/20 02/26/20 19:00 07:00 Output Total 750 ml Balance -750 ml Output Urine Total 750 ml # Voids 4 3 # Bowel Movements 1 General Appearance: WD/WN, other - A/A/O x 4 AA male in NAD HEENT: normocephalic, atraumatic, other - VM on Respiratory: chest wall non-tender, other - few scattered rhonchi Cardiovascular: normal peripheral pulses, normal rate - SR on tele Abdomen: normal bowel sounds, soft, non tender Genitourinary: normal external genitalia Extremities: no cyanosis, no edema Skin: no rash 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: 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 grossly normal, no motor/sensory deficits, alert, oriented x 3, responsive Lymphatic: no neck adenopathy Musculoskeletal: normal muscle bulk Microbiology Date/Time Source Procedure Growth Status 02/24/20 13:53 Blood Blood Culture - Preliminary NO GROWTH AFTER 24 HOURS Resulted 02/24/20 13:46 Urine,Clean Catch Urine Culture - Preliminary Yeast Species Resulted Laboratory Tests 02/25/20 11:38: POC Whole Blood Glucose 134H 02/25/20 12:30: White Blood Count 12.8H, Red Blood Count 4.42L, Hemoglobin 14.3, Hematocrit 43.2, Mean Corpuscular Volume 98, Mean Corpuscular Hemoglobin 32.3H, Mean Corpuscular Hemoglobin Concent 33.1, Red Cell Distribution Width 13.8, Platelet Count 234, Mean Platelet Volume 9.6, Neutrophils (%) (Auto) 79.3H, Lymphocytes (%) (Auto) 11.9L, Monocytes (%) (Auto) 6.9, Eosinophils (%) (Auto) 0.3, Basophils (%) (Auto) 1.6, Sodium Level 144, Potassium Level 4.3, Chloride Level 109H, Carbon Dioxide Level 27, Anion Gap 9, Blood Urea Nitrogen 39H, Creatinine 1.7H, Estimat Glomerular Filtration Rate 49.9, Glucose Level 137H, Calcium Level 8.8, Phosphorus Level 3.7, Magnesium Level 2.5H, Ferritin 740H, Total Bilirubin 0.7, Direct Bilirubin 0.2, Aspartate Amino Transf (AST/SGOT) 61H, Alanine Aminotransferase (ALT/SGPT) 70, Alkaline Phosphatase 48, C-Reactive Protein, Quantitative < 0.4, Total Protein 7.1, Albumin 3.0L, Globulin 4.1, Albumin/Globulin Ratio 0.7L 02/25/20 17:16: POC Whole Blood Glucose 138H Current Medications Medications (Trade) Dose Ordered Sig/Reji Route PRN Reason Start Time Stop Time Status Last Admin Dose Admin Acetaminophen (Tylenol) 500 mg Q4H PRN ORAL Mild Pain (Pain Scale 1-3) 02/14/20 00:30 03/15/20 00:29 Acetaminophen (Tylenol) 650 mg Q4H PRN ORAL FEVER 02/14/20 10:00 03/15/20 09:59 Amiodarone HCl (Cordarone) 200 mg DAILY ORAL 02/14/20 19:15 05/14/20 19:14 02/26/20 09:30 Amlodipine Besylate (Norvasc) 5 mg DAILY ORAL 02/23/20 09:00 03/21/20 17:59 02/26/20 09:30 Aspirin (ASA) 81 mg DAILY ORAL 02/15/20 09:00 03/31/20 08:59 02/26/20 09:31 Atorvastatin Calcium (Lipitor) 40 mg BEDTIME ORAL 02/14/20 21:00 05/14/20 20:59 02/25/20 21:00 Barium Sulfate (Varibar Honey) 250 ml NOW PRN MC RAD 02/24/20 22:00 02/27/20 21:56 Barium Sulfate (Varibar [place]) 240 ml NOW PRN MC RAD 02/24/20 22:00 02/27/20 21:56 Barium Sulfate (Varibar Pudding) 230 ml NOW PRN MC RAD 02/24/20 22:00 02/27/20 21:56 Barium Sulfate (Varibar Thin Liquid powder) 148 gm NOW PRN MC RAD 02/24/20 22:00 02/27/20 21:56 Dextrose (Dextrose 50%) 25 ml Q30M PRN IV Hypoglycemia 02/14/20 10:00 05/14/20 09:59 Dextrose (Dextrose 50%) 50 ml Q30M PRN IV Hypoglycemia 02/14/20 10:00 05/14/20 09:59 Heparin Sodium (Porcine) (Heparin 5000 units/ml) 5,000 units EVERY 12 HOURS SUBQ 02/14/20 10:00 03/30/20 09:59 02/26/20 09:32 Hydralazine HCl (Apresoline) 25 mg Q6HR ORAL 02/21/20 12:00 05/21/20 11:59 02/25/20 06:17 Metoprolol Tartrate (Lopressor) 25 mg EVERY 12 HOURS ORAL 02/14/20 21:00 05/14/20 20:59 02/26/20 09:31 Ondansetron HCl (Zofran) 4 mg Q6H PRN IVP Nausea & Vomiting 02/14/20 10:00 03/15/20 09:59 Pantoprazole (Protonix) 40 mg EVERY 12 HOURS ORAL 02/15/20 21:00 03/16/20 20:59 02/26/20 09:30 Piperacillin Sod/ Tazobactam Sod 3.375 gm/Sodium Chloride 110 ml @ 27.5 mls/hr EVERY 8 HOURS IVPB 02/24/20 14:00 02/29/20 13:59 02/26/20 06:27 Polyethylene Glycol (Miralax) 17 gm DAILYPRN PRN ORAL Constipation 02/14/20 10:00 03/15/20 09:59 02/24/20 09:10 Promethazine HCl/ Codeine (Phenergan with Codeine) 5 ml Q6H PRN ORAL cough 02/14/20 10:00 03/15/20 09:59 Tamsulosin HCl (Flomax) 0.4 mg BID ORAL 02/21/20 10:30 03/21/20 10:29 02/26/20 09:30 Assessment/Plan Problems: (1) Pneumonia due to COVID-19 virus (2) Sepsis (3) Atrial fibrillation (4) CHF (congestive heart failure) (5) Arrhythmia (6) History of CVA (cerebrovascular accident) (7) Psychosis (8) Acute delirium Assessment/Plan still on restrains, confused and at times agitated neuro consult requested comfortable cxr reviewed, Persistent bilateral opacities, somewhat increased in the right upper 02/23 respiratory isolation check sputum iv abx + steroids + antiviral as per ID echocardiogram reviewed, EF 30% f/u crp, stady optimize cardiac meds dvt prophylaxis Lyle Joy MD Feb 26, 2020 11:12
[2020-02-26 12:00] VITALS: BP 115/75
--- NOTE | 2020-02-26 12:34 | Nephrology Progress Note ---
Assessment/Plan Problem List: (1) SHANNAN (acute kidney injury) (2) CHF (congestive heart failure) (3) Atrial fibrillation (4) Cardiomyopathy (5) ICD (implantable cardioverter-defibrillator) in place (6) History of CVA (cerebrovascular accident) (7) Pneumonia due to COVID-19 virus Assessment Acute on chronic renal failure Respiratory failure with hypoxia Pneumonia due to COVID-19 virus Sepsis Diabetes mellitus with elevated hemoglobin A1c Anemia Cardiomyopathy 20% EjFx Plan February 25: Yesterday's labs reviewed. Serum creatinine 1.7. No chemistry panel done today. As of yesterday white blood cell counts down to 12,000. Continue to monitor renal parameters. February 24: No chemistry panel done today. Last serum creatinine 1.8. White blood cells 26,000. Continue per ID. Will check renal parameters tomorrow. February 23: Labs reviewed. Serum creatinine 1.8. Medication list reviewed. Continue to monitor renal parameters. Continue to optimize cardiac status. February 22: Labs reviewed. I suspect today's labs is an error. Will repeat the blood work. Continue current management. Discussed with charge nurse about the repeating the blood work today February 21: Serum creatinine rising to 2. Uric acid verna. Patient renal failure is due to aggressive treatment for congestive heart failure and cardiomyopathy and ejection fraction of 20%. Continue to optimize cardiac status and diuretics as possible so hopefully we can prevent further deterioration of serum creatinine and renal function. February 20: Serum creatinine slightly higher to 1.7. Continue to adjust diuretics and afterload load reduction medications as such to stabilize serum creatinine from further rise. February 19. Serum creatinine higher to 1.6. Otherwise no new changes. We will continue to monitor renal parameters. February 18: Renal parameters stable. Continue per consultants. February 17: Remains stable from renal standpoint of view. Continue per consultants. February 16: Patient stable from renal standpoint to view. Continue per pulmonary. Continue per ID. Serum creatinine down to 1.6 from 2.1 on admission day February 15: When I saw the patient this morning with charge nurse Wilfred the patient was somewhat hypoxic on oxygen. Was ordered to be put on mask and inform multimedia author for possible ABG check and further treatment plan. Labs reviewed. Serum creatinine stable. Troponin unchanged. Continue to monitor renal parameters. Continue to optimize cardiac and pulmonary status. Overall prognosis poor. Slow hydration Monitor electrolytes and renal parameters Monitor urine output Correct abnormal electrolytes Antibiotics, avoid nephrotoxic's Anemia work-up Per orders Subjective ROS Limited/Unobtainable: No Constitutional: Reports: malaise Objective Objective Last 24 Hour Vital Signs Date Time Temp Pulse Resp B/P (MAP) Pulse Ox O2 Delivery O2 Flow Rate FiO2 02/26/20 12:00 86 02/26/20 12:00 96.8 80 20 115/75 (88) 98 02/26/20 09:31 91 139/76 02/26/20 09:30 91 139/76 02/26/20 09:00 Venturi Mask 15.0 02/26/20 08:00 97.5 92 20 139/76 (97) 96 02/26/20 08:00 91 02/26/20 06:00 128/88 02/26/20 04:00 97.5 90 20 128/88 (101) 96 02/26/20 04:00 94 02/26/20 00:00 98.8 81 20 133/59 (83) 95 02/26/20 00:00 133/59 02/26/20 00:00 85 02/25/20 21:00 92 91/50 02/25/20 21:00 Venturi Mask 15.0 02/25/20 20:00 89 02/25/20 20:00 97.5 92 20 100/60 (73) 95 02/25/20 17:11 114/76 02/25/20 16:00 97.7 86 22 114/76 (89) 98 02/25/20 16:00 82 02/25/20 13:00 97.3 86 22 123/77 (92) 98 Intake and Output 02/25/20 02/26/20 18:59 06:59 Output Total 750 ml Balance -750 ml Output Urine Total 750 ml # Voids 4 3 # Bowel Movements 1 No chemistry panel done today Laboratory Tests 02/25/20 17:16: POC Whole Blood Glucose 138H Height (Feet): 5 Height (Inches): 10.00 Weight (Pounds): 231 General Appearance: no apparent distress Cardiovascular: tachycardia - Rate 90s Respiratory/Chest: decreased breath sounds Abdomen: soft Objective No change Ashvin Bautista MD Feb 26, 2020 12:34
[2020-02-26 13:17] LABS: BASOPHILS % (AUTO) 1.7 % (0.0-2.0); EOSINOPHILS % (AUTO) 0.4 % (0.0-3.0); HEMATOCRIT 43.8 % (42.0-52.0); HEMOGLOBIN 14.5 G/DL (14.2-18.0); LYMPHOCYTES % (AUTO) 9.3 % (20.0-45.0); MEAN CORPUSCULAR VOLUME 98 FL (80-99); NEUTROPHILS % (AUTO) 80.6 % (45.0-75.0); PLATELET COUNT 223 K/UL (150-450); RED BLOOD COUNT 4.47 M/UL (4.70-6.10); RED CELL DISTRIBUTION WIDTH 14.4 % (11.6-14.8)
[2020-02-26 13:34] LABS: CALCIUM 9.2 MG/DL (8.5-10.1); CREATININE 1.6 MG/DL (0.55-1.30); POTASSIUM 4.1 MMOL/L (3.5-5.1)
--- NOTE | 2020-02-26 14:10 | Diagnostic Imaging Report ---
Indication: Shortness of breath Technique: One view of the chest Comparison: 02/24/2020 Findings: Bilateral interstitial and airspace infiltrates versus edema are unchanged. Left chest unifocal AICD is again demonstrated. The heart is enlarged. Impression: Unchanged, over 2 days, findings as above.
[2020-02-26 16:00] VITALS: BP 130/85
--- NOTE | 2020-02-26 18:51 | Internal Med Progress Note ---
Subjective Date of Service: Feb 26, 2020 Physician Name DebiEdmund Attending Physician Atilio Lee MD Current Medications Medications (Trade) Dose Ordered Sig/Reji Route PRN Reason Start Time Stop Time Status Last Admin Dose Admin Acetaminophen (Tylenol) 500 mg Q4H PRN ORAL Mild Pain (Pain Scale 1-3) 02/14/20 00:30 03/15/20 00:29 Acetaminophen (Tylenol) 650 mg Q4H PRN ORAL FEVER 02/14/20 10:00 03/15/20 09:59 Amiodarone HCl (Cordarone) 200 mg DAILY ORAL 02/14/20 19:15 05/14/20 19:14 02/26/20 09:30 Amlodipine Besylate (Norvasc) 5 mg DAILY ORAL 02/23/20 09:00 03/21/20 17:59 02/26/20 09:30 Aspirin (ASA) 81 mg DAILY ORAL 02/15/20 09:00 03/31/20 08:59 02/26/20 09:31 Atorvastatin Calcium (Lipitor) 40 mg BEDTIME ORAL 02/14/20 21:00 05/14/20 20:59 02/25/20 21:00 Barium Sulfate (Varibar Honey) 250 ml NOW PRN MC RAD 02/24/20 22:00 02/27/20 21:56 Barium Sulfate (Varibar [place]) 240 ml NOW PRN MC RAD 02/24/20 22:00 02/27/20 21:56 Barium Sulfate (Varibar Pudding) 230 ml NOW PRN MC RAD 02/24/20 22:00 02/27/20 21:56 Barium Sulfate (Varibar Thin Liquid powder) 148 gm NOW PRN MC RAD 02/24/20 22:00 02/27/20 21:56 Dextrose (Dextrose 50%) 25 ml Q30M PRN IV Hypoglycemia 02/14/20 10:00 05/14/20 09:59 Dextrose (Dextrose 50%) 50 ml Q30M PRN IV Hypoglycemia 02/14/20 10:00 05/14/20 09:59 Heparin Sodium (Porcine) (Heparin 5000 units/ml) 5,000 units EVERY 12 HOURS SUBQ 02/14/20 10:00 03/30/20 09:59 02/26/20 09:32 Hydralazine HCl (Apresoline) 25 mg Q6HR ORAL 02/21/20 12:00 05/21/20 11:59 02/25/20 06:17 Metoprolol Tartrate (Lopressor) 25 mg EVERY 12 HOURS ORAL 02/14/20 21:00 05/14/20 20:59 02/26/20 09:31 Ondansetron HCl (Zofran) 4 mg Q6H PRN IVP Nausea & Vomiting 02/14/20 10:00 03/15/20 09:59 Pantoprazole (Protonix) 40 mg EVERY 12 HOURS ORAL 02/15/20 21:00 03/16/20 20:59 02/26/20 09:30 Piperacillin Sod/ Tazobactam Sod 3.375 gm/Sodium Chloride 110 ml @ 27.5 mls/hr EVERY 8 HOURS IVPB 02/24/20 14:00 02/29/20 13:59 02/26/20 13:18 Polyethylene Glycol (Miralax) 17 gm DAILYPRN PRN ORAL Constipation 02/14/20 10:00 03/15/20 09:59 02/24/20 09:10 Promethazine HCl/ Codeine (Phenergan with Codeine) 5 ml Q6H PRN ORAL cough 02/14/20 10:00 03/15/20 09:59 Tamsulosin HCl (Flomax) 0.4 mg BID ORAL 02/21/20 10:30 03/21/20 10:29 02/26/20 18:03 Allergies: Coded Allergies: DONNIE INHIBITORS (Verified Allergy, Unknown, 02/13/20) OMEGA-3 ACID ETHYL ESTERS (Verified Allergy, Unknown, 02/13/20) ROS Limited/Unobtainable: Yes Subjective 60 YO M admitted with shortness of breath. Now COVID 19 and sepsis. Cover for Int Med-Dr Lee. Worsening shortness of breath Objective Last Vital Signs Date Time Temp Pulse Resp B/P (MAP) Pulse Ox O2 Delivery O2 Flow Rate FiO2 02/26/20 16:00 85 02/26/20 16:00 96.7 19 130/85 (100) 96 02/26/20 09:00 Venturi Mask 15.0 Laboratory Tests Test 02/26/20 12:10 White Blood Count 13.0 K/UL (4.8-10.8) H Red Blood Count 4.47 M/UL (4.70-6.10) L Hemoglobin 14.5 G/DL (14.2-18.0) Hematocrit 43.8 % (42.0-52.0) Mean Corpuscular Volume 98 FL (80-99) Mean Corpuscular Hemoglobin 32.4 PG (27.0-31.0) H Mean Corpuscular Hemoglobin Concent 33.0 G/DL (32.0-36.0) Red Cell Distribution Width 14.4 % (11.6-14.8) Platelet Count 223 K/UL (150-450) Mean Platelet Volume 10.6 FL (6.5-10.1) H Neutrophils (%) (Auto) 80.6 % (45.0-75.0) H Lymphocytes (%) (Auto) 9.3 % (20.0-45.0) L Monocytes (%) (Auto) 8.0 % (1.0-10.0) Eosinophils (%) (Auto) 0.4 % (0.0-3.0) Basophils (%) (Auto) 1.7 % (0.0-2.0) Sodium Level 144 MMOL/L (136-145) Potassium Level 4.1 MMOL/L (3.5-5.1) Chloride Level 108 MMOL/L (98-107) H Carbon Dioxide Level 29 MMOL/L (21-32) Anion Gap 7 mmol/L (5-15) Blood Urea Nitrogen 38 mg/dL (7-18) H Creatinine 1.6 MG/DL (0.55-1.30) H Estimat Glomerular Filtration Rate 53.6 mL/min (>60) Glucose Level 137 MG/DL (74-106) H Calcium Level 9.2 MG/DL (8.5-10.1) Microbiology Date/Time Source Procedure Growth Status 02/24/20 13:53 Blood Blood Culture - Preliminary NO GROWTH AFTER 24 HOURS Resulted 02/24/20 13:46 Urine,Clean Catch Urine Culture - Preliminary Yeast Species Resulted Intake and Output 02/25/20 02/26/20 19:00 07:00 Output Total 750 ml Balance -750 ml Output Urine Total 750 ml # Voids 4 3 # Bowel Movements 1 Objective PHYSICAL EXAMINATION: GENERAL: The patient is well-developed and well-nourished male, no apparent distress. HEENT: Eyes, pupils are equal and responsive to light and accommodation. Extraocular movements are intact. NECK: Supple without lymphadenopathy. CHEST: Venturi mask; Lungs with bilateral expiratory wheezes and rales. CARDIOVASCULAR: Regular rhythm and rate. S1 and S2 are normal without murmurs, rubs, or gallops. ABDOMEN: Soft, nontender, and nondistended. Positive bowel sounds. No evidence of hepatosplenomegaly. Currently, no rebound or guarding noted. EXTREMITIES: Negative for clubbing, cyanosis, or edema. RECTAL/GENITAL: Not performed. NEUROLOGIC: Cranial nerves II through XII are grossly intact without focal deficits. Motor strength is 5/5 bilaterally. Deep tendon reflexes are 2+ plantar. Assessment/Plan Assessment/Plan ASSESSMENT: This is a 60-year-old male: 1. Shortness of breath. 2. Fever. 3. COVID-19 positive. 4. Hypertension. 5. Cerebrovascular disease, status post cerebrovascular accident. 6. Hemiplegia. 7. Hypercholesterolemia. 8. Coronary artery disease. 9. Cardiomyopathy. 10. Paroxysmal atrial fibrillation. 11. Schizoaffective disorder, bipolar type. 12. Chronic kidney disease. 13. Sepsis=Staph epidermidis 14. Elevated troponin 15. AICD in situ 16. Worsening infiltrates on CXR TREATMENT: 1. Hypoxia/shortness of breath. A Pulmonary = Dr. Lyle Joy. COVID-19 testing = positive ABX=Zosyn. S/P vanco, ceftriaxone and azithromycin and remdesivir 2. Hypertension. 3. Cerebrovascular disease. 4. Hemiplegia. 5. Coronary artery disease. Cardiology= Dr. Kayden Aguilar. 6. Hypercholesterolemia. Continue atorvastatin as above. 7. Cardiomyopathy. 8. Paroxysmal atrial fibrillation. 9. Schizoaffective disorder, bipolar type. 10. Chronic kidney disease. 11. Pacemaker in situ. 12. ID=DR Espinoza 13. Abx: Monitor Off 14. Decadron # 11 15. Remdesivir #5/5 Completed. 16. DVT Prophylaxsis: Heparin SQ 17. Code status: Full code Edmund Carrera MD Feb 26, 2020 18:51
[2020-02-26 20:00] VITALS: BP 125/76
[2020-02-26] MEDS: Atorvastatin 20mg tab ORAL SCH (21:21)
--- NOTE | 2020-02-26 21:39 | Cardiology Progress Note ---
Assessment/Plan Problem List: (1) ICD (implantable cardioverter-defibrillator) in place (2) Pneumonia due to COVID-19 virus (3) Respiratory failure with hypoxia (4) CHF (congestive heart failure) (5) Atrial fibrillation (6) History of CVA (cerebrovascular accident) Status: stable, progressing Status Narrative COVID 19 pneumonia - Completed remdesivir and steroids. Remains w/ hypoxia, requiring FM 02 . XR w/ infiltrates, ? edema hx of cardiomyopathy, EF 25%, w/global hypokinesis by echo this adm. Uncertain if ischemic or nonischemic CXR w/ inc perihilar markings/pulm vascular congestion PAF hx of CVA s/p single chamber ICD Assessment/Plan Continue supportive care, supplemental o2, respir rx. Would consider dc amlodipine and start losartan (pt home med) for afterload reduction, given cardiomyopathy w EF 20s. ICD interrogation when out of isolation. Amiodarone -? indication Subjective ROS Limited/Unobtainable: No Subjective Cardiology for Dr. Aguilar Pt alert, removing o2 and monitor. Currently in restraints. Non verbal Objective EXAM deferred as pt on COVID isolation Last 24 Hour Vital Signs Date Time Temp Pulse Resp B/P (MAP) Pulse Ox O2 Delivery O2 Flow Rate FiO2 02/26/20 21:21 88 125/76 02/26/20 16:00 85 02/26/20 16:00 96.7 83 19 130/85 (100) 96 02/26/20 12:00 86 02/26/20 12:00 96.8 80 20 115/75 (88) 98 02/26/20 09:31 91 139/76 02/26/20 09:30 91 139/76 02/26/20 09:00 Venturi Mask 15.0 02/26/20 08:00 97.5 92 20 139/76 (97) 96 02/26/20 08:00 91 02/26/20 06:00 128/88 02/26/20 04:00 97.5 90 20 128/88 (101) 96 02/26/20 04:00 94 02/26/20 00:00 98.8 81 20 133/59 (83) 95 02/26/20 00:00 133/59 02/26/20 00:00 85 General Appearance: WD/WN, no apparent distress, alert Rhythm: NSR Cardiovascular: normal rate Intake and Output 02/25/20 02/26/20 18:59 06:59 Output Total 750 ml Balance -750 ml Output Urine Total 750 ml # Voids 4 3 # Bowel Movements 1 Laboratory Tests Test 02/26/20 12:10 White Blood Count 13.0 K/UL (4.8-10.8) H Red Blood Count 4.47 M/UL (4.70-6.10) L Hemoglobin 14.5 G/DL (14.2-18.0) Hematocrit 43.8 % (42.0-52.0) Mean Corpuscular Volume 98 FL (80-99) Mean Corpuscular Hemoglobin 32.4 PG (27.0-31.0) H Mean Corpuscular Hemoglobin Concent 33.0 G/DL (32.0-36.0) Red Cell Distribution Width 14.4 % (11.6-14.8) Platelet Count 223 K/UL (150-450) Mean Platelet Volume 10.6 FL (6.5-10.1) H Neutrophils (%) (Auto) 80.6 % (45.0-75.0) H Lymphocytes (%) (Auto) 9.3 % (20.0-45.0) L Monocytes (%) (Auto) 8.0 % (1.0-10.0) Eosinophils (%) (Auto) 0.4 % (0.0-3.0) Basophils (%) (Auto) 1.7 % (0.0-2.0) Sodium Level 144 MMOL/L (136-145) Potassium Level 4.1 MMOL/L (3.5-5.1) Chloride Level 108 MMOL/L (98-107) H Carbon Dioxide Level 29 MMOL/L (21-32) Anion Gap 7 mmol/L (5-15) Blood Urea Nitrogen 38 mg/dL (7-18) H Creatinine 1.6 MG/DL (0.55-1.30) H Estimat Glomerular Filtration Rate 53.6 mL/min (>60) Glucose Level 137 MG/DL (74-106) H Calcium Level 9.2 MG/DL (8.5-10.1) Microbiology Date/Time Source Procedure Growth Status 02/24/20 13:53 Blood Blood Culture - Preliminary NO GROWTH AFTER 24 HOURS Resulted 02/24/20 13:46 Urine,Clean Catch Urine Culture - Preliminary Yeast Species Resulted Kassidy Pederson MD Feb 26, 2020 21:39
[2020-02-27] VITALS: BP 119/81
[2020-02-27] MEDS: HydrALAZINE 25mg tab ORAL SCH ×4 (00:41→17:16)
[2020-02-27 04:00] VITALS: BP 120/63
[2020-02-27] MEDS: Piperacillin/Tazobactam 3.375 GM in NS 110 ML IVPB SCH ×3 (06:23→21:36)
[2020-02-27 07:26] LABS: HEMATOCRIT 42.8 % (42.0-52.0); HEMOGLOBIN 14.2 G/DL (14.2-18.0); LYMPHOCYTES % (AUTO) 13.5 % (20.0-45.0); MEAN CORPUSCULAR VOLUME 98 FL (80-99); MONOCYTES % (AUTO) 7.3 % (1.0-10.0); NEUTROPHILS % (AUTO) 77.2 % (45.0-75.0); PLATELET COUNT 204 K/UL (150-450); RED BLOOD COUNT 4.38 M/UL (4.70-6.10); RED CELL DISTRIBUTION WIDTH 14.3 % (11.6-14.8); WHITE BLOOD COUNT 11.1 K/UL (4.8-10.8)
[2020-02-27 07:42] LABS: ALBUMIN/GLOBULIN RATIO 0.7 (1.0-2.7); BILIRUBIN,TOTAL 0.8 MG/DL (0.2-1.0); CREATININE 1.5 MG/DL (0.55-1.30); PHOSPHORUS 3.7 MG/DL (2.5-4.9); POTASSIUM 4.3 MMOL/L (3.5-5.1)
[2020-02-27 08:00] VITALS: BP 123/77
--- NOTE | 2020-02-27 08:52 | Nephrology Progress Note ---
Assessment/Plan Problem List: (1) SHANNAN (acute kidney injury) (2) CHF (congestive heart failure) (3) Atrial fibrillation (4) Cardiomyopathy (5) ICD (implantable cardioverter-defibrillator) in place (6) History of CVA (cerebrovascular accident) (7) Pneumonia due to COVID-19 virus Assessment Acute on chronic renal failure Respiratory failure with hypoxia Pneumonia due to COVID-19 virus Sepsis Diabetes mellitus with elevated hemoglobin A1c Anemia Cardiomyopathy 20% EjFx Plan February 26: Labs reviewed. Serum creatinine lowering. Creatinine 1.5. White blood cells 11,000. Stable from renal standpoint of view. Continue per consultants. February 25: Yesterday's labs reviewed. Serum creatinine 1.7. No chemistry panel done today. As of yesterday white blood cell counts down to 12,000. Continue to monitor renal parameters. February 24: No chemistry panel done today. Last serum creatinine 1.8. White blood cells 26,000. Continue per ID. Will check renal parameters tomorrow. February 23: Labs reviewed. Serum creatinine 1.8. Medication list reviewed. Continue to monitor renal parameters. Continue to optimize cardiac status. February 22: Labs reviewed. I suspect today's labs is an error. Will repeat the blood work. Continue current management. Discussed with charge nurse about the repeating the blood work today February 21: Serum creatinine rising to 2. Uric acid verna. Patient renal failure is due to aggressive treatment for congestive heart failure and cardiomyopathy and ejection fraction of 20%. Continue to optimize cardiac status and diuretics as possible so hopefully we can prevent further deterioration of serum creatinine and renal function. February 20: Serum creatinine slightly higher to 1.7. Continue to adjust diuretics and afterload load reduction medications as such to stabilize serum creatinine from further rise. February 19. Serum creatinine higher to 1.6. Otherwise no new changes. We will continue to monitor renal parameters. February 18: Renal parameters stable. Continue per consultants. February 17: Remains stable from renal standpoint of view. Continue per consultants. February 16: Patient stable from renal standpoint to view. Continue per pulmonary. Continue per ID. Serum creatinine down to 1.6 from 2.1 on admission day February 15: When I saw the patient this morning with charge nurse Wilfred the patient was somewhat hypoxic on oxygen. Was ordered to be put on mask and info nuclear security officer for possible ABG check and further treatment plan. Labs reviewed. Serum creatinine stable. Troponin unchanged. Continue to monitor renal parameters. Continue to optimize cardiac and pulmonary status. Overall prognosis poor. Slow hydration Monitor electrolytes and renal parameters Monitor urine output Correct abnormal electrolytes Antibiotics, avoid nephrotoxic's Anemia work-up Per orders Subjective ROS Limited/Unobtainable: Yes Objective Objective Last 24 Hour Vital Signs Date Time Temp Pulse Resp B/P (MAP) Pulse Ox O2 Delivery O2 Flow Rate FiO2 02/27/20 08:00 96.8 69 19 123/77 (92) 96 02/27/20 06:50 96.9 02/27/20 06:21 120/68 02/27/20 04:00 96.7 92 18 120/63 (82) 90 02/27/20 04:00 81 02/27/20 00:41 128/70 02/27/20 00:00 98.5 77 14 119/81 (94) 94 02/27/20 00:00 76 02/26/20 21:21 88 125/76 02/26/20 21:00 Venturi Mask 15.0 02/26/20 20:00 97.5 88 18 125/76 (92) 94 02/26/20 20:00 82 02/26/20 16:00 85 02/26/20 16:00 96.7 83 19 130/85 (100) 96 02/26/20 12:00 86 02/26/20 12:00 96.8 80 20 115/75 (88) 98 02/26/20 09:31 91 139/76 02/26/20 09:30 91 139/76 02/26/20 09:00 Venturi Mask 15.0 Intake and Output 02/26/20 02/27/20 19:00 07:00 Intake Total 400 ml Balance 400 ml Intake Oral 400 ml # Voids 5 Current Medications Medications (Trade) Dose Ordered Sig/Reji Route PRN Reason Start Time Stop Time Status Last Admin Dose Admin Acetaminophen (Tylenol) 500 mg Q4H PRN ORAL Mild Pain (Pain Scale 1-3) 02/14/20 00:30 03/15/20 00:29 02/27/20 06:20 Acetaminophen (Tylenol) 650 mg Q4H PRN ORAL FEVER 02/14/20 10:00 03/15/20 09:59 Amiodarone HCl (Cordarone) 200 mg DAILY ORAL 02/14/20 19:15 05/14/20 19:14 02/26/20 09:30 Amlodipine Besylate (Norvasc) 5 mg DAILY ORAL 02/23/20 09:00 03/21/20 17:59 02/26/20 09:30 Aspirin (ASA) 81 mg DAILY ORAL 02/15/20 09:00 03/31/20 08:59 02/26/20 09:31 Atorvastatin Calcium (Lipitor) 40 mg BEDTIME ORAL 02/14/20 21:00 05/14/20 20:59 02/26/20 21:21 Barium Sulfate (Varibar Honey) 250 ml NOW PRN MC RAD 02/24/20 22:00 02/27/20 21:56 Barium Sulfate (Varibar [place] [address]) 240 ml NOW PRN MC RAD 02/24/20 22:00 02/27/20 21:56 Barium Sulfate (Varibar Pudding) 230 ml NOW PRN MC RAD 02/24/20 22:00 02/27/20 21:56 Barium Sulfate (Varibar Thin Liquid powder) 148 gm NOW PRN MC RAD 02/24/20 22:00 02/27/20 21:56 Dextrose (Dextrose 50%) 25 ml Q30M PRN IV Hypoglycemia 02/14/20 10:00 05/14/20 09:59 Dextrose (Dextrose 50%) 50 ml Q30M PRN IV Hypoglycemia 02/14/20 10:00 05/14/20 09:59 Heparin Sodium (Porcine) (Heparin 5000 units/ml) 5,000 units EVERY 12 HOURS SUBQ 02/14/20 10:00 03/30/20 09:59 02/26/20 21:23 Hydralazine HCl (Apresoline) 25 mg Q6HR ORAL 02/21/20 12:00 05/21/20 11:59 02/27/20 06:21 Metoprolol Tartrate (Lopressor) 25 mg EVERY 12 HOURS ORAL 02/14/20 21:00 05/14/20 20:59 02/26/20 21:21 Ondansetron HCl (Zofran) 4 mg Q6H PRN IVP Nausea & Vomiting 02/14/20 10:00 03/15/20 09:59 Pantoprazole (Protonix) 40 mg EVERY 12 HOURS ORAL 02/15/20 21:00 03/16/20 20:59 02/26/20 21:21 Piperacillin Sod/ Tazobactam Sod 3.375 gm/Sodium Chloride 110 ml @ 27.5 mls/hr EVERY 8 HOURS IVPB 02/24/20 14:00 02/29/20 13:59 02/27/20 06:23 Polyethylene Glycol (Miralax) 17 gm DAILYPRN PRN ORAL Constipation 02/14/20 10:00 03/15/20 09:59 02/24/20 09:10 Promethazine HCl/ Codeine (Phenergan with Codeine) 5 ml Q6H PRN ORAL cough 02/14/20 10:00 03/15/20 09:59 Tamsulosin HCl (Flomax) 0.4 mg BID ORAL 02/21/20 10:30 03/21/20 10:29 02/26/20 18:03 Laboratory Tests 02/26/20 12:10: White Blood Count 13.0H, Red Blood Count 4.47L, Hemoglobin 14.5, Hematocrit 43.8, Mean Corpuscular Volume 98, Mean Corpuscular Hemoglobin 32.4H, Mean Corpuscular Hemoglobin Concent 33.0, Red Cell Distribution Width 14.4, Platelet Count 223, Mean Platelet Volume 10.6H, Neutrophils (%) (Auto) 80.6H, Lymphocytes (%) (Auto) 9.3L, Monocytes (%) (Auto) 8.0, Eosinophils (%) (Auto) 0.4, Basophils (%) (Auto) 1.7, Sodium Level 144, Potassium Level 4.1, Chloride Level 108H, Carbon Dioxide Level 29, Anion Gap 7, Blood Urea Nitrogen 38H, Creatinine 1.6H, Estimat Glomerular Filtration Rate 53.6, Glucose Level 137H, Calcium Level 9.2 02/27/20 06:03: White Blood Count 11.1H, Red Blood Count 4.38L, Hemoglobin 14.2, Hematocrit 42.8, Mean Corpuscular Volume 98, Mean Corpuscular Hemoglobin 32.3H, Mean Corpuscular Hemoglobin Concent 33.1, Red Cell Distribution Width 14.3, Platelet Count 204, Mean Platelet Volume 10.8H, Neutrophils (%) (Auto) 77.2H, Lymphocytes (%) (Auto) 13.5L, Monocytes (%) (Auto) 7.3, Eosinophils (%) (Auto) 1.0, Basophils (%) (Auto) 1.0, Sodium Level 145, Potassium Level 4.3, Chloride Level 109H, Carbon Dioxide Level 27, Anion Gap 10, Blood Urea Nitrogen 33H, Creatinine 1.5H, Estimat Glomerular Filtration Rate 57.7, Glucose Level 118H, Calcium Level 9.0, Erythrocyte Sedimentation Rate 60H, Phosphorus Level 3.7, Magnesium Level 2.5H, Total Bilirubin 0.8, Aspartate Amino Transf (AST/SGOT) 42H, Alanine Aminotransferase (ALT/SGPT) 58, Alkaline Phosphatase 48, C-Reactive Protein, Quantitative 1.1H, Total Protein 7.2, Albumin 3.0L, Globulin 4.2, Albumin/Globulin Ratio 0.7L Height (Feet): 5 Height (Inches): 10.00 Weight (Pounds): 231 General Appearance: no apparent distress Cardiovascular: normal rate Respiratory/Chest: decreased breath sounds Abdomen: soft Objective No change Ashvin Bautista MD Feb 27, 2020 08:52
[2020-02-27] MEDS: Amiodarone 200mg tab ORAL SCH (09:38)
[2020-02-27] MEDS: Tamsulosin 0.4mg cap ORAL SCH ×2 (09:38→17:16)
[2020-02-27] MEDS: Aspirin Baby 81mg ORAL SCH (09:39)
[2020-02-27] MEDS: Heparin 5000 units/ml inj SUBQ SCH ×2 (09:40→21:36)
--- NOTE | 2020-02-27 10:02 | Infectious Diseases Prog Note ---
Assessment/Plan Assessment: COVID19 positive (dx'ed 02/08/20)- likely PNA Acute hypoxic resp failure- sp NRB> 4l NC> desaturated to 78% and was placed on SM 8L 02/15 > VM 10L 02/19 -02/18 CXR: Worsening bilateral edema versus infiltrates, over 3 days -02/12 CXR: Cardiomegaly with vascular congestion and moderate edema. Gram positive bacteremia- m/l contaminant -02/12 Bcx 2/4 CoNS clusters, 2/4 diphteroids; 02/14 Bcx NTD Fever -[employer]- none here so far mild leukocytosis (on steroids) SHANNAN, improving Elevated AST, mild; increasing CVA w/ resultant aphasia HLD general anxiety disorder schizoaffective disorder-depressive type cardiomegaly pAfib pHTN CKD CAD HTN [place] resident ([facility] / [facility]) Plan: - On Zosyn #4/5 - Asp PNA? HAP? -02/24/20 SP Decadron #10 -02/18 SP Ceftriaxone #7, Azithromycin #7 -02/17 SP Remdesivir #5 -02/16 SP IV Vancomycin #2 -f/u cx -Monitor CBC/CMP, temperatures -f/u repeat Bcx x2 Thank you for this consultation. Will continue to follow along with you. Subjective Allergies: Coded Allergies: DONNIE INHIBITORS (Verified Allergy, Unknown, 02/13/20) OMEGA-3 ACID ETHYL ESTERS (Verified Allergy, Unknown, 02/13/20) Afebrile Improving Leukocytosis JULY Objective Last 24 Hour Vital Signs Date Time Temp Pulse Resp B/P (MAP) Pulse Ox O2 Delivery O2 Flow Rate FiO2 02/27/20 09:38 69 123/77 02/27/20 09:38 69 123/77 02/27/20 08:00 96.8 69 19 123/77 (92) 96 02/27/20 06:50 96.9 02/27/20 06:21 120/68 02/27/20 04:00 96.7 92 18 120/63 (82) 90 02/27/20 04:00 81 02/27/20 00:41 128/70 02/27/20 00:00 98.5 77 14 119/81 (94) 94 02/27/20 00:00 76 02/26/20 21:21 88 125/76 02/26/20 21:00 Venturi Mask 15.0 02/26/20 20:00 97.5 88 18 125/76 (92) 94 02/26/20 20:00 82 02/26/20 16:00 85 02/26/20 16:00 96.7 83 19 130/85 (100) 96 02/26/20 12:00 86 02/26/20 12:00 96.8 80 20 115/75 (88) 98 Height (Feet): 5 Height (Inches): 10.00 Weight (Pounds): 231 Gen: No distress on VM still Respiratory Exam: Equal rise and fall B/L Chest Abd: Soft ND Skin Exam: Normal in color no rashs Microbiology Date/Time Source Procedure Growth Status 02/24/20 13:53 Blood Blood Culture - Preliminary NO GROWTH AFTER 48 HOURS Resulted 02/24/20 13:46 Urine,Clean Catch Urine Culture - Preliminary Roxie Species Strep Species, Gamma-Hemolytic Resulted Laboratory Tests Test 02/26/20 12:10 02/27/20 06:03 White Blood Count 13.0 K/UL (4.8-10.8) H 11.1 K/UL (4.8-10.8) H Red Blood Count 4.47 M/UL (4.70-6.10) L 4.38 M/UL (4.70-6.10) L Hemoglobin 14.5 G/DL (14.2-18.0) 14.2 G/DL (14.2-18.0) Hematocrit 43.8 % (42.0-52.0) 42.8 % (42.0-52.0) Mean Corpuscular Volume 98 FL (80-99) 98 FL (80-99) Mean Corpuscular Hemoglobin 32.4 PG (27.0-31.0) H 32.3 PG (27.0-31.0) H Mean Corpuscular Hemoglobin Concent 33.0 G/DL (32.0-36.0) 33.1 G/DL (32.0-36.0) Red Cell Distribution Width 14.4 % (11.6-14.8) 14.3 % (11.6-14.8) Platelet Count 223 K/UL (150-450) 204 K/UL (150-450) Mean Platelet Volume 10.6 FL (6.5-10.1) H 10.8 FL (6.5-10.1) H Neutrophils (%) (Auto) 80.6 % (45.0-75.0) H 77.2 % (45.0-75.0) H Lymphocytes (%) (Auto) 9.3 % (20.0-45.0) L 13.5 % (20.0-45.0) L Monocytes (%) (Auto) 8.0 % (1.0-10.0) 7.3 % (1.0-10.0) Eosinophils (%) (Auto) 0.4 % (0.0-3.0) 1.0 % (0.0-3.0) Basophils (%) (Auto) 1.7 % (0.0-2.0) 1.0 % (0.0-2.0) Sodium Level 144 MMOL/L (136-145) 145 MMOL/L (136-145) Potassium Level 4.1 MMOL/L (3.5-5.1) 4.3 MMOL/L (3.5-5.1) Chloride Level 108 MMOL/L (98-107) H 109 MMOL/L (98-107) H Carbon Dioxide Level 29 MMOL/L (21-32) 27 MMOL/L (21-32) Anion Gap 7 mmol/L (5-15) 10 mmol/L (5-15) Blood Urea Nitrogen 38 mg/dL (7-18) H 33 mg/dL (7-18) H Creatinine 1.6 MG/DL (0.55-1.30) H 1.5 MG/DL (0.55-1.30) H Estimat Glomerular Filtration Rate 53.6 mL/min (>60) 57.7 mL/min (>60) Glucose Level 137 MG/DL (74-106) H 118 MG/DL (74-106) H Calcium Level 9.2 MG/DL (8.5-10.1) 9.0 MG/DL (8.5-10.1) Erythrocyte Sedimentation Rate 60 MM/HR (0-20) H Phosphorus Level 3.7 MG/DL (2.5-4.9) Magnesium Level 2.5 MG/DL (1.8-2.4) H Total Bilirubin 0.8 MG/DL (0.2-1.0) Aspartate Amino Transf (AST/SGOT) 42 U/L (15-37) H Alanine Aminotransferase (ALT/SGPT) 58 U/L (12-78) Alkaline Phosphatase 48 U/L (46-116) C-Reactive Protein, Quantitative 1.1 mg/dL (0.00-0.90) H Total Protein 7.2 G/DL (6.4-8.2) Albumin 3.0 G/DL (3.4-5.0) L Globulin 4.2 g/dL Albumin/Globulin Ratio 0.7 (1.0-2.7) L Current Medications Medications (Trade) Dose Ordered Sig/Reji Route PRN Reason Start Time Stop Time Status Last Admin Dose Admin Acetaminophen (Tylenol) 500 mg Q4H PRN ORAL Mild Pain (Pain Scale 1-3) 02/14/20 00:30 03/15/20 00:29 02/27/20 06:20 Acetaminophen (Tylenol) 650 mg Q4H PRN ORAL FEVER 02/14/20 10:00 03/15/20 09:59 Amiodarone HCl (Cordarone) 200 mg DAILY ORAL 02/14/20 19:15 05/14/20 19:14 02/27/20 09:38 Amlodipine Besylate (Norvasc) 5 mg DAILY ORAL 02/23/20 09:00 03/21/20 17:59 02/27/20 09:38 Aspirin (ASA) 81 mg DAILY ORAL 02/15/20 09:00 03/31/20 08:59 02/27/20 09:39 Atorvastatin Calcium (Lipitor) 40 mg BEDTIME ORAL 02/14/20 21:00 05/14/20 20:59 02/26/20 21:21 Barium Sulfate (Varibar Honey) 250 ml NOW PRN MC RAD 02/24/20 22:00 02/27/20 21:56 Barium Sulfate (Varibar [place]) 240 ml NOW PRN MC RAD 02/24/20 22:00 02/27/20 21:56 Barium Sulfate (Varibar Pudding) 230 ml NOW PRN MC RAD 02/24/20 22:00 02/27/20 21:56 Barium Sulfate (Varibar Thin Liquid powder) 148 gm NOW PRN MC RAD 02/24/20 22:00 02/27/20 21:56 Dextrose (Dextrose 50%) 25 ml Q30M PRN IV Hypoglycemia 02/14/20 10:00 05/14/20 09:59 Dextrose (Dextrose 50%) 50 ml Q30M PRN IV Hypoglycemia 02/14/20 10:00 05/14/20 09:59 Heparin Sodium (Porcine) (Heparin 5000 units/ml) 5,000 units EVERY 12 HOURS SUBQ 02/14/20 10:00 03/30/20 09:59 02/27/20 09:40 Hydralazine HCl (Apresoline) 25 mg Q6HR ORAL 02/21/20 12:00 05/21/20 11:59 02/27/20 06:21 Metoprolol Tartrate (Lopressor) 25 mg EVERY 12 HOURS ORAL 02/14/20 21:00 05/14/20 20:59 02/27/20 09:38 Ondansetron HCl (Zofran) 4 mg Q6H PRN IVP Nausea & Vomiting 02/14/20 10:00 03/15/20 09:59 Pantoprazole (Protonix) 40 mg EVERY 12 HOURS ORAL 02/15/20 21:00 03/16/20 20:59 02/27/20 09:38 Piperacillin Sod/ Tazobactam Sod 3.375 gm/Sodium Chloride 110 ml @ 27.5 mls/hr EVERY 8 HOURS IVPB 02/24/20 14:00 02/29/20 13:59 02/27/20 06:23 Polyethylene Glycol (Miralax) 17 gm DAILYPRN PRN ORAL Constipation 02/14/20 10:00 03/15/20 09:59 02/24/20 09:10 Promethazine HCl/ Codeine (Phenergan with Codeine) 5 ml Q6H PRN ORAL cough 02/14/20 10:00 03/15/20 09:59 Tamsulosin HCl (Flomax) 0.4 mg BID ORAL 02/21/20 10:30 03/21/20 10:29 02/27/20 09:38 Harpreet Morgan MD Feb 27, 2020 10:02
--- NOTE | 2020-02-27 10:20 | Diagnostic Imaging Report ---
Indication: Reason For Exam: [id number] Technique: Single AP view of the chest. Comparison: Chest radiograph Dated 02/26/2020 Findings: The cardiomediastinal silhouette is unchanged in appearance. Redemonstration of patchy bilateral airspace opacities and diffuse interstitial opacities. No pneumothorax. No increase in pleural effusion. Unchanged left approach ICD/pacemaker. IMPRESSION: No significant change from prior examination.
--- NOTE | 2020-02-27 11:51 | Cardiology Progress Note ---
Assessment/Plan Assessment/Plan 1. History ofICD 2. Possible pneumonia. 3. heart failure 4. History of cerebrovascular accident. 5. Schizophrenia. 6. History of pulmonary hypertension. 7. History of paroxysmal episodes of atrial fibrillation. 8. History of hemiplegia. 9. Hypertension. 10. History of kidney disease 11. bacteremia off ivf desaturates when taken of oxygen but on lower level now will give diuretic today iv then po as of tomorrow usual home dose cr improved on treatment for covid 19 per id on norvasc on max dose of cozaar and is "allergic to acei" per record tele reviewed personally cxr reviewed personally on UF for dvt ppx due to renal insuf Subjective Subjective deferreed as active covid infection in restraitn as pulls off his oxygen and desaturates when he dose marilu cough eating well no diarrhea per rn Objective Last 24 Hour Vital Signs Date Time Temp Pulse Resp B/P (MAP) Pulse Ox O2 Delivery O2 Flow Rate FiO2 02/27/20 09:38 69 123/77 02/27/20 09:38 69 123/77 02/27/20 09:00 Venturi Mask 10.0 02/27/20 08:41 64 02/27/20 08:00 96.8 69 19 123/77 (92) 96 02/27/20 06:50 96.9 02/27/20 06:21 120/68 02/27/20 04:00 96.7 92 18 120/63 (82) 90 02/27/20 04:00 81 02/27/20 00:41 128/70 02/27/20 00:00 98.5 77 14 119/81 (94) 94 02/27/20 00:00 76 02/26/20 21:21 88 125/76 02/26/20 21:00 Venturi Mask 15.0 02/26/20 20:00 97.5 88 18 125/76 (92) 94 02/26/20 20:00 82 02/26/20 16:00 85 02/26/20 16:00 96.7 83 19 130/85 (100) 96 02/26/20 12:00 86 02/26/20 12:00 96.8 80 20 115/75 (88) 98 Intake and Output 02/26/20 02/27/20 19:00 07:00 Intake Total 400 ml Balance 400 ml Intake Oral 400 ml # Voids 5 Laboratory Tests Test 02/26/20 12:10 02/27/20 06:03 White Blood Count 13.0 K/UL (4.8-10.8) H 11.1 K/UL (4.8-10.8) H Red Blood Count 4.47 M/UL (4.70-6.10) L 4.38 M/UL (4.70-6.10) L Hemoglobin 14.5 G/DL (14.2-18.0) 14.2 G/DL (14.2-18.0) Hematocrit 43.8 % (42.0-52.0) 42.8 % (42.0-52.0) Mean Corpuscular Volume 98 FL (80-99) 98 FL (80-99) Mean Corpuscular Hemoglobin 32.4 PG (27.0-31.0) H 32.3 PG (27.0-31.0) H Mean Corpuscular Hemoglobin Concent 33.0 G/DL (32.0-36.0) 33.1 G/DL (32.0-36.0) Red Cell Distribution Width 14.4 % (11.6-14.8) 14.3 % (11.6-14.8) Platelet Count 223 K/UL (150-450) 204 K/UL (150-450) Mean Platelet Volume 10.6 FL (6.5-10.1) H 10.8 FL (6.5-10.1) H Neutrophils (%) (Auto) 80.6 % (45.0-75.0) H 77.2 % (45.0-75.0) H Lymphocytes (%) (Auto) 9.3 % (20.0-45.0) L 13.5 % (20.0-45.0) L Monocytes (%) (Auto) 8.0 % (1.0-10.0) 7.3 % (1.0-10.0) Eosinophils (%) (Auto) 0.4 % (0.0-3.0) 1.0 % (0.0-3.0) Basophils (%) (Auto) 1.7 % (0.0-2.0) 1.0 % (0.0-2.0) Sodium Level 144 MMOL/L (136-145) 145 MMOL/L (136-145) Potassium Level 4.1 MMOL/L (3.5-5.1) 4.3 MMOL/L (3.5-5.1) Chloride Level 108 MMOL/L (98-107) H 109 MMOL/L (98-107) H Carbon Dioxide Level 29 MMOL/L (21-32) 27 MMOL/L (21-32) Anion Gap 7 mmol/L (5-15) 10 mmol/L (5-15) Blood Urea Nitrogen 38 mg/dL (7-18) H 33 mg/dL (7-18) H Creatinine 1.6 MG/DL (0.55-1.30) H 1.5 MG/DL (0.55-1.30) H Estimat Glomerular Filtration Rate 53.6 mL/min (>60) 57.7 mL/min (>60) Glucose Level 137 MG/DL (74-106) H 118 MG/DL (74-106) H Calcium Level 9.2 MG/DL (8.5-10.1) 9.0 MG/DL (8.5-10.1) Erythrocyte Sedimentation Rate 60 MM/HR (0-20) H Phosphorus Level 3.7 MG/DL (2.5-4.9) Magnesium Level 2.5 MG/DL (1.8-2.4) H Total Bilirubin 0.8 MG/DL (0.2-1.0) Aspartate Amino Transf (AST/SGOT) 42 U/L (15-37) H Alanine Aminotransferase (ALT/SGPT) 58 U/L (12-78) Alkaline Phosphatase 48 U/L (46-116) C-Reactive Protein, Quantitative 1.1 mg/dL (0.00-0.90) H Total Protein 7.2 G/DL (6.4-8.2) Albumin 3.0 G/DL (3.4-5.0) L Globulin 4.2 g/dL Albumin/Globulin Ratio 0.7 (1.0-2.7) L Microbiology Date/Time Source Procedure Growth Status 02/24/20 13:53 Blood Blood Culture - Preliminary NO GROWTH AFTER 48 HOURS Resulted 02/24/20 13:46 Urine,Clean Catch Urine Culture - Preliminary Roxie Species Strep Species, Gamma-Hemolytic Resulted Objective exam deferred due to active infection , per dr ruiz NECK: Supple without lymphadenopathy. CHEST: Venturi mask; Lungs with bilateral expiratory wheezes and rales. CARDIOVASCULAR: Regular rhythm and rate. S1 and S2 are normal without murmurs, rubs, or gallops. ABDOMEN: Soft, nontender, and nondistended. Positive bowel sounds. No evidence of hepatosplenomegaly. Currently, no rebound or guarding noted. EXTREMITIES: Negative for clubbing, cyanosis, or edema. Kayden Aguilar MD Feb 27, 2020 11:51
[2020-02-27 12:00] VITALS: BP 124/66
--- NOTE | 2020-02-27 13:11 | Pulmonology Progress Note ---
Subjective ROS Limited/Unobtainable: Yes Constitutional: Reports: no symptoms HEENT: Repors: no symptoms Respiratory: Reports: productive cough, other - on VM Allergies: Coded Allergies: DONNIE INHIBITORS (Verified Allergy, Unknown, 02/13/20) OMEGA-3 ACID ETHYL ESTERS (Verified Allergy, Unknown, 02/13/20) Objective Last 24 Hour Vital Signs Date Time Temp Pulse Resp B/P (MAP) Pulse Ox O2 Delivery O2 Flow Rate FiO2 02/27/20 12:04 124/66 02/27/20 12:00 98.7 96 20 124/66 (85) 98 02/27/20 09:38 69 123/77 02/27/20 09:38 69 123/77 02/27/20 09:00 Venturi Mask 10.0 02/27/20 08:41 64 02/27/20 08:00 96.8 69 19 123/77 (92) 96 02/27/20 06:50 96.9 02/27/20 06:21 120/68 02/27/20 04:00 96.7 92 18 120/63 (82) 90 02/27/20 04:00 81 02/27/20 00:41 128/70 02/27/20 00:00 98.5 77 14 119/81 (94) 94 02/27/20 00:00 76 02/26/20 21:21 88 125/76 02/26/20 21:00 Venturi Mask 15.0 02/26/20 20:00 97.5 88 18 125/76 (92) 94 02/26/20 20:00 82 02/26/20 16:00 85 02/26/20 16:00 96.7 83 19 130/85 (100) 96 Intake and Output 02/26/20 02/27/20 19:00 07:00 Intake Total 400 ml Balance 400 ml Intake Oral 400 ml # Voids 5 General Appearance: WD/WN, other - A/A/O x 4 AA male in NAD HEENT: normocephalic, atraumatic, other - VM on Respiratory: chest wall non-tender, other - few scattered rhonchi Cardiovascular: normal peripheral pulses, normal rate - SR on tele Abdomen: normal bowel sounds, soft, non tender Genitourinary: normal external genitalia Extremities: no cyanosis, no edema Skin: no rash 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: 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, no motor/sensory deficits, alert, oriented x 3, responsive Lymphatic: no neck adenopathy Musculoskeletal: normal muscle bulk Microbiology Date/Time Source Procedure Growth Status 02/27/20 12:14 Nasopharynx SARS-CoV-2 RdRp Gene Assay - Final Complete 02/24/20 13:53 Blood Blood Culture - Preliminary NO GROWTH AFTER 48 HOURS Resulted 02/24/20 13:46 Urine,Clean Catch Urine Culture - Preliminary Roxie Species Strep Species, Gamma-Hemolytic Resulted Laboratory Tests 02/27/20 06:03: White Blood Count 11.1H, Red Blood Count 4.38L, Hemoglobin 14.2, Hematocrit 42.8, Mean Corpuscular Volume 98, Mean Corpuscular Hemoglobin 32.3H, Mean Corpuscular Hemoglobin Concent 33.1, Red Cell Distribution Width 14.3, Platelet Count 204, Mean Platelet Volume 10.8H, Neutrophils (%) (Auto) 77.2H, Lymphocytes (%) (Auto) 13.5L, Monocytes (%) (Auto) 7.3, Eosinophils (%) (Auto) 1.0, Basophils (%) (Auto) 1.0, Erythrocyte Sedimentation Rate 60H, Sodium Level 145, Potassium Level 4.3, Chloride Level 109H, Carbon Dioxide Level 27, Anion Gap 10, Blood Urea Nitrogen 33H, Creatinine 1.5H, Estimat Glomerular Filtration Rate 57.7, Glucose Level 118H, Calcium Level 9.0, Phosphorus Level 3.7, Magnesium Level 2.5H, Total Bilirubin 0.8, Aspartate Amino Transf (AST/SGOT) 42H, Alanine Aminotransferase (ALT/SGPT) 58, Alkaline Phosphatase 48, C-Reactive Protein, Quantitative 1.1H, Total Protein 7.2, Albumin 3.0L, Globulin 4.2, Albumin/Globulin Ratio 0.7L Current Medications Medications (Trade) Dose Ordered Sig/Reji Route PRN Reason Start Time Stop Time Status Last Admin Dose Admin Acetaminophen (Tylenol) 500 mg Q4H PRN ORAL Mild Pain (Pain Scale 1-3) 02/14/20 00:30 03/15/20 00:29 02/27/20 06:20 Acetaminophen (Tylenol) 650 mg Q4H PRN ORAL FEVER 02/14/20 10:00 03/15/20 09:59 Amiodarone HCl (Cordarone) 200 mg DAILY ORAL 02/14/20 19:15 05/14/20 19:14 02/27/20 09:38 Amlodipine Besylate (Norvasc) 5 mg DAILY ORAL 02/23/20 09:00 03/21/20 17:59 02/27/20 09:38 Aspirin (ASA) 81 mg DAILY ORAL 02/15/20 09:00 03/31/20 08:59 02/27/20 09:39 Atorvastatin Calcium (Lipitor) 40 mg BEDTIME ORAL 02/14/20 21:00 05/14/20 20:59 02/26/20 21:21 Barium Sulfate (Varibar Honey) 250 ml NOW PRN MC RAD 02/24/20 22:00 02/27/20 21:56 Barium Sulfate (Varibar [place]) 240 ml NOW PRN MC RAD 02/24/20 22:00 02/27/20 21:56 Barium Sulfate (Varibar Pudding) 230 ml NOW PRN MC RAD 02/24/20 22:00 02/27/20 21:56 Barium Sulfate (Varibar Thin Liquid powder) 148 gm NOW PRN MC RAD 02/24/20 22:00 02/27/20 21:56 Dextrose (Dextrose 50%) 25 ml Q30M PRN IV Hypoglycemia 02/14/20 10:00 05/14/20 09:59 Dextrose (Dextrose 50%) 50 ml Q30M PRN IV Hypoglycemia 02/14/20 10:00 05/14/20 09:59 Furosemide (Lasix) 20 mg DAILY ORAL 02/28/20 09:00 03/29/20 08:59 Heparin Sodium (Porcine) (Heparin 5000 units/ml) 5,000 units EVERY 12 HOURS SUBQ 02/14/20 10:00 03/30/20 09:59 02/27/20 09:40 Hydralazine HCl (Apresoline) 25 mg Q6HR ORAL 02/21/20 12:00 05/21/20 11:59 02/27/20 12:04 Metoprolol Tartrate (Lopressor) 25 mg EVERY 12 HOURS ORAL 02/14/20 21:00 05/14/20 20:59 02/27/20 09:38 Ondansetron HCl (Zofran) 4 mg Q6H PRN IVP Nausea & Vomiting 02/14/20 10:00 03/15/20 09:59 Pantoprazole (Protonix) 40 mg EVERY 12 HOURS ORAL 02/15/20 21:00 03/16/20 20:59 02/27/20 09:38 Piperacillin Sod/ Tazobactam Sod 3.375 gm/Sodium Chloride 110 ml @ 27.5 mls/hr EVERY 8 HOURS IVPB 02/24/20 14:00 02/29/20 13:59 02/27/20 06:23 Polyethylene Glycol (Miralax) 17 gm DAILYPRN PRN ORAL Constipation 02/14/20 10:00 03/15/20 09:59 02/24/20 09:10 Promethazine HCl/ Codeine (Phenergan with Codeine) 5 ml Q6H PRN ORAL cough 02/14/20 10:00 03/15/20 09:59 Tamsulosin HCl (Flomax) 0.4 mg BID ORAL 02/21/20 10:30 03/21/20 10:29 02/27/20 09:38 Assessment/Plan Problems: (1) Pneumonia due to COVID-19 virus (2) Sepsis (3) Atrial fibrillation (4) CHF (congestive heart failure) (5) Arrhythmia (6) History of CVA (cerebrovascular accident) (7) Psychosis (8) Acute delirium Assessment/Plan still on restrains, confused and at times agitated neuro consult requested comfortable cxr reviewed, patchy bilateral airspace opacities and diffuse interstitial opacities. respiratory isolation check sputum iv abx + steroids + antiviral as per ID echocardiogram reviewed, EF 30% f/u crp, stady optimize cardiac meds dvt prophylaxis Lyle Joy MD Feb 27, 2020 13:11
[2020-02-27 16:00] VITALS: BP 128/77
--- NOTE | 2020-02-27 16:54 | Internal Med Progress Note ---
Subjective Date of Service: Feb 27, 2020 Physician Name Edmund Carrera Attending Physician Atilio Lee MD Current Medications Medications (Trade) Dose Ordered Sig/Reji Route PRN Reason Start Time Stop Time Status Last Admin Dose Admin Acetaminophen (Tylenol) 500 mg Q4H PRN ORAL Mild Pain (Pain Scale 1-3) 02/14/20 00:30 03/15/20 00:29 02/27/20 06:20 Acetaminophen (Tylenol) 650 mg Q4H PRN ORAL FEVER 02/14/20 10:00 03/15/20 09:59 Amiodarone HCl (Cordarone) 200 mg DAILY ORAL 02/14/20 19:15 05/14/20 19:14 02/27/20 09:38 Amlodipine Besylate (Norvasc) 5 mg DAILY ORAL 02/23/20 09:00 03/21/20 17:59 02/27/20 09:38 Aspirin (ASA) 81 mg DAILY ORAL 02/15/20 09:00 03/31/20 08:59 02/27/20 09:39 Atorvastatin Calcium (Lipitor) 40 mg BEDTIME ORAL 02/14/20 21:00 05/14/20 20:59 02/26/20 21:21 Barium Sulfate (Varibar Honey) 250 ml NOW PRN MC RAD 02/24/20 22:00 02/27/20 21:56 Barium Sulfate (Varibar [place]) 240 ml NOW PRN MC RAD 02/24/20 22:00 02/27/20 21:56 Barium Sulfate (Varibar Pudding) 230 ml NOW PRN MC RAD 02/24/20 22:00 02/27/20 21:56 Barium Sulfate (Varibar Thin Liquid powder) 148 gm NOW PRN MC RAD 02/24/20 22:00 02/27/20 21:56 Dextrose (Dextrose 50%) 25 ml Q30M PRN IV Hypoglycemia 02/14/20 10:00 05/14/20 09:59 Dextrose (Dextrose 50%) 50 ml Q30M PRN IV Hypoglycemia 02/14/20 10:00 05/14/20 09:59 Furosemide (Lasix) 20 mg DAILY ORAL 02/28/20 09:00 03/29/20 08:59 Heparin Sodium (Porcine) (Heparin 5000 units/ml) 5,000 units EVERY 12 HOURS SUBQ 02/14/20 10:00 03/30/20 09:59 02/27/20 09:40 Hydralazine HCl (Apresoline) 25 mg Q6HR ORAL 02/21/20 12:00 05/21/20 11:59 02/27/20 12:04 Metoprolol Tartrate (Lopressor) 25 mg EVERY 12 HOURS ORAL 02/14/20 21:00 05/14/20 20:59 02/27/20 09:38 Ondansetron HCl (Zofran) 4 mg Q6H PRN IVP Nausea & Vomiting 02/14/20 10:00 03/15/20 09:59 Pantoprazole (Protonix) 40 mg EVERY 12 HOURS ORAL 02/15/20 21:00 03/16/20 20:59 02/27/20 09:38 Piperacillin Sod/ Tazobactam Sod 3.375 gm/Sodium Chloride 110 ml @ 27.5 mls/hr EVERY 8 HOURS IVPB 02/24/20 14:00 02/29/20 13:59 02/27/20 13:20 Polyethylene Glycol (Miralax) 17 gm DAILYPRN PRN ORAL Constipation 02/14/20 10:00 03/15/20 09:59 02/24/20 09:10 Promethazine HCl/ Codeine (Phenergan with Codeine) 5 ml Q6H PRN ORAL cough 02/14/20 10:00 03/15/20 09:59 Tamsulosin HCl (Flomax) 0.4 mg BID ORAL 02/21/20 10:30 03/21/20 10:29 02/27/20 09:38 Allergies: Coded Allergies: DONNIE INHIBITORS (Verified Allergy, Unknown, 02/13/20) OMEGA-3 ACID ETHYL ESTERS (Verified Allergy, Unknown, 02/13/20) Subjective 60 YO M admitted with shortness of breath. Now COVID 19 and sepsis. Cover for Int Med-Dr Lee. Worsening shortness of breath Objective Last Vital Signs Date Time Temp Pulse Resp B/P (MAP) Pulse Ox O2 Delivery O2 Flow Rate FiO2 02/27/20 12:04 124/66 02/27/20 12:00 98.7 96 20 98 02/27/20 09:00 Venturi Mask 10.0 Laboratory Tests Test 02/27/20 06:03 White Blood Count 11.1 K/UL (4.8-10.8) H Red Blood Count 4.38 M/UL (4.70-6.10) L Hemoglobin 14.2 G/DL (14.2-18.0) Hematocrit 42.8 % (42.0-52.0) Mean Corpuscular Volume 98 FL (80-99) Mean Corpuscular Hemoglobin 32.3 PG (27.0-31.0) H Mean Corpuscular Hemoglobin Concent 33.1 G/DL (32.0-36.0) Red Cell Distribution Width 14.3 % (11.6-14.8) Platelet Count 204 K/UL (150-450) Mean Platelet Volume 10.8 FL (6.5-10.1) H Neutrophils (%) (Auto) 77.2 % (45.0-75.0) H Lymphocytes (%) (Auto) 13.5 % (20.0-45.0) L Monocytes (%) (Auto) 7.3 % (1.0-10.0) Eosinophils (%) (Auto) 1.0 % (0.0-3.0) Basophils (%) (Auto) 1.0 % (0.0-2.0) Erythrocyte Sedimentation Rate 60 MM/HR (0-20) H Sodium Level 145 MMOL/L (136-145) Potassium Level 4.3 MMOL/L (3.5-5.1) Chloride Level 109 MMOL/L (98-107) H Carbon Dioxide Level 27 MMOL/L (21-32) Anion Gap 10 mmol/L (5-15) Blood Urea Nitrogen 33 mg/dL (7-18) H Creatinine 1.5 MG/DL (0.55-1.30) H Estimat Glomerular Filtration Rate 57.7 mL/min (>60) Glucose Level 118 MG/DL (74-106) H Calcium Level 9.0 MG/DL (8.5-10.1) Phosphorus Level 3.7 MG/DL (2.5-4.9) Magnesium Level 2.5 MG/DL (1.8-2.4) H Total Bilirubin 0.8 MG/DL (0.2-1.0) Aspartate Amino Transf (AST/SGOT) 42 U/L (15-37) H Alanine Aminotransferase (ALT/SGPT) 58 U/L (12-78) Alkaline Phosphatase 48 U/L (46-116) C-Reactive Protein, Quantitative 1.1 mg/dL (0.00-0.90) H Total Protein 7.2 G/DL (6.4-8.2) Albumin 3.0 G/DL (3.4-5.0) L Globulin 4.2 g/dL Albumin/Globulin Ratio 0.7 (1.0-2.7) L Microbiology Date/Time Source Procedure Growth Status 02/27/20 12:14 Nasopharynx SARS-CoV-2 RdRp Gene Assay - Final Complete Intake and Output 02/26/20 02/27/20 19:00 07:00 Intake Total 400 ml Balance 400 ml Intake Oral 400 ml # Voids 5 Objective PHYSICAL EXAMINATION: GENERAL: The patient is well-developed and well-nourished male, no apparent distress. HEENT: Eyes, pupils are equal and responsive to light and accommodation. Extraocular movements are intact. NECK: Supple without lymphadenopathy. CHEST: Venturi mask; Lungs with bilateral expiratory wheezes and rales. CARDIOVASCULAR: Regular rhythm and rate. S1 and S2 are normal without murmurs, rubs, or gallops. ABDOMEN: Soft, nontender, and nondistended. Positive bowel sounds. No evidence of hepatosplenomegaly. Currently, no rebound or guarding noted. EXTREMITIES: Negative for clubbing, cyanosis, or edema. RECTAL/GENITAL: Not performed. NEUROLOGIC: Cranial nerves II through XII are grossly intact without focal deficits. Motor strength is 5/5 bilaterally. Deep tendon reflexes are 2+ plantar. Assessment/Plan Assessment/Plan ASSESSMENT: This is a 60-year-old male: 1. Shortness of breath. 2. Fever. 3. COVID-19 positive. 4. Hypertension. 5. Cerebrovascular disease, status post cerebrovascular accident. 6. Hemiplegia. 7. Hypercholesterolemia. 8. Coronary artery disease. 9. Cardiomyopathy. 10. Paroxysmal atrial fibrillation. 11. Schizoaffective disorder, bipolar type. 12. Chronic kidney disease. 13. Sepsis=Staph epidermidis 14. Elevated troponin 15. AICD in situ 16. Worsening infiltrates on CXR TREATMENT: 1. Hypoxia/shortness of breath. A Pulmonary = Dr. Lyle Joy. COVID-19 testing = positive ABX=Zosyn. S/P vanco, ceftriaxone and azithromycin and remdesivir 2. Hypertension. 3. Cerebrovascular disease. 4. Hemiplegia. 5. Coronary artery disease. Cardiology= Dr. Kayden Aguilar. 6. Hypercholesterolemia. Continue atorvastatin as above. 7. Cardiomyopathy. 8. Paroxysmal atrial fibrillation. 9. Schizoaffective disorder, bipolar type. 10. Chronic kidney disease. 11. Pacemaker in situ. 12. ID=DR Espinoza 13. Abx: Monitor Off 14. Decadron # 11 15. Remdesivir #5/5 Completed. 16. DVT Prophylaxsis: Heparin SQ 17. Code status: Full code Edmund Carrera MD Feb 27, 2020 16:54
[2020-02-27 20:00] VITALS: BP 90/54
[2020-02-27] MEDS: Atorvastatin 20mg tab ORAL SCH (21:35)
[2020-02-28] VITALS: BP 108/40
[2020-02-28] MEDS: HydrALAZINE 25mg tab ORAL SCH ×5 (00:31→23:23)
[2020-02-28 04:00] VITALS: BP 113/79
[2020-02-28] MEDS: Piperacillin/Tazobactam 3.375 GM in NS 110 ML IVPB SCH ×3 (06:38→21:28)
[2020-02-28 08:00] VITALS: BP 116/68
[2020-02-28 08:50] LABS: BASOPHILS % (AUTO) 3.8 % (0.0-2.0); EOSINOPHILS % (AUTO) 0.5 % (0.0-3.0); HEMOGLOBIN 14.4 G/DL (14.2-18.0); LYMPHOCYTES % (AUTO) 13.3 % (20.0-45.0); MEAN CORPUSCULAR VOLUME 96 FL (80-99); MONOCYTES % (AUTO) 6.7 % (1.0-10.0); NEUTROPHILS % (AUTO) 75.7 % (45.0-75.0); PLATELET COUNT 182 K/UL (150-450); RED BLOOD COUNT 4.47 M/UL (4.70-6.10); RED CELL DISTRIBUTION WIDTH 13.9 % (11.6-14.8); WHITE BLOOD COUNT 10.7 K/UL (4.8-10.8)
--- NOTE | 2020-02-28 08:55 | Pulmonology Progress Note ---
Subjective ROS Limited/Unobtainable: Yes Constitutional: Reports: no symptoms HEENT: Repors: no symptoms Respiratory: Reports: productive cough, other - on VM Allergies: Coded Allergies: DONNIE INHIBITORS (Verified Allergy, Unknown, 02/13/20) OMEGA-3 ACID ETHYL ESTERS (Verified Allergy, Unknown, 02/13/20) Objective Last 24 Hour Vital Signs Date Time Temp Pulse Resp B/P (MAP) Pulse Ox O2 Delivery O2 Flow Rate FiO2 02/28/20 08:13 Venturi Mask 10.0 02/28/20 08:00 97.5 94 20 116/68 (84) 96 02/28/20 08:00 99 02/28/20 06:00 116/46 02/28/20 04:00 98.6 76 18 113/79 (90) 100 02/28/20 04:00 81 02/28/20 00:31 108/40 02/28/20 00:00 90 02/28/20 00:00 98.0 85 18 108/40 (62) 95 02/27/20 21:00 Venturi Mask 10.0 02/27/20 20:18 84 90/54 02/27/20 20:00 79 02/27/20 20:00 98.4 84 18 90/54 (66) 96 02/27/20 17:16 128/77 02/27/20 16:35 79 02/27/20 16:00 98.1 93 19 128/77 (94) 98 02/27/20 12:04 124/66 02/27/20 12:00 98.7 96 20 124/66 (85) 98 02/27/20 11:40 87 02/27/20 09:38 69 123/77 02/27/20 09:38 69 123/77 02/27/20 09:00 Venturi Mask 10.0 Intake and Output 02/27/20 02/28/20 18:59 06:59 Intake Total 140 ml 110.0 ml Output Total 1400 ml Balance -1260 ml 110.0 ml Intake Oral 140 ml IV Total 110.0 ml Output Urine Total 1400 ml # Voids 3 2 # Bowel Movements 1 General Appearance: WD/WN, other - A/A/O x 4 AA male in NAD HEENT: normocephalic, atraumatic, other - VM on Respiratory: chest wall non-tender, other - few scattered rhonchi Cardiovascular: normal peripheral pulses, normal rate - SR on tele Abdomen: normal bowel sounds, soft, non tender Genitourinary: normal external genitalia Extremities: no cyanosis, no edema Skin: no rash Neurologic: duck 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 II-XII grossly normal, no motor/sensory deficits, alert, oriented x 3, responsive Lymphatic: no neck adenopathy Musculoskeletal: normal muscle bulk Microbiology Date/Time Source Procedure Growth Status 02/27/20 12:14 Nasopharynx SARS-CoV-2 RdRp Gene Assay - Final Complete Laboratory Tests 02/27/20 21:45: POC Whole Blood Glucose 119H 02/28/20 06:49: POC Whole Blood Glucose [Pending] 02/28/20 08:40: White Blood Count 10.7, Red Blood Count 4.47L, Hemoglobin 14.4, Hematocrit 43.0, Mean Corpuscular Volume 96, Mean Corpuscular Hemoglobin 32.3H, Mean Corpuscular Hemoglobin Concent 33.5, Red Cell Distribution Width 13.9, Platelet Count 182, Mean Platelet Volume 10.6H, Neutrophils (%) (Auto) 75.7H, Lymphocytes (%) (Auto) 13.3L, Monocytes (%) (Auto) 6.7, Eosinophils (%) (Auto) 0.5, Basophils (%) (Auto) 3.8H, Sodium Level [Pending], Potassium Level [Pending], Chloride Level [Pending], Carbon Dioxide Level [Pending], Blood Urea Nitrogen [Pending], Creatinine [Pending], Estimat Glomerular Filtration Rate [Pending], Glucose Level [Pending], Calcium Level [Pending] Current Medications Medications (Trade) Dose Ordered Sig/Reji Route PRN Reason Start Time Stop Time Status Last Admin Dose Admin Acetaminophen (Tylenol) 500 mg Q4H PRN ORAL Mild Pain (Pain Scale 1-3) 02/14/20 00:30 03/15/20 00:29 02/27/20 06:20 Acetaminophen (Tylenol) 650 mg Q4H PRN ORAL FEVER 02/14/20 10:00 03/15/20 09:59 Amiodarone HCl (Cordarone) 200 mg DAILY ORAL 02/14/20 19:15 05/14/20 19:14 02/27/20 09:38 Amlodipine Besylate (Norvasc) 5 mg DAILY ORAL 02/23/20 09:00 03/21/20 17:59 02/27/20 09:38 Aspirin (ASA) 81 mg DAILY ORAL 02/15/20 09:00 03/31/20 08:59 02/27/20 09:39 Atorvastatin Calcium (Lipitor) 40 mg BEDTIME ORAL 02/14/20 21:00 05/14/20 20:59 02/27/20 21:35 Dextrose (Dextrose 50%) 25 ml Q30M PRN IV Hypoglycemia 02/14/20 10:00 05/14/20 09:59 Dextrose (Dextrose 50%) 50 ml Q30M PRN IV Hypoglycemia 02/14/20 10:00 05/14/20 09:59 Furosemide (Lasix) 20 mg DAILY ORAL 02/28/20 09:00 03/29/20 08:59 Heparin Sodium (Porcine) (Heparin 5000 units/ml) 5,000 units EVERY 12 HOURS SUBQ 02/14/20 10:00 03/30/20 09:59 02/27/20 21:36 Hydralazine HCl (Apresoline) 25 mg Q6HR ORAL 02/21/20 12:00 05/21/20 11:59 02/27/20 17:16 Metoprolol Tartrate (Lopressor) 25 mg EVERY 12 HOURS ORAL 02/14/20 21:00 05/14/20 20:59 02/27/20 09:38 Ondansetron HCl (Zofran) 4 mg Q6H PRN IVP Nausea & Vomiting 02/14/20 10:00 03/15/20 09:59 Pantoprazole (Protonix) 40 mg EVERY 12 HOURS ORAL 02/15/20 21:00 03/16/20 20:59 02/27/20 21:36 Piperacillin Sod/ Tazobactam Sod 3.375 gm/Sodium Chloride 110 ml @ 27.5 mls/hr EVERY 8 HOURS IVPB 02/24/20 14:00 02/29/20 13:59 02/28/20 06:38 Polyethylene Glycol (Miralax) 17 gm DAILYPRN PRN ORAL Constipation 02/14/20 10:00 03/15/20 09:59 02/24/20 09:10 Promethazine HCl/ Codeine (Phenergan with Codeine) 5 ml Q6H PRN ORAL cough 02/14/20 10:00 03/15/20 09:59 Tamsulosin HCl (Flomax) 0.4 mg BID ORAL 02/21/20 10:30 03/21/20 10:29 02/27/20 17:16 Assessment/Plan Problems: (1) Pneumonia due to COVID-19 virus (2) Sepsis (3) Atrial fibrillation (4) CHF (congestive heart failure) (5) Arrhythmia (6) History of CVA (cerebrovascular accident) (7) Psychosis (8) Acute delirium Assessment/Plan has face mask, confused still on restrains, confused and at times agitated neuro consult requested comfortable cxr reviewed, patchy bilateral airspace opacities and diffuse interstitial opacities. respiratory isolation check sputum iv abx + steroids + antiviral as per ID echocardiogram reviewed, EF 30% f/u crp, stady optimize cardiac meds dvt prophylaxis Lyle Joy MD Feb 28, 2020 08:55
[2020-02-28 09:06] LABS: ANION GAP 9 mmol/L (5-15); BLOOD UREA NITROGEN 30 mg/dL (7-18); CALCIUM 8.5 MG/DL (8.5-10.1); CARBON DIOXIDE 24 MMOL/L (21-32); CHLORIDE 107 MMOL/L (98-107); CREATININE 1.4 MG/DL (0.55-1.30); POTASSIUM 3.8 MMOL/L (3.5-5.1); SODIUM 140 MMOL/L (136-145)
[2020-02-28] MEDS: Amiodarone 200mg tab ORAL SCH (09:42)
[2020-02-28] MEDS: Aspirin Baby 81mg ORAL SCH (09:43)
[2020-02-28] MEDS: Tamsulosin 0.4mg cap ORAL SCH ×2 (09:43→17:01)
[2020-02-28] MEDS: Heparin 5000 units/ml inj SUBQ SCH ×2 (09:44→21:32)
--- NOTE | 2020-02-28 09:45 | Nephrology Progress Note ---
Assessment/Plan Problem List: (1) SHANNAN (acute kidney injury) (2) CHF (congestive heart failure) (3) Atrial fibrillation (4) Cardiomyopathy (5) ICD (implantable cardioverter-defibrillator) in place (6) History of CVA (cerebrovascular accident) (7) Pneumonia due to COVID-19 virus Assessment Acute on chronic renal failure Respiratory failure with hypoxia Pneumonia due to COVID-19 virus Sepsis Diabetes mellitus with elevated hemoglobin A1c Anemia Cardiomyopathy 20% EjFx Plan February 27: Labs reviewed. Serum creatinine lower. Creatinine 1.4. Stable from renal standpoint of view. Continue per PMD and consultants. February 26: Labs reviewed. Serum creatinine lowering. Creatinine 1.5. White blood cells 11,000. Stable from renal standpoint of view. Continue per consultants. February 25: Yesterday's labs reviewed. Serum creatinine 1.7. No chemistry panel done today. As of yesterday white blood cell counts down to 12,000. Cont inue to monitor renal parameters. February 24: No chemistry panel done today. Last serum creatinine 1.8. White blood cells 26,000. Continue per ID. Will check renal parameters tomorrow. February 23: Labs reviewed. Serum creatinine 1.8. Medication list reviewed. Continue to monitor renal parameters. Continue to optimize cardiac status. February 22: Labs reviewed. I suspect today's labs is an error. Will repeat the blood work. Continue current management. Discussed with charge nurse about the repeating the blood work today February 21: Serum creatinine rising to 2. Uric acid verna. Patient renal f ailure is due to aggressive treatment for congestive heart failure and cardiomyopathy and ejection fraction of 20%. Continue to optimize cardiac status and diuretics as possible so hopefully we can prevent further deterioration of serum creatinine and renal function. February 20: Serum creatinine slightly higher to 1.7. Continue to adjust diuretics and afterload load reduction medications as such to stabilize serum creatinine from further rise. February 19. Serum creatinine higher to 1.6. Otherwise no new changes. We will continue to monitor renal parameters. February 18: Renal parameters stable. Continue per consultants. February 17: Remains stable from renal standpoint of view. Continue per consultants. February 16: Patient stable from renal standpoint to view. Continue per pulmonary. Continue per ID. Serum creatinine down to 1.6 from 2.1 on admission day February 15: When I saw the patient this morning with charge nurse Wilfred the patient was somewhat hypoxic on oxygen. Was ordered to be put on mask and inform finish cleaner for possible ABG check and further treatment plan. Labs reviewed. Serum creatinine stable. Troponin unchanged. Continue to monitor renal parameters. Continue to optimize cardiac and pulmonary status. Overall prognosis poor. Slow hydration Monitor electrolytes and renal parameters Monitor urine output Correct abnormal electrolytes Antibiotics, avoid nephrotoxic's Anemia work-up Per orders Subjective ROS Limited/Unobtainable: Yes Objective Objective Last 24 Hour Vital Signs Date Time Temp Pulse Resp B/P (MAP) Pulse Ox O2 Delivery O2 Flow Rate FiO2 02/28/20 08:13 Venturi Mask 10.0 02/28/20 08:00 97.5 94 20 116/68 (84) 96 02/28/20 08:00 99 02/28/20 06:00 116/46 02/28/20 04:00 98.6 76 18 113/79 (90) 100 02/28/20 04:00 81 02/28/20 00:31 108/40 02/28/20 00:00 90 02/28/20 00:00 98.0 85 18 108/40 (62) 95 02/27/20 21:00 Venturi Mask 10.0 02/27/20 20:18 84 90/54 02/27/20 20:00 79 02/27/20 20:00 98.4 84 18 90/54 (66) 96 02/27/20 17:16 128/77 02/27/20 16:35 79 02/27/20 16:00 98.1 93 19 128/77 (94) 98 02/27/20 12:04 124/66 02/27/20 12:00 98.7 96 20 124/66 (85) 98 02/27/20 11:40 87 Intake and Output 02/27/20 02/28/20 19:00 07:00 Intake Total 140 ml 110.0 ml Output Total 1400 ml Balance -1260 ml 110.0 ml Intake Oral 140 ml IV Total 110.0 ml Output Urine Total 1400 ml # Voids 3 2 # Bowel Movements 1 Laboratory Tests 02/27/20 21:45: POC Whole Blood Glucose 119H 02/28/20 06:49: POC Whole Blood Glucose [Pending] 02/28/20 08:40: White Blood Count 10.7, Red Blood Count 4.47L, Hemoglobin 14.4, Hematocrit 43.0, Mean Corpuscular Volume 96, Mean Corpuscular Hemoglobin 32.3H, Mean Corpuscular Hemoglobin Concent 33.5, Red Cell Distribution Width 13.9, Platelet Count 182, Mean Platelet Volume 10.6H, Neutrophils (%) (Auto) 75.7H, Lymphocytes (%) (Auto) 13.3L, Monocytes (%) (Auto) 6.7, Eosinophils (%) (Auto) 0.5, Basophils (%) (Auto) 3.8H, Sodium Level 140, Potassium Level 3.8, Chloride Level 107, Carbon Dioxide Level 24, Anion Gap 9, Blood Urea Nitrogen 30H, Creatinine 1.4H, Estimat Glomerular Filtration Rate > 60, Glucose Level 155H, Calcium Level 8.5 Height (Feet): 5 Height (Inches): 10.00 Weight (Pounds): 231 General Appearance: no apparent distress, confused Cardiovascular: normal rate Respiratory/Chest: decreased breath sounds Abdomen: distended Objective No change Ashvin Bautista MD Feb 28, 2020 09:45
--- NOTE | 2020-02-28 09:54 | Infectious Diseases Prog Note ---
Assessment/Plan Assessment: COVID19 positive (dx'ed 02/08/20)- likely PNA Acute hypoxic resp failure- sp NRB> 4l NC> desaturated to 78% and was placed on SM 8L 02/15 > VM 10L 02/19 -02/18 CXR: Worsening bilateral edema versus infiltrates, over 3 days -02/12 CXR: Cardiomegaly with vascular congestion and moderate edema. 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 HAP? -02/24/20 SP Decadron #10 -02/18 SP Ceftriaxone #7, Azithromycin #7 -02/17 SP Remdesivir #5 -02/16 SP IV Vancomycin #2 -f/u cx -Monitor CBC/CMP, temperatures -f/u repeat Bcx x2 Thank you for this consultation. Will continue to follow along with you. Subjective Allergies: Coded Allergies: DONNIE INHIBITORS (Verified Allergy, Unknown, 02/13/20) OMEGA-3 ACID ETHYL ESTERS (Verified Allergy, Unknown, 02/13/20) Afebrile Leukocytosis resolved On VM Objective Last 24 Hour Vital Signs Date Time Temp Pulse Resp B/P (MAP) Pulse Ox O2 Delivery O2 Flow Rate FiO2 02/28/20 09:43 99 116/68 02/28/20 09:42 99 116/68 02/28/20 08:13 Venturi Mask 10.0 02/28/20 08:00 97.5 94 20 116/68 (84) 96 02/28/20 08:00 99 02/28/20 06:00 116/46 02/28/20 04:00 98.6 76 18 113/79 (90) 100 02/28/20 04:00 81 02/28/20 00:31 108/40 02/28/20 00:00 90 02/28/20 00:00 98.0 85 18 108/40 (62) 95 02/27/20 21:00 Venturi Mask 10.0 02/27/20 20:18 84 90/54 02/27/20 20:00 79 02/27/20 20:00 98.4 84 18 90/54 (66) 96 02/27/20 17:16 128/77 02/27/20 16:35 79 02/27/20 16:00 98.1 93 19 128/77 (94) 98 02/27/20 12:04 124/66 02/27/20 12:00 98.7 96 20 124/66 (85) 98 02/27/20 11:40 87 Height (Feet): 5 Height (Inches): 10.00 Weight (Pounds): 231 Gen: No distress on VM 10L Respiratory Exam: Equal rise and fall B/L Chest Abd: Soft ND Skin Exam: Normal in color no rashs Microbiology Date/Time Source Procedure Growth Status 02/27/20 12:14 Nasopharynx SARS-CoV-2 RdRp Gene Assay - Final Complete Laboratory Tests Test 02/27/20 21:45 02/28/20 06:49 02/28/20 08:40 POC Whole Blood Glucose 119 MG/DL (74-106) H Pending White Blood Count 10.7 K/UL (4.8-10.8) Red Blood Count 4.47 M/UL (4.70-6.10) L Hemoglobin 14.4 G/DL (14.2-18.0) Hematocrit 43.0 % (42.0-52.0) Mean Corpuscular Volume 96 FL (80-99) Mean Corpuscular Hemoglobin 32.3 PG (27.0-31.0) H Mean Corpuscular Hemoglobin Concent 33.5 G/DL (32.0-36.0) Red Cell Distribution Width 13.9 % (11.6-14.8) Platelet Count 182 K/UL (150-450) Mean Platelet Volume 10.6 FL (6.5-10.1) H Neutrophils (%) (Auto) 75.7 % (45.0-75.0) H Lymphocytes (%) (Auto) 13.3 % (20.0-45.0) L Monocytes (%) (Auto) 6.7 % (1.0-10.0) Eosinophils (%) (Auto) 0.5 % (0.0-3.0) Basophils (%) (Auto) 3.8 % (0.0-2.0) H Sodium Level 140 MMOL/L (136-145) Potassium Level 3.8 MMOL/L (3.5-5.1) Chloride Level 107 MMOL/L (98-107) Carbon Dioxide Level 24 MMOL/L (21-32) Anion Gap 9 mmol/L (5-15) Blood Urea Nitrogen 30 mg/dL (7-18) H Creatinine 1.4 MG/DL (0.55-1.30) H Estimat Glomerular Filtration Rate > 60 mL/min (>60) Glucose Level 155 MG/DL (74-106) H Calcium Level 8.5 MG/DL (8.5-10.1) Current Medications Medications (Trade) Dose Ordered Sig/Reji Route PRN Reason Start Time Stop Time Status Last Admin Dose Admin Acetaminophen (Tylenol) 500 mg Q4H PRN ORAL Mild Pain (Pain Scale 1-3) 02/14/20 00:30 03/15/20 00:29 02/27/20 06:20 Acetaminophen (Tylenol) 650 mg Q4H PRN ORAL FEVER 02/14/20 10:00 03/15/20 09:59 Amiodarone HCl (Cordarone) 200 mg DAILY ORAL 02/14/20 19:15 05/14/20 19:14 02/28/20 09:42 Amlodipine Besylate (Norvasc) 5 mg DAILY ORAL 02/23/20 09:00 03/21/20 17:59 02/28/20 09:43 Aspirin (ASA) 81 mg DAILY ORAL 02/15/20 09:00 03/31/20 08:59 02/28/20 09:43 Atorvastatin Calcium (Lipitor) 40 mg BEDTIME ORAL 02/14/20 21:00 05/14/20 20:59 02/27/20 21:35 Dextrose (Dextrose 50%) 25 ml Q30M PRN IV Hypoglycemia 02/14/20 10:00 05/14/20 09:59 Dextrose (Dextrose 50%) 50 ml Q30M PRN IV Hypoglycemia 02/14/20 10:00 05/14/20 09:59 Furosemide (Lasix) 20 mg DAILY ORAL 02/28/20 09:00 03/29/20 08:59 02/28/20 09:43 Heparin Sodium (Porcine) (Heparin 5000 units/ml) 5,000 units EVERY 12 HOURS SUBQ 02/14/20 10:00 03/30/20 09:59 02/28/20 09:44 Hydralazine HCl (Apresoline) 25 mg Q6HR ORAL 02/21/20 12:00 05/21/20 11:59 02/27/20 17:16 Metoprolol Tartrate (Lopressor) 25 mg EVERY 12 HOURS ORAL 02/14/20 21:00 05/14/20 20:59 02/28/20 09:42 Ondansetron HCl (Zofran) 4 mg Q6H PRN IVP Nausea & Vomiting 02/14/20 10:00 03/15/20 09:59 Pantoprazole (Protonix) 40 mg EVERY 12 HOURS ORAL 02/15/20 21:00 03/16/20 20:59 02/28/20 09:42 Piperacillin Sod/ Tazobactam Sod 3.375 gm/Sodium Chloride 110 ml @ 27.5 mls/hr EVERY 8 HOURS IVPB 02/24/20 14:00 02/29/20 13:59 02/28/20 06:38 Polyethylene Glycol (Miralax) 17 gm DAILYPRN PRN ORAL Constipation 02/14/20 10:00 03/15/20 09:59 02/24/20 09:10 Promethazine HCl/ Codeine (Phenergan with Codeine) 5 ml Q6H PRN ORAL cough 02/14/20 10:00 03/15/20 09:59 Tamsulosin HCl (Flomax) 0.4 mg BID ORAL 02/21/20 10:30 03/21/20 10:29 02/28/20 09:43 Harpreet Morgan MD Feb 28, 2020 09:54
[2020-02-28 12:00] VITALS: BP 131/75
--- NOTE | 2020-02-28 12:38 | Internal Med Progress Note ---
Subjective Date of Service: Feb 28, 2020 Physician Name Edmund Carrera Attending Physician Atilio Lee MD Current Medications Medications (Trade) Dose Ordered Sig/Reji Route PRN Reason Start Time Stop Time Status Last Admin Dose Admin Acetaminophen (Tylenol) 500 mg Q4H PRN ORAL Mild Pain (Pain Scale 1-3) 02/14/20 00:30 03/15/20 00:29 02/27/20 06:20 Acetaminophen (Tylenol) 650 mg Q4H PRN ORAL FEVER 02/14/20 10:00 03/15/20 09:59 Amiodarone HCl (Cordarone) 200 mg DAILY ORAL 02/14/20 19:15 05/14/20 19:14 02/28/20 09:42 Amlodipine Besylate (Norvasc) 5 mg DAILY ORAL 02/23/20 09:00 03/21/20 17:59 02/28/20 09:43 Aspirin (ASA) 81 mg DAILY ORAL 02/15/20 09:00 03/31/20 08:59 02/28/20 09:43 Atorvastatin Calcium (Lipitor) 40 mg BEDTIME ORAL 02/14/20 21:00 05/14/20 20:59 02/27/20 21:35 Dextrose (Dextrose 50%) 25 ml Q30M PRN IV Hypoglycemia 02/14/20 10:00 05/14/20 09:59 Dextrose (Dextrose 50%) 50 ml Q30M PRN IV Hypoglycemia 02/14/20 10:00 05/14/20 09:59 Furosemide (Lasix) 20 mg DAILY ORAL 02/28/20 09:00 03/29/20 08:59 02/28/20 09:43 Heparin Sodium (Porcine) (Heparin 5000 units/ml) 5,000 units EVERY 12 HOURS SUBQ 02/14/20 10:00 03/30/20 09:59 02/28/20 09:44 Hydralazine HCl (Apresoline) 25 mg Q6HR ORAL 02/21/20 12:00 05/21/20 11:59 02/27/20 17:16 Metoprolol Tartrate (Lopressor) 25 mg EVERY 12 HOURS ORAL 02/14/20 21:00 05/14/20 20:59 02/28/20 09:42 Ondansetron HCl (Zofran) 4 mg Q6H PRN IVP Nausea & Vomiting 02/14/20 10:00 03/15/20 09:59 Pantoprazole (Protonix) 40 mg EVERY 12 HOURS ORAL 02/15/20 21:00 03/16/20 20:59 02/28/20 09:42 Piperacillin Sod/ Tazobactam Sod 3.375 gm/Sodium Chloride 110 ml @ 27.5 mls/hr EVERY 8 HOURS IVPB 02/24/20 14:00 02/29/20 13:59 02/28/20 06:38 Polyethylene Glycol (Miralax) 17 gm DAILYPRN PRN ORAL Constipation 02/14/20 10:00 03/15/20 09:59 02/24/20 09:10 Promethazine HCl/ Codeine (Phenergan with Codeine) 5 ml Q6H PRN ORAL cough 02/14/20 10:00 03/15/20 09:59 Tamsulosin HCl (Flomax) 0.4 mg BID ORAL 02/21/20 10:30 03/21/20 10:29 02/28/20 09:43 Allergies: Coded Allergies: DONNIE INHIBITORS (Verified Allergy, Unknown, 02/13/20) OMEGA-3 ACID ETHYL ESTERS (Verified Allergy, Unknown, 02/13/20) ROS Limited/Unobtainable: Yes Subjective 60 YO M admitted with shortness of breath. Now COVID 19 and sepsis. Cover for Int Med-Dr Lee. Worsening shortness of breath Objective Last Vital Signs Date Time Temp Pulse Resp B/P (MAP) Pulse Ox O2 Delivery O2 Flow Rate FiO2 02/28/20 09:43 99 116/68 02/28/20 08:13 Venturi Mask 10.0 02/28/20 08:00 97.5 20 96 Laboratory Tests Test 02/27/20 21:45 02/28/20 06:49 02/28/20 08:40 POC Whole Blood Glucose 119 MG/DL (74-106) H Pending White Blood Count 10.7 K/UL (4.8-10.8) Red Blood Count 4.47 M/UL (4.70-6.10) L Hemoglobin 14.4 G/DL (14.2-18.0) Hematocrit 43.0 % (42.0-52.0) Mean Corpuscular Volume 96 FL (80-99) Mean Corpuscular Hemoglobin 32.3 PG (27.0-31.0) H Mean Corpuscular Hemoglobin Concent 33.5 G/DL (32.0-36.0) Red Cell Distribution Width 13.9 % (11.6-14.8) Platelet Count 182 K/UL (150-450) Mean Platelet Volume 10.6 FL (6.5-10.1) H Neutrophils (%) (Auto) 75.7 % (45.0-75.0) H Lymphocytes (%) (Auto) 13.3 % (20.0-45.0) L Monocytes (%) (Auto) 6.7 % (1.0-10.0) Eosinophils (%) (Auto) 0.5 % (0.0-3.0) Basophils (%) (Auto) 3.8 % (0.0-2.0) H Sodium Level 140 MMOL/L (136-145) Potassium Level 3.8 MMOL/L (3.5-5.1) Chloride Level 107 MMOL/L (98-107) Carbon Dioxide Level 24 MMOL/L (21-32) Anion Gap 9 mmol/L (5-15) Blood Urea Nitrogen 30 mg/dL (7-18) H Creatinine 1.4 MG/DL (0.55-1.30) H Estimat Glomerular Filtration Rate > 60 mL/min (>60) Glucose Level 155 MG/DL (74-106) H Calcium Level 8.5 MG/DL (8.5-10.1) Microbiology Date/Time Source Procedure Growth Status 02/27/20 12:14 Nasopharynx SARS-CoV-2 RdRp Gene Assay - Final Complete Intake and Output 02/27/20 02/28/20 18:59 06:59 Intake Total 140 ml 110.0 ml Output Total 1400 ml Balance -1260 ml 110.0 ml Intake Oral 140 ml IV Total 110.0 ml Output Urine Total 1400 ml # Voids 3 2 # Bowel Movements 1 Objective PHYSICAL EXAMINATION: GENERAL: The patient is well-developed and well-nourished male, no apparent distress. HEENT: Eyes, pupils are equal and responsive to light and accommodation. Extraocular movements are intact. NECK: Supple without lymphadenopathy. CHEST: Venturi mask; Lungs with bilateral expiratory wheezes and rales. CARDIOVASCULAR: Regular rhythm and rate. S1 and S2 are normal without murmurs, rubs, or gallops. ABDOMEN: Soft, nontender, and nondistended. Positive bowel sounds. No evidence of hepatosplenomegaly. Currently, no rebound or guarding noted. EXTREMITIES: Negative for clubbing, cyanosis, or edema. RECTAL/GENITAL: Not performed. NEUROLOGIC: Cranial nerves II through XII are grossly intact without focal deficits. Motor strength is 5/5 bilaterally. Deep tendon reflexes are 2+ plantar. Assessment/Plan Assessment/Plan ASSESSMENT: This is a 60-year-old male: 1. Shortness of breath. 2. Fever. 3. COVID-19 positive. 4. Hypertension. 5. Cerebrovascular disease, status post cerebrovascular accident. 6. Hemiplegia. 7. Hypercholesterolemia. 8. Coronary artery disease. 9. Cardiomyopathy. 10. Paroxysmal atrial fibrillation. 11. Schizoaffective disorder, bipolar type. 12. Chronic kidney disease. 13. Sepsis=Staph epidermidis 14. Elevated troponin 15. AICD in situ TREATMENT: 1. Hypoxia/shortness of breath. A Pulmonary = Dr. Lyle Joy. COVID-19 testing = positive ABX=Zosyn. S/P vanco, ceftriaxone and azithromycin and remdesivir 2. Hypertension. 3. Cerebrovascular disease. 4. Hemiplegia. 5. Coronary artery disease. Cardiology= Dr. Kayden Aguilar. 6. Hypercholesterolemia. Continue atorvastatin as above. 7. Cardiomyopathy. 8. Paroxysmal atrial fibrillation. 9. Schizoaffective disorder, bipolar type. 10. Chronic kidney disease. 11. Pacemaker in situ. 12. ID=DR Espinoza 13. Abx: Monitor Off 14. Decadron # 11 15. Remdesivir #5/5 Completed. 16. DVT Prophylaxsis: Heparin SQ 17. Code status: Full code Edmund Carrera MD Feb 28, 2020 12:38
[2020-02-28 16:00] VITALS: BP 120/82
--- NOTE | 2020-02-28 18:05 | Cardiology Progress Note ---
Assessment/Plan Assessment/Plan 1. History ofICD 2. Possible pneumonia. 3. heart failure 4. History of cerebrovascular accident. 5. Schizophrenia. 6. History of pulmonary hypertension. 7. History of paroxysmal episodes of atrial fibrillation. 8. History of hemiplegia. 9. Hypertension. 10. History of kidney disease 11. bacteremia off ivf nwo on 4 liter keep on diuretics cr improved on treatment for covid 19 per id on norvasc on max dose of cozaar and is "allergic to acei" per record tele reviewed personally cxr reviewed personally on UF for dvt ppx due to renal insuf Subjective ROS Limited/Unobtainable: Yes Subjective deferreed as active covid infection per rn Patient is asleep lying semi-mehta's; resting comfortably. No signs of acute distress or pain noted at this time. On 10L Venturi mask. Objective Last 24 Hour Vital Signs Date Time Temp Pulse Resp B/P (MAP) Pulse Ox O2 Delivery O2 Flow Rate FiO2 02/28/20 17:01 131/75 02/28/20 16:00 84 02/28/20 16:00 97.9 80 20 120/82 (95) 96 02/28/20 12:39 131/75 02/28/20 12:00 62 02/28/20 12:00 98.1 73 20 131/75 (93) 99 02/28/20 12:00 Nasal Cannula 4.0 02/28/20 09:43 99 116/68 02/28/20 09:42 99 116/68 02/28/20 08:13 Venturi Mask 10.0 02/28/20 08:00 97.5 94 20 116/68 (84) 96 02/28/20 08:00 99 02/28/20 06:00 116/46 02/28/20 04:00 98.6 76 18 113/79 (90) 100 02/28/20 04:00 81 02/28/20 00:31 108/40 02/28/20 00:00 90 02/28/20 00:00 98.0 85 18 108/40 (62) 95 02/27/20 21:00 Venturi Mask 10.0 02/27/20 20:18 84 90/54 02/27/20 20:00 79 02/27/20 20:00 98.4 84 18 90/54 (66) 96 Intake and Output 02/27/20 02/28/20 19:00 07:00 Intake Total 140 ml 110.0 ml Output Total 1400 ml Balance -1260 ml 110.0 ml Intake Oral 140 ml IV Total 110.0 ml Output Urine Total 1400 ml # Voids 3 2 # Bowel Movements 1 Laboratory Tests Test 02/27/20 21:45 02/28/20 06:49 02/28/20 08:40 POC Whole Blood Glucose 119 MG/DL (74-106) H Pending White Blood Count 10.7 K/UL (4.8-10.8) Red Blood Count 4.47 M/UL (4.70-6.10) L Hemoglobin 14.4 G/DL (14.2-18.0) Hematocrit 43.0 % (42.0-52.0) Mean Corpuscular Volume 96 FL (80-99) Mean Corpuscular Hemoglobin 32.3 PG (27.0-31.0) H Mean Corpuscular Hemoglobin Concent 33.5 G/DL (32.0-36.0) Red Cell Distribution Width 13.9 % (11.6-14.8) Platelet Count 182 K/UL (150-450) Mean Platelet Volume 10.6 FL (6.5-10.1) H Neutrophils (%) (Auto) 75.7 % (45.0-75.0) H Lymphocytes (%) (Auto) 13.3 % (20.0-45.0) L Monocytes (%) (Auto) 6.7 % (1.0-10.0) Eosinophils (%) (Auto) 0.5 % (0.0-3.0) Basophils (%) (Auto) 3.8 % (0.0-2.0) H Sodium Level 140 MMOL/L (136-145) Potassium Level 3.8 MMOL/L (3.5-5.1) Chloride Level 107 MMOL/L (98-107) Carbon Dioxide Level 24 MMOL/L (21-32) Anion Gap 9 mmol/L (5-15) Blood Urea Nitrogen 30 mg/dL (7-18) H Creatinine 1.4 MG/DL (0.55-1.30) H Estimat Glomerular Filtration Rate > 60 mL/min (>60) Glucose Level 155 MG/DL (74-106) H Calcium Level 8.5 MG/DL (8.5-10.1) Microbiology Date/Time Source Procedure Growth Status 02/27/20 12:14 Nasopharynx SARS-CoV-2 RdRp Gene Assay - Final Complete Objective exam deferred due to active infection , per dr ruiz NECK: Supple without lymphadenopathy. CHEST: Venturi mask; Lungs with bilateral expiratory wheezes and rales. CARDIOVASCULAR: Regular rhythm and rate. S1 and S2 are normal without murmurs, rubs, or gallops. ABDOMEN: Soft, nontender, and nondistended. Positive bowel sounds. No evidence of hepatosplenomegaly. Currently, no rebound or guarding noted. EXTREMITIES: Negative for clubbing, cyanosis, or edema. Kayden Aguilar MD Feb 28, 2020 18:05
[2020-02-28 20:00] VITALS: BP 139/72
[2020-02-28] MEDS: Atorvastatin 20mg tab ORAL SCH (21:27)
[2020-02-29] VITALS: BP 133/76
[2020-02-29 04:00] VITALS: BP 105/69
[2020-02-29] MEDS: HydrALAZINE 25mg tab ORAL SCH ×3 (06:05→17:38)
[2020-02-29] MEDS: Piperacillin/Tazobactam 3.375 GM in NS 110 ML IVPB SCH (06:06)
[2020-02-29 08:00] VITALS: BP 102/70
--- NOTE | 2020-02-29 09:02 | Nephrology Progress Note ---
Assessment/Plan Problem List: (1) SHANNAN (acute kidney injury) (2) CHF (congestive heart failure) (3) Atrial fibrillation (4) Cardiomyopathy (5) ICD (implantable cardioverter-defibrillator) in place (6) History of CVA (cerebrovascular accident) (7) Pneumonia due to COVID-19 virus Assessment Acute on chronic renal failure Respiratory failure with hypoxia Pneumonia due to COVID-19 virus Sepsis Diabetes mellitus with elevated hemoglobin A1c Anemia Cardiomyopathy 20% EjFx Plan February 28: Status quo. No chemistry panel done today. Lab orders for tomorrow. Continue per consultants. February 27: Labs reviewed. Serum creatinine lower. Creatinine 1.4. Stable from renal standpoint of view. Continue per PMD and consultants. February 26: Labs reviewed. Serum creatinine lowering. Creatinine 1.5. White blood cells 11,000. Stable from renal standpoint of view. Continue per consultants. February 25: Yesterday's labs reviewed. Serum creatinine 1.7. No chemistry panel done today. As of yesterday white blood cell counts down to 12,000. Continue to monitor renal parameters. February 24: No chemistry panel done today. Last serum creatinine 1.8. White blood cells 26,000. Continue per ID. Will check renal parameters tomorrow. February 23: Labs reviewed. Serum creatinine 1.8. Medication list reviewed. Continue to monitor renal parameters. Continue to optimize cardiac status. February 22: Labs reviewed. I suspect today's labs is an error. Will repeat the blood work. Continue current management. Discussed with charge nurse about the repeating the blood work today February 21: Serum creatinine rising to 2. Uric acid verna. Patient renal failure is due to aggressive treatment for congestive heart failure and cardiomyopathy and ejection fraction of 20%. Continue to optimize cardiac st atus and diuretics as possible so hopefully we can prevent further deterioration of serum creatinine and renal function. February 20: Serum creatinine slightly higher to 1.7. Continue to adjust diuretics and afterload load reduction medications as such to stabilize serum creatinine from further rise. February 19. Serum creatinine higher to 1.6. Otherwise no new changes. We wi ll continue to monitor renal parameters. February 18: Renal parameters stable. Continue per consultants. February 17: Remains stable from renal standpoint of view. Continue per consultants. February 16: Patient stable from renal standpoint to view. Continue per pulmonary. Continue per ID. Serum creatinine down to 1.6 from 2.1 on admission day January 18: When I saw the patient this morning with charge nurse Wilfred the patient was somewhat hypoxic on oxygen. Was ordered to be put on mask and inform lamp shade maker for possible ABG check and further treatment plan. Labs reviewed. Serum creatinine stable. Troponin unchanged. Continue to monitor renal parameters. Continue to optimize cardiac and pulmonary status. Overall prognosis poor. Slow hydration Monitor electrolytes and renal parameters Monitor urine output Correct abnormal electrolytes Antibiotics, avoid nephrotoxic's Anemia work-up Per orders Subjective ROS Limited/Unobtainable: No Constitutional: Reports: malaise Objective Objective Last 24 Hour Vital Signs Date Time Temp Pulse Resp B/P (MAP) Pulse Ox O2 Delivery O2 Flow Rate FiO2 02/29/20 06:05 133/76 02/29/20 04:00 98.5 72 20 105/69 (81) 95 02/29/20 04:00 72 02/29/20 00:00 81 02/29/20 00:00 98.9 81 20 133/76 (95) 93 02/28/20 23:23 139/72 02/28/20 21:27 90 139/72 02/28/20 21:00 Nasal Cannula 3.0 02/28/20 20:00 98.6 83 20 139/72 (94) 93 02/28/20 20:00 83 02/28/20 17:01 131/75 02/28/20 16:00 84 02/28/20 16:00 97.9 80 20 120/82 (95) 96 02/28/20 12:39 131/75 02/28/20 12:00 62 02/28/20 12:00 98.1 73 20 131/75 (93) 99 02/28/20 12:00 Nasal Cannula 4.0 02/28/20 09:43 99 116/68 02/28/20 09:42 99 116/68 Intake and Output 02/28/20 02/29/20 19:00 07:00 Intake Total 820 ml 240 ml Balance 820 ml 240 ml Intake Oral 820 ml 240 ml # Voids 3 4 # Bowel Movements 3 Laboratory Tests 02/28/20 21:47: POC Whole Blood Glucose [Pending] 02/29/20 06:10: POC Whole Blood Glucose [Pending] Height (Feet): 5 Height (Inches): 10.00 Weight (Pounds): 231 General Appearance: no apparent distress Cardiovascular: normal rate Respiratory/Chest: decreased breath sounds Abdomen: soft Objective No change Ashvin Bautista MD Feb 29, 2020 09:02
--- NOTE | 2020-02-29 09:50 | Infectious Diseases Prog Note ---
Assessment/Plan Assessment: COVID19 positive (dx'ed 02/08/20)- likely PNA Acute hypoxic resp failure- sp NRB> 4l NC> desaturated to 78% and was placed on SM 8L 02/15 > VM 10L 02/19 -02/18 CXR: Worsening bilateral edema versus infiltrates, over 3 days -02/12 CXR: Cardiomegaly with vascular congestion and moderate edema. Gram positive bacteremia- m/l contaminant -02/12 Bcx 2/4 CoNS clusters, 2/4 diphteroids; 02/14 Bcx NTD Fever -[employer]ANCE [employer]OD[employer]ER- none here so far mild leukocytosis (on steroids) SHANNAN, improving Elevated AST, mild; increasing CVA w/ resultant aphasia HLD general anxiety disorder schizoaffective disorder-depressive type cardiomegaly pAfib pHTN CKD CAD HTN [place] resident ([facility]) Plan: - Monitor off abx - 02/29/20 SP Zosyn #5/5 - Asp PNA? HAP? -02/24/20 SP Decadron #10 -02/18 SP Ceftriaxone #7, Azithromycin #7 -02/17 SP Remdesivir #5 -02/16 SP IV Vancomycin #2 -f/u cx -Monitor CBC/CMP, temperatures -f/u repeat Bcx x2 Thank you for this consultation. Will continue to follow along with you. Subjective Allergies: Coded Allergies: DONNIE INHIBITORS (Verified Allergy, Unknown, 02/13/20) OMEGA-3 ACID ETHYL ESTERS (Verified Allergy, Unknown, 02/13/20) Afebrile Leukocytosis resolved On 3L NC Objective Last 24 Hour Vital Signs Date Time Temp Pulse Resp B/P (MAP) Pulse Ox O2 Delivery O2 Flow Rate FiO2 02/29/20 06:05 133/76 02/29/20 04:00 98.5 72 20 105/69 (81) 95 02/29/20 04:00 72 02/29/20 00:00 81 02/29/20 00:00 98.9 81 20 133/76 (95) 93 02/28/20 23:23 139/72 02/28/20 21:27 90 139/72 02/28/20 21:00 Nasal Cannula 3.0 02/28/20 20:00 98.6 83 20 139/72 (94) 93 02/28/20 20:00 83 02/28/20 17:01 131/75 02/28/20 16:00 84 02/28/20 16:00 97.9 80 20 120/82 (95) 96 02/28/20 12:39 131/75 02/28/20 12:00 62 02/28/20 12:00 98.1 73 20 131/75 (93) 99 02/28/20 12:00 Nasal Cannula 4.0 Height (Feet): 5 Height (Inches): 10.00 Weight (Pounds): 231 Gen: NAD Respiratory Exam: Equal rise and fall B/L Chest Abd: Soft ND Skin Exam: Normal in color no rashs Microbiology Date/Time Source Procedure Growth Status 02/27/20 12:14 Nasopharynx SARS-CoV-2 RdRp Gene Assay - Final Complete Laboratory Tests Test 02/28/20 21:47 02/29/20 06:10 POC Whole Blood Glucose Pending Pending Current Medications Medications (Trade) Dose Ordered Sig/Reji Route PRN Reason Start Time Stop Time Status Last Admin Dose Admin Acetaminophen (Tylenol) 500 mg Q4H PRN ORAL Mild Pain (Pain Scale 1-3) 02/14/20 00:30 03/15/20 00:29 02/27/20 06:20 Acetaminophen (Tylenol) 650 mg Q4H PRN ORAL FEVER 02/14/20 10:00 03/15/20 09:59 Amiodarone HCl (Cordarone) 200 mg DAILY ORAL 02/14/20 19:15 05/14/20 19:14 02/28/20 09:42 Amlodipine Besylate (Norvasc) 5 mg DAILY ORAL 02/23/20 09:00 03/21/20 17:59 02/28/20 09:43 Aspirin (ASA) 81 mg DAILY ORAL 02/15/20 09:00 03/31/20 08:59 02/28/20 09:43 Atorvastatin Calcium (Lipitor) 40 mg BEDTIME ORAL 02/14/20 21:00 05/14/20 20:59 02/28/20 21:27 Dextrose (Dextrose 50%) 25 ml Q30M PRN IV Hypoglycemia 02/14/20 10:00 05/14/20 09:59 Dextrose (Dextrose 50%) 50 ml Q30M PRN IV Hypoglycemia 02/14/20 10:00 05/14/20 09:59 Furosemide (Lasix) 20 mg DAILY ORAL 02/28/20 09:00 03/29/20 08:59 02/28/20 09:43 Heparin Sodium (Porcine) (Heparin 5000 units/ml) 5,000 units EVERY 12 HOURS SUBQ 02/14/20 10:00 03/30/20 09:59 02/28/20 21:32 Hydralazine HCl (Apresoline) 25 mg Q6HR ORAL 02/21/20 12:00 05/21/20 11:59 02/29/20 06:05 Metoprolol Tartrate (Lopressor) 25 mg EVERY 12 HOURS ORAL 02/14/20 21:00 05/14/20 20:59 02/28/20 21:27 Ondansetron HCl (Zofran) 4 mg Q6H PRN IVP Nausea & Vomiting 02/14/20 10:00 03/15/20 09:59 Pantoprazole (Protonix) 40 mg EVERY 12 HOURS ORAL 02/15/20 21:00 03/16/20 20:59 02/28/20 21:27 Piperacillin Sod/ Tazobactam Sod 3.375 gm/Sodium Chloride 110 ml @ 27.5 mls/hr EVERY 8 HOURS IVPB 02/24/20 14:00 02/29/20 13:59 02/29/20 06:06 Polyethylene Glycol (Miralax) 17 gm DAILYPRN PRN ORAL Constipation 02/14/20 10:00 03/15/20 09:59 02/24/20 09:10 Promethazine HCl/ Codeine (Phenergan with Codeine) 5 ml Q6H PRN ORAL cough 02/14/20 10:00 03/15/20 09:59 Tamsulosin HCl (Flomax) 0.4 mg BID ORAL 02/21/20 10:30 03/21/20 10:29 02/28/20 17:01 Harpreet Morgan MD Feb 29, 2020 09:50
[2020-02-29] MEDS: Amiodarone 200mg tab ORAL SCH (10:28)
[2020-02-29] MEDS: Aspirin Baby 81mg ORAL SCH (10:28)
[2020-02-29] MEDS: Tamsulosin 0.4mg cap ORAL SCH ×2 (10:31→17:38)
[2020-02-29] MEDS: Heparin 5000 units/ml inj SUBQ SCH (10:33)
--- NOTE | 2020-02-29 10:56 | Pulmonology Progress Note ---
Subjective ROS Limited/Unobtainable: No Constitutional: Reports: no symptoms HEENT: Repors: no symptoms Respiratory: Reports: productive cough, other - on VM Allergies: Coded Allergies: DONNIE INHIBITORS (Verified Allergy, Unknown, 02/13/20) OMEGA-3 ACID ETHYL ESTERS (Verified Allergy, Unknown, 02/13/20) Objective Last 24 Hour Vital Signs Date Time Temp Pulse Resp B/P (MAP) Pulse Ox O2 Delivery O2 Flow Rate FiO2 02/29/20 10:31 72 133/76 02/29/20 10:28 72 133/76 02/29/20 06:05 133/76 02/29/20 04:00 98.5 72 20 105/69 (81) 95 02/29/20 04:00 72 02/29/20 00:00 81 02/29/20 00:00 98.9 81 20 133/76 (95) 93 02/28/20 23:23 139/72 02/28/20 21:27 90 139/72 02/28/20 21:00 Nasal Cannula 3.0 02/28/20 20:00 98.6 83 20 139/72 (94) 93 02/28/20 20:00 83 02/28/20 17:01 131/75 02/28/20 16:00 84 02/28/20 16:00 97.9 80 20 120/82 (95) 96 02/28/20 12:39 131/75 02/28/20 12:00 62 02/28/20 12:00 98.1 73 20 131/75 (93) 99 02/28/20 12:00 Nasal Cannula 4.0 Intake and Output 02/28/20 02/29/20 19:00 07:00 Intake Total 820 ml 240 ml Balance 820 ml 240 ml Intake Oral 820 ml 240 ml # Voids 3 4 # Bowel Movements 3 General Appearance: WD/WN, other - A/A/O x 4 AA male in NAD HEENT: normocephalic, atraumatic, other - VM on Respiratory: chest wall non-tender, other - few scattered rhonchi Cardiovascular: normal peripheral pulses, normal rate - SR on tele Abdomen: normal bowel sounds, soft, non tender Genitourinary: normal external genitalia Extremities: no cyanosis, no edema Skin: no rash Neurologic: electronic news gathering camera person II-XII grossly normal, no motor/sensory deficits, alert, oriented x 3, responsive Lymphatic: no neck adenopathy Musculoskeletal: normal muscle bulk Microbiology Date/Time Source Procedure Growth Status 02/27/20 12:14 Nasopharynx SARS-CoV-2 RdRp Gene Assay - Final Complete Laboratory Tests 02/28/20 21:47: POC Whole Blood Glucose [Pending] 02/29/20 06:10: POC Whole Blood Glucose [Pending] Current Medications Medications (Trade) Dose Ordered Sig/Reji Route PRN Reason Start Time Stop Time Status Last Admin Dose Admin Acetaminophen (Tylenol) 500 mg Q4H PRN ORAL Mild Pain (Pain Scale 1-3) 02/14/20 00:30 03/15/20 00:29 02/27/20 06:20 Acetaminophen (Tylenol) 650 mg Q4H PRN ORAL FEVER 02/14/20 10:00 03/15/20 09:59 Amiodarone HCl (Cordarone) 200 mg DAILY ORAL 02/14/20 19:15 05/14/20 19:14 02/29/20 10:28 Amlodipine Besylate (Norvasc) 5 mg DAILY ORAL 02/23/20 09:00 03/21/20 17:59 02/29/20 10:28 Aspirin (ASA) 81 mg DAILY ORAL 02/15/20 09:00 03/31/20 08:59 02/29/20 10:28 Atorvastatin Calcium (Lipitor) 40 mg BEDTIME ORAL 02/14/20 21:00 05/14/20 20:59 02/28/20 21:27 Dextrose (Dextrose 50%) 25 ml Q30M PRN IV Hypoglycemia 02/14/20 10:00 05/14/20 09:59 Dextrose (Dextrose 50%) 50 ml Q30M PRN IV Hypoglycemia 02/14/20 10:00 05/14/20 09:59 Furosemide (Lasix) 20 mg DAILY ORAL 02/28/20 09:00 03/29/20 08:59 02/29/20 10:28 Heparin Sodium (Porcine) (Heparin 5000 units/ml) 5,000 units EVERY 12 HOURS SUBQ 02/14/20 10:00 03/30/20 09:59 02/29/20 10:33 Hydralazine HCl (Apresoline) 25 mg Q6HR ORAL 02/21/20 12:00 05/21/20 11:59 02/29/20 06:05 Metoprolol Tartrate (Lopressor) 25 mg EVERY 12 HOURS ORAL 02/14/20 21:00 05/14/20 20:59 02/29/20 10:31 Ondansetron HCl (Zofran) 4 mg Q6H PRN IVP Nausea & Vomiting 02/14/20 10:00 03/15/20 09:59 Pantoprazole (Protonix) 40 mg EVERY 12 HOURS ORAL 02/15/20 21:00 03/16/20 20:59 02/29/20 10:31 Polyethylene Glycol (Miralax) 17 gm DAILYPRN PRN ORAL Constipation 02/14/20 10:00 03/15/20 09:59 02/24/20 09:10 Promethazine HCl/ Codeine (Phenergan with Codeine) 5 ml Q6H PRN ORAL cough 02/14/20 10:00 03/15/20 09:59 Tamsulosin HCl (Flomax) 0.4 mg BID ORAL 02/21/20 10:30 03/21/20 10:29 02/29/20 10:31 Assessment/Plan Problems: (1) Pneumonia due to COVID-19 virus (2) Sepsis (3) Atrial fibrillation (4) CHF (congestive heart failure) (5) Arrhythmia (6) History of CVA (cerebrovascular accident) (7) Psychosis (8) Acute delirium Assessment/Plan on nasal cannula still on restrains, confused and at times agitated comfortable cxr reviewed, patchy bilateral airspace opacities and diffuse interstitial opacities. respiratory isolation check sputum off abx echocardiogram reviewed, EF 30% optimize cardiac meds dvt prophylaxis Lyle Joy MD Feb 29, 2020 10:56
[2020-02-29 12:00] VITALS: BP 143/88
[2020-02-29 16:00] VITALS: BP 127/85
--- NOTE | 2020-02-29 17:28 | Internal Med Progress Note ---
Subjective Date of Service: Feb 29, 2020 Physician Name Edmund Carrera Attending Physician Atilio Lee MD Current Medications Medications (Trade) Dose Ordered Sig/Reji Route PRN Reason Start Time Stop Time Status Last Admin Dose Admin Acetaminophen (Tylenol) 500 mg Q4H PRN ORAL Mild Pain (Pain Scale 1-3) 02/14/20 00:30 03/15/20 00:29 02/27/20 06:20 Acetaminophen (Tylenol) 650 mg Q4H PRN ORAL FEVER 02/14/20 10:00 03/15/20 09:59 Amiodarone HCl (Cordarone) 200 mg DAILY ORAL 02/14/20 19:15 05/14/20 19:14 02/29/20 10:28 Amlodipine Besylate (Norvasc) 5 mg DAILY ORAL 02/23/20 09:00 03/21/20 17:59 02/29/20 10:28 Aspirin (ASA) 81 mg DAILY ORAL 02/15/20 09:00 03/31/20 08:59 02/29/20 10:28 Atorvastatin Calcium (Lipitor) 40 mg BEDTIME ORAL 02/14/20 21:00 05/14/20 20:59 02/28/20 21:27 Dextrose (Dextrose 50%) 25 ml Q30M PRN IV Hypoglycemia 02/14/20 10:00 05/14/20 09:59 Dextrose (Dextrose 50%) 50 ml Q30M PRN IV Hypoglycemia 02/14/20 10:00 05/14/20 09:59 Furosemide (Lasix) 20 mg DAILY ORAL 02/28/20 09:00 03/29/20 08:59 02/29/20 10:28 Heparin Sodium (Porcine) (Heparin 5000 units/ml) 5,000 units EVERY 12 HOURS SUBQ 02/14/20 10:00 03/30/20 09:59 02/29/20 10:33 Hydralazine HCl (Apresoline) 25 mg Q6HR ORAL 02/21/20 12:00 05/21/20 11:59 02/29/20 12:41 Metoprolol Tartrate (Lopressor) 25 mg EVERY 12 HOURS ORAL 02/14/20 21:00 05/14/20 20:59 02/29/20 10:31 Ondansetron HCl (Zofran) 4 mg Q6H PRN IVP Nausea & Vomiting 02/14/20 10:00 03/15/20 09:59 Pantoprazole (Protonix) 40 mg EVERY 12 HOURS ORAL 02/15/20 21:00 03/16/20 20:59 02/29/20 10:31 Polyethylene Glycol (Miralax) 17 gm DAILYPRN PRN ORAL Constipation 02/14/20 10:00 03/15/20 09:59 02/24/20 09:10 Promethazine HCl/ Codeine (Phenergan with Codeine) 5 ml Q6H PRN ORAL cough 02/14/20 10:00 03/15/20 09:59 Tamsulosin HCl (Flomax) 0.4 mg BID ORAL 02/21/20 10:30 03/21/20 10:29 02/29/20 10:31 Allergies: Coded Allergies: DONNIE INHIBITORS (Verified Allergy, Unknown, 02/13/20) OMEGA-3 ACID ETHYL ESTERS (Verified Allergy, Unknown, 02/13/20) ROS Limited/Unobtainable: Yes Subjective 60 YO M admitted with shortness of breath. Now COVID 19 and sepsis. Cover for [facility]-Dr Lee. Objective Last Vital Signs Date Time Temp Pulse Resp B/P (MAP) Pulse Ox O2 Delivery O2 Flow Rate FiO2 02/29/20 16:00 69 02/29/20 16:00 97.8 20 127/85 (99) 94 02/29/20 09:00 Nasal Cannula 3.0 Laboratory Tests Test 02/28/20 21:47 02/29/20 06:10 POC Whole Blood Glucose Pending Pending Microbiology Date/Time Source Procedure Growth Status 02/27/20 12:14 Nasopharynx SARS-CoV-2 RdRp Gene Assay - Final Complete Intake and Output 02/28/20 02/29/20 19:00 07:00 Intake Total 820 ml 240 ml Balance 820 ml 240 ml Intake Oral 820 ml 240 ml # Voids 3 4 # Bowel Movements 3 Objective PHYSICAL EXAMINATION: GENERAL: The patient is well-developed and well-nourished male, no apparent distress. HEENT: Eyes, pupils are equal and responsive to light and accommodation. Extraocular movements are intact. NECK: Supple without lymphadenopathy. CHEST: Venturi mask; Lungs with bilateral expiratory wheezes and rales. CARDIOVASCULAR: Regular rhythm and rate. S1 and S2 are normal without murmurs, rubs, or gallops. ABDOMEN: Soft, nontender, and nondistended. Positive bowel sounds. No evidence of hepatosplenomegaly. Currently, no rebound or guarding noted. EXTREMITIES: Negative for clubbing, cyanosis, or edema. RECTAL/GENITAL: Not performed. NEUROLOGIC: Cranial nerves II through XII are grossly intact without focal deficits. Motor strength is 5/5 bilaterally. Deep tendon reflexes are 2+ plantar. Assessment/Plan Assessment/Plan ASSESSMENT: This is a 60-year-old male: 1. Shortness of breath. 2. Fever. 3. COVID-19 positive. 4. Hypertension. 5. Cerebrovascular disease, status post cerebrovascular accident. 6. Hemiplegia. 7. Hypercholesterolemia. 8. Coronary artery disease. 9. Cardiomyopathy. 10. Paroxysmal atrial fibrillation. 11. Schizoaffective disorder, bipolar type. 12. Chronic kidney disease. 13. Sepsis=Staph epidermidis 14. Elevated troponin 15. AICD in situ TREATMENT: 1. Hypoxia/shortness of breath. A Pulmonary = Dr. Lyle Joy. COVID-19 testing = positive ABX=S/P Zosyn, vanco, ceftriaxone and azithromycin and remdesivir 2. Hypertension. 3. Cerebrovascular disease. 4. Hemiplegia. 5. Coronary artery disease. Cardiology= Dr. Kayden Aguilar. 6. Hypercholesterolemia. Continue atorvastatin as above. 7. Cardiomyopathy. 8. Paroxysmal atrial fibrillation. 9. Schizoaffective disorder, bipolar type. 10. Chronic kidney disease. 11. Pacemaker in situ. 12. ID=DR Espinoza 13. Abx: Monitor Off 14. Decadron # 11 15. Remdesivir #5/5 Completed. 16. DVT Prophylaxsis: Heparin SQ 17. Code status: Full code Edmund Carrera MD Feb 29, 2020 17:28
[2020-02-29 17:38] VITALS: BP 127/85
--- NOTE | 2020-03-01 10:50 | Discharge Summary ---
Discharge Summary Discharge Summary _ DATE OF ADMISSION: 02/13/2020 DATE OF DISCHARGE: 02/29/2020 Dr. Lee DISCHARGED BY: REASON FOR ADMISSION: 60 years old male with past medical history of COPD, hypertension, chronic kidney disease, history of CVA with aphasia, hyperlipidemia, paroxysmal atrial fibrillation, resident of alf facility, was tested positive for COVID on February 08, 2020. Patient was kept in isolation at the alf facility. Patient was sent for evaluation due to fever and shortness of breath. Per paramedics temperature was 102 , pulse oximetry 82% on the room air. Patient required 100% percent nonrebreather mask with pulse oximetry reaching for 95%. Rapid COVID-19 was positive. Laboratory work-up initially revealed no leukocytosis, hemoglobin 14.4, hematocrit 43.4 ,platelet count 145. BUN 26, creatinine 2.1. Glucose 148. Lactic acid 3.2. Ferritin 814, LDH 347, CRP 17.6, d-dimer 14.52. Troponin 0.085 , EKG revealed sinus rhythm, no acute ischemic changes. Chest x-ray demonstrated cardiomegaly with vascular congestion and moderate edema. Urinalysis revealed +2 protein , +1 leukocyte esterase, but no pyuria and no bacteria. In emergency department patient received empiric antibiotic , Lovenox, antipyretic , steroid, IV fluids and admitted for further management . CONSULTANTS: natural sciences manager Dr. Aguilar pulmonary Dr. Joy ID specialist Dr. Espinoza locker room manager Dr. Bautista HOSPITAL COURSE: Patient admitted to telemetry floor . Patient was kept in isolation. Patient received 10 days of Remdesivir and steroids along with empiric antibiotics ceftriaxone and Azithromycin. Supplemental oxygen provided and titrated to keep pulse oximetry above 92%. Pulmonary toilet provided. Albuterol MDI and antitussive provided as needed. Patient noted to develop leukocytosis . Patient initially was on empiric antibiotics as mentioned above, then started on Zosyn as per ID recommendation Initial blood culture were positive for Staph epidermidis and diphtheroids, likely contaminant. Repeated blood culture 02/14 and 02/23 were negative. Patient was followed -up with chest x-ray. Patient completed 5 days of Zosyn. Leukocytosis resolved , no fevers. ID specialist recommended to monitor patient off antibiotics. Echocardiogram revealed ejection fraction of 30 to 35% with global left ventricular hypokinesis. Guideline directed medical therapy with beta-jalen and ARB provided . Volumes were closely monitored . Patient later started on diuretics (after creatinine improved). Per natural sciences manager patient need a maintenance dose of diuretic with close monitoring of volumes. Pro BNP trended down from the highest 6952 down to 39. Antiplatelet therapy with aspirin and statin continued. DVT and GI prophylaxis provided. Blood pressure was managed with calcium channel jalen , beta-jalen and ARB. Renal parameters and electrolytes were closely monitored, electrolytes corrected as needed and nephrotoxic's were avoided. Renal ultrasound revealed no hydronephrosis or stones. Normal bilateral kidney echogenicity. Creatinine from 2.1 down to 1.4 prior to discharge. Blood sugar was managed with sliding scale of insulin. Hemoglobin A1c at goal. Patient noted to have an elevated LFT during the course of the illness . LFT were closely monitored , trending down. Inflammatory markers were trending to assess the risk for cytokine storm ; CRP down to 1.1 prior to discharge. As patient clinically improved, he was able to be weaned to oxygen via nasal cannula. Prior to discharge pulse oximetry stable on 3 L O2 via nasal cannula. Patient clinically stabilized and was ready for discharge back to alf facility for continuation of care. FINAL DIAGNOSES: Sepsis COVID-19 pneumonia Acute hypoxemic respiratory failure due to COVID 19 infection CHF with systolic dysfunction Cardiomyopathy with ejection fraction 30 to 35% AICD Acute kidney injury on chronic kidney disease History of CVA with residual aphasia Paroxysmal atrial fibrillation Elevated LFT Diabetes mellitus Schizoaffective disorder DISCHARGE MEDICATIONS: See Medication Reconciliation list. DISCHARGE INSTRUCTIONS: Patient was discharged to the alf facility. Follow up with medical doctor at the facility. I have been assigned to dictate discharge summary for this account. Tika Dunn NP Mar 01, 2020 10:50
== END 2020-02-29 19:50 | DRG 871 ==
LOC: EDBD 22:29 → EMR 22:57 → 2E 23:12 → EDBEDREQ 23:15 → CMPBEDREQ 23:55 → 2E 02-20 11:55
DX: A41.1 Sepsis due to other specified staphylococcus (principal); U07.1 COVID-19; J12.89 Other viral pneumonia; J96.01 Acute respiratory failure with hypoxia; I69.359 Hemiplegia and hemiparesis following cerebral infarction affecting unspecified side; N17.9 Acute kidney failure, unspecified; I13.0 Hypertensive heart and chronic kidney disease with heart failure and stage 1 through stage 4 chronic kidney disease, or unspecified chronic kidney disease; I50.20 Unspecified systolic (congestive) heart failure; I42.9 Cardiomyopathy, unspecified; D63.8 Anemia in other chronic diseases classified elsewhere; E11.22 Type 2 diabetes mellitus with diabetic chronic kidney disease; N18.9 Chronic kidney disease, unspecified; I48.0 Paroxysmal atrial fibrillation; I25.10 Atherosclerotic heart disease of native coronary artery without angina pectoris; F25.0 Schizoaffective disorder, bipolar type; B95.7 Other staphylococcus as the cause of diseases classified elsewhere; Z88.8 Allergy status to other drugs, medicaments and biological substances; I69.320 Aphasia following cerebral infarction; Z95.810 Presence of automatic (implantable) cardiac defibrillator; R94.5 Abnormal results of liver function studies; F41.9 Anxiety disorder, unspecified; I49.9 Cardiac arrhythmia, unspecified; R41.0 Disorientation, unspecified
CPT/HCPCS: 36415; 71045; 76770; 80048; 80053; 80061; 80076; 80202; 81001; 81003; 82043; 82248; 82550; 82607; 82728; 82746; 82803; 82962; 82977; 83036; 83540; 83550; 83605; 83615; 83735; 83880; 83935; 84100; 84300; 84443; 84484; 84550; 85007; 85025; 85379; 85610; 85651; 85730; 86140; 87040; 87081; 87086; 87181; 89050; 93005; 93306; 96365; 96368; 96372; 96375; 99291; J3490; J7030; U0002